=== PATIENT | male | born 1945 | race Caucasian/White ===

== ENCOUNTER → 2017-10-24 12:00 | Outpatient (CLI) | payer MEDICARE, OTHER, SELFPAY ==
[2017-10-24 15:58] LABS: Basophils % 0.6 % (0.1-2.0); Eosinophils # 0.9 K/mm3 (0.0-0.4); Eosinophils % 13.9 % (0.1-12.0); Hematocrit 43.6 % (42.0-52.0); Hemoglobin 14.9 g/dL (14.1-18.0); Lymphocytes # 1.7 K/mm3 (0.7-4.5); Lymphocytes % 25.6 K/mm3 (10-50); Mean Corpuscular HGB Conc 34.1 g/dL (31.8-35.4); Mean Corpuscular Volume 93.9 fl (80-94); Mean Platelet Volume 7.7 fl (7.4-10.4); Monocytes # 0.4 K/mm3 (0.1-1.0); Neutrophils # 3.6 K/mm3 (1.8-7.8); Neutrophils % 53.8 % (37.0-80.0); Platelet Count 162 K/mm3 (142-424); Red Blood Count 4.65 M/mm3 (4.60-6.20); Red Cell Distribution Width 12.5 % (11.5-17.5); White Blood Count 6.7 K/mm3 (4.8-10.8)
[2017-10-24 16:56] LABS: Erythrocyte Sedimentation Rate 11 mm/hr (0-20)
[2017-10-24 19:35] LABS: Alanine Aminotransferase 40 U/L (12-78); Albumin Level 3.8 gm/dL (3.4-5.0); Albumin/Globulin Ratio 1.3 (1.1-1.8); Alkaline Phosphatase 93 U/L (46-116); Aspartate Amino Transferase 24 U/L (15-37); Bilirubin,Total 0.9 mg/dL (0.2-1.0); Blood Urea Nitrogen 15 mg/dL (7-18); Calcium 8.7 mg/dL (8.5-10.1); Carbon Dioxide 25 mmol/L (21.0-32.0); Chloride 102 mmol/L (98-107); Creatinine Clearance Estimated 105 mL/min (0-300); Creatinine,Serum 0.96 mg/dL (0.70-1.30); Estimated Glomerular Filt Rate 77 ml/min (>60); GFR (African American) 94 ML/MIN (>60); Globulin 2.9 gm/dl (1.3-3.2); Glucose 110 mg/dL (74-106); Sodium 138 mmol/L (136-145); Thyroid Stimulating Hormone 1.99 uIU/ml (0.358-3.740); Total Protein,Serum 6.7 gm/dL (6.4-8.2)
[2018-01-12 13:29] LABS: Homocyst(e)ine 13.3
[2018-01-12 13:30] LABS: Vitamin B12 1035
[2018-01-12 13:35] LABS: Folate 15.5
== END ==
PROVIDERS: Family Provider Family Medicine; PCP Family Medicine; Visit Provider Specialist
DX: G45.9 Transient cerebral ischemic attack, unspecified (principal); R51 Headache; I10 Essential (primary) hypertension; R41.3 Other amnesia; E78.5 Hyperlipidemia, unspecified; E53.8 Deficiency of other specified B group vitamins; E72.11 Homocystinuria
CPT/HCPCS: 36415; 80053; 82607; 82746; 83090; 84443; 85025; 85651

== ENCOUNTER → 2017-11-01 08:23 | Outpatient (CLI) | payer MEDICARE, OTHER, SELFPAY | PROVIDERS: Family Provider Family Medicine; PCP Family Medicine; Visit Provider Specialist | DX: G45.8 Other transient cerebral ischemic attacks and related syndromes (principal); R51 Headache ==

== ENCOUNTER → 2017-11-03 10:57 | Outpatient (CLI) | payer MEDICARE, OTHER, SELFPAY ==
--- NOTE | 2017-11-03 11:24 | MR_ITS ---
MR head/brain wo/w con HISTORY: ITS.REASON: TRANSIENT CEREBRAL ISCHEMIA, HEADACHES ORDERING PHYSICIAN: Cynthia Scruggs MD PATIENT AGE: 71 years COMPARISON: None TECHNIQUE: Standard multiplanar multiecho sequences are performed without contrast. FINDINGS: No midline shift, mass effect, intracranial hemorrhage, or hydrocephalus is evident. No evidence of acute infarction. No enhancing lesions. There are scattered periventricular and subcortical T2 white matter hyperintensities which may be related to ischemic gliotic foci from small vessel disease. There are scattered perivascular dilated spaces within the basal ganglia. The cerebellopontine angles, cerebellum, and brainstem are unremarkable. Hippocampal structures are unremarkable in the temporal horns are symmetric. No restricted diffusion. Pituitary and optic chiasm are unremarkable. No cerebellar ectopia. No mastoid effusion or sinus air-fluid level. There is mild mucosal thickening of the maxillary sinuses inferiorly. IMPRESSION: 1. No acute intracranial findings. 2. Mild periventricular ischemic gliotic change 3. Mild bilateral maxillary sinus disease
== END ==
PROVIDERS: Family Provider Family Medicine; PCP Family Medicine; Visit Provider Specialist
DX: G45.8 Other transient cerebral ischemic attacks and related syndromes (principal); R51 Headache
CPT/HCPCS: 70553; A9576

== ENCOUNTER → 2017-11-14 12:49 | Outpatient (CLI) | payer MEDICARE, OTHER, SELFPAY ==
--- NOTE | 2017-11-14 13:09 | CT_ITS ---
CT heart w calcium score Ordering Physician: Harmeet Chen MD Patient Age: 71 years: Male HISTORY: ITS.REASON: abnormal ekg extensive coronary artery calcium as seen on recent prior LD CT chest TECHNIQUE: Limited imaging performed focus seen through low dose sections through the heart for purposes of CT calcium scoring determination. COMPARISON :LD CT for lung screening August 05, 2017. FINDINGS: Coronary calcium score is 541 which is very high score and reflects extensive plaque burden with very high CVD risk. high cardiovascular disease risk. Limited images submitted of the chest for the calcium score shows developing dilatation of the proximal ascending aorta at 4.2 cm Heart appears upper normal in size with no pericardial effusion with the extensive coronary artery calcification as well as noted above. COPD emphysematous changes as previously described IMPRESSION: Calcium score = 541. This very high score reflecting extensive plaque burden & very high risk of cardiovascular disease . Mild Dilated ascending aorta measured 4.2 cm diameter
== END ==
PROVIDERS: Family Provider Family Medicine; PCP Family Medicine; Visit Provider Internal Medicine Cardiovascular Disease
DX: R94.31 Abnormal electrocardiogram [ECG] [EKG] (principal)
CPT/HCPCS: 75571

== ENCOUNTER 2017-11-17 12:06 | Day surgery (SDC) | payer MEDICARE, OTHER, SELFPAY ==
[2017-11-17] VITALS (8 sets, daily range): BP systolic 115–142; BP diastolic 66–75; PULSE 58–68; RESP 16–18; O2SAT 96–97; BMI 29.1
--- NOTE | 2017-11-17 12:14 | CA_ITS ---
Procedure: Transesophageal echocardiogram Indication for procedure: TIA, hypertension hyperlipidemia. Procedure: Patient was brought into cardiac catheter lab holding area with an consistent with condition, after the informed consent, conscious sedation was provided by anesthesiologist, local anesthesia was applied and transesophageal echocardiogram was performed without any difficulty. Patient tolerated the procedure well. Findings: 1. The left atrium is mildly enlarged, left atrial appendage is free of thrombus, there is good appendage flow by spectral Doppler. 2. The right atrium is normal size. 3. The intra-atrial septum is intact, there is no flow across the intra-atrial septum, agitated saline contrast study fails to identify intracardiac shunt. 4. The aortic valve is thickened and calcified, leaflet continue to display good mobility, there is no aortic stenosis, there is mild aortic insufficiency. 5. The mitral valve is structurally normal, there is mild mitral regurgitation 6. The tricuspid valve is structurally normal, there is mild tricuspid regurgitation 7. The pulmonic valve is structurally normal. 8. The right ventricle is normal size and contractility. 9. The left ventricle is normal size, visually estimated ejection fraction 55% with no obvious regional wall motion abnormality. 10. Ascending, arch and descending thoracic aorta, there is no aneurysm or dissection, nonmobile by atheromatous plaque seen in the descending thoracic aorta. 11. No significant pericardial effusion noted. Conclusion: 1. Mildly enlarged left atrium, normal left ventricular size, visually estimated ejection fraction 55% with no obvious regional wall motion abnormality. 2. Mild aortic, mild mitral and tricuspid regurgitation 3. Agitated is and color Doppler 5 intracardiac shunt. 4. No obvious intracardiac thrombi seen. 5. Nonmobile atheromatous plaque seen in the descending thoracic aorta. 6. No significant pericardial effusion noted.
--- NOTE | 2017-11-17 13:22 | P.PN_ITS ---
[facility] Anesthesia Checklist - Patient Identification Patient Identification: Arm Band - Structural Data Admitted From: Home Planned Operative Procedure/s: glenn Consent for Planned Operative Procedure(s) Verified: Yes Verified Documents: Surgical Consent, History and Physical - NPO Status Verified Time NPO: 00:00 - Additional verifications Anesthesia Reactions: No - Airway Assessment C-Spine Mobility Assessed: Yes (mp2) TMJ Mobility Assessed: Yes Dentition: Good Dentition - Neurological Assessment Level of Consciousness: Awake, Alert - Anesthesia Plan Anesthesia Risk discussed: Yes Anesthesia Plan: Verified ASA Class: III Anesthesia Type: MAC [facility] Anesthesia HX I have reviewed the patient's past medical history: Yes Medical History: Reports:: Gastroesophageal Reflux Disease(GERD), Hyperlipidemia , Hypertension, Transient Ischemic Attacks (TIA) Denies:: Cancer, Diabetes Mellitus Type 1, Diabetes Mellitus Type 2, Internal Pacemaker, MRSA, Seizures Other Medical History: Reports: Arthritis, Cataracts, Glaucoma. Denies: Blood Transfusion Reaction Other Surgeries: Yes: Hernia Repair (x2). No: Pacemaker Amputation: No Fractures: No *Family Hx:: Cancer, Stroke, Heart Attack
== END 2017-11-17 14:15 | disposition home or self-care (01) ==
LOC: CATHLAB 12:09
PROVIDERS: Family Provider Family Medicine; PCP Family Medicine; Visit Provider Internal Medicine Cardiovascular Disease
DX: R53.81 Other malaise (principal); Z82.49 Family history of ischemic heart disease and other diseases of the circulatory system; R47.01 Aphasia; G47.33 Obstructive sleep apnea (adult) (pediatric); R93.1 Abnormal findings on diagnostic imaging of heart and coronary circulation
CPT/HCPCS: 93312; 99152

== ENCOUNTER → 2017-12-06 06:32 | Outpatient (CLI) | payer MEDICARE, OTHER, SELFPAY ==
--- NOTE | 2017-12-06 06:35 | NM_ITS ---
SPECT MYOCARDIAL PERFUSION SCAN, REST AND STRESS: EXERCISE STRESS: [facility] REVIEW QGS EF AND WALL MOTION EVALUATION: QPS - PERFUSION EVALUATION: HISTORY: Fatigue, HTN PROCEDURE: Rest imaging performed after administration of10.23 millicuries Tc MIBI. Dose administered at6:50 a.m., with imaging thereafter. Stress imaging was then performed following7 minutes 15 seconds of exercise stress. The patient achieved a heart [id number] with projected heart rate of126 . Resting BP151/80 with stress 215/85. At maximum exercise stress,32.0 millicuries Tc MIBI administered at8:45 a.m. with [id number] minutes thereafter. FINDINGS: Perfusion Evaluation: The single slice spect images as well as the [facility] bull's-eye data summary were reviewed. Wall Motion and Ejection Fraction Evaluation: Gated SPECT review and analysis used to evaluate these features. There is a 59% % left ventricular ejection fraction. There seems to be good wall motion Stress images reveal decreased activity in the inferior wall while rest images reveal worsening activity in the inferior wall. 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 Normal ejection fraction normal wall motion. Clinical correlation is advised this is at least a moderate risk abnormal stress test
--- NOTE | 2017-12-06 07:00 | HMH.ITSHM ---
ATORVASTATIN LISINOPRIL FOLIC ACID FISH OIL ASA
== END ==
PROVIDERS: Family Provider Family Medicine; PCP Family Medicine; Visit Provider Internal Medicine Cardiovascular Disease
DX: G47.33 Obstructive sleep apnea (adult) (pediatric) (principal); Z86.73 Personal history of transient ischemic attack (TIA), and cerebral infarction without residual deficits; Z82.49 Family history of ischemic heart disease and other diseases of the circulatory system; R53.83 Other fatigue; R47.01 Aphasia; E78.5 Hyperlipidemia, unspecified; R94.31 Abnormal electrocardiogram [ECG] [EKG]; I10 Essential (primary) hypertension; R51 Headache; R06.02 Shortness of breath
CPT/HCPCS: 78452; 93017; A9502

== ENCOUNTER → 2018-01-10 07:09 | Outpatient (CLI) | payer MEDICARE, OTHER, SELFPAY ==
[2018-01-10 08:53] LABS: Blood Urea Nitrogen 20 mg/dL (7-18); Carbon Dioxide 26 mmol/L (21.0-32.0); Chloride 105 mmol/L (98-107); Creatinine,Serum 0.95 mg/dL (0.70-1.30); Estimated Glomerular Filt Rate 78 ml/min (>60); GFR (African American) 95 ML/MIN (>60); Glucose 112 mg/dL (74-106); Sodium 140 mmol/L (136-145)
[2018-01-12 06:32] LABS: Vitamin B12 1465 pg/mL (232-1245); Vitamin D 25 Hydroxy 38.3 ng/mL (30.0-100.0)
== END ==
PROVIDERS: Internal Medicine Cardiovascular Disease; Visit Provider Family Medicine
DX: E53.8 Deficiency of other specified B group vitamins (principal); E87.6 Hypokalemia; E55.9 Vitamin D deficiency, unspecified
CPT/HCPCS: 36415; 80048; 82607; 82652

== ENCOUNTER → 2018-08-15 07:11 | Outpatient (CLI) | payer MEDICARE, OTHER, SELFPAY ==
[2018-08-15 07:41] LABS: Creatinine,Urine Random 155 mg/dL (20-320)
[2018-08-15 09:06] LABS: Alanine Aminotransferase 34 U/L (12-78); Albumin Level 3.7 gm/dL (3.4-5.0); Albumin/Globulin Ratio 1.3 (1.1-1.8); Alkaline Phosphatase 106 U/L (46-116); Anion Gap 13.1 mEq/L (5-15); Aspartate Amino Transferase 21 U/L (15-37); Bilirubin,Total 0.8 mg/dL (0.2-1.0); Blood Urea Nitrogen 12 mg/dL (7-18); Calcium 8.6 mg/dL (8.5-10.1); Carbon Dioxide 26 mmol/L (21.0-32.0); Chloride 102 mmol/L (98-107); Chol/HDL Ratio 2.2 (1-3.5); Cholesterol 129 mg/dL (140-200); Creatinine,Serum 0.96 mg/dL (0.70-1.30); Estimated Glomerular Filt Rate 77 ml/min (>60); GFR (African American) 93 ML/MIN (>60); Globulin 2.9 gm/dl (1.3-3.2); Glucose 118 mg/dL (74-106); HDL Cholesterol 60 mg/dL (27-67); LDL Cholesterol 62 mg/dL (0-130); Potassium 4.1 mmoL/L (3.5-5.1); Prostate Specific Ag Screen 4.4 ng/mL (0.0-4.0); Sodium 137 mmol/L (136-145); Thyroid Stimulating Hormone 2.57 uIU/ml (0.358-3.740); Total Protein,Serum 6.6 gm/dL (6.4-8.2); Triglycerides 36 mg/dL (30-200); VLDL Cholesterol 7 mg/dL (0-40)
[2018-08-16 06:21] LABS: Vitamin D 25 Hydroxy 33.7 ng/mL (30.0-100.0)
[2018-08-16 14:18] LABS: Vitamin B12 964 pg/mL (232-1245)
[2018-08-18 16:13] LABS: Microalbumin, Urine 13.5 ug/mL (Not Estab.)
== END ==
PROVIDERS: Visit Provider Family Medicine
DX: E78.00 Pure hypercholesterolemia, unspecified (principal); I10 Essential (primary) hypertension; E53.8 Deficiency of other specified B group vitamins; E55.9 Vitamin D deficiency, unspecified; Z12.5 Encounter for screening for malignant neoplasm of prostate
CPT/HCPCS: 36415; 80053; 80061; 82043; 82570; 82607; 82652; 84443; G0103

== ENCOUNTER → 2018-11-14 08:10 | Outpatient (CLI) | payer MEDICARE, OTHER, SELFPAY ==
--- NOTE | 2018-11-14 08:13 | CI_ITS ---
Cerebrovascular Exam Indications: 433.10 Occlusion/stenosis of carotid artery without cerebral infarction. IMPRESSIONS 1. The leftvertebral arteries are patent with normal antegrade flow. Unable to visualize right vertebral 2. Study suggests 20-49% stenosis involving the right internal carotid artery and the left internal carotid artery. No change from the study of 05-Jun-2015. Carotid duplex study. Complete study and Doppler flow study including spectral analysis, color and oliver scale imaging. Location: Vascular laboratory. Patient status: Outpatient. Tables: Arterial flow: + +--------+--------+ Location V sys V ed + +--------+--------+ Right CCA - proximal 71.5cm/s 14.9cm/s + +--------+--------+ Right CCA - distal 55.8cm/s 16.5cm/s + +--------+--------+ Right ECA 98.2cm/s -------- + +--------+--------+ Right ICA - proximal 63.6cm/s 22.8cm/s + +--------+--------+ Right ICA - mid 74.6cm/s 24.4cm/s + +--------+--------+ Right ICA - distal 79.4cm/s 25.9cm/s + +--------+--------+ Left CCA - proximal 69.1cm/s 14.9cm/s + +--------+--------+ Left CCA - distal 62.9cm/s 13.4cm/s + +--------+--------+ Left ECA 87.2cm/s -------- + +--------+--------+ Left ICA - proximal 57.4cm/s 18.9cm/s + +--------+--------+ Left ICA - mid 62.9cm/s 28.3cm/s + +--------+--------+ Left ICA - distal 65.2cm/s 27.5cm/s + +--------+--------+ Left vertebral 44.8cm/s -------- + +--------+--------+ Velocity ratios: + + + + + + Right, V sys Right, V ed Left, V sys Left, V ed + + + + + + Max ICA/dist CCA 1.42 1.57 1.04 2.11 + + + + + + (Report amended ) Electronically signed by: Patricio Mathias [id number]
== END ==
PROVIDERS: PCP Family Medicine; Visit Provider Internal Medicine Cardiovascular Disease
DX: R47.01 Aphasia (principal)
CPT/HCPCS: 93880

== ENCOUNTER 2019-11-08 14:14 | Outpatient (RCR) | payer MEDICARE, OTHER, SELFPAY | END 2019-11-08 14:20 | disposition home or self-care (01) | LOC: PT 14:14 | PROVIDERS: PCP Family Medicine | DX: M17.0 Bilateral primary osteoarthritis of knee (principal) | CPT/HCPCS: 97163 ==

== ENCOUNTER → 2020-01-29 10:20 | Outpatient (CLI) | payer MEDICARE, OTHER, SELFPAY ==
[2020-01-30 14:17] LABS: H. pylori Breath Test Negative (Negative)
== END ==
PROVIDERS: Visit Provider Family Medicine
DX: R21 Rash and other nonspecific skin eruption (principal); Z86.19 Personal history of other infectious and parasitic diseases
CPT/HCPCS: 83013

== ENCOUNTER → 2020-05-01 13:10 | Outpatient (CLI) | payer MEDICARE, OTHER, SELFPAY ==
--- NOTE | 2020-05-01 13:15 | US_ITS ---
PROCEDURE: US TESTICULAR CLINICAL INDICATION: ENLARGEMENT OF SCROTAL SAC COMPARISON: No exams were available for comparison FINDINGS: There are large bilateral hydroceles. The testicle on the right was not identified despite intensive search within the large hydrocele. The left testicle has an unremarkable appearance at 4 x 3 x 3 cm. Blood flow is present. No testicular mass evident on the left. IMPRESSION: Large bilateral hydroceles. Unremarkable appearing left testicle. The right testicle was not visualized. Possibilities include severe atrophy of the testicle versus high inguinal or abdominal location Dictated by: Patricio Mathias MD 05/01/2020 17:15 Patricio Mathias MD in [facility] 05/01/2020 17:15
== END ==
PROVIDERS: PCP Family Medicine; Visit Provider Family Medicine
DX: N50.89 Other specified disorders of the male genital organs (principal)
CPT/HCPCS: 76870

== ENCOUNTER → 2020-05-22 09:00 | Outpatient (CLI) | payer MEDICARE, OTHER, SELFPAY ==
--- NOTE | 2020-05-22 09:09 | CT_ITS ---
PROCEDURE: CT ABDOMEN PELVIS W CON CLINICAL INDICATION: GROIN PAIN R TESTICULAR SWELLING,,BILATERAL HYDROPHILES COMPARISON: CT ABDPELW CT ABD PELVIS W/ CONTRAST from 07/07/2016 TECHNIQUE: IV Contrast: 75ML OPTIRAY 350 Oral Contrast None Axial images obtained with sagittal and coronal reformats. All CT scans at the facility use one or more dose reduction, viz: automated exposure control, ma/kV adjustment per patient size (including targeted exams where dose is matched to indication, i.e. head), or iterative reconstruction technique. FINDINGS: LOWER THORAX: There is a 5 mm nodular opacity in the right lower lobe posterior laterally. This is not readily apparent on the previous study. Six-month follow-up may confirm short term stability. Coronary artery calcifications are present. ABDOMEN & PELVIS: The the liver is unremarkable. There has been a prior cholecystectomy. The spleen, adrenal glands, have an unremarkable appearance. There is mild diffuse fatty infiltration of the pancreas. There is a small right renal cyst. There is an exophytic left renal cyst which measures 2.7 cm. No renal or ureteral calculi. No hydronephrosis. No ureteral calculi. No evidence of appendicitis. There are scattered colonic diverticula but no evidence of diverticulitis. Increased soft tissue density is present in the right inguinal region. This may be due to postsurgical changes from prior hernia repair having a similar appearance on the previous exam. Surgical clips are present in the left lower quadrant unchanged. Images are obtained through the perineal region demonstrated a moderate-sized right hydrocele. What appears to represent the testicle is noted along the lower aspect of the right hydrocele. The right testicle density averages 4 Hounsfield units. Left testicle density is approximately 12 Hounsfield units. There are degenerative changes of the lumbar spine. IMPRESSION: 1. Right-sided hydrocele. What appears to represent the right testicle is noted in the lower aspect of the hydrocele with low-density changes of the right testicle. This is of uncertain clinical significance. 2. Increased soft tissue density in the right inguinal region adjacent to the lateral aspect of the urinary bladder and may reflect postsurgical changes from prior hernia repair. Not significantly changed. Which may be due to prior hernia repair not significantly changed. 3. Diverticulosis of the colon. No evidence of diverticulitis Dictated by: Patricio Mathias MD 05/23/2020 15:32 Patricio Mathias MD in [facility] 05/23/2020 15:32
[2020-05-22 09:31] LABS: Blood Urea Nitrogen 15 mg/dl (9-20); Estimated Glomerular Filt Rate 83 ml/min (>60); GFR (African American) 100 ML/MIN (>60)
== END ==
PROVIDERS: PCP Family Medicine; Visit Provider Urology
DX: N43.3 Hydrocele, unspecified (principal); R10.31 Right lower quadrant pain
CPT/HCPCS: 36415; 74177; 82565; 84520; Q9967

== ENCOUNTER → 2020-07-08 14:24 | Outpatient (CLI) | payer MEDICARE, OTHER, SELFPAY ==
--- NOTE | 2020-07-08 14:26 | CA_ITS ---
APPROVED REPORT Snowblower Mechanic: SAHIL Laterality: Bilateral Study Quality: Good Indications: yue Doppler Spectral Velocity Analysis dICA (R) 78.90/19.90 cm/s dICA (L) 62.60/16.00 cm/s Bharat (R) 72.80/24.50 cm/s Bharat (L) 56.30/17.00 cm/s pICA (R) 65.50/21.00 cm/s pICA (L) 56.90/15.80 cm/s dCCA (R) 105.20/12.60 cm/s dCCA (L) 70.30/11.00 cm/s pCCA (R) 169.70/22.40 cm/s pCCA (L) 74.60/9.40 cm/s Vert (R) 50.50/12.40 cm/s Vert (L) 66.60/17.90 cm/s ICA/CCA 0.75 ICA/CCA 0.89 Findings Duplex evaluation demonstrates stenosis of the right proximal internal carotid artery in the range of 20-49%(lower end of scale) with PSV <140 cm/sec, EDV <100 cm/sec, and IC/CC Ratio <4.0.Duplex evaluation demonstrates stenosis of the left proximal internal carotid artery in the range of 20-49%(lower end of scale) with PSV <140 cm/sec, EDV <100 cm/sec, and IC/CC Ratio <4.0.Antegrade flow seen bilateral vertebral arteries. No significant change from study of 11/14/18 Conclusion Duplex evaluation demonstrates stenosis of the right proximal internal carotid artery in the range of 20-49%(lower end of scale) with PSV <140 cm/sec, EDV <100 cm/sec, and IC/CC Ratio <4.0.Duplex evaluation demonstrates stenosis of the left proximal internal carotid artery in the range of 20-49%(lower end of scale) with PSV <140 cm/sec, EDV <100 cm/sec, and IC/CC Ratio <4.0.Antegrade flow seen bilateral vertebral arteries. No significant change from study of 11/14/18 Electronically signed by : Patricio Mathias MD 07/08/2020 17:16:36
--- NOTE | 2020-07-08 15:09 | XR_ITS ---
PROCEDURE: XR CHEST 2V CLINICAL HISTORY: ITCH HX, RASH AND OTHER NONSPECIFIC SKIN ERUPTION, PRURITUS COMPARISON: CT [facility] CT CHEST W/O CONTRAST from 07/31/2015 FINDINGS: The cardiomediastinal silhouette and pulmonary vascularity are within normal limits. The lungs are clear without infiltrates, suspicious nodules, or pleural effusions. Calcified granulomas present in the left midlung. No acute bony findings. IMPRESSION: No acute findings. Dictated by: Patricio Mathias MD 07/08/2020 16:39 Patricio Mathias MD in [facility] 07/08/2020 16:39
== END ==
PROVIDERS: PCP Family Medicine; Visit Provider Internal Medicine Cardiovascular Disease
DX: I10 Essential (primary) hypertension; I25.10 Atherosclerotic heart disease of native coronary artery without angina pectoris; Z86.73 Personal history of transient ischemic attack (TIA), and cerebral infarction without residual deficits; E78.49 Other hyperlipidemia; I65.23 Occlusion and stenosis of bilateral carotid arteries
CPT/HCPCS: 71046; 93880

== ENCOUNTER → 2021-05-22 07:34 | Outpatient (CLI) | payer MEDICARE, OTHER, SELFPAY ==
[2021-05-22 08:02] LABS: Basophils # 0.1 K/mm3 (0-0.2); Basophils % 1.1 % (0.1-2.0); Eosinophils # 0.4 K/mm3 (0.0-0.4); Eosinophils % 7.6 % (0.1-12.0); Hematocrit 45.4 % (42.0-52.0); Hemoglobin 14.8 g/dL (14.1-18.0); Lymphocytes % 18.8 % (10-50); Mean Corpuscular HGB Conc 32.5 g/dL (31.8-35.4); Mean Corpuscular Hemoglobin 33.6 pg (27.0-31.2); Mean Corpuscular Volume 103.4 fl (80-94); Mean Platelet Volume 8.2 fl (7.4-10.4); Monocytes # 0.4 K/mm3 (0.1-1.0); Monocytes % 7.7 % (1.7-9.3); Neutrophils # 3.4 K/mm3 (1.8-7.8); Neutrophils % 64.8 % (37.0-80.0); Platelet Count 167 K/mm3 (142-424); Red Blood Count 4.39 M/mm3 (4.60-6.20); White Blood Count 5.2 K/mm3 (4.8-10.8)
--- NOTE | 2021-05-22 08:04 | ECG_ITS ---
APPROVED REPORT Exam: Resting ECG HR:55 bpm ECG Measurements Heart Rate [address] 210 P 59 QRSd 94 QRS 0 QT 434 T 18 QTc 415 Conclusion Sinus bradycardia with 1st degree AV block Otherwise normal ECG Electronically signed by : Rocael Tejada MD 05/22/2021 17:34:16
[2021-05-22 08:21] LABS: Activated Partial Thrombo Time 26.4 seconds (22.8-30.6)
[2021-05-22 08:22] LABS: INR 0.93 (0.9-1.1)
[2021-05-22 08:26] LABS: Hemoglobin A1C 5.8 % (4.0-6.0)
[2021-05-22 08:34] LABS: Alanine Aminotransferase 21 U/L (12-78); Albumin Level 3.8 g/dl (3.5-5.0); Albumin/Globulin Ratio 1.5 (1.1-1.8); Alkaline Phosphatase 102 U/L (38-126); Anion Gap 13.5 mEq/L (5-15); Aspartate Amino Transferase 30 U/L (17-59); Bilirubin,Total 0.8 mg/dl (0.2-1.3); Blood Urea Nitrogen 14 mg/dl (9-20); Carbon Dioxide 26 mmol/L (22.0-30.0); Chloride 101 mmol/L (98-107); Estimated Glomerular Filt Rate 94 ml/min (>60); GFR (African American) 114 ML/MIN (>60); Globulin 2.5 g/dL (1.3-3.2); Glucose 105 mg/dl (74-100); Potassium 4.5 mmoL/L (3.5-5.1); Sodium 136 mmol/L (136-145); Total Protein,Serum 6.3 g/dl (6.3-8.2)
[2021-05-22 09:04] LABS: Prostate Specific Ag, Diagnost 4.95 ng/ml (0.0-4.0)
[2021-05-23 09:19] LABS: Prealbumin 25 mg/dL (9-32)
[2021-05-23 10:57] LABS: Miscellaneous Test 217
== END ==
PROVIDERS: Visit Provider Family Medicine
DX: Z01.818 Encounter for other preprocedural examination (principal); R97.20 Elevated prostate specific antigen [PSA]; Z79.899 Other long term (current) drug therapy; Z51.81 Encounter for therapeutic drug level monitoring
CPT/HCPCS: 36415; 80053; 83036; 84134; 84153; 85025; 85610; 85730; 93005

== ENCOUNTER → 2021-07-08 09:50 | Outpatient (CLI) | payer MEDICARE, OTHER, SELFPAY ==
--- NOTE | 2021-07-08 | CA_ITS ---
APPROVED REPORT Charge Operator: Jocelynn Bernal RVT Laterality: Bilateral Study Quality: Good Indications: Carotid stenosis Risk Factors Hyperlipidemia Doppler Spectral Velocity Analysis ECA (R) 92.00/10.70 cm/s ECA (L) 144.40/10.70 cm/s dICA (R) 74.90/18.20 cm/s dICA (L) 80.20/18.20 cm/s Bharat (R) 72.70/22.50 cm/s Bharat (L) 71.60/18.20 cm/s pICA (R) 47.00/13.90 cm/s pICA (L) 54.50/8.60 cm/s dCCA (R) 63.10/8.60 cm/s dCCA (L) 74.90/17.10 cm/s pCCA (R) 98.40/16.00 cm/s pCCA (L) 99.40/10.70 cm/s Vert (R) 58.40/15.70 cm/s Vert (L) 75.90/18.20 cm/s ICA/CCA 1.19 ICA/CCA 1.07 Findings Study suggests 20-49% (lower end of scale)stenosis of the right internal cartoid artery. Study suggests 20-49% stenosis of the left internal cartoid artery. Antegrade flow seen bilateral vertebral arteries. Conclusion Study suggests 20-49% (lower end of scale)stenosis of the right internal cartoid artery. Study suggests 20-49% stenosis of the left internal cartoid artery. Antegrade flow seen bilateral vertebral arteries. Electronically signed by : Patricio Mathias MD 07/08/2021 17:14:44
== END ==
PROVIDERS: PCP Family Medicine; Visit Provider Internal Medicine Cardiovascular Disease
DX: Z86.73 Personal history of transient ischemic attack (TIA), and cerebral infarction without residual deficits (principal); I25.10 Atherosclerotic heart disease of native coronary artery without angina pectoris
CPT/HCPCS: 93880

== ENCOUNTER → 2021-08-20 13:01 | Outpatient (CLI) | payer MEDICARE, OTHER, SELFPAY ==
[2021-08-20 14:10] LABS: Adenovirus,PCR Not Detected (NotDetected); Bordetella Pertussis Not Detected (NotDetected); Chlamydophila Pneumoniae, PCR Not Detected (NotDetected); Coronavirus 19, PCR Not Detected (NotDetected); Coronavirus 229E Not Detected (NotDetected); Coronavirus NL63 Not Detected (NotDetected); Coronavirus OC43 Not Detected (NotDetected); Coronovirus HKU1,PCR Not Detected (NotDetected); Influenza A, PCR Not Detected (NotDetected); Influenza AH1, 2009 Not Detected (NotDetected); Influenza AH1, PCR Not Detected (NotDetected); Influenza AH3,PCR Not Detected (NotDetected); Influenza B, PCR Not Detected (NotDetected); Mycoplasma Pneumoniae, PCR Not Detected (NotDetected); Parainfluenza 1, PCR Not Detected (NotDetected); Parainfluenza 2, PCR Not Detected (NotDetected); Parainfluenza 3, PCR Not Detected (NotDetected); Parainfluenza 4, PCR Not Detected (NotDetected); Respiratory Syncytial Virus Not Detected (NotDetected); Rhinovirus/Enterovirus Not Detected (NotDetected)
[2021-08-20 14:16] LABS: Basophils % 0.8 % (0.1-2.0); Eosinophils # 0.4 K/mm3 (0.0-0.4); Eosinophils % 9.2 % (0.1-12.0); Hematocrit 40.8 % (42.0-52.0); Hemoglobin 13.4 g/dL (14.1-18.0); Lymphocytes # 0.9 K/mm3 (0.7-4.5); Lymphocytes % 24.4 % (10-50); Mean Corpuscular HGB Conc 32.9 g/dL (31.8-35.4); Mean Corpuscular Hemoglobin 33.1 pg (27.0-31.2); Mean Corpuscular Volume 100.5 fl (80-94); Mean Platelet Volume 8.1 fl (7.4-10.4); Monocytes # 0.4 K/mm3 (0.1-1.0); Monocytes % 9.9 % (1.7-9.3); Neutrophils # 2.1 K/mm3 (1.8-7.8); Neutrophils % 55.6 % (37.0-80.0); Platelet Count 172 K/mm3 (142-424); Red Blood Count 4.06 M/mm3 (4.60-6.20); Red Cell Distribution Width 12.5 % (11.5-17.5); White Blood Count 3.8 K/mm3 (4.8-10.8)
[2021-08-20 16:58] LABS: Human Metapneumovirus Detected (NotDetected)
== END ==
PROVIDERS: PCP Family Medicine; Visit Provider Family Medicine
DX: Z20.822 Contact with and (suspected) exposure to COVID-19 (principal); B97.81 Human metapneumovirus as the cause of diseases classified elsewhere
CPT/HCPCS: 36415; 85025; 87581; 87632; 87798; C9803; U0003; U0005

== ENCOUNTER → 2021-12-08 13:57 | Outpatient (CLI) | payer MEDICARE, OTHER, SELFPAY ==
[2021-12-08 15:27] LABS: Blood Urea Nitrogen 14 mg/dl (9-20); Estimated Glomerular Filt Rate 94 ml/min (>60); GFR (African American) 114 ML/MIN (>60)
== END ==
PROVIDERS: Visit Provider Surgery
DX: R13.10 Dysphagia, unspecified (principal)
CPT/HCPCS: 36415; 82565; 84520

== ENCOUNTER → 2021-12-11 08:34 | Outpatient (CLI) | payer MEDICARE, OTHER, SELFPAY ==
--- NOTE | 2021-12-11 08:34 | FL_ITS ---
FINAL REPORT CLINICAL HISTORY: dysphagia FINDINGS: AIR CONTRAST UPPER GI HISTORY: Dysphagia, food feels like it gets stuck in throat. TECHNIQUE: Patient ingested thick and thin barium contrast. Effervescent crystals were also administered. Spot and overhead films were performed. A total of 53 images were saved. FINDINGS: There is a small sliding type hiatal hernia. The stomach is of normal size, shape and position. No gastric filling defects are seen. The duodenal bulb appears unremarkable. There is a small duodenal diverticulum in the 4th portion of the duodenum. There is gastroesophageal reflux to the mid esophagus. 13mm barium tablet is delayed in the distal esophagus and does not pass during the exam. FLUOROSCOPY TIME: 1 minute 43 seconds IMPRESSION: Small sliding-type hiatal hernia with gastroesophageal reflux. Duodenal diverticulum. 13 mm barium tablet does not pass through the distal esophagus during the examination. Consider endoscopic correlation. Reviewed, Interpreted and Dictated by Morgan Humphreys MD Transcribed by Lacie Mcelroy PA-C Authenticated by Morgan Humphreys MD on 12/11/2021 11:17:15 AM [facility]
== END ==
PROVIDERS: PCP Family Medicine; Visit Provider Surgery
DX: R13.10 Dysphagia, unspecified (principal)
CPT/HCPCS: 74246

== ENCOUNTER → 2021-12-14 10:13 | Outpatient (CLI) | payer MEDICARE, OTHER, SELFPAY ==
--- NOTE | 2021-12-14 10:13 | CT_ITS ---
FINAL REPORT CLINICAL HISTORY: RLQ pain COMPARISON: May 22, 2020 FINDINGS: CT OF THE ABDOMEN AND PELVIS WITH CONTRAST Axial CT images of the abdomen and pelvis were obtained after the administration of oral and iv contrast. Coronal reformatted images were also obtained and reviewed.This study was performed with techniques to keep radiation doses as low as reasonably achievable (ALARA). Individualized dose reduction techniques using automated exposure control or adjustment of mA and/or kV according to the patient's size were employed. Abdomen: There is mild bibasilar scarring or atelectasis. The heart is normal in size. The liver has an unremarkable appearance, without evidence of mass or biliary ductal dilatation. There has been cholecystectomy. Residual barium in the colon causes significant streak artifact. The spleen is unremarkable. No adrenal mass is present. The pancreas has an unremarkable appearance. Multiple bilateral renal cysts are stable. The aorta is normal in caliber. There is persistent stranding in the small bowel mesentery that may be reactive or represent mesenteric panniculitis. No mass or abnormal fluid collection is seen. Pelvis: The appendix is not well-visualized. There are scattered diverticula throughout the colon. The urinary bladder is unremarkable. No inflammatory process is seen. There is no evidence of mass or adenopathy. There is no evidence of bowel obstruction. Postoperative changes are seen in the left inguinal region. There are questionable postoperative changes in the right inguinal region. IMPRESSION: Streak artifact from residual barium. Persistent stranding in the small bowel mesentery may be reactive or represent mesenteric panniculitis. Appendix not identified. Diverticulosis without evidence of diverticulitis. Reviewed, Interpreted and Dictated by Ho Lange III, MD Transcribed by Dick Saldaña Authenticated by Ho Lange III, MD on 12/14/2021 11:41:41 AM [facility]
== END ==
PROVIDERS: PCP Family Medicine; Visit Provider Surgery
DX: R10.31 Right lower quadrant pain (principal)
CPT/HCPCS: 74177; Q9967

== ENCOUNTER → 2021-12-28 08:53 | Outpatient (CLI) | payer MEDICARE, OTHER, SELFPAY | PROVIDERS: Visit Provider Internal Medicine | DX: Z01.812 Encounter for preprocedural laboratory examination (principal); Z11.52 Encounter for screening for COVID-19; R13.10 Dysphagia, unspecified | CPT/HCPCS: C9803; U0003; U0005 ==

== ENCOUNTER 2021-12-30 09:58 | Day surgery (SDC) | payer MEDICARE, OTHER, SELFPAY ==
[2021-12-28 09:29] VITALS: BMI 29.9
[2021-12-30 10:48] VITALS: BP 151/70; PULSE 50; RESP 16; TEMP 35.5
[2021-12-30 12:14] VITALS: O2SAT 97
--- NOTE | 2021-12-30 12:23 | HMH.SCOPE ---
- Procedure: Date: 12/30/21 Patient Date of :: 1945 Procedure Performed:: EGD Indications:: The patient is a 76 year old with dysphagia and abdominal pain. A recent barium esophagram showed small hiatal hernia. The barium tablet did not pass thru the distal esophagus. 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 Performing Provider:: Jackson Brink MD Referring Provider:: Kadeem Xiao MD Sedation:: See RN notes Procedure:: The gastroscope was gently passed through the incisoral orifice into the oral cavity and under direct visualization the esophagus was intubated. The endoscope was passed down the esophagus, through the stomach, and into the duodenum. Color, texture, mucosa, and anatomy of the esophagus, stomach, and duodenum were carefully examined with the scope. Findings:: Oropharynx: normal Esophagus: Distal esophageal superficial ulceration and esophagitis. The EGD scope passed easily thru the EG junction into the stomach. Noted also was a small tongue of salmon colored mucosa less than 1 cm in length. Biopsies obtained EG Junction: measured at approximately 45 cm Cardia: Small hiatal hernia Fundus: normal Body: Mild gastritis. Biopsy obtained Antrum: Mild gastritis. Biopsy obtained Duodenal bulb: normal Duodenum (second and third portion): normal Recommendations:: Await pathology results Omeprazole 40 mg once daily (prescription given) Sucralfate suspension three to four times per day x 4 weeks (prescription given) Antireflux measures Repeat EGD in 8 weeks Complications:: None Estimated blood obtained (mL): 0
[2021-12-30 12:26] VITALS: BP 124/72; PULSE 61; RESP 16; TEMP 36.4; O2SAT 93
[2021-12-30 12:36] VITALS: BP 134/87; PULSE 57; RESP 16; O2SAT 96
[2021-12-30 12:46] VITALS: BP 139/83; PULSE 52; RESP 16; O2SAT 95
[2021-12-30 12:58] VITALS: BP 151/79; PULSE 52; RESP 16; TEMP 36.4; O2SAT 96
== END 2021-12-30 13:00 | disposition home or self-care (01) ==
LOC: OUTP 10:03
PROVIDERS: PCP Family Medicine; Visit Provider Internal Medicine
PROC: 0DJ08ZZ Inspection of Upper Intestinal Tract, Via Natural or Artificial Opening Endoscopic (ICD-10-PCS; CPT 43235; principal; 2021-12-30 11:00)
DX: K22.2 Esophageal obstruction (principal); K29.70 Gastritis, unspecified, without bleeding; K44.9 Diaphragmatic hernia without obstruction or gangrene; F41.9 Anxiety disorder, unspecified; E78.5 Hyperlipidemia, unspecified; I10 Essential (primary) hypertension; Z79.82 Long term (current) use of aspirin; Z79.899 Other long term (current) drug therapy
CPT/HCPCS: 43239; 88305

== ENCOUNTER → 2022-03-04 08:56 | Outpatient (CLI) | payer MEDICARE, OTHER, SELFPAY ==
--- NOTE | 2022-03-04 08:59 | CT_ITS ---
FINAL REPORT CLINICAL HISTORY: dougherty, dizziness FINDINGS: Axial images of the head were obtained without contrast. Coronal reformatted images were also obtained.This study was performed with techniques to keep radiation doses as low as reasonably achievable (ALARA). Individualized dose reduction techniques using automated exposure control or adjustment of mA and/or kV according to the patient's size were employed. There is no evidence of intracranial hemorrhage or mass. The ventricular size is within normal limits. There is no evidence of shift of the midline structures. No abnormal extra axial fluid collection is identified. No skull abnormality is seen on the bone window images. IMPRESSION: No acute intracranial abnormality. Reviewed, Interpreted and Dictated by Ho Lange III, MD Transcribed by Asuncion Almonte Authenticated and . [facility]
== END ==
PROVIDERS: PCP Family Medicine; Visit Provider Nurse Practitioner Family
DX: R51.9 Headache, unspecified (principal)
CPT/HCPCS: 70450

== ENCOUNTER → 2022-03-08 08:57 | Outpatient (CLI) | payer MEDICARE, OTHER, SELFPAY | PROVIDERS: PCP Family Medicine; Visit Provider Internal Medicine | DX: Z01.812 Encounter for preprocedural laboratory examination (principal); Z20.822 Contact with and (suspected) exposure to COVID-19; Z13.810 Encounter for screening for upper gastrointestinal disorder | CPT/HCPCS: C9803; U0003; U0005 ==

== ENCOUNTER 2022-03-10 08:52 | Day surgery (SDC) | payer MEDICARE, OTHER, SELFPAY ==
[2022-03-08 13:14] VITALS: BMI 29.3
[2022-03-10] VITALS (7 sets, daily range): BP systolic 124–167; BP diastolic 67–97; PULSE 52–62; RESP 17–18; TEMP 36.1–36.4; O2SAT 94–99
--- NOTE | 2022-03-10 09:09 | P.PN_ITS ---
[facility] Anesthesia Checklist - Patient Identification Patient Identification: Arm Band, Verbal (Name & ) - Structural Data Admitted From: Home Planned Operative Procedure/s: EGD Consent for Planned Operative Procedure(s) Verified: Yes Verified Documents: Surgical Consent - NPO Status Verified Time NPO: 00:00 - Chart Verification Results Verified: None - Additional verifications Anesthesia Reactions: No Hx Blood Transfusions: No Blood Transfusion Reaction: No - Airway Assessment C-Spine Mobility Assessed: Yes TMJ Mobility Assessed: Yes - Neurological Assessment Level of Consciousness: Awake, Alert, Appropriate - Anesthesia Plan Anesthesia Risk discussed: Yes ASA Class: III Anesthesia Type: MAC [facility] History Medical History: Reports:: BPH, Coronary Artery Disease, Gastroesophageal Reflux Disease(GERD), Hyperlipidemia, Hypertension, Transient Ischemic Attacks (TIA) Denies:: Cancer, Diabetes Mellitus Type 1, Diabetes Mellitus Type 2, Internal Pacemaker, MRSA, Seizures *Have you ever received a pneumonia vaccine?: Yes *Have you received a flu vaccine this season?: Yes Other Medical History: Reports: Arthritis, Cataracts, Glaucoma, Other. Denies: Blood Transfusion Reaction Anesthesia experience/problems:: none Laterality Cases: Right: Arthroscopy Knee Other Surgeries: Yes: No Previous Surgery, Appendectomy, Cardiac Catheterization, Cholecystectomy, Colonoscopy, Hernia Repair, Other. No: Pacemaker Amputation: No Fractures: No - *Social History Last grade of school completed: High school graduate Smoking Status: Never smoker Tobacco Type: cigarettes Alcohol Intake: never Alcohol Intake Frequency:: 3 or more drinks per day Substance Use Type: denies use *Occupational Status:: employed Housing: house Household Members: spouse *Travel in the last 8 weeks: None Family Hx:: Cancer, Stroke, Heart Attack
--- NOTE | 2022-03-10 09:51 | HMH.SCOPE ---
- Procedure: Date: 03/10/22 Patient Date of :: 1945 Procedure Performed:: EGD Indications:: The patient had an EGD in December for dysphagia and abdominal pain. EGD showed distal ulcerative esophagitis. The patient reports symptom improvement with having used PPI and carafate. Performing Provider:: Jackson Brink MD Referring Provider:: Kadeem Xiao MD Sedation:: See RN records Procedure:: The gastroscope was gently passed through the incisoral orifice into the oral cavity and under direct visualization the esophagus was intubated. The endoscope was passed down the esophagus, through the stomach, and into the duodenum. Color, texture, mucosa, and anatomy of the esophagus, stomach, and duodenum were carefully examined with the scope. Findings:: Oropharynx: normal Esophagus: Mild distal esophagitis. Tongue of salmon colored mucosa less than 1 cm in length. Biopsies obtained. Mild Schatzki ring. 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
== END 2022-03-10 10:32 | disposition home or self-care (01) ==
LOC: OUTP 08:55
PROVIDERS: PCP Family Medicine; Visit Provider Internal Medicine
PROC: 0DJ08ZZ Inspection of Upper Intestinal Tract, Via Natural or Artificial Opening Endoscopic (ICD-10-PCS; CPT 43235; principal; 2022-03-10 10:00)
DX: K22.10 Ulcer of esophagus without bleeding (principal); R13.10 Dysphagia, unspecified; K21.00 Gastro-esophageal reflux disease with esophagitis, without bleeding; I10 Essential (primary) hypertension; I25.10 Atherosclerotic heart disease of native coronary artery without angina pectoris; E78.5 Hyperlipidemia, unspecified
CPT/HCPCS: 43233; 88305; C1726

== ENCOUNTER → 2022-03-11 10:51 | Outpatient (CLI) | payer MEDICARE, OTHER, SELFPAY ==
--- NOTE | 2022-03-11 10:59 | CT_ITS ---
FINAL REPORT CLINICAL HISTORY: H/O NICOTINE DEPENDENCE FORMER SMOKER, PT QUIT 10 YEARS AGO 1PPD X30 YEARS WHEN SMOKING COMPARISON: 08/05/2017 FINDINGS: Low-Dose Chest CT CTDI vol (mGy): 2.90 DLP (mGy-cm): 109.16 Axial images were obtained from the lung apex to the mid abdomen by computed tomography. Low-dose protocol was utilized. FINDINGS: CHEST: There is no axillary adenopathy. There is no hilar or mediastinal adenopathy. The heart is proper size. There is abnormal ectasia of the ascending aorta measuring up to 4.3 cm which is unchanged from the prior exam. There is dense coronary artery calcification. There is no pericardial or pleural effusion. Limited images of the upper abdomen demonstrate a benign appearing cyst in the left kidney measuring 2.9 x 1.6 cm. There are postoperative changes from cholecystectomy. Lung window images demonstrate a calcified granuloma in the periphery of the left lung. The lungs are otherwise clear. IMPRESSION: No suspicious infiltrate or nodule is identified. Modifier S: Stable ectasia of the ascending aorta and dense coronary artery calcification. Lung RADS category 1S. Recommend 12 month follow-up low-dose chest CT. Reviewed, Interpreted and Dictated by Morgan Humphreys MD Transcribed by Asuncion Almonte Authenticated and [facility]
== END ==
PROVIDERS: PCP Family Medicine; Visit Provider Family Medicine
DX: Z87.891 Personal history of nicotine dependence (principal); Z12.2 Encounter for screening for malignant neoplasm of respiratory organs
CPT/HCPCS: 71271

== ENCOUNTER → 2022-03-18 09:56 | Day surgery (SDC) | payer MEDICARE, OTHER, SELFPAY ==
[2022-03-18 10:38] VITALS: BMI 29.9
--- NOTE | 2022-03-18 12:26 | HMH.TILT ---
Findings:: PROCEDURE: Upright Tilt Table Test REQUESTING PHYSICIAN: Cynthia Scruggs MD INDICATION: Sporadic episodes of altered speech and vision BETA BLOCKERS: None PRE-TEST VITAL SIGNS (supine): HR 60 and NSR, BP 178/112 (did not take morning BP meds), O2Sats 98% PROCEDURE SUMMARY: Patient was prepped per protocol, test explained, IV started, heart, blood pressure and oxygen saturation monitors applied. Safety straps applied. He was then tilted upright at 70 degrees for a total of 30 minutes. He had no syncope, near-syncope or other symptoms during the test. He denied any neurological symptoms at all, and did not experience any visual disturbances, confusion or difficulty speaking. His blood pressure was elevated but stable throughout the test with some gradual lowering while upright. Maximum BP was 175/85 when he was first placed in the upright position. Lowest BP was 150/82 after being upright for 25 minutes. His HR changed very little during the test, remaining in the high 50's to low 60's. Heart rhythm was normal sinus throughout. Oxygen saturation stayed in the mid to high 90's throughout. COMPLICATIONS: None CONCLUSIONS: Unremarkable tilt table test
== END ==
PROVIDERS: PCP Family Medicine; Visit Provider Specialist
DX: R55 Syncope and collapse (principal); G45.8 Other transient cerebral ischemic attacks and related syndromes; R29.90 Unspecified symptoms and signs involving the nervous system
CPT/HCPCS: 93660

== ENCOUNTER → 2022-03-23 13:30 | Outpatient (CLI) | payer MEDICARE, OTHER, SELFPAY ==
--- NOTE | 2022-03-23 13:30 | MR_ITS ---
FINAL REPORT TECHNIQUE: Multiplanar and multisequence imaging of the brain was obtained without contrast. CLINICAL HISTORY: TIA. EPISODES OF LIGHT SENSITIVITY UNABLE TO VOCALIZE THOUGHTS AND BLURRED VISION. SYMPTOMS [id number]. NO RECENT INJURY OR TRAUMA. FINDINGS: There is global cerebral atrophy with associated ex vacuo dilatation of the ventricles. There is no mass effect or midline shift. Small foci of periventricular and subcortical white matter are nonspecific. The ventricles are symmetric in size and configuration without hydrocephalus. The cerebellum and brainstem have a normal appearance. There are no areas of restricted diffusion on diffusion weighted images to suggest acute infarct. Soft tissues are without acute abnormality. IMPRESSION: No acute intracranial abnormality. Nonspecific T2 abnormality within the periventricular and subcortical white matter. Differential considerations include changes of chronic small vessel ischemia and demyelinating disease. Reviewed, Interpreted and Dictated by Jesica Benson MD Transcribed by Marlyn Randhawa Authenticated and [facility]
--- NOTE | 2022-03-23 13:30 | MR_ITS ---
FINAL REPORT TECHNIQUE: Imaging of the intracerebral vasculature was obtained without intravenous contrast using [id number] imaging. CLINICAL HISTORY: TIA. EPISODES OF LIGHT SENSITIVITY UNABLE TO VOCALIZE THOUGHTS AND BLURRED VISION. SYMPTOMS [id number]. NO RECENT INJURY OR TRAUMA. FINDINGS: Flow related signal intensity within the intracerebral vasculature is preserved. There is no evidence of aneurysm, significant stenosis or AVM. Note is made of persistent origin of the right YARD JACKER. The left vertebral artery is dominant. Only a small distal right proximal to the basilar artery. The expected flow related signal in the right vertebral artery at the foramen magnum is absent. IMPRESSION: Patent anterior cerebral, middle cerebral, posterior cerebral, and basilar arteries. Right vertebral artery not identified at the foramen magnum. Consider CTA if indicated. Reviewed, Interpreted and Dictated by Jesica Benson MD Transcribed by Marlyn Randhawa Authenticated and [facility]
--- NOTE | 2022-03-23 13:30 | MR_ITS ---
FINAL REPORT TECHNIQUE: Multiple projection images of the neck arterial vasculature were obtained without contrast. The raw data images were reviewed. CLINICAL HISTORY: TIA. EPISODES OF LIGHT SENSITIVITY UNABLE TO VOCALIZE THOUGHTS AND BLURRED VISION. SYMPTOMS [id number]. NO RECENT INJURY OR TRAUMA. FINDINGS: The right common carotid artery has an unremarkable appearance without evidence of stenosis or occlusion. The right internal carotid artery has an unremarkable appearance without evidence of stenosis or occlusion. The right external carotid artery is patent. The right vertebral artery is not identified within the neck which can be related to very hypoplastic right vertebral artery or potentially occlusion. The left common carotid artery has an unremarkable appearance without evidence of stenosis or occlusion. The left internal carotid artery is patent without evidence of stenosis or occlusion. The left external carotid artery is patent. The left vertebral artery is patent without evidence of stenosis. IMPRESSION: No evidence of carotid stenosis. Dominant left vertebral artery. No flow related signal within the right vertebral artery. This could be related to a very hypoplastic artery or occlusion. Consider CTA if indicated. Reviewed, Interpreted and Dictated by Jesica Benson MD Transcribed by Marlyn Randhawa Authenticated and [facility]
== END ==
PROVIDERS: PCP Family Medicine; Visit Provider Specialist
DX: G45.8 Other transient cerebral ischemic attacks and related syndromes (principal); R29.90 Unspecified symptoms and signs involving the nervous system; Z86.73 Personal history of transient ischemic attack (TIA), and cerebral infarction without residual deficits
CPT/HCPCS: 70544; 70547; 70551

== ENCOUNTER → 2022-03-24 07:09 | Outpatient (CLI) | payer MEDICARE, OTHER, SELFPAY ==
[2022-03-24 07:25] LABS: Coronavirus 19, PCR Not Detected (NotDetected); Influenza A, PCR Not Detected (NotDetected); Influenza B, PCR Not Detected (NotDetected)
== END ==
PROVIDERS: PCP Family Medicine; Visit Provider Family Medicine
DX: Z20.822 Contact with and (suspected) exposure to COVID-19 (principal)
CPT/HCPCS: C9803; U0003; U0005

== ENCOUNTER → 2022-04-19 10:21 | Outpatient (CLI) | payer MEDICARE, OTHER, SELFPAY ==
[2022-04-20 09:19] LABS: Homocyst(e)ine 17.6 umol/L (0.0-19.2)
== END ==
PROVIDERS: PCP Family Medicine; Visit Provider Specialist
DX: I25.10 Atherosclerotic heart disease of native coronary artery without angina pectoris (principal)
CPT/HCPCS: 36415; 83090

== ENCOUNTER → 2022-05-27 10:47 | Outpatient (CLI) | payer MEDICARE, OTHER, SELFPAY ==
--- NOTE | 2022-05-27 10:52 | XR_ITS ---
FINAL REPORT CLINICAL HISTORY: fall 1 week ago, left rib pain COMPARISON: Chest radiograph dated July 08, 2020 FINDINGS: LEFT RIB SERIES Four views of the left ribs show no fractures. There is no pneumothorax or pleural fluid collection. Frontal chest radiograph is unremarkable. IMPRESSION: Negative left rib series. No pneumothorax. Reviewed, Interpreted and Dictated by Leigh Vivas MD Transcribed by Asuncion Almonte Authenticated and [facility]
== END ==
PROVIDERS: PCP Family Medicine; Visit Provider Physician Assistant
DX: S29.9XXA Unspecified injury of thorax, initial encounter (principal)
CPT/HCPCS: 71101

== ENCOUNTER → 2022-08-10 06:44 | Outpatient (CLI) | payer MEDICARE, OTHER, SELFPAY ==
--- NOTE | 2022-08-10 06:45 | NM_ITS ---
APPROVED REPORT Exam: Nuclear Stress Test Indication: Abnormal EKG, HTN, High cholesterol, Family history Patient Location: Outpatient Stress Tech: Claudia Mirza [place] Tech:Jenise Ascencio, ARRT, RT (R)(N) Ht: 6 ft 4 in Wt: 240 lbs HR: 61 bpm BP: 159/74 mmHg BSA: 2.39 m2 TID: 1.17 BMI: 29.2 History: Abnormal EKG, HTN, High cholesterol, Family history Procedure: Patient received a 0.4 mg of intravenous Lexiscan, resting heart rate 61 bpm, resting blood pressure 159/74 mmHg, with Lexiscan maximum heart rate achived was 76 bpm which is Less than 85 % of the maximum predicted heart rate and blood pressure was 160/85 mmHg. With Lexiscan, patient denied any complaint of chest pain. Electrocardiogram Resting electrocardiogram shows sinus bradycardia, with Lexiscan there is less than 1.[address] segment depression noted from the baseline EKG. The EKG portion of the Lexiscan is nondiagnostic. Cardiac Stress and Resting SPECT Images: Cardiac Stress and Resting SPECT images were obtained using technetium 99m Myoview 32.4 mCi stress and 10.49 mCi at rest. Gated SPECT for analysis of segmental wall motion and calculation of the ejection fraction also done. Prone images were also obtained. Cardiac stress and resting SPECT images show uniform myocardial activity without segmental perfusion abnormality, computer derived ejection fraction is 57% with no regional wall motion abnormality, right ventricle is normal size and contractility. Conclusion: 1. The EKG portion of the Lexiscan is nondiagnostic. 2. No scintigraphic evidence of reversible ischemia seen, computer derived ejection fraction is 57% with no regional wall motion abnormality, right ventricle is normal size and contractility. 3. Normal Lexiscan Myoview study. Electronically signed by : Harmeet Chen MD 08/10/2022 19:38:38
--- NOTE | 2022-08-10 06:45 | CA_ITS ---
APPROVED REPORT EXAM: Comprehensive 2D, Doppler, and color-flow Echocardiogram Home Office Claims Examiner: Radha Bean RT(R) Ht: 6 ft 3 in Wt: 241lbs BSA: 2.38 BP: 151/73 mmHg Indications: abn EKG, HTN, hyperlipidemia, ESTHER, hx of TIA, CAD 2D Dimensions Aortic Root 2.23 cm M: 3.1 - 3.7 LVEF ([facility]) 63.50 % M: 52 - 72 LV Volume 166.10 mL M: 62 - 150 LV Volume Index 69.79 mL/m2 M: 34 - 74 M-Mode Dimensions RVDd 3.24 cm (0.9-2.6) LA Diam 4.85 cm (1.9-4.0) LVDd 5.81 cm (3.5-5.7) Ao Diam 3.48 cm (2.0-3.7) LVDs 3.99 cm (3.5-5.7) IVSd 0.98 cm (0.6-1.1) PWd 1.22 cm (0.6-1.1) EF (Teich) 58.40% FS 31.30% EDV (Teich) 167.20 mL ESV (Teich) 69.60 mL LV Diastology E Decel Time 190.00 (160-240 msec) E/A Ratio 0.9 MED E' 8.90 (< 7 cm/sec) E'/MED E' Ratio 10.33 (>14) LAT E' 6.50 (<10 cm/sec) E/LAT E' Ratio 14.14 (>14) Mitral Valve MV E Max Fransico. 92.00 (40-130 cm/s) MV A Velocity 105.00 (40-130 cm/s) E/A Ratio 0.87 MV Decel. Time 190.00 (160-240 ms) MV PHT 56.00 ms Left Ventricle Left atrium is mildly enlarged, left ventricle is normal size, mild concentric left ventricular hypertrophy, estimated ejection fraction 55% with no regional wall motion abnormality, grade 1 diastolic dysfunction seen without tissue Doppler evidence of raise left atrial pressure. Right Ventricle Right atrium and right ventricle are normal size and contractility. Aortic Valve Aortic valve is minimally thickened and fibrosed there is no aortic stenosis or aortic insufficiency. Mitral Valve Mitral valve is minimally thickened, there is mild mitral regurgitation. Tricuspid Valve Tricuspid valve grossly normal, there is mild tricuspid regurgitation, tricuspid regurgitation jet velocity is inadequate for calculation of the right ventricular systolic pressure. Pulmonic Valve Pulmonic valve is poorly visualized. Great Vessels Aortic root is normal size. Inferior vena cava is poorly visualized. Pericardium No significant pericardial effusion noted. Conclusion 1. Mildly enlarged left atrium, normal left ventricular size, mild concentric left ventricular hypertrophy, estimated ejection fraction 55% with no regional wall motion abnormality, grade 1 diastolic dysfunction seen without tissue Doppler evidence of raise left atrial pressure. 2. Mild mitral and tricuspid regurgitation. 3. No significant pericardial effusion noted. 4. Inferior vena cava is poorly visualized. Electronically signed by : Harmeet Chen MD 08/10/2022 20:49:36
--- NOTE | 2022-08-10 06:45 | CA_ITS ---
APPROVED REPORT Exam: Pharmacologic Technologist: Claudia Mirza, Ht: 6 ft 4 in Wt: 240 lbs BSA: 2.39 m2 HR: 61 bpm BP: 159/74 mmHg Rhythm: SINUS STELLA, 1 DEGREE AVB, CANNOT R/O OLD INFERIOR NV Indications: Abn EKG Medical History Medical History: HTN, Hyperlipidemia Medications: Losartan,,,,, Atorvastatin,,,,, HCTZ,,,,, TAMSULOSIN,,,,, OmeGA 3,,,,, Allergies: No known drug allergies Cardiac Risk Factors: HTN, Hyperlipidemia, FHX of CAD Stress Test Details Test: LEXISCAN HR Resting HR: 61 bpm Max Heart Rate (APMHR): 145.883941 bpm Max HR Achieved: 76 bpm Target HR (85% APMHR): 123.386093 bpm % of APMHR: 52.41 Recovery HR: 64 bpm BP Resting BP: 159/74 mmHg Max BP: 160/85 mmHg Recovery BP: 155.0/92.0 mmHg ECG Resting ECG: SINUS STELLA, 1 DEGREE AVB CANNOT R/O OLD INFERIOR NV Clinical Exercise duration: 04:04 min Highest Stage Achieved: Exercise capacity: 1.0 METs Stress ECG Conclusion PT MALAISE. NO CP NO SIGNIFICANT CHANGES UNREMARKABLE LEXISCAN STRESS MYOVIEW IMAGES REPORTED SEPARATELY Test Summary REST 05:09 . . 61 . 159/ 74 . . Stage 1 01:00 . . 71 . . . . Stage 2 01:00 . . 74 . 154/ 67 . . Stage 3 01:00 . . 72 . . . . Stage 4 01:00 . . 68 . 147/ 77 . . Stage 4 01:04 . . 69 . 147/ 77 . Stop exercise at 04:04 RECOVERY 01:00 . . 69 . 160/ 85 . . RECOVERY 02:00 . . 68 . 160/ 85 . . RECOVERY 03:00 . . 73 . 160/ 85 . . RECOVERY 03:52 . . 61 . 155/ 92 . . Electronically signed by : Harmeet Chen MD 08/10/2022 19:34:59
--- NOTE | 2022-08-10 08:33 | HMH.ITSHM ---
Current Home Medications as stated by this patient Kai Chu or account development representative. []TAMSULOSIN OMEGA 3 LOSARTAN HCTZ ATORVASTATIN
== END ==
PROVIDERS: PCP Family Medicine; Visit Provider Internal Medicine Cardiovascular Disease
DX: E78.2 Mixed hyperlipidemia (principal); G47.33 Obstructive sleep apnea (adult) (pediatric); I10 Essential (primary) hypertension; I25.10 Atherosclerotic heart disease of native coronary artery without angina pectoris; I65.23 Occlusion and stenosis of bilateral carotid arteries; R94.31 Abnormal electrocardiogram [ECG] [EKG]; Z82.49 Family history of ischemic heart disease and other diseases of the circulatory system; Z86.73 Personal history of transient ischemic attack (TIA), and cerebral infarction without residual deficits
CPT/HCPCS: 78452; 93017; 93306; A9502; J2785

== ENCOUNTER → 2022-08-27 14:20 | Outpatient (CLI) | payer MEDICARE, OTHER, SELFPAY ==
[2022-08-27 15:52] LABS: Influenza A, PCR Not Detected (NotDetected); Influenza B, PCR Not Detected (NotDetected)
[2022-08-27 20:42] LABS: Coronavirus 19, PCR Detected (NotDetected)
== END ==
PROVIDERS: PCP Family Medicine; Visit Provider Physician Assistant
DX: U07.1 COVID-19 (principal)
CPT/HCPCS: C9803; U0003; U0005

== ENCOUNTER → 2023-01-19 08:31 | Outpatient (POV) | payer MEDICARE, SELFPAY | PROVIDERS: Visit Provider Specialist/Technologist | DX: Z00.00 Encounter for general adult medical examination without abnormal findings (principal) ==

== ENCOUNTER → 2023-03-03 08:47 | Outpatient (CLI) | payer MEDICARE, BC, SELFPAY ==
--- NOTE | 2023-03-03 08:51 | NM_ITS ---
FINAL REPORT CLINICAL HISTORY: recent dx PROSTATE CANCER no pain 9:10 am 25.1 mci tc mdp FINDINGS: EXISTING RELEVANT IMAGING STUDIES: Bilateral rib radiographs from same day TECHNIQUE: The patient was injected with 25.1 mCi of technetium 99-MDP. 3 hour delayed images were obtained. FINDINGS: Multiple chronic bilateral rib fractures are seen on the radiographs. There is increased radiotracer activity of several bilateral anterior ribs which is felt to be due to rib fractures rather than bony metastasis. There is questionable increased radiotracer activity in the lower cervical spine and lower thoracic spine. Increased radiotracer activity in the shoulders, wrists, knees, and left ankle are felt to be degenerative. There is no convincing evidence of bony metastatic disease. IMPRESSION: Multifocal areas of increased radiotracer activity is favored to be degenerative and posttraumatic in nature. No convincing evidence of bony metastatic disease. Reviewed, Interpreted and Dictated by Ho Lange III, MD Transcribed by Tiffanie Emmanuel Authenticated and [facility]
[2023-03-03 10:35] LABS: Blood Urea Nitrogen 14 mg/dl (9-20); Estimated Glomerular Filt Rate 94 ml/min (>60); GFR (African American) 114 ML/MIN (>60)
--- NOTE | 2023-03-03 13:06 | XR_ITS ---
FINAL REPORT CLINICAL HISTORY: SPOT ON RIBS during nuc scan FINDINGS: BILATERAL RIBS WITH CHEST A single PA view of the chest and three views of the bilateral ribs were obtained. The heart and mediastinum within normal limits. The lungs are clear. There is no pneumothorax. Several chronic bilateral rib fractures are noted. There is no acute displaced rib fracture. IMPRESSION: Chronic bilateral rib fractures. Reviewed, Interpreted and Dictated by Ho Lange III, MD Transcribed by Tiffanie Emmanuel Authenticated and [facility]
== END ==
PROVIDERS: PCP Family Medicine; Visit Provider Urology
DX: C61 Malignant neoplasm of prostate (principal)
CPT/HCPCS: 36415; 71111; 78306; 82565; 84520; A9503

== ENCOUNTER → 2023-03-10 09:02 | Outpatient (CLI) | payer MEDICARE, BC, SELFPAY ==
--- NOTE | 2023-03-10 09:05 | CT_ITS ---
FINAL REPORT CLINICAL HISTORY: PROSTATE CANCER COMPARISON: 12/14/2021 FINDINGS: CT OF THE ABDOMEN AND PELVIS WITH CONTRAST Axial CT images of the abdomen and pelvis were obtained after the administration of IV contrast. Coronal and sagittal reformatted images were also obtained and reviewed. This study was performed with techniques to keep radiation doses as low as reasonably achievable (ALARA). Individualized dose reduction techniques using automated exposure control or adjustment of mA and/or kV according to the patient's size were employed. Abdomen: The lung bases are clear. The heart is normal in size. The liver has an unremarkable appearance, without evidence of mass or biliary ductal dilatation. The gallbladder has been surgically removed. The spleen is unremarkable. No adrenal mass is present. The pancreas has an unremarkable appearance. There is persistent stranding of the small bowel mesentery, also noted on the prior CT, reactive versus small bowel panniculitis. Bilateral renal cysts remain present. The aorta is normal in caliber. There is no free fluid or adenopathy. No mass or abnormal fluid collection is seen. Pelvis: The appendix is not well-visualized. The urinary bladder wall is slightly thickened, stable since the prior exam. There are postoperative changes present in the left inguinal region. There is a small sclerotic focus present in the posterior column of the left acetabulum, stable since the prior exam. Would favor a bone island. Mild degenerative changes of the lumbar spine are noted. There is no evidence of bowel obstruction. Diverticula are present throughout the colon without evidence of acute inflammation. IMPRESSION: Peripheral mild stranding in the small bowel mesentery, unchanged since the prior CT of November 2021. This may represent either reactive change or small bowel panniculitis. There is a small sclerotic focus in the posterior column of the left acetabulum, also unchanged since the prior exam, favor bone island. Bilateral renal cysts, unchanged. Reviewed, Interpreted and Dictated by Ho Lange III, MD Transcribed by Tamara Ayala Authenticated and [facility]
--- NOTE | 2023-03-10 09:05 | CT_ITS ---
FINAL REPORT CLINICAL HISTORY: PROSTATE CANCER COMPARISON: 03/11/2022 FINDINGS: Axial CT images of the chest were obtained with contrast. Coronal and sagittal reformatted images were also obtained. This study was performed with techniques to keep radiation doses as low as reasonably achievable, (ALARA). Individualized dose reduction techniques using automated exposure control or adjustment of mA and/or KV according to the patient's size were employed. There is no evidence of mediastinal or hilar mass or adenopathy. There are several borderline sized axillary nodes present. There are severe coronary artery calcifications also noted on the prior CT. There is mild scarring present in both lung chery. No new pulmonary masses or nodules are visualized. No localized pulmonary inflammatory process is identified. Limited images of the upper abdomen reveal no mass or localized inflammatory process. IMPRESSION: Severe coronary artery calcifications. No significant change since the prior chest CT of 03/11/2022. No new masses or nodes are seen. Reviewed, Interpreted and Dictated by Ho Lange III, MD Transcribed by Tamara Ayala Authenticated and [facility]
== END ==
LOC: RAD 09:02
PROVIDERS: PCP Family Medicine; Visit Provider Urology
DX: C61 Malignant neoplasm of prostate (principal)
CPT/HCPCS: 71260; 74177; Q9967

== ENCOUNTER → 2023-04-07 07:56 | Outpatient (CLI) | payer MEDICARE, BC, SELFPAY ==
--- NOTE | 2023-04-07 08:26 | CT_ITS ---
FINAL REPORT TECHNIQUE: Thin section axial CT images with coronal and sagittal reformats were performed through the neck. This study was performed with techniques to keep radiation doses as low as reasonably achievable (ALARA). Individualized dose reduction techniques using automated exposure control or adjustment of mA and/or kV according to the patient''s size were employed. CLINICAL HISTORY: arm numbness COMPARISON: None FINDINGS: There is mild right maxillary mucosal thickening present. Mild to moderate bilateral carotid calcifications are noted. No mass or adenopathy is appreciated in the cervical soft tissues. There is mild to moderate degenerative change of the cervical spine with neural foraminal narrowing at the C5-6 and C6-7 levels.. Salivary glands are normal. Larynx is unremarkable. Thyroid gland is unremarkable. IMPRESSION: Mild to moderate degenerative change of the cervical spine with neural foraminal narrowing at the C5-6 and C6-7 levels. Mild to moderate carotid artery calcification seen bilaterally. Reviewed, Interpreted and Dictated by Ho Lange III, MD Transcribed by Tamara Ayala Authenticated and [facility]
== END ==
PROVIDERS: PCP Family Medicine; Visit Provider Nurse Practitioner Family
DX: R20.0 Anesthesia of skin (principal)
CPT/HCPCS: 70490

== ENCOUNTER 2023-05-11 09:54 | Day surgery (SDC) | payer MEDICARE, BC, SELFPAY ==
[2023-05-11 10:23] VITALS: BP 184/86; PULSE 62; RESP 18; TEMP 36.4; O2SAT 97
--- NOTE | 2023-05-11 11:01 | P.PNANES_ITS ---
[facility] Disclaimer: The information contained in this section may have been updated after the patient was seen, as this information can be updated by other users. Medical History Abnormal ECG Anxiety Expressive aphasia Family history of heart disease Fatigue HLD (hyperlipidemia) HTN (hypertension) ESTHER (obstructive sleep apnea) Surgical History History of appendectomy History of cholecystectomy History of knee replacement Family History Other Family history of stroke Lung cancer Social History Smoking Status: Never smoker second hand exposure: No alcohol intake: current counseling provided: none substance use type: denies use current occupational status: employed Travel in the last 8 weeks: None household members: spouse housing: house lives independently: No marital status: education level: college service: No prison: No 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 occupational exposures/hazards: No caffeine: Yes do you feel safe at home: Yes victim of physical abuse: No victim of emotional abuse: No victim of sexual abuse: No would you like helpful sources: No [facility] Anesthesia Checklist Patient Identification Patient Identification: Arm Band and Family Structural Data Admitted From: Home Planned Operative Procedure/s: colonoscopy Consent for Planned Operative Procedure(s) Verified: Yes Verified Documents: Surgical Consent and History and Physical NPO Status Verified Time NPO: 00:00 Additional verifications Patient : No Anesthesia Reactions: No Hx Blood Transfusions: No Blood Transfusion Reaction: No Cephalosporin Allergy: No Previous Colonoscopy: Yes Airway Assessment Mallampati Score:: Class III C-Spine Mobility Assessed: Yes TMJ Mobility Assessed: Yes Dentition: Good Dentition Neurological Assessment Level of Consciousness: Awake, Alert, Appropriate and Follows Commands Hx Seizures: No Numbness or tingling in extremities: No Anesthesia Plan Anesthesia Risk discussed: Yes ASA Class: II Anesthesia Type: MAC Preoperative Comments Pre-Operative Comments: Hypertension. Prostate cancer.
[2023-05-11 11:47] VITALS: O2SAT 97
[2023-05-11 12:10] VITALS: BP 100/61; PULSE 55; RESP 18; O2SAT 92
--- NOTE | 2023-05-11 12:12 | HMH.SCOPE ---
Procedure: Date: 05/11/23 Patient Date of :: 1945 Procedure Performed:: Colonoscopy Indications:: The patient is a 77 year old who presents for screening colonoscopy. The patient is to have CyberKnife treatment for prostate cancer Performing Provider:: Jackson Brink MD Referring Provider:: Kadeem Xiao MD Sedation:: See RN records Procedure:: After placing the patient in the left lateral decubitus position, the colonoscopy was gently inserted into the rectum and under direct visualization advanced to the cecum which was identified by transillumination in the right lower quadrant, identification of the ileocecal valve, appendiceal orifice, and cecal strap. Color, texture, mucosa, and anatomy of the colon were carefully examined with the scope. Preparation was good Findings:: Anal canal: normal Rectum: Hemorrhoids Sigmoid colon: Diverticulosis Descending colon: Diverticulosis Splenic flexure: normal Transverse colon: normal without polyps or inflammatory changes Hepatic flexure: normal Ascending colon: Polyp less than 5 mm in size. Removed with cold snare polypectomy. Diverticulosis Cecum: normal Terminal ileum: not visualized Impression: Polyp of ascending colon Diverticulosis Recommendations:: Await pathology results Higher fiber diet No further surveillance colonoscopy can be recommended Complications:: none Estimated blood obtained (mL): 0 Colonoscopy Component Colonoscopy Component Was a colonoscopy performed during today's procedure?: Yes Recommended follow up colonoscopy of at least 10 years?: No If no, follow up colonoscopy recommended in ___ years?: No further surveillance recommended Reason for not recommending >/= 10 yr follow-up interval?: No further surveillance recommended
[2023-05-11 12:25] VITALS: BP 161/81; PULSE 58; RESP 18; O2SAT 96
[2023-05-11 12:40] VITALS: BP 142/85; PULSE 56; RESP 18; O2SAT 94
== END 2023-05-11 12:50 | disposition home or self-care (01) ==
PROVIDERS: PCP Family Medicine; Visit Provider Internal Medicine
DX: Z12.11 Encounter for screening for malignant neoplasm of colon (principal); C61 Malignant neoplasm of prostate; K64.9 Unspecified hemorrhoids; K57.30 Diverticulosis of large intestine without perforation or abscess without bleeding; D12.2 Benign neoplasm of ascending colon
CPT/HCPCS: 45385; 88305; J2704

== ENCOUNTER 2023-11-14 14:46 | Outpatient (CLI) | payer MEDICARE, BC, SELFPAY ==
--- NOTE | 2023-11-14 15:01 | CA_ITS ---
FINAL REPORT TECHNIQUE: Color Doppler, duplex Doppler and oliver scale sonography of the bilateral neck arterial vasculature was performed. Velocities were measured in the carotid arteries. Stenosis evaluation based on the validated velocity criteria. CLINICAL HISTORY: Transient speech disturbances. Patient states he will have periodic episodes where he is unable to communicate in sentences and can't see to read. These episodes have been going on for 5 years per patient. Ex smoker quit 15 years. HTN, HLD. FINDINGS: The peak systolic velocity of the right common carotid artery is 99 cm/s. The peak systolic velocity of the right internal carotid artery is 72 cm/s and end diastolic velocity 23 cm/s. A small amount of plaque is present. The right external carotid artery is patent. The right vertebral artery is not well-visualized. No definite flow is identified. The peak systolic velocity of the left common carotid artery is 132 cm/s. The peak systolic velocity of the left internal carotid artery is 76 cm/s and end diastolic velocity 21 cm/s. A small amount of plaque is present. The left external carotid artery is patent.The left vertebral artery is patent with antegrade flow. IMPRESSION: Less than 50% bilateral carotid stenoses. The left vertebral artery is patent with antegrade flow. The right vertebral artery is not well-visualized and no definite flow is identified. If indicated, CTA or MRA could further evaluate. Reviewed, Interpreted and Dictated by Ho Lange III, MD Transcribed by Tiffanie Emmanuel Authenticated and [facility]
== END 2023-11-14 23:59 ==
LOC: RT 14:47
PROVIDERS: PCP Family Medicine; Visit Provider Specialist
DX: Z86.73 Personal history of transient ischemic attack (TIA), and cerebral infarction without residual deficits; R47.89 Other speech disturbances
CPT/HCPCS: 93880

== ENCOUNTER 2024-01-19 09:50 | Outpatient (CLI) | payer MEDICARE, BC, SELFPAY ==
--- NOTE | 2024-01-19 09:51 | CA_ITS ---
APPROVED REPORT EXAM: Comprehensive 2D, Doppler, and color-flow Echocardiogram Die Turner: Radha Bean RT(R) Ht: 6 ft 3 in Wt: 240lbs BSA: 2.37 BP: 152/68 mmHg Indications: murmur, abn EKG, HTN, HLD, fatigue, ESTHER 2D Dimensions LVEF ([facility]) 61.60 % M: 52 - 72 LV Volume 141.10 mL M: 62 - 150 LV Volume Index 59.5 mL/m2 M: 34 - 74 LA Volume 51.20 mL LA Volume Index 21.60 mL/m2 (M/F) 16-34 EF AP4 64.40 % EF AP2 59.6 % EF BP 61.6 % GL Strain -22.5 % M-Mode Dimensions RVDd 3.13 cm (0.9-2.6) LA Diam 3.54 cm (1.9-4.0) LVDd 5.72 cm (3.5-5.7) LVDs 4.11 cm (3.5-5.7) IVSd 0.89 cm (0.6-1.1) PWd 1.12 cm (0.6-1.1) EF (Teich) 53.70% FS 28.10% EDV (Teich) 161.30 mL ESV (Teich) 74.70 mL LV Diastology E Decel Time 223 (160-240 msec) E/A Ratio 0.8 Aortic Valve DEJAH Index 1.07 cm2/m2 AoV Peak Fransico. 173.0 (50-130 cm/s) AO Peak GR. 12.10 mmHg AO Mean GR. 5.90 (<5 mmHg) AO VTI 38.3 (18-25 cm) DEJAH (VTI) 2.59 (2.5-4.5 cm2) Mitral Valve MV E Max Fransico. 44.0 (40-130 cm/s) MV A Velocity 54.0 (40-130 cm/s) E/A Ratio 0.80 MV PHT 65.0 ms Tricuspid Valve TR P. Velocity 200.00 cm/s RAP Estimate 15.00 mmHg RVSP 31.00 mmHg Left Ventricle The left ventricle is normal size. The left ventricular systolic function is normal. The left ventricular ejection fraction is within the normal range. There is increased LV wall thickness. There is normal LV segmental wall motion. Diastolic function is indeterminate. LVEF is 55%. Right Ventricle Right ventricle is mildly dilated. The right ventricular systolic function is normal. Atria Left atrium is mildly dilated. Right atrium is mildly dilated. There is no Doppler evidence of interatrial shunt. Aortic Valve The aortic valve is mildly thickened. There is no aortic valvular stenosis. Mild aortic regurgitation. Mitral Valve The mitral valve is normal in structure. No evidence of mitral valve stenosis. Trace mitral valve regurgitation. Tricuspid Valve The tricuspid valve leaflets are thin and pliable. Mild tricuspid regurgitation. RVSP is 20-25 mmHg. Pulmonic Valve The pulmonary valve is normal in structure. Trace pulmonic regurgitation. Great Vessels The aortic root is normal in size. The ascending aorta is normal in size. IVC is normal in size and collapses >50% with inspiration. Pericardium There is no pericardial effusion. Other Information Study Quality: Fair Conclusion Normal biventricular systolic function. Mild RV dilation. Biatrial dilation. Mild AI, mild TR. Electronically signed by : Abby Sandhu MD 01/22/2024 21:47:18
== END 2024-01-19 23:59 | disposition home or self-care (01) ==
LOC: RT 09:51
PROVIDERS: PCP Family Medicine; Visit Provider Physician Assistant
DX: I11.9 Hypertensive heart disease without heart failure (principal); I25.10 Atherosclerotic heart disease of native coronary artery without angina pectoris; I65.23 Occlusion and stenosis of bilateral carotid arteries; R01.1 Cardiac murmur, unspecified; R94.31 Abnormal electrocardiogram [ECG] [EKG]; R53.83 Other fatigue; E78.2 Mixed hyperlipidemia; Z86.73 Personal history of transient ischemic attack (TIA), and cerebral infarction without residual deficits
CPT/HCPCS: 93306

== ENCOUNTER 2024-08-04 10:38 | Inpatient (IN) | payer MEDICARE, BC, SELFPAY ==
[2024-08-04] VITALS (23 sets, daily range): BP systolic 108–172; BP diastolic 62–90; PULSE 50–78; RESP 12–18; TEMP 35.6–43; O2SAT 91–98; BMI 29.5
--- NOTE | 2024-08-04 10:46 | ED_ITS ---
Discharge Plan Disposition Patient Disposition: Admitted Prescriptions Prescriptions: No Action aspirin 81 mg tablet,delayed release (DR/EC) 81 mg PO Q OTHER DAY losartan 100 mg tablet 100 mg PO DAILY Qty: 90 3RF omega-3 fatty acids [Fish Oil Concentrate] 1,000 mg capsule 1,000 mg PO ONCE hydrochlorothiazide 12.5 mg tablet See Rx Instructions .ROUTE .COMPLEX Qty: 90 3RF Dose Instruction: TAKE 1 TABLET BY MOUTH ONCE DAILY FOR HIGH BLOOD PRESSURE Rx Instructions: TAKE 1 TABLET BY MOUTH ONCE DAILY FOR HIGH BLOOD PRESSURE atorvastatin 40 mg tablet 40 mg PO DAILY Qty: 90 3RF tamsulosin 0.4 MG capsule 0.4 mg PO DAILY Referrals Follow up/Referrals: Kadeem Xiao MD [Primary Care Provider] - See instructions Clinical Impressions Clinical Impression: Incarcerated hernia, Spigelian hernia Print Language Print Language: Occitan Discharge ED Provider: Rodrigue Gray Adult HPI General Chief complaint: PAIN Stated complaint: abd pain Time Seen by Provider: 08/04/24 10:42 History of Present Illness HPI narrative: Patient is a 78-year-old male past medical history of TIA, CAD, cardiac murmur, hypertension, cholecystectomy and appendectomy presenting for right lower quadrant abdominal pain. Patient said that about 1 hour prior to arrival he had sudden onset right lower abdominal pain that worsened when he lays back. He has had pain like this in the past, but says that this is the worst he has ever had. Patient said he has a past medical history of hydrocele. Patient said that he has been seen by general surgeon about 2 years ago for similar pain, but said that this is the worst it has ever been. He is otherwise been urinating normally, had a bowel movement this morning, and has had no nausea or vomiting. At this time patient denies chest pain, shortness of breath, dizziness, blurry vision. Related Data Home Medications ?Medication ?Instructions ?Recorded ?Confirmed omega-3 fatty acids 1,000 mg 1,000 mg PO ONCE Supplement 10/24/17 07/02/24 capsule (Fish Oil Concentrate) tamsulosin 0.4 mg capsule 0.4 mg PO DAILY bph 12/28/21 07/02/24 aspirin 81 mg tablet,delayed 81 mg PO Q OTHER DAY 07/02/24 07/02/24 release Previous Rx's ?Medication ?Instructions ?Recorded atorvastatin 40 mg tablet 40 mg PO DAILY Cholesterol #90 tabs 05/21/24 hydrochlorothiazide 12.5 mg tablet See Rx Instructions .Route 05/21/24 .COMPLEX #90 tabs losartan 100 mg tablet 100 mg PO DAILY High Blood 07/02/24 Pressure #90 tabs Allergies Allergy/AdvReac Type Severity Reaction Status Date / Time No Known Allergies Allergy Verified 07/02/24 09:25 [facility] Disclaimer: The information contained in this section may have been updated after the patient was seen, as this information can be updated by other users. Medical History Cardiac murmur Prostate CA Anxiety Abnormal ECG Expressive aphasia Fatigue ESHTER (obstructive sleep apnea) Currently on AutoPap, asymptomatic Family history of heart disease HLD (hyperlipidemia) HTN (hypertension) Surgical History History of appendectomy History of cholecystectomy History of knee replacement right Family History Other Family history of stroke Lung cancer Social History Smoking Status: Never smoker second hand exposure: No alcohol intake: current alcohol intake frequency: 0-2 drinks per day counseling provided: none substance use type: denies use current occupational status: employed Travel in the last 8 weeks: None household members: spouse housing: house lives independently: No marital status: education level: college service: No long term: No 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 occupational exposures/hazards: No caffeine: Yes do you feel safe at home: Yes victim of physical abuse: No victim of emotional abuse: No victim of sexual abuse: No would you like helpful sources: No Other Medical History Have you received the Flu Vaccine for this season: Yes Have you received the Pneumonia Vaccine: No ROS Obtained: Yes All systems reviewed & no additional complaints except as documented Physical Exam General General appearance: alert and in no apparent distress Head Head exam: atraumatic, normocephalic and normal inspection Eye Eye exam: Present normal appearance, PERRL and EOMI ENT ENT exam: Present normal exam, normal oropharynx, mucous membranes moist, TM's normal bilaterally and normal external ear exam Neck Neck exam: Present normal inspection, full ROM and trachea midline; Absent meningismus or lymphadenopathy Chest Chest inspection: Present normal inspection and symmetric chest wall rise; Absent tenderness Respiratory Respiratory exam: Present normal lung sounds bilaterally; Absent respiratory distress Cardiovascular Cardiovascular exam: Present regular rate and normal rhythm; Absent JVD Abdominal Exam Abdominal exam: Present soft, distention, tenderness and normal bowel sounds; Absent guarding or rebound Abdominal tenderness: Present RLQ exam: Present scrotal swelling (Right-sided), normal testicular lie and circumcised; Absent testicular tenderness or urethral discharge Extremities Exam Extremities exam: Present normal inspection, full ROM and normal capillary refill; Absent calf tenderness Back Exam Back exam: Present normal inspection; Absent tenderness Neurological Exam Neurological exam: Present alert and oriented X3 Psychiatric Psychiatric exam: Present normal affect and normal mood Skin Skin exam: Present warm, dry, intact and normal color Lymphatic Lymphatic Findings: no adenopathy Medical Decision Making Medical Records Screening: Per USPSTF and CDC recommendations, given the prevalence of disease in our region, it is our hospital?s policy to screen for HIV and viral Hepatitis for all patients aged 18 and over and those with ongoing risk factors. Jus Inquiry Pt receiving controlled substance: No Vital Signs: 08/04/24 10:38 08/04/24 10:45 08/04/24 11:22 Temperature 97.9 F Temperature Source Oral Pulse Rate 61 50 L Pulse Rate [Left Radial] 55 L Respiratory Rate 16 12 Blood Pressure 168/68 H 137/62 Blood Pressure [Right Arm] 168/68 H Blood Pressure Mean Blood Pressure Mean [Right Arm] 101 02 Sat by Pulse Oximetry 96 97 91 L Oxygen Delivery Method Room Air Room Air Room Air 08/04/24 11:31 08/04/24 13:01 08/04/24 13:31 Temperature Temperature Source Pulse Rate 52 L 50 L 52 L Pulse Rate [Left Radial] Respiratory Rate 14 16 Blood Pressure 148/65 H 136/66 149/72 H Blood Pressure [Right Arm] Blood Pressure Mean 89 Blood Pressure Mean [Right Arm] 02 Sat by Pulse Oximetry 95 95 92 L Oxygen Delivery Method Room Air Room Air 08/04/24 14:01 08/04/24 14:31 Temperature Temperature Source Pulse Rate 52 L 52 L Pulse Rate [Left Radial] Respiratory Rate 18 Blood Pressure 147/65 H 155/66 H Blood Pressure [Right Arm] Blood Pressure Mean 80 Blood Pressure Mean [Right Arm] 02 Sat by Pulse Oximetry 95 95 Oxygen Delivery Method Room Air Lab Data Lab Results 08/04/24 10:55: WBC 6.8, RBC 4.11 L, Hgb 14.0 L, Hct 39.6 L, MCV 96.4 H, MCH 34.1 H, MCHC 35.4, RDW 12.9, Plt Count 207, MPV 7.5, Neut % (Auto) 70.2, Lymph % (Auto) 19.2, Pettis % (Auto) 8.2, Eos % (Auto) 1.7, Baso % (Auto) 0.8, Neut # (Auto) 4.8, Lymph # (Auto) 1.3, Pettis # (Auto) 0.6, Eos # (Auto) 0.1, Baso # (Auto) 0.1, Sodium 129 L, Potassium 3.8, Chloride 99, Carbon Dioxide 24, Anion Gap 9.8, BUN 16, Creatinine 0.90, Estimated Creat Clear 96, Estimated GFR 82, Est GFR ( Amer) 99, Glucose 124 H, Calcium 8.9, Total Bilirubin 1.3, AST 36, ALT 24, Alkaline Phosphatase 128 H, Total Protein 6.7, Albumin 4.3, Globulin 2.4, Albumin/Globulin Ratio 1.8, Lipase 75, HIV 1&2 Antibody Rapid Nonreactive 08/04/24 12:23: Urine Color Yellow, Urine Appearance Clear, Urine pH 7.0, Ur Specific [place] 1.015, Urine Protein Negative, Urine Glucose (UA) Negative, Urine Ketones Negative, Urine Blood Trace-i, Urine Nitrate Negative, Urine Bilirubin Negative, Urine Urobilinogen 0.2, Ur Leukocyte Esterase Negative, Urine RBC Occasional, Urine WBC None 08/04/24 13:00: Lactate 1.0 08/04/24 10:55 08/04/24 10:55 Orders (Tests/Meds): ED MEDICATIONS Generic Name Dose Route Start Last Admin Trade Name Freq PRN Reason Stop Dose Admin Piperacillin Sod/Tazobactam 100 mls @ 200 mls/hr 08/04/24 15:00 Sod 4.5 gm/ Sodium Chloride IV 08/04/24 15:29 ONCE ONE Discontinued Medications Generic Name Dose Route Start Last Admin Trade Name Freq PRN Reason Stop Dose Admin Acetaminophen 500 mg 08/04/24 13:39 08/04/24 13:49 Acetaminophen 500mg Tab PO 08/04/24 13:40 Not Given ONCE ONE Acetaminophen 1,000 mg 08/04/24 13:49 08/04/24 13:51 Acetaminophen 1,000mg/100ml Vial IV 08/04/24 13:50 1,000 mg ONCE ONE Administration Hydromorphone HCl 1 mg 08/04/24 11:04 08/04/24 11:14 Hydromorphone 2mg/Ml Syringe IV 08/04/24 11:05 1 mg ONCE ONE Administration Hydromorphone HCl 1 mg 08/04/24 13:00 08/04/24 13:07 Hydromorphone 2mg/Ml Syringe IV 08/04/24 13:01 1 mg ONCE ONE Administration Iopamidol 75 ml 08/04/24 11:53 08/04/24 11:53 Iopamidol-370 (76%);100ml Bottle IV 08/04/24 11:54 75 ml ONCE ONE Administration Methocarbamol 500 mg 08/04/24 13:00 08/04/24 13:07 Methocarbamol 500mg Tablet PO 08/04/24 13:01 500 mg ONCE ONE Administration Ondansetron HCl 4 mg 08/04/24 11:04 08/04/24 11:14 Ondansetron 4mg/2ml Vial IV 08/04/24 11:05 4 mg ONCE ONE Administration Sodium Chloride 10 ml 08/04/24 11:53 08/04/24 11:53 Sodium Chloride 0.9% 10ml Syr (Rad Only) IV 08/04/24 11:54 10 ml ONCE ONE Administration ORDERS Category Date Time Status CT abdomen pelvis w con Stat Cat Scan 08/04/24 11:04 Completed Complete Blood Count Auto Diff Stat Lab 08/04/24 10:55 Completed Comprehensive Metabolic Panel Stat Lab 08/04/24 10:55 Completed HIV (1&2) Antibody Rapid Stat Lab 08/04/24 10:55 Completed Hep C Ab with Reflex to RNA Stat Lab 08/04/24 10:55 Received Lactic Acid Stat Lab 08/04/24 13:00 Completed Lipase Stat Lab 08/04/24 10:55 Completed Urinalysis and Microscopic Stat Lab 08/04/24 12:23 Completed scrotum US [US Testicular] Stat Ultrasound 08/04/24 11:15 Completed Medical Decision Narrative: In summary, this 78-year-old male presents to the emergency department today with abdominal pain. On initial evaluation patient is patient is hemodynamically stable alert but in mild distress due to his pain. This is acute on chronic abdominal pain based on patient's notes, but is concerning that this is the worst pain he has ever had. He does have right sided scrotal swelling which has been going on for some time, without abrupt tenderness. Differential diagnosis includes but is not limited to hernia, bowel perforation, pneumoperitoneum, colitis, musculoskeletal pain, small bowel obstruction, hydrocele, torsion. Based on these concerns, I ordered CT, ultrasound and labs. Patient received Tylenol, Dilaudid, Robaxin, Zofran and Zosyn for treatment. Labs personally reviewed demonstrate no leukocytosis, creatinine within normal limits, hyponatremia. CT imaging personally interpreted demonstrate no pneumoperitoneum or hemoperitoneum. I had an interactive discussion with the general surgery. On reassessment pain is still not well-controlled, gave repeat pain medication. I had an interactive discussion with the general surgery team due to spigelian hernia the patient has an concern for developing small bowel obstruction. After their evaluation patient was taken to the operating room for operative management. Procedures Risk/Benefits of Procedure(s) Were Explained: Yes Critical Care Critical Care Time Critical Care Time: No
--- NOTE | 2024-08-04 11:04 | CT_ITS ---
PROCEDURE INFORMATION: Exam: CT Abdomen And Pelvis With Contrast Exam date and time: 08/04/2024 11:47 AM Age: 78 years old Clinical indication: Other: Rlq tenderness TECHNIQUE: Imaging protocol: Computed tomography of the abdomen and pelvis with contrast. Radiation optimization: All CT scans at this facility use at least one of these dose optimization techniques: automated exposure control; mA and/or kV adjustment per patient size (includes targeted exams where dose is matched to clinical indication); or iterative reconstruction. Contrast material: ISOVUE; Contrast volume: 75 ml; Contrast route: IV; COMPARISON: CT ABDOMEN PELVIS W CON 03/10/2023 9:31 AM FINDINGS: Diaphragm: Small hiatal hernia Liver: Decreased density throughout the liver compatible with hepatic steatosis. Gallbladder and biliary ducts: Cholecystectomy Pancreas: Pancreas unremarkable Spleen: The spleen is unremarkable. Adrenal glands: Normal. No mass. Kidneys and ureters: Bilateral renal cysts again demonstrated Stomach and bowel: Findings demonstrated on series 3, image number [id number]. Colonic diverticulosis. No evidence of diverticulitis. Appendix: No evidence of appendicitis. Intraperitoneal space: Unremarkable. No free air. No significant fluid collection. Vasculature: Unremarkable. No abdominal aortic aneurysm. Lymph nodes: Unremarkable. No enlarged lymph nodes. Urinary bladder: Unremarkable as visualized. Reproductive: Unremarkable as visualized. Bones/joints: Right lateral abdominal hernia just anterior to the iliac crest containing dilated small bowel loops. Dilatation of bowel loops proximal to this region also demonstrated. Soft tissues: See Bones/joints finding. IMPRESSION: 1. Findings compatible with incarcerated right lower quadrant spigelian hernia. Defect measuring approximately 12 mm. 2. A call has been placed the referring physician at which time an addended report will be issued.
--- NOTE | 2024-08-04 11:08 | PC.NURSE ---
CAlled radiology for us call in for testicule US
[2024-08-04 11:14] LABS: Albumin Level 4.3 g/dl (3.5-5.0); Chloride 99 mmol/L (98-107); Potassium 3.8 mmoL/L (3.5-5.1); Sodium 129 mmol/L (136-145)
[2024-08-04] MEDS: ONDANSETRON 4MG/2ML VIAL 4 MG IV (11:14)
[2024-08-04] MEDS: HYDROMORPHONE 2MG/ML SYRINGE 1 MG IV ×2 (11:14→13:07)
--- NOTE | 2024-08-04 11:15 | US_ITS ---
PROCEDURE INFORMATION: Exam: US Scrotum Exam date and time: 08/04/2024 11:49 AM Age: 78 years old Clinical indication: Swelling, testicles or scrotum; Additional info: Right testicular swelling TECHNIQUE: Imaging protocol: Real-time ultrasound of the scrotum and contents with color Doppler and image documentation. COMPARISON: US TESTICULAR 05/01/2020 1:31 PM FINDINGS: Right testicle: Right testis 4.2 x 3 x 2.8 cm in length, AP and transverse dimensions. Tiny avascular nodule located arising from the surface of the upper pole of the right testicle. Findings most likely benign. Clinically correlate. Consider follow-up examination in 1 month if appropriate. Left testicle: Left testis 3.8 x 2.6 x 3.8 cm in length, AP and transverse dimensions. Epididymides: Right epididymis 1.1 x 1.1 x 1.3 cm in maximum dimensions. Left epididymis: 0.9 x 1.3 x 1 cm in length, AP and transverse dimensions. Normal arterial and venous flow demonstrated bilaterally. Small right epididymal cyst measuring 3 mm. Scrotum/soft tissues: Persistent large bilateral hydroceles. IMPRESSION: 1. Persistent large bilateral hydroceles. 2. Small right epididymal cyst measuring 3 mm. 3. Tiny avascular nodule located arising from the surface of the upper pole of the right testicle. Findings most likely benign. Clinically correlate. Consider follow-up examination in 1 month if appropriate.
[2024-08-04 11:17] LABS: Alanine Aminotransferase 24 U/L (12-78); Albumin/Globulin Ratio 1.8 (1.1-1.8); Alkaline Phosphatase 128 U/L (38-126); Anion Gap 9.8 mEq/L (5-15); Aspartate Amino Transferase 36 U/L (17-59); Bilirubin,Total 1.3 mg/dl (0.2-1.3); Blood Urea Nitrogen 16 mg/dl (9-20); Carbon Dioxide 24 mmol/L (22.0-30.0); Creatinine Clearance Estimated 96 mL/min (50-200); Estimated Glomerular Filt Rate 82 ml/min (>60); GFR (African American) 99 ML/MIN (>60); Globulin 2.4 g/dL (1.3-3.2); Lipase 75 U/L (23-300); Total Protein,Serum 6.7 g/dl (6.3-8.2)
[2024-08-04 11:18] LABS: Calcium 8.9 mg/dl (8.4-10.2); Glucose 124 mg/dl (74-100)
[2024-08-04 11:19] LABS: Basophils # 0.1 K/mm3 (0-0.2); Basophils % 0.8 % (0.1-2.0); Eosinophils # 0.1 K/mm3 (0.0-0.4); Eosinophils % 1.7 % (0.1-12.0); Hematocrit 39.6 % (42.0-52.0); Lymphocytes # 1.3 K/mm3 (0.7-4.5); Lymphocytes % 19.2 % (10-50); Mean Corpuscular HGB Conc 35.4 g/dL (31.8-35.4); Mean Corpuscular Hemoglobin 34.1 pg (27.0-31.2); Mean Corpuscular Volume 96.4 fl (80-94); Mean Platelet Volume 7.5 fl (7.4-10.4); Monocytes # 0.6 K/mm3 (0.1-1.0); Monocytes % 8.2 % (1.7-9.3); Neutrophils # 4.8 K/mm3 (1.8-7.8); Neutrophils % 70.2 % (37.0-80.0); Platelet Count 207 K/mm3 (142-424); Red Blood Count 4.11 M/mm3 (4.60-6.20); Red Cell Distribution Width 12.9 % (11.5-17.5); White Blood Count 6.8 K/mm3 (4.8-10.8)
[2024-08-04] MEDS: SODIUM CHLORIDE 0.9% 10ML SYR (RAD ONLY) 10 ML IV (11:53)
[2024-08-04] MEDS: IOPAMIDOL-370 (76%);100ML BOTTLE 75 ML IV (11:53)
[2024-08-04 12:40] LABS: Microscopic, Urine URINE MICROSCOPIC (MICROSCOPIC)
[2024-08-04 12:47] LABS: Appearance,Urine CLEAR (Clear); Bilirubin,Urine Negative (Negative); Blood, Urine TRACE-I (Negative); Color,Urine YELLOW (Yellow); Glucose,Urine (UA) Negative (Negative); Ketones,Urine Negative (Negative); Leukocyte Esterase,Urine Negative (Negative); Nitrate,Urine Negative (Negative); Protein,Urine Negative (Negative); Specific Gravity, Urine 1.015 (1.005-1.030); Urobilinogen,Urine 0.2 EU/dl (0.2)
[2024-08-04 12:58] LABS: HIV (1&2) Antibody Rapid NONREACTIVE (NONREACTIVE)
[2024-08-04] MEDS: METHOCARBAMOL 500MG TABLET 500 MG PO (13:07)
--- NOTE | 2024-08-04 13:17 | PC.NURSE ---
MATILDE ALMANZA SPEAKING TO GEN SURGERY COAL PULVERIZING OPERATOR
[2024-08-04 13:20] LABS: RBC,Urine Occasional #/hpf (0-3)
[2024-08-04] MEDS: ACETAMINOPHEN 1,000MG/100ML VIAL 1000 MG IV (13:51)
--- NOTE | 2024-08-04 14:44 | PC.NURSE ---
gen surg speaking to MD at nurses station.
--- NOTE | 2024-08-04 15:17 | P.CONS_ITS ---
History of Present Illness *Reason for visit:: Right lower quadrant abdominal pain. *History of present illness: Mr. Jack Simpson is a 78-year-old male with a history of TIA, coronary artery disease, anxiety, sleep apnea, hyperlipidemia, hypertension, BPH, who presents with acute right lower quadrant pain since 9 AM this morning. The pain has been 10 out of 10. He has had pain like this intermittently over the past several years, and has been to the ER for it, but he reports that no cause was ever found. He denies vomiting, but endorses nausea. Last bowel movement was at 7:30 AM, unsure when he last passed flatus. Denies fevers. Workup in the emergency room revealed no leukocytosis, no acidosis, mild hyponatremia, normal renal function, normal lactate. A CT scan demonstrated incarcerated right lower quadrant spigelian hernia with a loop of small bowel. [facility] Disclaimer: The information contained in this section may have been updated after the patient was seen, as this information can be updated by other users. Medical History (Updated 08/04/24 @ 15:23 by Perla Garcia MD) Spigelian hernia with bowel obstruction Cardiac murmur Prostate CA Anxiety Abnormal ECG Expressive aphasia Fatigue ESTHER (obstructive sleep apnea) Family history of heart disease HLD (hyperlipidemia) HTN (hypertension) Surgical History (Updated 08/04/24 @ 15:20 by Perla Garcia MD) H/O bilateral inguinal hernia repair History of appendectomy History of cholecystectomy History of knee replacement Family History Other Family history of stroke Lung cancer Social History Smoking Status: Never smoker second hand exposure: No alcohol intake: current alcohol intake frequency: 0-2 drinks per day counseling provided: none substance use type: denies use current occupational status: employed Travel in the last 8 weeks: None household members: spouse housing: house lives independently: No marital status: education level: college service: No penitentiary: No 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 occupational exposures/hazards: No caffeine: Yes do you feel safe at home: Yes victim of physical abuse: No victim of emotional abuse: No victim of sexual abuse: No would you like helpful sources: No [facility] Disclaimer: The information contained in this section may have been updated after the patient was seen, as this information can be updated by other users. Medical History (Updated 08/04/24 @ 15:23 by Perla Garcia MD) Spigelian hernia with bowel obstruction Cardiac murmur Prostate CA Anxiety Abnormal ECG Expressive aphasia Fatigue ESTHER (obstructive sleep apnea) Family history of heart disease HLD (hyperlipidemia) HTN (hypertension) Surgical History (Updated 08/04/24 @ 15:20 by Perla Garcia MD) H/O bilateral inguinal hernia repair History of appendectomy History of cholecystectomy History of knee replacement Family History Other Family history of stroke Lung cancer Social History Smoking Status: Never smoker second hand exposure: No alcohol intake: current alcohol intake frequency: 0-2 drinks per day counseling provided: none substance use type: denies use current occupational status: employed Travel in the last 8 weeks: None household members: spouse housing: house lives independently: No marital status: education level: college service: No penitentiary: No 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 occupational exposures/hazards: No caffeine: Yes do you feel safe at home: Yes victim of physical abuse: No victim of emotional abuse: No victim of sexual abuse: No would you like helpful sources: No Other Medical History Have you received the Flu Vaccine for this season: Yes Have you received the Pneumonia Vaccine: No Review of Systems Review of Systems Review of systems:: pertinent systems reviewed and negative unless documented below Constitutional Constitutional: Reports as per HPI and Denies fever(s) *Gastrointestinal Gastrointestinal: Reports abdominal pain, Denies change in stool character, Denies constipation, Denies diarrhea, Denies hematemesis, Denies hematochezia, Denies melena, Reports nausea and Denies vomiting Meds Home Medications and Allergies Home Medications ?Medication ?Instructions ?Recorded ?Confirmed ?Type omega-3 fatty acids 1,000 mg 1,000 mg PO ONCE Supplement 10/24/17 07/02/24 History capsule (Fish Oil Concentrate) tamsulosin 0.4 mg capsule 0.4 mg PO DAILY bph 12/28/21 07/02/24 History atorvastatin 40 mg tablet 40 mg PO DAILY Cholesterol #90 tabs 05/21/24 07/02/24 Rx hydrochlorothiazide 12.5 mg tablet See Rx Instructions .Route 05/21/24 07/02/24 Rx .COMPLEX #90 tabs aspirin 81 mg tablet,delayed 81 mg PO Q OTHER DAY 07/02/24 07/02/24 History release losartan 100 mg tablet 100 mg PO DAILY High Blood 07/02/24 07/02/24 Rx Pressure #90 tabs New Prescriptions to Start Prescriptions: Allergies Allergy/AdvReac Type Severity Reaction Status Date / Time No Known Allergies Allergy Verified 07/02/24 09:25 Exam (Inpt) Vital signs and Labs for Last 24 Hours: Temp Pulse Resp BP Pulse Ox O2 Del Method 97.9 F 52 L 18 155/66 H 95 Room Air 08/04/24 10:38 08/04/24 14:31 08/04/24 14:31 08/04/24 14:31 08/04/24 14:31 08/04/24 14:01 Laboratory Results - last 24 hr 08/04/24 10:55: WBC 6.8, RBC 4.11 L, Hgb 14.0 L, Hct 39.6 L, MCV 96.4 H, MCH 34.1 H, MCHC 35.4, RDW 12.9, Plt Count 207, MPV 7.5, Neut % (Auto) 70.2, Lymph % (Auto) 19.2, [place] % (Auto) 8.2, Eos % (Auto) 1.7, Baso % (Auto) 0.8, Neut # (Auto) 4.8, Lymph # (Auto) 1.3, [place] # (Auto) 0.6, Eos # (Auto) 0.1, Baso # (Auto) 0.1, Sodium 129 L, Potassium 3.8, Chloride 99, Carbon Dioxide 24, Anion Gap 9.8, BUN 16, Creatinine 0.90, Estimated Creat Clear 96, Estimated GFR 82, Est GFR ( Amer) 99, Glucose 124 H, Calcium 8.9, Total Bilirubin 1.3, AST 36, ALT 24, Alkaline Phosphatase 128 H, Total Protein 6.7, Albumin 4.3, Globulin 2.4, Albumin/Globulin Ratio 1.8, Lipase 75, HIV 1&2 Antibody Rapid Nonreactive 08/04/24 12:23: Urine Color Yellow, Urine Appearance Clear, Urine pH 7.0, Ur Specific [place] 1.015, Urine Protein Negative, Urine Glucose (UA) Negative, Urine Ketones Negative, Urine Blood Trace-i, Urine Nitrate Negative, Urine Bilirubin Negative, Urine Urobilinogen 0.2, Ur Leukocyte Esterase Negative, Urine RBC Occasional, Urine WBC None 08/04/24 13:00: Lactate 1.0 I & O for Labs for Last 24 Hours: Intake & Output 08/01/24 08/02/24 08/03/24 08/04/24 23:59 23:59 23:59 23:59 Weight 243 lb Constitutional: mild distress Comment:: Due to abdominal pain Head: Present normocephalic and atraumatic Eyes: Absent eye discharge ENT exam ED: Present normal oropharynx and mucous membranes moist Neck: Present full ROM and trachea midline; Absent tenderness Respiratory: Present CTA bilaterally; Absent accessory muscle use Cardiac: Present Reg Rate and Rhythm GI: Present soft Comments:: Large diastases recti. Hard tender nodule approximately golf ball size in the right lower quadrant that is tender. He does not have generalized peritonitis. Bowel sounds are scant. He has scattered lap scars, right lower quadrant Fortunato- Jefferson scar Rectal (male): Present deferred (male): Present deferred Extremities: Present normal inspection; Absent edema Skin: Present intact; Absent cyanosis or pallor Neuro: Present Grossly Intact, alert, awake, oriented x 3 and moves all extremities; Absent Resting Tremor Results Labs 08/04/24 10:55 08/04/24 10:55 Labs: Laboratory Results - last 24 hr 08/04/24 10:55: WBC 6.8, RBC 4.11 L, Hgb 14.0 L, Hct 39.6 L, MCV 96.4 H, MCH 34.1 H, MCHC 35.4, RDW 12.9, Plt Count 207, MPV 7.5, Neut % (Auto) 70.2, Lymph % (Auto) 19.2, [place] % (Auto) 8.2, Eos % (Auto) 1.7, Baso % (Auto) 0.8, Neut # (Auto) 4.8, Lymph # (Auto) 1.3, [place] # (Auto) 0.6, Eos # (Auto) 0.1, Baso # (Auto) 0.1, Sodium 129 L, Potassium 3.8, Chloride 99, Carbon Dioxide 24, Anion Gap 9.8, BUN 16, Creatinine 0.90, Estimated Creat Clear 96, Estimated GFR 82, Est GFR ( Amer) 99, Glucose 124 H, Calcium 8.9, Total Bilirubin 1.3, AST 36, ALT 24, Alkaline Phosphatase 128 H, Total Protein 6.7, Albumin 4.3, Globulin 2.4, Albumin/Globulin Ratio 1.8, Lipase 75, HIV 1&2 Antibody Rapid Nonreactive 08/04/24 12:23: Urine Color Yellow, Urine Appearance Clear, Urine pH 7.0, Ur Specific [place] 1.015, Urine Protein Negative, Urine Glucose (UA) Negative, Urine Ketones Negative, Urine Blood Trace-i, Urine Nitrate Negative, Urine Bilirubin Negative, Urine Urobilinogen 0.2, Ur Leukocyte Esterase Negative, Urine RBC Occasional, Urine WBC None 08/04/24 13:00: Lactate 1.[address] scan - abdomen: report reviewed and image reviewed Assessment and Plan *Assessment and plan (1) Spigelian hernia with bowel obstruction: Status: Acute Category: Medical Code(s): K43.6 - Other and unspecified ventral hernia with obstruction, without gangrene Plan Plan laparoscopic reduction repair of incarcerated spigelian hernia. Patient is aware that if the bowel is nonviable or is injured during reduction, that the repair will be primary and no mesh will be used. My hope is to use mesh to improve the longevity of the repair. He is aware of the possibility of open laparotomy and bowel resection. The risks, benefits, and alternatives to the procedure were discussed with the patient and his , including but not limited to infection, bleeding, injury to surrounding structures, need for redo surgery palate, prolonged recovery, pneumonia, venous thromboembolism, need for laparotomy and bowel resection, hernia recurrence. They understand and wish to proceed. Plan for Zosyn IV now, Lovenox 40 mg on-call to the OR.
[2024-08-04] MEDS: LIDOCAINE 2% UROJET 10ML 10 ML (15:40)
[2024-08-04] MEDS: LACTATED RINGERS 1000ML 1,000 ML 25 ML IV (16:02)
--- NOTE | 2024-08-04 16:05 | P.PNANES_ITS ---
[facility] Disclaimer: The information contained in this section may have been updated after the patient was seen, as this information can be updated by other users. Medical History (Updated 08/04/24 @ 15:23 by Perla Garcia MD) Spigelian hernia with bowel obstruction Cardiac murmur Prostate CA Anxiety Abnormal ECG Expressive aphasia Fatigue ESTHER (obstructive sleep apnea) Family history of heart disease HLD (hyperlipidemia) HTN (hypertension) Surgical History (Updated 08/04/24 @ 15:20 by Perla Garcia MD) H/O bilateral inguinal hernia repair History of appendectomy History of cholecystectomy History of knee replacement Family History Other Family history of stroke Lung cancer Social History Smoking Status: Never smoker second hand exposure: No alcohol intake: current alcohol intake frequency: 0-2 drinks per day counseling provided: none substance use type: denies use current occupational status: employed Travel in the last 8 weeks: None household members: spouse housing: house lives independently: No marital status: education level: college service: No alf: No 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 occupational exposures/hazards: No caffeine: Yes do you feel safe at home: Yes victim of physical abuse: No victim of emotional abuse: No victim of sexual abuse: No would you like helpful sources: No [facility] Anesthesia Checklist Patient Identification Patient Identification: Arm Band, Family and Verbal (Name & ) Structural Data Admitted From: Emergency Dept Planned Operative Procedure/s: Diagnostic laparoscopy, spegelian hernia repair, possible laparotomy Consent for Planned Operative Procedure(s) Verified: Yes Verified Documents: Surgical Consent and History and Physical NPO Status Verified Time NPO: 14:20 (Water) Chart Verification Results Verified: CBC, BMP, ECG and Chest Xray Additional verifications Patient : No Anesthesia Reactions: No Hx Blood Transfusions: No Blood Transfusion Reaction: No Cardiovascular Assessment Heart Sounds: S1 & S2 Pulse Rhythm: Irregular Peripheral Edema: Yes (2+ FELICE LE) Airway Assessment Mallampati Score:: Class II C-Spine Mobility Assessed: Yes (Limoited extension) TMJ Mobility Assessed: Yes Dentition: Poor Dentition (Many missing. Nothing loose per pt.) Neurological Assessment Level of Consciousness: Awake, Alert, Appropriate and Follows Commands Hx Seizures: No Numbness or tingling in extremities: No Anesthesia Plan Anesthesia Risk discussed: Yes Anesthesia Plan: Verified ASA Class: III (E) Anesthesia Type: General
[2024-08-04] MEDS: PIPERACILLIN/TAZO 4.5 GM in 0.9 % SODIUM CHLORIDE 100 ML IV (16:11)
--- NOTE | 2024-08-04 17:10 | SUR.OPER ---
1700- call made for inpatient bed at this time
--- NOTE | 2024-08-04 17:25 | SUR.OPER ---
1700- decision was made to go open. 1708-all counts from lap table counted, completed and correct 1715- open table counted 1722- open incision cut time
--- NOTE | 2024-08-04 18:36 | P.OP_ITS ---
Date of procedure: 08/04/24 Pre-op Diagnosis:: Incarcerated Spigelian Hernia Post-op Diagnosis:: Strangulated Spigelian Hernia Procedure performed:: Diagnostic laparoscopy, Exploratory laparotomy, reduction and primary repair of Spigelian hernia, small bowel resection x 1 Surgeon:: Perla Garcia MD ENTERPRISE APPLICATION ARCHITECT:: Magdalena Murray Anesthesia: GETA Estimated blood loss (mL): 50 Clinical Note:: Mr. Kai Chu is a 78 year old male who presented with approximately 6 hours of acute right lower quadrant abdominal pain. A CT scan showed an incarcerated Spigelian hernia, and he was taken urgently to the operative room for repair. Operative findings:: Right sided Spigelian hernia containing strangulated, ischemic bowel Operative note:: After informed consent was taken, the patient was taken to the operating room and laid in the supine position. General anesthesia was induced by anesthesia staff. He received Lovenox and had received Zosyn earlier in the emergency room. The abdomen was prepped and draped sterilely. IR to the abdomen at Jiang's point using a 5 mm Optiview trocar under direct visualization. The abdomen was insufflated to 15 mmHg and diagnostic laparoscopy was performed. There was no injury from the entrance technique. Additional ports were placed in the left lateral abdomen, including two 5 mm ports and an 11 mm port. The right sided spigelian hernia was easily identified. There was a knuckle of small bowel in the hernia defect. The bowel was carefully reduced, with some difficulty. Once the bowel was reduced, it was apparent that it was ischemic and necrotic. The hernia defect was examined, and was only about 1-1/2 cm in diameter. The peritoneum around the defect was incised and a flap developed. The hernia sac was also incised and the fascia was cleared off of the hernia defect. Attempt was made to close the defect primarily with 0 Ethibond suture, but it was under tension and would not come together easily with the laparoscopic technique. It was also apparent that the bowel had not regained viability, and so the decision was made to abort laparoscopy and convert to open laparotomy. All ports were removed and the abdomen was desufflated. A midline incision was made just above the umbilicus and extending down below the umbilicus. The subcutaneous tissues were dissected with cautery. The fascia was carefully incised and the peritoneum was entered. The loop of ischemic bowel was identified and resected and passed off the field. [id number], functional end-to-end anastomosis was performed with a white load on the 70 mm DINAH stapler. The common enterotomy was closed in 2 layers with 2-0 silk, and the mesenteric defect was closed with 2-0 silk. Since there had been ischemic bowel, I was not able to place a mesh, and so I elected to repair the spigelian hernia primarily. The hernia defect was closed primarily with 0 Vicryl running suture and came together. The peritoneal flap was closed with running 0 Vicryl. The hernia sac was not resected, but was pexied up to the peritoneum. The abdomen was checked for hemostasis and contamination, and hemostasis was excellent and there was no contamination. The abdomen was irrigated copiously with warm saline and then suctioned. The fascia was closed with #1 looped PDS in a running fashion. Subcutaneous tissues were irrigated, and then the midline incision and the lap sites were closed with skin socrates. Sterile dressings were placed. The patient was awakened and taken to recovery in good condition. He tolerated the procedure well. Condition: stable Disposition: PACU Specimens:: Small bowel Complications:: None immediate
--- NOTE | 2024-08-04 18:50 | P.PNANES_ITS ---
[facility] Anesthesia Record Part I Anesthesia Record I Intake, IV Amount: 850 Hydration: Adequate Estimated blood loss (mL): 50 Urine output (mL): 250 Blood Products used (#): none Blood Pressure: 128/75 SaO2: 95 Pulse Rate: 63 Airway Patency: Patent Respiratory Rate: 16 Temperature: 97.5 F Patient is:: Awake, Drowsy and Stable Stable to PACU at:: 18:48
--- NOTE | 2024-08-04 18:51 | SUR.OPER ---
1835- Dr Garcia on the phone with Dr Xiao regarding admission
[2024-08-04] MEDS: MORPHINE 2MG/ML SYRINGE 2 MG IV (19:20)
--- NOTE | 2024-08-04 19:42 | PC.NURSE ---
Patient arrived to floor via stretcher from OR at 19:30.
[2024-08-04] MEDS: 0.9 % SODIUM CHLORIDE 1000ML 1,000 ML 125 ML IV (20:08)
[2024-08-04 20:15] LABS: Microscopic,Cath URINE MICROSCOPIC (MICROSCOPIC)
[2024-08-04] MEDS: MORPHINE 10MG/ML 30ML PCA IV (20:16)
[2024-08-04 20:17] LABS: Appearance,Urine/Cath CLEAR (Clear); Bilirubin,Cath Negative (Negative); Blood, Urine/Cath TRACE-I (Negative); Color,Urine/Cath YELLOW (Yellow); Glucose,Urine/Cath (UA) Negative (Negative); Ketones,Urine/Cath Negative (Negative); Leukocyte Esterase,Cath Negative (Negative); Nitrate,Cath Negative (Negative); Protein,Urine/Cath Negative (Negative); Specific Gravity, Urine/Cath 1.015 (1.005-1.030); Urobilinogen,Cath 0.2 EU/dl (0.2)
[2024-08-04 20:33] LABS: WBC,Urine/Cath Occasional #/hpf (0-3)
[2024-08-05] VITALS (9 sets, daily range): BP systolic 120–152; BP diastolic 62–72; PULSE 63–76; RESP 18–20; TEMP 36.5–36.9; O2SAT 95–97; BMI 29.5
[2024-08-05] MEDS: 0.9 % SODIUM CHLORIDE 1000ML 1,000 ML 125 ML IV ×3 (04:01→20:59)
--- NOTE | 2024-08-05 05:56 | PC.NURSE ---
Patient has had a relatively good night. Patient has had ice chips off and on through the night to help with his dry mouth. He has had no reports of nausea and has minimally used the MACHINE CUTTER pump for pain control. He states he is not really hurting that bad just uncomfortable. RN educated patient that once he is okay to get up that it is important to get up and move about to help regain bowel function. is at bedside
[2024-08-05 07:28] LABS: Hematocrit 36.7 % (42.0-52.0); Lymphocytes # 0.5 K/mm3 (0.7-4.5); Lymphocytes % 5.1 % (10-50); Mean Corpuscular HGB Conc 34.2 g/dL (31.8-35.4); Mean Corpuscular Hemoglobin 34.1 pg (27.0-31.2); Mean Corpuscular Volume 99.6 fl (80-94); Mean Platelet Volume 8.2 fl (7.4-10.4); Monocytes # 0.6 K/mm3 (0.1-1.0); Monocytes % 6.4 % (1.7-9.3); Neutrophils # 8.3 K/mm3 (1.8-7.8); Neutrophils % 88.4 % (37.0-80.0); Platelet Count 163 K/mm3 (142-424); Red Blood Count 3.68 M/mm3 (4.60-6.20); Red Cell Distribution Width 12.6 % (11.5-17.5); White Blood Count 9.4 K/mm3 (4.8-10.8)
[2024-08-05 07:30] LABS: Albumin Level 3.3 g/dl (3.5-5.0); Chloride 101 mmol/L (98-107); Potassium 4.4 mmoL/L (3.5-5.1); Sodium 129 mmol/L (136-145)
[2024-08-05 07:32] LABS: MANUAL DIFFERENTIAL MANUAL DIFFERENTIAL (MANUAL DIFF)
[2024-08-05 07:33] LABS: Alanine Aminotransferase 20 U/L (12-78); Albumin/Globulin Ratio 1.4 (1.1-1.8); Alkaline Phosphatase 75 U/L (38-126); Anion Gap 9.4 mEq/L (5-15); Aspartate Amino Transferase 28 U/L (17-59); Bilirubin,Total 1.4 mg/dl (0.2-1.3); Blood Urea Nitrogen 17 mg/dl (9-20); Calcium 8.2 mg/dl (8.4-10.2); Carbon Dioxide 23 mmol/L (22.0-30.0); Creatinine Clearance Estimated 96 mL/min (50-200); Estimated Glomerular Filt Rate 94 ml/min (>60); GFR (African American) 113 ML/MIN (>60); Globulin 2.3 g/dL (1.3-3.2); Glucose 124 mg/dl (74-100); Total Protein,Serum 5.6 g/dl (6.3-8.2)
[2024-08-05 07:58] LABS: Hemoglobin 12.5 g/dL (14.1-18.0)
[2024-08-05] MEDS: PIPERACILLIN/TAZO 4.5 GM in 0.9 % SODIUM CHLORIDE 100 ML IV ×2 (08:43)
--- NOTE | 2024-08-05 10:06 | HMH.PHAINT1 ---
Pharmacy Intervention Comments: MEDICATION RECONCILIATION COMPLETE USING LIST FROM RECENT CARDIOLOGY OFFICE VISIT AND EXTERNAL PHARMACY FILL HISTORY.
[2024-08-05 10:08] LABS: HCV Ab Non Reactive (Non Reactive)
--- NOTE | 2024-08-05 10:08 | P.PN_ITS ---
Subjective *Date: 08/05/24 *Time: 10:08 Interval history: Spoke to Dr. Garcia last night about patient's surgery. He is now post op day #1. Patient had some pain this morning when trying to sit up, he has not passed gas Medical Exam Vital signs and Labs for Last 24 Hours: Vital Signs Temp Pulse Pulse Resp BP BP Pulse Ox 08/05/24 09:00 08/05/24 08:00 98.5 F 74 20 150/68 H 95 08/05/24 08:00 08/05/24 06:56 08/05/24 06:00 98.3 F 71 18 152/66 H 96 08/05/24 05:00 08/05/24 04:00 98.1 F 71 18 133/69 95 08/05/24 03:00 08/05/24 02:00 76 18 124/64 95 08/05/24 01:00 75 18 120/62 96 08/05/24 01:00 08/05/24 00:00 97.7 F 75 18 137/71 96 08/04/24 23:00 97.5 F L 75 18 139/70 08/04/24 23:00 08/04/24 22:00 78 18 145/72 H 97 08/04/24 21:30 97.8 F 75 18 142/77 H 08/04/24 21:00 08/04/24 21:00 97.5 F L 72 17 163/83 H 97 08/04/24 20:30 97.4 F L 71 18 154/75 H 98 08/04/24 20:15 96.9 F L 69 18 161/84 H 96 08/04/24 20:00 96.1 F L 68 18 167/75 H 95 08/04/24 19:45 96.3 F L 66 18 170/81 H 08/04/24 19:30 98.4 F 68 18 156/90 H 97 08/04/24 19:03 64 17 108/75 L 98 08/04/24 19:00 08/04/24 18:53 97.5 F L 63 16 128/75 08/04/24 18:53 65 18 117/72 94 L 08/04/24 18:43 97.5 F L 62 17 128/75 95 08/04/24 15:54 97.9 F 59 L 18 172/81 H 08/04/24 15:01 59 L 18 172/81 H 98 08/04/24 14:31 52 L 18 155/66 H 95 08/04/24 14:01 52 L 147/65 H 95 08/04/24 13:31 52 L 149/72 H 92 L 08/04/24 13:01 50 L 16 136/66 95 08/04/24 11:31 52 L 14 148/65 H 95 08/04/24 11:22 50 L 12 137/62 91 L 08/04/24 10:45 61 168/68 H 97 08/04/24 10:38 97.9 F 55 L 16 168/68 H 96 O2 Del Method O2 Flow Rate 08/05/24 09:00 Room Air 08/05/24 08:00 Room Air 08/05/24 08:00 Room Air 08/05/24 06:56 Nasal Cannula 2 08/05/24 06:00 Nasal Cannula 2 08/05/24 05:00 Nasal Cannula 2 08/05/24 04:00 Nasal Cannula 2 08/05/24 03:00 Nasal Cannula 2 08/05/24 02:00 Nasal Cannula 2 08/05/24 01:00 Nasal Cannula 2 08/05/24 01:00 Nasal Cannula 2 08/05/24 00:00 Nasal Cannula 2 08/04/24 23:00 Nasal Cannula 2 08/04/24 23:00 Nasal Cannula 2 08/04/24 22:00 Nasal Cannula 2 08/04/24 21:30 Nasal Cannula 2 08/04/24 21:00 Nasal Cannula 2 08/04/24 21:00 Nasal Cannula 2 08/04/24 20:30 Room Air 08/04/24 20:15 Room Air 08/04/24 20:00 Room Air 08/04/24 19:45 Room Air 08/04/24 19:30 Room Air 08/04/24 19:03 Room Air 08/04/24 19:00 Room Air 08/04/24 18:53 08/04/24 18:53 Room Air 08/04/24 18:43 Room Air 08/04/24 15:54 Room Air 08/04/24 15:01 08/04/24 14:31 08/04/24 14:01 Room Air 08/04/24 13:31 Room Air 08/04/24 13:01 08/04/24 11:31 Room Air 08/04/24 11:22 Room Air 08/04/24 10:45 Room Air 08/04/24 10:38 Room Air Intake and Output 08/04/24 08/05/24 08/05/24 23:59 07:59 15:59 Intake Total 850 / 850 0 / 0 Output Total 300 / 300 0 / 300 Balance 850 / 850 -300 / -300 0 / -300 Intake: Intake, Oral Amount 0 / 0 Intake, Total IV Amount 850 / 850 Output: Output, Urine Amount 300 / 300 0 / 300 Other: Number of Unmeasured Voids 1 Weight 242 lb 4.608 oz Patient Weight 08/05/24 23:59 Weight 242 lb 4.608 oz Laboratory Results - last 24 hr 08/04/24 10:55: WBC 6.8, RBC 4.11 L, Hgb 14.0 L, Hct 39.6 L, MCV 96.4 H, MCH 34.1 H, MCHC 35.4, RDW 12.9, Plt Count 207, MPV 7.5, Neut % (Auto) 70.2, Lymph % (Auto) 19.2, [place] % (Auto) 8.2, Eos % (Auto) 1.7, Baso % (Auto) 0.8, Neut # (Auto) 4.8, Lymph # (Auto) 1.3, [place] # (Auto) 0.6, Eos # (Auto) 0.1, Baso # (Auto) 0.1, Sodium 129 L, Potassium 3.8, Chloride 99, Carbon Dioxide 24, Anion Gap 9.8, BUN 16, Creatinine 0.90, Estimated Creat Clear 96, Estimated GFR 82, Est GFR ( Amer) 99, Glucose 124 H, Calcium 8.9, Total Bilirubin 1.3, AST 36, ALT 24, Alkaline Phosphatase 128 H, Total Protein 6.7, Albumin 4.3, Globulin 2.4, Albumin/Globulin Ratio 1.8, Lipase 75, HIV 1&2 Antibody Rapid Nonreactive 08/04/24 12:23: Urine Color Yellow, Urine Appearance Clear, Urine pH 7.0, Ur Specific [place] 1.015, Urine Protein Negative, Urine Glucose (UA) Negative, Urine Ketones Negative, Urine Blood Trace-i, Urine Nitrate Negative, Urine Bilirubin Negative, Urine Urobilinogen 0.2, Ur Leukocyte Esterase Negative, Urine RBC Occasional, Urine WBC None 08/04/24 13:00: Lactate 1.0 08/04/24 16:03: Urine Color Yellow, Urine Appearance Clear, Urine pH 7.0, Ur Specific [place] 1.015, Urine Protein Negative, Urine Glucose (UA) Negative, Urine Ketones Negative, Urine Blood Trace-i, Urine Nitrate Negative, Urine Bilirubin Negative, Urine Urobilinogen 0.2, Ur Leukocyte Esterase Negative, Urine RBC 3-5, Urine WBC Occasional, Ur Squamous Epith Cells None, Urine Bacteria None 08/05/24 06:50: WBC 9.4 D, RBC 3.68 L, Hgb 12.5 L D, Hct 36.7 L, MCV 99.6 H, MCH 34.1 H, MCHC 34.2, RDW 12.6, Plt Count 163, MPV 8.2, Neut % (Auto) 88.4 H, Lymph % (Auto) 5.1 L, [place] % (Auto) 6.4, Eos % (Auto) 0.0 L, Baso % (Auto) 0.0 L , Neut # (Auto) 8.3 H, Lymph # (Auto) 0.5 L, [place] # (Auto) 0.6, Eos # (Auto) 0.0, Baso # (Auto) 0.0, Sodium 129 L, Potassium 4.4, Chloride 101, Carbon Dioxide 23, Anion Gap 9.4, BUN 17, Creatinine 0.80, Estimated Creat Clear 96, Estimated GFR 94, Est GFR ( Amer) 113, Glucose 124 H, Calcium 8.2 L, Total Bilirubin 1.4 H, AST 28, ALT 20, Alkaline Phosphatase 75, Total Protein 5.6 L, Albumin 3.3 L D, Globulin 2.3, Albumin/Globulin Ratio 1.4 I & O for Labs for Last 24 Hours: Intake & Output 08/02/24 08/03/24 08/04/24 08/05/24 23:59 23:59 23:59 23:59 Intake Total 850 / 850 0 / 0 Output Total 300 / 300 Balance 850 / 850 -300 / -300 Weight 243 lb 242 lb 4.608 oz Constitutional: Present no acute distress Respiratory: Present normal respiratory effort Cardiac: Present Reg Rate and Rhythm Comments:: Few bowel sounds, abdomen is soft, dressing is clean and intact. Extremities: Present normal inspection and full ROM Skin: Present intact; Absent erythema Neuro: Present Grossly Intact and moves all extremities Assessment and Plan *Assessment and plan (1) Spigelian hernia with bowel obstruction: Status: Acute Category: Medical Code(s): K43.6 - Other and unspecified ventral hernia with obstruction, without gangrene (2) HTN (hypertension): Status: Chronic Qualifiers: Hypertension type: essential hypertension Qualified Code(s): I10 - Essential (primary) hypertension Category: Medical Code(s): I10 - Essential (primary) hypertension (3) HLD (hyperlipidemia): Status: Chronic Qualifiers: Hyperlipidemia type: mixed hyperlipidemia Qualified Code(s): E78.2 - Mixed hyperlipidemia Category: Medical Code(s): E78.5 - Hyperlipidemia, unspecified (4) ESTHER (obstructive sleep apnea): Problem Comment: Currently on AutoPap, asymptomatic Status: Chronic Category: Medical Code(s): G47.33 - Obstructive sleep apnea (adult) (pediatric) Plan No change in treatment today, continue IV fluids and NPO
--- NOTE | 2024-08-05 10:17 | P.PN_ITS ---
Subjective Narrative: Doing well this morning. No acute events overnight. 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 He is since post his PHYSICIAN RELATIONS SPECIALIST button, and is about to get up to walk to the bathroom. No flatus or bowel movement yet. No nausea or vomiting. Complains of some reflux. Afebrile. Exam Data for Last 24 hours Vital signs and Labs for Last 24 Hours: Temp Pulse Resp BP Pulse Ox O2 Del Method O2 Flow Rate 98.5 F 74 20 150/68 H 95 Room Air 2 08/05/24 08:00 08/05/24 08:00 08/05/24 08:00 08/05/24 08:00 08/05/24 08:00 08/05/24 09:00 08/05/24 06:56 Laboratory Results - last 24 hr 08/04/24 10:55: WBC 6.8, RBC 4.11 L, Hgb 14.0 L, Hct 39.6 L, MCV 96.4 H, MCH 34.1 H, MCHC 35.4, RDW 12.9, Plt Count 207, MPV 7.5, Neut % (Auto) 70.2, Lymph % (Auto) 19.2, [place] % (Auto) 8.2, Eos % (Auto) 1.7, Baso % (Auto) 0.8, Neut # (Auto) 4.8, Lymph # (Auto) 1.3, [place] # (Auto) 0.6, Eos # (Auto) 0.1, Baso # (Auto) 0.1, Sodium 129 L, Potassium 3.8, Chloride 99, Carbon Dioxide 24, Anion Gap 9.8, BUN 16, Creatinine 0.90, Estimated Creat Clear 96, Estimated GFR 82, Est GFR ( Amer) 99, Glucose 124 H, Calcium 8.9, Total Bilirubin 1.3, AST 36, ALT 24, Alkaline Phosphatase 128 H, Total Protein 6.7, Albumin 4.3, Globulin 2.4, Albumin/Globulin Ratio 1.8, Lipase 75, Hepatitis C Antibody Non reactive, HIV 1&2 Antibody Rapid Nonreactive 08/04/24 12:23: Urine Color Yellow, Urine Appearance Clear, Urine pH 7.0, Ur Specific [place] 1.015, Urine Protein Negative, Urine Glucose (UA) Negative, Urine Ketones Negative, Urine Blood Trace-i, Urine Nitrate Negative, Urine Bilirubin Negative, Urine Urobilinogen 0.2, Ur Leukocyte Esterase Negative, Urine RBC Occasional, Urine WBC None 08/04/24 13:00: Lactate 1.0 08/04/24 16:03: Urine Color Yellow, Urine Appearance Clear, Urine pH 7.0, Ur Specific [place] 1.015, Urine Protein Negative, Urine Glucose (UA) Negative, Urine Ketones Negative, Urine Blood Trace-i, Urine Nitrate Negative, Urine Bilirubin Negative, Urine Urobilinogen 0.2, Ur Leukocyte Esterase Negative, Urine RBC 3-5, Urine WBC Occasional, Ur Squamous Epith Cells None, Urine Bacteria None 08/05/24 06:50: WBC 9.4 D, RBC 3.68 L, Hgb 12.5 L D, Hct 36.7 L, MCV 99.6 H, MCH 34.1 H, MCHC 34.2, RDW 12.6, Plt Count 163, MPV 8.2, Neut % (Auto) 88.4 H, Lymph % (Auto) 5.1 L, [place] % (Auto) 6.4, Eos % (Auto) 0.0 L, Baso % (Auto) 0.0 L , Neut # (Auto) 8.3 H, Lymph # (Auto) 0.5 L, [place] # (Auto) 0.6, Eos # (Auto) 0.0, Baso # (Auto) 0.0, Sodium 129 L, Potassium 4.4, Chloride 101, Carbon Dioxide 23, Anion Gap 9.4, BUN 17, Creatinine 0.80, Estimated Creat Clear 96, Estimated GFR 94, Est GFR ( Amer) 113, Glucose 124 H, Calcium 8.2 L, Total Bilirubin 1.4 H, AST 28, ALT 20, Alkaline Phosphatase 75, Total Protein 5.6 L, Albumin 3.3 L D, Globulin 2.3, Albumin/Globulin Ratio 1.4 I & O for Last 24 hours: Intake & Output 08/02/24 08/03/24 08/04/24 08/05/24 23:59 23:59 23:59 23:59 Intake Total 850 / 850 0 / 0 Output Total 300 / 300 Balance 850 / 850 -300 / -300 Weight 243 lb 242 lb 4.608 oz Constitutional Constitutional: no acute distress and cooperative *Routine Abdominal Exam Abdominal: Present soft, normoactive bowel sounds and distended Comments: Midline incision and lap sites covered with dressings, small amount of old bloody drainage. No cellulitis at right lateral previous strangulated spigelian hernia site. *Routine Neurological Exam Neurological: Present alert and oriented X3 Progress Note: A&P Assessment and plan (1) Spigelian hernia with bowel obstruction: Status: Acute Assessment and plan: Doing well today. Postoperative day 1 status post diagnostic laparoscopy converted to exploratory laparotomy with small bowel resection and primary repair of spigelian hernia (strangulated). Awaiting bowel function before progressing to clear liquid diet. Okay for ice chips. Continue morphine PHYSICIAN RELATIONS SPECIALIST until tolerating diet then will switch to oral pain meds. Can have abdominal binder. Mobilize and ambulate as tolerated. Lovenox 40 mg daily for DVT prophylaxis, SCDs. Zosyn for 24 hours perioperatively then discontinue. Continue normal saline. He continues to have hyponatremia. Case discussed with Dr. Xiao. (2) HTN (hypertension): Status: Chronic (3) HLD (hyperlipidemia): Status: Chronic (4) ESTHER (obstructive sleep apnea): Problem details: Currently on AutoPap, asymptomatic Status: Chronic
[2024-08-05] MEDS: FAMOTIDINE 20MG/2ML VIAL 20 MG IV ×2 (10:55→20:59)
[2024-08-05] MEDS: ENOXAPARIN 40MG/0.4ML SYRINGE 40 MG SUBCUT (10:55)
[2024-08-05] MEDS: SODIUM CHLORIDE 0.9% 10ML VIAL 8 ML IV ×2 (10:55→21:00)
[2024-08-05 10:57] LABS: Lymphocytes % 8 % (10-50); Monocytes % 3 % (2-9); Neutrophils % 89 % (42-76); Total Cells Counted 100
[2024-08-05 10:59] LABS: Platelet Estimate Normal; RBC Morphology Normal
--- OUTSIDE RECORDS SUMMARY | 2024-08-05 15:39 | XMS_ITS ---
Author Organization Unknown ALLERGIES AND ADVERSE REACTIONS No information ASSESSMENT No information CHIEF COMPLAINT No information MEDICATIONS No information OBJECTIVE DATA No information PHYSICAL EXAMINATION No information TREATMENT PLAN Planned Care Start Date Provider Encounter for Check-up [id number] [facility] PROBLEMS No information RESULTS No information REVIEW OF SYSTEMS No information SUBJECTIVE DATA No information VITAL SIGNS No information
--- OUTSIDE RECORDS SUMMARY | 2024-08-05 15:40 | XMS_ITS ---
Author Organization [facility] Address [address] [place] [address] Care Team Providers Care Compressor Engineer Name Role Phone Kadeem Xiao MD Primary Care Provider [phone] Active Problems Problem Noted Date Diagnosed Date Prostate cancer 04/13/2023 Cancer Staging:Clinical stage from 02/17/2023:Stage IIIC(cT2a, cN0, cM0, PSA: 4.7, Grade Group: 5) - Signed by Carlton Adan MD on 04/13/2023 Current Oncology Plans No current plan information found. Past Plans No past plan information found. Radiation Treatments * No radiation treatments are documented for this patient in [facility]. Treatments may have been administered in another system. Treatment Summaries Prostate cancer* Images from the original note were not included. Prostate Cancer Survivorship Plan General Information Patient name Kai Chu Date of 1945 Phone Email [email or web address] Cancer Treatment Team Patient Care Team: Carlton Adan MD as Consulting Physician (Radiation Oncology) Kai Barney MD as Consulting Physician (Urology) Provider Phone numbers Care Team Provider: Carlton Adan MD, ([phone]) Care Team Provider: Kai Barney MD, ([phone]) Care Team Provider: Cynthia Scruggs MD, ([phone]) Care Team Provider: Ho Lara MD, ([phone]) Post Treatment Care Team Primary Care Physician Kadeem Xiao MD [phone] [place] [address] Background Information Medical history Past Medical History: Arthritis Back pain Claustrophobia GERD (gastroesophageal reflux disease) Hearing loss Hypertension Ingrown toenail Plantar fasciitis Pneumonia Prostate cancer TIA (transient ischemic attack) Surgical history Past Surgical History: CATARACT EXTRACTION GALLBLADDER SURGERY HERNIA REPAIR KNEE ARTHROPLASTY PROSTATE BIOPSY Tobacco use Social History Tobacco Use Smoking Status Former Years: 30 Types: Cigarettes Quit date: 2000 Years since quittin.9 Smokeless Tobacco Never Family oncology history Cancer-related family history includes Cancer in his father; Lung cancer inhis father; Prostate cancer in his brother. Oncology Information Oncology/Hematology History Prostate cancer 02/17/2023 Cancer Staged Staging form: Prostate, AJCC 8th Edition - Clinical stage from 02/17/2023: Stage IIIC (cT2a, cN0, cM0, PSA: 4.7, Grade Group: 5) - Signed by Carlton Adan MD on 04/13/2023 04/13/2023 Initial Diagnosis Prostate cancer 06/27/2023 - 07/01/2023 Radiation Radiation OncologyTreatment Course: Kai Chu received 3500 cGy in 5 fractions to prostate and seminal vesicles via Stereotactic Radiation Therapy - SRT. Complications during Therapy: No concerns stated Modification to Treatment Plan: No Modifications Lifetime Dose Tracking No doses have been documented on this patient for the following tracked chemicals: Doxorubicin, Epirubicin, Idarubicin, Daunorubicin, Mitoxantrone, Bleomycin, Mitomycin, Doxorubicin Liposomal [No matching plan found] Persistent Treatment-Associated Adverse Effects at Completion of Therapy It is important to recognize that not every person experiences the following adverse events after treatment. You may not have any of these issues, a few or many adverse effects. Experiences are highly variable. Please discuss any adverse effects of cancer treatment with your cancer care team. After Surgical Therapy No Surgery Performed After Chemotherapy N/A After Radiation Therapy After External Beam Radiation Therapy or Cyberknife Radiation therapy can cause early and late side effects. Early side effects are those that happen during or shortly after treatment and are usually gone within a few weeks after treatment ends. Late side effects may take months or years to develop. The most common early side effects are fatigue (feeling tired) and skin changes. Other early side effects are usually related to the area being treated. If you continue to have some skin problems after treatment ends, be gentle with the skin in the treatment area until all signs of irritation are gone and continue to care for your skin as your doctors and nurses have advised. If you continue to have fatigue, you may need to plan your activities to maximize energy, get extra rest while your bodyis still recovering and follow other instructions from your doctors and nurses such as exercise andactivity. termite control service representative effects of radiation therapy vary greatly depending on the areas included in the field ofradiation and the radiation techniques that were used. Normal tissue in the body that is close to the prostate such as the bowel, rectum and bladder may be exposed to some radiation during treatment. Exposure of the bowel to radiation may result in bowel changes such as diarrhea or frequent loose stools. Ulceration and bleeding may also occur. Any bright red blood or black, tarry stools or abnormal passage of stool should be reported to your doctor. Stay hydrated by drinking water and fluids with electrolytes. Chronic diarrhea may put you at risk for weight loss and malnutrition. Talk to yourdoctor or nurse - there may medications and special instructions that can help. There are also other specialists like gastroenterologists and dietitians who can help. If the lymph nodes were in the radiation field, there may be an increased risk of developing lymphedema. Lymphedema is a condition in which fluid collects and may cause swelling. Exposure of the bladder to radiation may result in bladder scarring and may increase the risk of urinary tract infections. Blood in the urine or signs of urinary tract infections such as pain in the bladder, groin, lower abdomen or lower back, frequent urination, bladder spasm, cloudy, dark and/or foul-smelling urine, frequent urge to urinate and fever should be reported to your doctor. Radiation to the pelvis may cause erectile dysfunction (inability to get and keep an erection firm enough for sexual penetration). If there was erectile dysfunction before treatment and if there are other risk factors for erectile dysfunction (such as advanced age), the risk may be higher. Each man???s situation is different. Medications to treat erectile dysfunction may be given. There are also other treatments and devices that can help. Having trouble with erections is a very personal concern. It???s important to communicate with your partner and to talk with your doctor or nurse about it. Treatments and referrals to other specialists may help. In rare cases, radiation therapy can increase the risk of a second cancer. Other N/A Care of your Venous Access Device No Venous Access Device currently in place General After Cancer Treatment It is not uncommon for cancer to impact other areas of your life such as relationships, work and mental health. If you develop financial concerns, resources are sometimes available to assist in theseareas. Depression and anxiety can present either during or after cancer diagnosis and treatment. Itis important to discuss with your physician any of these concerns so these resources can be made available to you. General Cancer Support & Resources [facility] [address], [address] [place] [address] Med Onc: Freelance Data Entry Onc: Thread Reeler: Chana Nolasco - Psychiatric Nurse Practitioner: Ana Romero APRN - [employer] It! (A free smoking cessation program) Financial Counselor and Contact Information: Psychiatric Financial Counseling [phone] Magazine Worker Contact Information: Mae Chappell - Local Cancer Support Group and Contact Information: Seun Lockwood: This support group is open to anyone that has been diagnosed with cancer of any type. Meets at 6:30pm on the last Tuesday of each month. Location: [facility]; [address] [place] [address]. For more information call Neelam Aguilar @ . Prostate Cancer Support & Resources Local Resources [facility] Prostate Support Group: The mission of [facility] is to provide hope and improve the lives of of those affected by prostate cancer through support, education, and advocacy/ awareness. The group meets the of each month at 6:30 p.m. [address], [address] [place] [address] Surveillance How Frequent? Medical Oncology visits 1 month, 6 months later, 1 year later (Dr. Adan) Lab tests PSA 3 months after CyberKnife completion, then every 6 months until PSA reaches target gilberto value (PSA <0.5), then PSA every 6-12 months ongoing (Dr. Barney) Imaging exams As clinically indicated Immunizations Influenza Herpes Zoster Pneumococcal Yearly Once As appropriate Tobacco Cessation The patient is not currently a tobacco user. Counseling given: Not Answered Monitor for ongoing toxicities: None Specified Call your doctor if you have any of these signs or symptoms New or worsening symptoms. Pain that is new, unrelieved or bothersome. Difficulty with your emotions, anxiety, and/or depression. Physical problems that affect your abilities in your daily life or those that are bothersome (for example, continued fatigue, trouble sleeping, sexual problems, or edema). Referrals provided There are no referral needs at this time. Self Care Plan Self Care Plan: What You Can Do to Stay Healthy after Treatment for Cancer Cancer treatments may increase your chance of developing other health problems years after you havecompleted treatment. The purpose of this self care plan is to inform you about what steps you can take to maintain good health after cancer treatment. Keep in mind that every person treated for cancer is different and that these recommendations are not intended to be a substitute for the advice of a doctor or other health care professionals. Please use these recommendations to talk with your health care provider about an appropriate follow up care plan for you. Surveillance for Your Cancer Recommendation Frequency Comments Cancer surveillance visit with medical provider that is focused on detecting signs of recurrence ofyour cancer. For additional information, visit www.livestrong.org or www.cancer.net/patient/Survivorship Frequency depends on type and stage of cancer you had. (If you had a higher risk cancer, you may be seen more often). Your doctor has provided you with a personalized cancer treatment summary and survivorship care plan. If you need another copy, ask your doctor. General Cancer Screening for Men Cancer screening tests are designed to find cancer or pre-cancerous areas before there are any symptoms and, generally, when treatments are most successful. Various organizations have developed guidelines for cancer screening for men. While these guidelines vary slightly between different organizations, they cover the same basic screening tests for prostate and colorectal cancers. In addition, during routine health examinations (at any age) your health care provider may also evaluate for cancers of the skin, mouth and thyroid. Not all screening tests are right for everyone. Your personal and family cancer history, and/or the presence of a known genetic predisposition, can affect which tests are right for you, and at what age you begin them. Therefore, you should discuss these with your health care provider. Your care plan will also include a section on follow up care foryour type of cancer, and these recommendations override the general screening recommendations for that particular type of cancer in the general population. The [place] [employer] (ACS) recommends these screening guidelines for men: Recommendation Frequency Comments Colon and Rectal Cancer Screening For more information see the ACS document Colorectal Cancer: Early Detection. www.cancer.org/ssLINK/scssoemntj-wjvxoc-lewst-detection-roberto carlos Options for colon cancer screening can be divided into those that screen for both cancer and polyps, and those that just screen for cancer.Screening should begin at age 45 (unless you are considered high risk (see comments), using one of the following testing schedules: Tests that find polyps and cancer (Preferred over those that find cancer alone. If any of these tests are positive, a colonoscopy should be done.) Flexible sigmoidoscopy every five years, or Colonoscopy every 10 years, or Double-contrast barium enema every five years, or CT colonography (virtual colonoscopy) every five years Tests that primarily test for cancer Yearly fecal occult blood test (FOBT)*, or Yearly fecal immunochemical test (FIT) *, or Stool DNA test (sDNA), interval uncertain* * The multiple stool take-home test should be used. One test done by the doctor in the office is not adequate. A colonoscopy should be done if the test is positive. Talk with your doctor about your medical history, and what colorectal cancer screening test and schedule is best for you. Individuals at higher risk of colon cancer should have screening earlier and potentially more frequently. Those at higher risk of colon and rectal cancer: Individuals with a family history of colon or rectal cancer in a relative who was diagnosed before the age of 60 Individuals with a history of polyps Individuals with inflammatory bowel disease (Crohn's disease or ulcerative colitis) Individuals with a genetic predisposition to colon or rectal cancer, such as hereditary non-polyposis colon cancer (HNPCC) syndrome or familial adenomatous polyposis (FAP) syndrome Prostate Cancer Screening For more information, see the ACS Document Prostate Cancer Prevention and Early Detection: http://www.cancer.org/cancer/prostatecancer/moreinformation/prostatecancerearlyd etection/index Starting at age 50 (unless you are considered high risk ), men should talk to their doctor about the pros and cons of prostate cancer testing, and then decide if they want to be tested. Tests that can be used to detect for prostate cancer include Prostate-specific antigen (PSA) or digital rectal exam (MARYANNE). ndividuals are considered higher risk if they are and/or have a family history of prostate cancer. Those who are considered high risk should have this talk at age 40 or 45. Testicular Screening For more information, see the ACS Document Testicular Cancer Detection: http://www.cancer.org/cancer/testicularcancer/detailedguide/xjvxjmawmy-awfxzj-ux tection Men of any age can develop testicular cancer; however, about half of all cases occur in men between the ages of20 and 34. A testicular self- exam is recommended monthly after a man has gone through puberty. In doing so, rhoda should look and feel for any hard lumps, rounded bumps, or any change in the size, shape, or consistency of his testicles. If something appears abnormal, see a health care provider for further evaluation. Sun Exposure and Skin Cancer Risk Skin cancer is the most commonly diagnosed type of cancer, and rates are on the rise. However, thisis one cancer that in most cases can be prevented or detected early. While you may hear that you need the sun to make vitamin D, in reality you only need a few minutes a day to do this. Exposure to ultraviolet (UV) rays, either by natural sunlight or tanning beds, can lead to skin cancer. In additio n, UV rays lead to other forms of skin damage, including wrinkles, loss of skin elasticity, dark patches (sometimes called age spots or liver spots), and pre- cancerous skin changes (such as dry, scaly, rough patches). Although dark- skinned people are less likely to develop skin cancer, they can anddo develop skin cancers, most often in areas that are not exposed to sun (on the soles of the feet,under nails, and genitals). You can do a lot to protect yourself from damaging UV rays and to detect skin cancer early. Start by practicing sun safety, including using a broad spectrum sunscreen (which protects against UVA and UVB rays) with an SPF of at least 30 every day, avoiding peak sun times (10 a.m. to 4 p.m., when therays are strongest) and wearing protective clothing such as hats, sunglasses and long- sleeved shirts. Examine your skin regularly so you become familiar with any moles or birthmarks. If a mole has changed in any way, you should have a health care provider examine the area. This includes a change in size, shape or color; the development of scaliness, bleeding, oozing, itchiness or pain; or the development of a sore that will not heal. If you have a lot of moles, it may be helpful to make note of moles using photographs or a mole map . For a guide to performing a skin exam, visit www.skincarephysicians.com/skincancernet/skin_examinations.html. Healthy Lifestyle For some cancer survivors, the experience is the motivation to making healthy lifestyle changes. Itmay seem insignificant, but these changes have been shown to reduce the risk of the cancer coming back or a new cancer developing. Below are some tips on adopting a healthier lifestyle. Maintaining ahealthy weight is important in cancer prevention, as is physical activity and eating a healthy diet. Strive to incorporate all three pieces of the puzzle: healthy weight, balanced diet and regular exercise. Recommendation Goal Comments Maintain a healthy weight. For more information, visit http://www.nhlbi.nih.gov/health/public/heart/obesity/lose_wt/index.htm www.win.niddk.nih.gov Call the [place] [employer] Talk to your health care team about what a healthy weight is for you, and take stepsto reach and maintain that weight. For many people reaching their ideal weight can be a challenge; however, losing even 5 to 10 poundscan lower blood pressure, blood sugar and cholesterol levels. Weigh yourself weekly to monitor for weight gain/loss Being overweight can increase your chance of your cancer coming back. Maintaining a healthy weight, physical activity and eating a healthy diet are all important in cancer prevention. Being overweight can increase your chance of having high blood pressure, high blood sugar and/or high cholesterol, which can lead to heart disease, diabetes and stroke. If you would like more information about your blood sugar, cholesterol or blood pressure, talk with your primary care provider. Eat a healthy diet, mostly from plant sources. For more information, visit http://www.Yapp Mediamyplate.gov/food-groups/ Eat healthy, including plenty of fruits and vegetables daily. Drink more water, less soda and juice. Limit how much alcohol you drink (if you drink at all). Strive to have two- thirds of your plate be vegetables, fruits, whole grains and beans, while one- third or less should be an animal product. Choose fish and chicken and limit red meat and processed meats. Limit intake of alcohol to two drinks per day. Exercise. To learn more about recommendations for diet, activity and weight, visit AICR???s Guidelines for Survivors http://preventcancer.aicr.org/site/PageServer?pagename=patients_survivors_guidel mallorie ACS Eat Healthy and Get Active www.cancer.org/Healthy/EatHealthyGetActive/index Experts recommend at least 30 minutes of obyizkge-od-lecgggxh activity per day, five days a week. Research shows that exercise can help you control your weight, improve your energy level, and help you sleep at night. The polk is to find a physical activity you enjoy such as walking, dancing or gardening and do it regularly. If you have been inactivefor a while, start out slowly. You can start out by exercising 10 minutes a day several days a week. If you feel dizzy, short of breath, or have chest pain during exercise, stop exercising and talk with your primary care doctor. Do not use tobacco in any form. For more information, visit http://www.cdc.gov/tobacco/campaign/tips/ If you use tobacco, quit as soon as possible. Smoking is the most preventable cause of in the [place] If you would like more information, ask your doctor or you can call a national hotline at 6(044)-QUIT-NOW. Have regular check-ups by a healthcare professional. For more information about healthy screening tests for men visit the U.S. Department of Health and Human Services. http://www.womenshealth.gov/dchdyoawe-gluau-gfo-vaccines/fobotcbvt-jamcx-mnm-men / For more information about adult vaccinations visit the CDC: http://www.cdc.gov/vaccines/recs/schedules/adult-schedule.htm Keep up-to-date on general health screening tests, including cholesterol, blood pressure and glucose (blood sugar) levels. Get an annual influenza vaccine (flu shot). Get vaccinated with the pneumococcal vaccine, which prevents a type of pneumonia, and re-vaccinatedas determined by your health care team. Don???t forget dental and eye health! The [place] [employer] recommends adults have their eyes examined every two years until age 60, then annually. People who wear glasses or correctivelenses or are at high risk for eye problems (i.e., diabetics, family history of eye disease) shouldbe seen more frequently. The [place] recommends adults see their dentist at least once a year. No information on file. No information on file.
--- OUTSIDE RECORDS SUMMARY | 2024-08-05 15:40 | XMS_ITS | Patient Health Record ---
[facility] Address [address] [place] [phone] Care Team Providers Care Clam Picker Name Role Phone Kadeem Xiao Primary Care Provider Nehal Samuel [phone] ALLERGIES Allergen (clinical drug ingredient) Drug/Non Drug Allergy documented on EMR Reaction Allergy Type Onset Date Status amoxicillin Amoxicillin rash Drug Allergy Act sabrina dexamethasone Dexamethasone elevated BP Drug Allergy Active RESULTS Component Value Reference Range Notes CBC Fingerstick [...] Interpretation:Negative Performing Lab: Notes/Report: Negative Result: neg MEDICATIONS Medication SIG (Take, Route, Frequency, Duration) Notes Start Date End Date Status Triamcinolone Acetonide 0.1 % 1 radha appl ied topically 2 times a day 12/30/2022 Active hydroCHLOROthiazide 12.5 MG 1 tab(s) ora lly once a day Active Pimecrolimus 1 % 1 application Externally Twice a day 03/26/2024 Active Doxycycline Hyclate 100 MG 1 capsule Ora lly Two times a day 05/21/2024 Active Promethazine-DM 6.25-15 MG/5ML 5-10 ml Orally every 6 hrs prn 05/22/2024 Active Losartan Potassium 100 MG 1 tab(s) orall y once a day for 30 day(s) Active CareTouch CPAP & BIPAP Hose NASAL AUTOPA P 02/11 HEATED AIR DIRECTED 12/22/2016 Active Dupixent 300 MG/2ML as directed subcutaneously every 2 weeks Active Atorvastatin Calcium 40 MG 1 tab(s) oral ly once a day 10/24/2017 Active Fish Oil 1000 MG 1 cap(s) orally once daily Active IMMUNIZATIONS Vaccine Route Administration Date Status Comme nts xFluzone High Dose-private (65yr&older) IM Intramuscular 07/31/2014 Administered xFluzone High Dose-private (65yr&older) Unknown 06/29/2019 Administered xFlu shot- 6months-36 months of fao-DHID-BIVU-trivalent Unknown 08/01/2016 Administered Prevnar (PCV13) Unknown 06/29/2019 Administered Fluzone PF Quad (6-35 months) Unknown 06/30/2022 Administered Fluzone High Dose (65yr and older) Unknown 07/27/2017 Administered Fluzone High Dose (65yr and older) IM Intramuscular 06/23/2018 Administered Fluzone High Dose (65yr and older) IM Intramuscular 05/20/2021 Administered COVID 19 Pfizer Unknown 11/01/2020 Administered COVID 19 Pfizer Unknown 11/20/2020 Administered COVID 19 Pfizer Unknown 07/08/2021 Administered SOCIAL HISTORY Sex Assigned At : Social History Observation Description Sex Assigned At Unknown PROBLEMS Problem Type ICD Code Onset Dates Problem Status W/U Status Risk SNOMED Code Notes Problem Vitamin D deficiency (E55.9) Active confirmed 59708577 Problem Essential hypertensi on (I10) Active confirmed 97442112 Problem Psoriasis (L40.9) Active confirmed 9014 002 Problem Vitamin B 12 deficiency (E53.8) Active confirmed 660144543 Problem Primary insomnia (F51.01) Active confirmed 4713873 Problem Personal history of nicotine dependence (Z87.891) Active confirmed 54838240 Problem Obstructive sleep apnea syndrome (G47.33) Active confirmed 18223260 Problem Non morbid obesity, unspecified obesity type (E66.9) Active confirmed 662185978 Problem 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.12) Active confirmed 00891366563004 9 Problem Hypersomnia (G47.10) Active confirmed 7 8309284 Problem Pure hypercholesterolemia (E78.00) Active confirmed 446000703 Problem Hearing loss, unspecified hearing loss type, unspecified laterality (H91.90) Active confirmed 40826200 Problem Arthritis of right knee (M17.11) Active confirmed 6486293503260980 Problem Elevated PSA, less than 10 ng/ml (R97.20) Active confirmed 502723107 Problem Colon, diverticulosi s (K57.30) Active confirmed 038768631 Problem Ocular migraine (G43.109) Active confirmed 05416987 VITAL SIGNS Heart Rate 59 /min 05/21/2024 Blood pressure diastolic 72 mm Hg 05/21/2024 Height 75.25 in 05/21/2024 Blood pressure systolic 134 mm Hg 05/21/2024 Weight 243 lbs 05/21/2024 BMI 30.17 kg/m2 05/21/2024 Encounters Encounter Location Date Provider Diagnosis [facility] [address] [facility] [address] [place], [place] [phone] 03/26/2024 Kadeem Madison Rash R21 [facility] [address] [facility] [address] [place], [place] [phone] 03/27/2024 Kadeem Madison [facility] [address] [facility] [address] [place], [place] [phone] 05/21/2024 Nehal Samuel URI (upper respirato ry infection) J06.9 [facility] [address] [facility] [address] [place], [place] [phone] 05/22/2024 Kadeem Madison ASSESSMENTS Encounter Date Diagnosis Assessment Notes Treatment Notes Treatment Clinical Notes 05/21/2024 URI (upper respiratory infection) (ICD-10 - J06.9) 03/26/2024 Rash (ICD-10 - R21) PLAN OF TREATMENT Pending Test Test Name Order Date [id number] 04/13/2022 Insurance Providers Payer Name Payer Address Payer Phone Subscriber Number Group Number Insured Name Patient Relationship to Insured Coverage Start Date Coverage End Date MEDICARE PART B [address] [address] [place] [phone] [id number] ChuKai clark Self - patient is the insured [facility] [address] [place] [address] [id number] Kai Chu Self - patient is the insured MEDICAL (GENERAL) HISTORY Medical History History ICD Code Allergic Rhinitis Seronegative Rheumatoid Arthritis Macular Degeneration Glaucoma cataract right eye, s/p surgical removal 40 pack year smoking history, quit in 17 03 sleep apnea TIA 08/29/17 and 09/07/17 - Dr Scruggs Hypertension Hyperhomocysteinemia hyperlipidemia Left heart cath and TERESA 2017 atopic dermatitis prostate cancer stage IIIC, diagnosed in 2022 Surgical History Surgery Date(Month/Year) LT Inguninal Hernia Repair 08/2010 Cholecystectomy 05/11/2011 RT Inguninal Hernia Repair 07/08/2014 Heart Cath - Negative RT Total Knee Replacement 05/2021 Hospitalization History Reason Date(Month/Year)
--- OUTSIDE RECORDS SUMMARY | 2024-08-05 15:40 | XMS_ITS ---
Author Organization [facility] Address [address] [facility] [address] [place] [phone] Care Team Providers Care Malt House Kiln Operator Name Role Phone Kadeem Xiao Primary Care Provider REASON FOR VISIT cough meds MEDICATIONS Medication SIG (Take, Route, Frequency, Duration) Notes Start Date End Date Status Promethazine-DM 6.25-15 MG/5ML 5-10 ml Orally every 6 hrs prn 05/22/2024 Active Encounters Encounter Location Date Provider Diagnosis [facility] [address] [place] [phone] 05/22/2024 Kadeem Xiao PLAN OF TREATMENT Medication Medication Name Sig Start Date Stop Date Notes Promethazine-DM 6.25-15 MG/5ML 5-10 ml O rally every 6 hrs prn 05/22/2024
--- OUTSIDE RECORDS SUMMARY | 2024-08-05 15:40 | XMS_ITS ---
[facility] [address] [facility] [address] [facility] [address] [place] [phone] Care Team Providers Care Import Specialist Name Role Phone Kadeem Xiao Primary Care Provider REASON FOR VISIT PA approved Encounters Encounter Location Date Provider Diagnosis [facility] [address] [facility] [address] [place] [phone] 03/27/2024 Kadeem Xiao PLAN OF TREATMENT No Information
--- OUTSIDE RECORDS SUMMARY | 2024-08-05 15:40 | XMS_ITS | Data Portability ---
Author Organization [facility] Address [address] [place] [address] Assessment No assessment recorded. Plan of Treatment Reminders Order Date Submit Date Provider Last Modified By Organization Details Last Modified Time Details Appointments FOLLOW UP DAK 2024 02:20P M DR. COCHRAN Not available Not available Not available Lab None recorded. Referral orthopedi c referral 2019 020 [email or web address] 110 Shankar Goodson MD, [address] [place], [address], 08/27/2020 09:09:21 Procedures None recorded. Surgeries None recorded. Imaging XR, knee, 3 view 2021 022 [facility] Radiology [facility], [address] [place], [address], 12/25/2021 16:29:41 Medication Orders omeprazol e 40 mg capsule,d elayed release 2022 023 [facility], [address], [address], 02/22/2023 15:03:23 Patient TargetsNo targets recorded. Patient InstructionsNo instructions recorded. Reason for Referral Orthopedic Referral for Oste oarthritis of right knee joint right knee partial vs total Referring Physician: Raymond Zuniga, Rheumatology, Encounter Date: 08/20/2020 Results Created Date Observation Date Name Description Value Unit Range Abnormal Flag Note LastModifiedBy Organization Detail LastModifiedTime 12/26/19 22 12/25/2021 XR, knee, 3 view [facility] [address] [place] [address] [place] [address] Ag villalba Name: MADI villalba : 11/28/18 47 Ag villalba Orderi ng Provid er: MACK ZUNIGA EXAM DATE: 2021 EXAM: XR LT KNEE 3 VIEWS COMPAR JOSEPHINE: 10/30/19 20 HISTOR Y: Left knee pain. FINDIN GS: No fractu re is identi fied. There are mild degene rative change s in the left knee. There is minima l to mild medial joint space loss. There is minima l to mild margin al spurri ng. Contra latera l knee: There is a total knee arthro plasty is place. IMPRES SARA: 1. There are mild degene rative change s in the left knee. Interp reted By: Jaimie lam MD Electr onical ly Signed By: Jaimie lam MD on 022 11:[address] Radiology [address], [address], 12/25/2021 13:01:26 Result Notes None recorded. Problems Name Problem SNOMED Code Status Onset Date Resolution Date Notes Provider Name and Address Organization Details Recorded Time Idiopathi c osteoarth ritis 103119114 Active 2015 From Automated Load;Provi ashok: Zina, Mack;Carlos tus: Active Not Available [facility] 08:[facility]:40 Problem Notes None recorded. Procedures Surgical History Date Name Laterality Status Provider Name and Address Organization Details Recorded Time 12/26/19 22 Injection Joint/Bursa, Major, w/o US completed RAYMOND ZUNIGA MD [address] [place] [address], [address], [facility] 12/26/2021 16:45:01 08/20/20 20 Injection Joint/Bursa, Major, w/o US completed RAYMOND ZUNIGA MD [address] [place] [address], [address], [facility] 08/20/2020 10:05:03 05/28/20 20 Hyalgan Injection; Unilateral completed RAYMOND ZUNIGA MD [address] [place], [address], [facility] 05/28/2020 14:08:30 05/22/20 20 Hyalgan Injection; Unilateral completed RAYMOND ZUNIGA MD [address] [place], [address], [facility] 05/22/2020 14:13:52 05/14/20 20 Hyalgan Injection; Unilateral completed MD José [address] [place], [address], [facility] 05/14/2020 14:12:35 04/29/20 20 Injection Joint/Bursa, Major, w/o US completed RAYMOND ZUNIGA MD [address] [place], [address], [facility] 04/29/2020 09:15:28 10/30/19 20 Injection Joint/Bursa, Major, w/o US completed RAYMOND ZUNIGA MD [address] [place], [address], [facility] 10/30/2019 09:23:44 07/05/20 19 Injection Joint/Bursa, Major, w/o US completed RAYMOND ZUNIGA MD [address] [place], [address], [facility] 07/05/2019 09:15:11 01/03/20 19 Hyalgan Injection: Bilateral [place], [address], [facility] 01/02/2019 09:58:15 12/27/19 19 Hyalgan Injection: Bilateral [place], [address], [facility] 12/26/2018 09:27:38 12/20/19 19 Hyalgan Injection: Bilateral completed MD [place], [address], [facility] 12/19/2018 10:04:08 10/18/19 19 Injection Joint/Bursa, Major, w/o US completed MD [address] [place], [address], [facility] 10/18/2018 13:00:14 06/27/20 18 Hyalgan Injection: Bilateral completed MD José [place], [address], [facility] 06/27/2018 09:23:10 06/20/20 18 Hyalgan Injection: Bilateral [place], [address], [facility] 06/20/2018 10:26:20 06/13/20 18 Hyalgan Injection: Bilateral [place], [address], [facility] 06/13/2018 10:56:51 05/15/20 18 Injection Joint/Bursa, Major, w/o US [place], [address], [facility] 05/15/2018 22:09:41 08/11/20 17 Hyalgan Injection: Bilateral [place], [address], [facility] 08/11/2017 09:11:54 08/03/20 17 Hyalgan Injection: Bilateral [place], [address], [facility] 08/03/2017 09:26:36 07/27/20 17 Hyalgan Injection: Bilateral [place], [address], [facility] 07/27/2017 09:12:56 01/05/20 17 Hyalgan Injection; Unilateral [place], [address], [facility] 01/04/2017 08:14:50 12/29/19 17 Hyalgan Injection; Unilateral completed RAYMOND ZUNIGA MD [facility] [place], [address], [facility] 12/28/2016 08:24:43 12/22/19 17 Hyalgan Injection; Unilateral completed RAYMOND ZUNIGA MD [address] [place], [address], [facility] 12/21/2016 09:29:12 10/25/19 17 Injection Joint/Bursa, Major, w/[place] [address] [place] [address], [address], [facility] 10/25/2016 09:49:54 Removal of gallbladder completed [facility] 01/04/2017 08:07:47 Hernia repair w/mesh completed [facility] 01/04/2017 08:07:57 Imaging Results Imaging Date Name Status LastModified by Organiz ation Details LastModified Time 12/25/2021 XR, knee, 3 view completed [address] Radiology [facility] [address] [place], [address], 12/25/2021 13:01:26 Procedure Notes None recorded. Medical Equipment None Reported. Allergies No known drug allergies Medications Name Sig Start Date Stop Date Status Note LastModified by Organization Details LastModified Time losartan 50 mg tablet 01/28 completed Not Available Not Available Not Available amoxicill in 500 mg capsule TAKE 1 CAPSULE BY MOUTH THREE TIMES DAILY FOR 10 DAYS active Not Available Not Available No t Available atorvasta tin 40 mg tablet TAKE 1 TABLET BY MOUTH ONCE DAILY FOR CHOLESTE ROL active Not Available Not Available No t Available promethaz ine-DM 6.25 mg-15 mg/5 mL oral syrup TAKE 5 ML BY MOUTH EVERY 6 HOURS NEEDED active Not Available Not Available No t Available Colace 100 mg capsule TAKE ONE TO TWO CAPSULES BY MOUTH EVERY DAY active Not Available Not Available No t Available potassium chloride ER 10 mEq capsule,e xtended release TAKE 1 CAPSULE BY MOUTH ONCE DAILY FOR 30 DAYS active Not Available Not Available No t Available prednison e 10 mg tablet 04/29 completed Not Available Not Available Not Available doxycycli ne hyclate 100 mg capsule Take 1 capsule twice a day by oral route for 10 days. 04/29 completed Not Available Not Available Not Available Depo-Medr ol 40 mg/mL suspensio n for injection Take 2 mL by injectio n route. 06/20 completed Not Available Not Available Not Available sulfasala zine 500 mg tablet Two times a day 10/25 completed Duration : 30 days;Ins truction s: take 2 tabs twice daily;Fr equency: bid;Alt Frequenc y: as direct.; Medicati on Descript ion: sulfasal azine; Dosage:2 ; Route:or al; refills: 3; Quantity :120 tablet Not Available Not Available Not Available azithromy alysha 250 mg tablet 05/15 completed Not Available Not Available Not Available sucralfat e 100 mg/mL oral suspensio n TAKE 10 ML BY MOUTH 4 TIMES DAILY FOR GERD, SWISH AND SWALLOW 3-4 TIMES A DAY ON AN EMPTY STOMACH AT LEAST 1 HOUR BEFORE MEALS active Not Available Not Available No t Available meloxicam 15 mg tablet TAKE ONE TABLET BY MOUTH EVERY DAY active Not Available Not Available No t Available ondansetr on HCl 4 mg tablet TAKE ONE TABLET BY MOUTH EVERY 4 TO 6 HOURS EVERY DAY active Not Available Not Available No t Available prednison e 20 mg tablet 04/29 completed Not Available Not Available Not Available betametha sone, augmented 0.05 % topical cream 05/15 completed Not Available Not Available Not Available prednison e 5 mg tablet TAKE 1 TABLET BY MOUTH IN THE MORNING WITH FOOD active Not Available Not Available No t Available fluocinon osei 0.05 % topical ointment APPLY OINTMENT TOPICALL Y TO RASH ON THE TRUNK TWICE DAILY FOR UP TO 2 WEEKS NEEDED FOR ITCH active Not Available Not Available No t Available omeprazol e 40 mg capsule,d elayed release Take 1 capsule every day by oral route for 90 days. 2022 active Not Available Not Available Not Avai lable aspirin 81 mg tablet,de layed release TAKE 1 TABLET BY MOUTH ONCE DAILY active Not Available Not Available No t Available tramadol 50 mg tablet TAKE ONE TO TWO TABLETS BY MOUTH EVERY 6 HOURS NEEDED FOR PAIN active Not Available Not Available No t Available acetamino phen 500 mg tablet TAKE 2 TABLETS BY MOUTH THREE TIMES A DAY active Not Available Not Available No t Available sildenafi l 100 mg tablet TAKE 1 TABLET BY MOUTH NEEDED active Not Available Not Available No t Available cefadroxi l 500 mg capsule TAKE ONE CAPSULE BY MOUTH TWICE A DAY active Not Available Not Available No t Available temazepam 15 mg capsule TAKE 1 CAPSULE BY MOUTH ONCE DAILY AT BEDTIME active Not Available Not Available No t Available tamsulosi n 0.4 mg capsule TAKE 1 CAPSULE BY MOUTH ONCE DAILY active Not Available Not Available No t Available simvastat in 20 mg tablet 12/15 completed Not Available Not Available Not Available erythromy alysha 5 mg/gram (0.5 %) eye ointment APPLY A THIN 1/4 INCH STRIP TO AFFECTED EYE(S) TWICE A DAY FOR 3 DAYS BEFORE BUT NOT DAY OF SURGERY active Not Available Not Available No t Available esomepraz ole magnesium 40 mg capsule,d elayed release 07/27 completed Not Available Not Available Not Available lisinopri l 10 mg tablet 06/13 completed Not Available Not Available Not Available gabapenti n 300 mg capsule TAKE ONE CAPSULE BY MOUTH EVERY NIGHT AT BEDTIME active Not Available Not Available No t Available Advil 200 mg tablet Every four hours 10/25 completed Duration : 10 days;Jermaine quency: q4h;Alt Frequenc y: prn;Medi cation Descript ion: ibuprofe n; Route:or al; refills: 0; Quantity :120 tablet Not Available Not Available Not Available hydroxyzi ne HCl 25 mg tablet TAKE 1 TO 2 TABLETS BY MOUTH AT BEDTIME NEEDED FOR ITCHING active Not Available Not Available No t Available hydroxych loroquine 200 mg tablet Two times a day 10/25 completed Duration : 90 days;Jermaine quency: bid;Alt Frequenc y: daily;Me dication Descript ion: hydroxyc hloroqui ne; Dosage:1 ; Route:or al; refills: 2; Quantity :180 tablet Not Available Not Available Not Available levofloxa alysha 500 mg tablet TAKE 1 TABLET BY MOUTH EVERY 24 HOURS active Not Available Not Available No t Available losartan 50 mg-hydroc hlorothia zide 12.5 mg tablet 12/15 completed Not Available Not Available Not Available atropine 1 % eye drops INSTILL 1 DROP INTO AFFECTED EYE TWICE A DAY START 3 DAYS PRIOR TO EYE SURGERY AND THE MORNING OF SURGERY active Not Available Not Available No t Available cefdinir 300 mg capsule 08/03 completed Not Available Not Available Not Available losartan 100 mg tablet TAKE 1 TABLET BY MOUTH ONCE DAILY active Not Available Not Available No t Available fluticaso ne propionat e 50 mcg/actua tion nasal spray,dimple pension 05/15 completed Not Available Not Available Not Available gentamici n 0.1 % topical ointment APPLY OINTMENT ONCE DAILY FOR CELLULIT IS active Not Available Not Available No t Available diazepam 5 mg tablet TAKE 1 TAB BY MOUTH PRIOR TO PROCEDUR E, MAY REPEAT IF NEEDED active Not Available Not Available No t Available oxycodone 5 mg tablet TAKE ONE TO TWO TABLETS BY MOUTH EVERY 4 TO 6 HOURS active Not Available Not Available No t Available Hyalgan 10 mg/mL intra-art icular syringe Inject 4 mL every week by intra-ar ticular route for 35 days. 12/15 completed Not Available Not Available Not Available chlorhexi dine gluconate 0.12 % mouthwash RINSE WITH 15ML FOR 30 SECONDS AND SPIT, USE TWICE DAILY active Not Available Not Available No t Available losartan 100 mg-hydroc hlorothia zide 12.5 mg tablet 04/29 completed Not Available Not Available Not Available Glucosami ne-Chondr otin 10/25 completed Medicati on Descript ion: miscella neous; refills: 0 Not Available Not Available Not Available MoviPrep 100 gram-7.5 gram-2.69 1 gram oral powder packet 01/04 completed Not Available Not Available Not Available hydrochlo rothiazid e 12.5 mg tablet TAKE 1 TABLET BY MOUTH ONCE DAILY FOR HIGH BLOOD PRESSURE active Not Available Not Available No t Available Paxlovid 300 mg (150 mg x 2)-100 mg tablets in a dose pack TK 2 NIRMATRE LVIR TS AND 1 RITONAVI R T TOGETHER PO BID FOR 5 DAYS BID FOR 5 DAYS active Not Available Not Available No t Available Vitals Date Recorded Body height Body mass index (BMI) Body weight Heart rate Respiratory rate Systolic blood pressure Diastolic blood pressure Provider Name and Address Organization Details Last Updated DateTime 0 193.04 cm 29.2 kg/m2 465745. 17 g 78 /min 18 /min 122 mm[Hg] 78 mm[Hg] Cyndi Gomez [facility] 0 13:49:07 Date Recorded Body height Body mass index (BMI) Body weight Respiratory rate Heart rate Systolic blood pressure Diastolic blood pressure Provider Name and Address Organization Details Last Updated DateTime 0 193.04 cm 29.2 kg/m2 381369. 17 g 18 /min 72 /min 134 mm[Hg] 69 mm[Hg] Kirti Zayas [facility] 0 13:55:08 Date Recorded Body height Body mass index (BMI) Body weight Respiratory rate Heart rate Systolic blood pressure Diastolic blood pressure Provider Name and Address Organization Details Last Updated DateTime 0 193.04 cm 29.9 kg/m2 936561. 72 g 18 /min 65 /min 129 mm[Hg] 67 mm[Hg] Jhoana Min [facility] 0 08:37:32 Date Recorded Body height Body mass index (BMI) Body weight Respiratory rate Heart rate Oxygen saturation Oxygen saturation in Arterial blood by Pulse oximetry Systolic blood pressure Diastolic blood pressure Provider Name and Address Organization Details Last Updated DateTime 2 193.04 cm 17 kg/m2 25313.9 3 g 16 /min 54 /min 98 % 98 % 120 mm[Hg] 70 mm[Hg] Carmenza Garcia [facility] 2 10:39:11 Date Recorded Body weight Heart rate Respiratory rate Systolic blood pressure Diastolic blood pressure Provider Name and Address Organization Details Last Updated DateTime 02/22/2023 361489. 17 g 56 /min 16 /min 135 mm[Hg] 61 mm[Hg] Lyn Dumont [facility] 3 14:43:34 Social History Question Answer Notes LastModified by Organizat ion Details LastModified Time Tobacco Smoking Status Never Smoker Kirti Zayas [facility] 07/05/2019 08:52:37 What Is Your Level Of Alcohol Consumption? Moderate [email or web address] Information not available 01/04/2017 How Much Tobacco Do You Chew? None [email or web address] Information not available 12/15/2018 Do You Or Have You Ever Used E-cigarettes Or Vape? Never Used Electronic Cigarettes [email or web address] Information not available 07/05/2019 What Was The Date Of Your Most Recent Tobacco Screening? 12/25/2021 [email or web address] Information not available 12/25/2021 Do You Or Have You Ever Used Smokeless Tobacco? Never Used Smokeless Tobacco Information not available 07/05/2019 How Much Tobacco Do You Smoke? No [email or web address] Information not available 12/19/2018 Has Tobacco Cessation Counseling Been Provided? No [email or web address] Information not available 12/19/2018 On What Date Was Tobacco Cessation Counseling Provided? 05/14/2020 [email or web address] Answered No To The Tobacco Cessation Counseling Provided Question On 12/19/2018. [email or web address] Information not available 05/14/2020 How Many Years Have You Smoked Tobacco? 0 [email or web address] Information not available 07/05/2019 Sex: Unknown Functional Status None recorded. Mental Status None recorded. Family History Relationship Description Onset Age of this Age Resolved Age Notes LastModified by Organization Details LastModified Time Father No current problems or disability [email or web address] Not available 06/07 09:28:39 Mother No current problems or disability [email or web address] Not available 06/07 09:28:39 Mother Arthritis [email or web address] Not availa ble 07/27/2017 08:42:57 Unspecified Relation Alcohol abuse Not available 12/15 09:56:48 Medical History Condition Response Diabetes N Bleeding Disorder N Arthritis Y Hearing Loss Y Emphysema N Hernia Y Acid Reflux (GERD) N Stroke Y COPD N Asthma N Heart Disease N Rheumatoid Arthritis N Hypertension Y Past Encounters Encounter ID Performer Location Encounter Start Date Encounter Closed Date Diagnosis/Indication Diagnosis SNOMED-CT Code Diagnosis ICD10 Code [id number] [place] [address] [place] [address] 10/25/2016 08:46:54 10/25/2016 10:04:15 Osteoarthritis of knee 599975016 M17.0 [id number] RAYMOND [place]UNIGA [place] [address] [place] [address] 12/21/2016 08:55:05 12/21/2016 09:59:21 Osteoarthritis of knee 208121420 M17.0 [id number] [place] [address] [place] [address] 1 12/28/2016 07:48:47 12/28/2016 09:31:45 Osteoarthritis of knee 873248083 M17.0 [id number] [place] [address] [place] [address] 1 01/04/2017 08:02:30 01/04/2017 08:28:43 Osteoarthritis of knee 027834707 M17.0 [id number] RAYMOND ZUNIGA MD [facility] [place] [address] [place] [address] 1 06/07/2017 09:17:14 06/07/2017 11:12:30 Osteoarthritis of knee 548202683 M17.0 [id number] RAYMOND ZUNIGA MD [facility] [place] [place] [address] [place] [address] 1 07/27/2017 08:26:46 07/27/2017 11:18:16 Osteoarthritis of knee 359310908 M17.0 [id number] RAYMOND ZUNIGA MD [facility] [address] [place] [address] 1 08/03/2017 08:27:23 08/03/2017 10:34:13 Osteoarthritis of knee 507076866 M17.0 [id number] RAYMOND ZUNIGA MD [facility] [address] [place] [address] 1 08/11/2017 08:38:20 08/11/2017 10:10:58 Osteoarthritis of knee 611960470 M17.0 [id number] RAYMOND ZUNIGA MD [facility] [address] [place] [address] 1 05/15/2018 13:33:20 05/15/2018 15:42:07 Osteoarthritis of knee 463984491 M17.0 [id number] RAYMOND ZUNIGA MD [facility] [address] [place] [address] 1 06/13/2018 09:36:31 06/13/2018 13:33:35 Osteoarthritis of knee 329955154 M17.0 [id number] [facility] [address] [place] [address] 06/20/2018 09:12:13 06/20/2018 11:00:28 Osteoarthritis of knee 946641728 M17.0 [id number] [place] [address] 06/27/2018 08:43:12 06/28/2018 07:46:20 Osteoarthritis of knee 610140784 M17.0 [id number] RAYMOND ZUNIGA [place] [address] 1 10/18/2018 08:56:14 10/20/2018 10:46:13 Osteoarthritis of knee 796772814 M17.0 [id number] NATHAN ROBERTSON [place] [address] 1 12/15/2018 09:34:22 12/22/2018 13:29:45 [id number] RAYMOND ZUNIGA MD [place] [address] 1 12/19/2018 09:01:00 12/25/2018 11:29:03 Bilateral arthritis of knees 1922350383 843987 M13.861 M13.057 [id number] RAYMOND ZUNIGA MD [place] [address] 1 12/26/2018 08:51:10 12/27/2018 13:34:24 Bilateral arthritis of knees 7190797148 955067 M13.861 M13.490 [id number] RAYMOND ZUNIGA MD [place] [address] 1 01/02/2019 08:50:09 01/03/2019 10:56:52 Bilateral arthritis of knees 3402856356 167442 M13.861 M13.764 [id number] RAYMOND ZUNIGA MD [place] [address] 1 07/05/2019 08:36:48 07/05/2019 09:15:57 Pain in right knee 3390146151 72937 M25.144 [id number] [place] [address] [place] [address] 10/30/2019 08:12:04 10/30/2019 09:04:53 Osteoarthritis of knee 223313748 M17.0 M17.11 [id number] [place] [address] [place] [address] 01/29/2020 08:20:39 01/29/2020 08:43:40 Osteoarthritis of knee 291859160 M17.0 M17.11 Folliculitis 69166988 L7 3.9 [id number] RAYMOND ZUNIGA MD [facility] [address] [place] [address] 04/29/2020 08:18:17 04/29/2020 09:03:28 Osteoarthritis of right knee joint 5611370657 21784 M17.11 [id number] RAYMOND ZUNIGA MD [facility] [address] [place] [address] 05/14/2020 12:59:34 05/14/2020 14:08:18 Osteoarthritis of right knee joint 5945359260 16326 M17.11 [id number] RAYMOND ZUNIGA MD [facility] [address] [place] [address] 05/22/2020 13:31:30 05/22/2020 14:01:39 Osteoarthritis of right knee joint 2468073413 01463 M17.11 [id number] RAYMOND ZUNIGA MD [facility] [address] [place] [address] 05/28/2020 13:07:08 05/28/2020 14:08:14 Osteoarthritis of right knee joint 5043280871 19415 M17.11 [id number] RAYMOND ZUNIGA MD [facility] [address] [place] [address] 08/20/2020 08:28:21 08/20/2020 09:00:20 Osteoarthritis of right knee joint 0366747962 81253 M17.11 [id number] RAYMOND ZUNIGA MD [facility] [address] [place], [place] [address] 12/25/2021 10:19:15 12/25/2021 16:29:41 Osteoarthritis of left knee joint 4885299754 81300 M17.12 [id number] SUMA SALAS MD [address] [facility] [address] [place] [address] 02/22/2023 13:52:15 02/22/2023 15:13:53 Gastroesophageal reflux disease without esophagitis 523766909 K21.9 Health Concerns Section Related Observation LastModified by Organization Detai ls LastModified Time None Recorded Concern Status LastModified by Organization Details LastModified Time None Recorded Advance Directives Directive None Recorded Payers Encounter Date Sequence Insurance Name Policy Number Policy Carpenter Covered Member ID Carpenter Member ID Guarantor Name 05/22/2020 1 [place] Kai Chu [id number] Kai Chu 05/22/2020 2 [employer] (MEDICARE SUPPLEMENT) Kai Chu [id number] Kai Chu 05/28/2020 1 [place] Chu [id number] Kai Chu 05/28/2020 2 [employer] [place] (MEDICARE SUPPLEMENT) Kai Chu [id number] Kai Chu 08/20/2020 1 [place] Kai Chu [id number] Kai Chu 08/20/2020 2 [employer] [place] (MEDICARE SUPPLEMENT) Kai Chu [id number] Kai Chu 12/25/2021 1 [place] Kai Chu [id number] Kai Chu 12/25/2021 2 [employer] [place] (MEDICARE SUPPLEMENT) Kai Chu [id number] Kai Chu 02/22/2023 1 [place] Kai Chu [id number] Kai Chu 02/22/2023 2 [place] [id number] Kai Chu [id number] Kai Chu Notes Date Note Type Note Provider Name and Address Organization Details Recorded Time 05/22/2020 text/html for right knee Hyalgan injection #2 RAYMOND ZUNIGA MD [facility] [place], [address], [facility] 05/22/2020 14:15:05 05/28/2020 text/html for Hyalgan injection right knee #3 RAYMOND ZUNIGA MD [address] [place] [address], [address], [facility] 05/28/2020 14:38:58 08/20/2020 text/html . Follow-up on osteoarthritis and symptomatic right knee joint. Has gained 15-20 pounds since last visit. positive pain on activity positive pain at night .Is thinking about knee replacement. Would like to see an orthopedic surgeon. RAYMOND ZUNIGA MD [address] [place] [address], [phone], [facility] 08/20/2020 10:06:41 12/25/2021 text/html Follow-up on osteoarthritis. He is post right knee replacement. The replacement was uneventful. However complaining of pain and swelling in the left knee. No injuries or falls. No fevers. RAYMOND ZUNIGA MD [address] [place] [address], [id number], [facility] 12/26/2021 16:46:36 02/22/2023 text/html Reason for new patient visit: GERD, abdominal pain The patient is a 77 year old who is being seen today in follow up for abdominal pain symptom. He has a past medical history of osteoarthritis, HTN. I have met Mr Chu about 1 year for EGD at [facility]. The patient had a barium esophagram that showed small hiatal hernia. The barium tablet did not pass thru the distal esophagus. 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 EGD in December 2021 showed distal ulcerative esophagitis and gastritis. Follow up EGD after treatment with omeprazole and carafate showed improvement in ulcerative esophagitis. He has had improvement in symptoms. Has had EGD at [facility] in past with Dr. Lara. Today he voices no complaints. Reports he needs a refill on [place] [address] [place] [address], [phone], [facility] 02/22/2023 15:09:19
--- OUTSIDE RECORDS SUMMARY | 2024-08-05 15:40 | XMS_ITS | Data Portability ---
Author Organization [facility] Address [address] [place] [address] Assessment No assessment recorded. Plan of Treatment Reminders Order Date Submit Date Provider Last Modified By Organization Details Last Modified Time Details Appointments OV EST 15 2024 10:15A M Kai Del Rosario Jr, MD Not available Not available Not available Lab urinalysi s, dipstick 2022 023 [email or web address] [facility] [address], [address], 02/10/2023 08:18:37 PSA, total + free, serum or plasma 2022 [email or web address], [address], 02/16/2023 08:36:51 PSA, serum or plasma 2023 024 [email or web address] [facility] (Lab), [address] [place], [place] [address]y [address], [place], [address], 11/22/2023 08:34:07 PSA, serum or plasma 2023 024 JOSE [facility] (Lab), [address] [place], [place] [address]y [address], [place], [address], 02/03/2024 19:51:41 PSA, serum or plasma 2023 024 [email or web address] [facility] (Lab), [address] [place] [address] [address] [place], [address], 06/25/2024 20:50:43 Referral None recorded. Procedures None recorded. Surgeries None recorded. Imaging None recorded. Medication Orders tamsulosi n 0.4 mg capsule 2022 023 [facility] 591, [address], [address], 02/10/2023 17:23:58 sildenafi l 100 mg tablet 2022 023 [facility] 591, [address], [address], 02/10/2023 17:24:00 levofloxa alysha 500 mg tablet 2022 023 [facility] 591, [address], [address], 02/09/2023 14:21:28 sildenafi l 100 mg tablet 2023 024 [facility] 591, [address], [address], 06/22/2024 10:11:16 Patient TargetsNo targets recorded. Patient InstructionsNo instructions recorded. Reason for Referral None Reported. Results Created Date Observation Date Name Description Value Unit Range Abnormal Flag Note LastModifiedBy Organization Detail LastModifiedTime 02/10/2002/09/2023 PROST ATE SPECI FIC AG (PSA) prostate specific Ag (PSA) 5.63 NG/mL 0.0-4. 0 high Not Available [facility] (Lab Registration) [address] , [place], [address], 02/09/2023 16:47:53 02/10/20 23 02/09/2023 PROST ATE SPECI FIC AG (PSA) note Unles s other miranda noted testi ng perfo rmed at: [facility] [address] [place] [address] [phone] Paxton brito MD CLIA: [id number] Not Available [facility] (Lab Registration) [address] [place], [address], 02/09/2023 16:47:53 02/10/20 23 02/09/2023 PSA TOTAL + %FREE note Unles s other miranda noted testi ng perfo rmed at: [facility] [address] [place] [address] [phone] Paxton brito MD CLIA: [id number] Not Available [facility] (Lab Registration) [address] [place], [address], 02/11/2023 10:15:05 02/10/20 23 02/11/2023 PSA TOTAL + %FREE prostate specific Ag, serum 4.7 NG/mL 0.0-4. 0 high Davida ECLIA metho dolog y. . Accor ding to the Ameri can Urolo gical Assoc iatio n, Serum PSA shoul d decre ase and remai n at undet ectab le level s after radic al prost atect amara. The AUA defin es bioch emica l recur rence as an initi al PSA value 0.2 ng/mL or great er follo wed by a subse quent confi rmato ry PSA value 0.2 ng/mL or great er. Value s obtai art with diffe rent assay metho ds or kits canno t be used inter blackman eably . Resul ts canno t be inter prete d as absol king salmon evide nce of the prese nce or absen ce of jason good se. SENT TO REFER ENCE LAB Not Available [facility] (Lab Registration) [address] [place], [address], 02/11/2023 10:15:05 02/10/20 23 02/11/2023 PSA TOTAL + %FREE PSA, free 0.42 NG/mL n/a Davida ECLIA metho dolog y. SENT TO REFER ENCE LAB Not Available [facility] (Lab Registration) [address] [place], [address], 02/11/2023 10:15:05 02/10/20 23 02/11/2023 PSA TOTAL + %FREE % free PSA 8.9 % The table below lists the proba bilit y of prost ate cance r for men with non-s uspic ious MARYANNE resul ts and total PSA betwe en 4 and 10 ng/mL , by patie nt age (Christiane duke et al, NOEMY 1998, 279:1 542). % Free PSA 50-64 yr 65-75 yr 0.00- 10.00 % 56% 55% 10.01 -15.0 0% 24% 35% 15.01 -20.0 0% 17% 23% 20.01 -25.0 0% 10% 20% >25.0 0% 5% 9% Pleas e note: Blanca diaz et al did not make speci fic recom menda tions regar ding the use of perce nt free PSA for any other popul ation of men. Perfo rmed at: [facility] [address] [place], [place] [address] Lab Direc tor: Gavin rinaldi PhD, Phone : [phone] SENT TO REFER ENCE LAB Not Available [facility] (Lab Registration) [address], [place], [address], 02/11/2023 10:15:05 02/10/20 23 02/09/2023 urina lysis , dipst ick Leukocytes (reference range) negati ve Not Available [facility] [address], [address], 02/09/2023 14:21:55 02/10/20 23 02/09/2023 urina lysis , dipst ick Nitrite (reference range:) negati ve Not Available [facility] [address], [address], 02/09/2023 14:21:55 02/10/20 23 02/09/2023 urina lysis , dipst ick Urobilinogen (reference range) 2 Not Available [address], [address], 02/09/2023 14:21:55 02/10/20 23 02/09/2023 urina lysis , dipst ick Protein (reference range) negati ve Not Available [address], [address], 02/09/2023 14:21:55 02/10/20 23 02/09/2023 urina lysis , dipst ick pH (reference range 5-8.5) 7.0 Not Available [address], [address], 02/09/2023 14:21:55 02/10/20 23 02/09/2023 urina lysis , dipst ick Blood (reference range:) negati ve Not Available [address], [address], 02/09/2023 14:21:55 02/10/20 23 02/09/2023 urina lysis , dipst ick Specific [place] (reference range) 1.015 Not Available [address], [address], 02/09/2023 14:21:55 02/10/20 23 02/09/2023 urina lysis , dipst ick Ketone (reference range) negati ve Not Available [address], [address], 02/09/2023 14:21:55 02/10/20 23 02/09/2023 urina lysis , dipst ick Bilirubin (reference range) negati ve Not Available [address], [address], 02/09/2023 14:21:55 02/10/20 23 02/09/2023 urina lysis , dipst ick Glucose (reference range) negati ve Not Available [facility] [place] [address] [facility], [place], [address], 02/09/2023 14:21:55 02/16/20 23 02/15/2023 RFS-P ATHOL OGY SPECI MEN REQUE ST [facility] [address] [place] [address] Phone or [phone] Fax [phone] Ke calvert Jr., M.D., Medic al Direc tor [facility] [address] : [place] [address] Phone Numbe r: [id number] [id number] [phone] Paxton brito M.D. PATHO LOGY REPOR T Patie nt Name: ABDIAS SAMUEL AM A Date of : [birth year] Age/S ex: 77/M Accou nt Numbe r: [id number] Medic al Recor d Numbe r: [id number] Order ing MD: JIMMIE DEL ROSARIO AM Date Colle cted : 2022 Date Recei betina : 2022 Date Repor alcon : 023 Exam: Biops y Acces nia# : [id number] Labor atory #: [id number] Copie s To: MELISSA GALICIA Techn ician : Clini jeremy Histo ry Prost ate nodul e Adden dum Genom ic Prost ate Score cory sis is perfo rmed, with the follo wing resul ts: Genom ic Prost ate Score is 71, with a likel ihood of metas tasis withi n 10 years of 61% or great er, and a likel ihood of prost ate cance r withi n 10 years of 20% or great er if patie nt is treat ed with radic al prost atect amara or radia tion thera py. For addit ional detai ls, pleas e consu lt origi nal repor t from [facility], dated 04/28 . Previ ous Patie nt Histo ry and Files ABDIAS ON, WILLI AM A (194 7 M) i?? N: [id number] ?? 1. S22-0 [id number] , Date ollec alcon: 03/10 A: ESOPH NICHOL, BIOPS Y, DISTA L Diagn osis: Reflu x esoph agiti s with ulcer ation and acute infla mmati on Negat sabrina for metap lasia , dyspl jena or malig anju RLL 2. S22-0 [id number] , Date ollec alcon: 12/30 A: GASTR IC BIOPS IES Diagn osis: Mild chron ic gastr itis with react sabrina epith elial blackman es B: DISTA L ESOPH NICHOL, BIOPS IES Diagn osis: React sabrina squam ous mucos a Mild chron ic gastr itis Negat sabrina for intes tinal metap lasia FLP 3. S16-0 [id number] , DateC ollec alcon: 12/01 A: DUODE NUM, BIOPS IES Diagn osis: Nonsp ecifi c mild chron ic duode nitis Legal ly authe ntica alcon by PAXTON ROTH MD 04-29 11:31 :00 Negat sabrina for adryan c disea se, micro organ isms, metap lasia or atypi a B: GASTR IC BIOPS IES Diagn osis: Minim al chron ic gastr itis Negat sabrina for H. 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 BodyS ite PROST ATE, NEEDL E CORE BIOPS Y SubSi te RIGHT LATER AL BASE Gross Descr iptio n Label ed as righ t later al base , consi sting of 1 salazar needl e core measu ring 1.2 x 0.1 x 0.1 cm, submi tted entir anaya in 1 casse tte. 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 Patch y lymph ocyti c chron ic infla mmati on is obser betina. No adeno carci noma or prost atic intra epith elial neopl jena is obser betina. 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 . The tumor does demon strat e perin eural invas ion, but no defin ite lymph vascu lar invas ion is seen. Tumor occup ies an estim ated 70% of submi tted tissu e. 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 Secti ons of speci men J confi rm adeno carci noma arran ged prima rily in fused and chain ed gland s with a minor ity compo nent of diffu sely infil trati ve tumor cells and nests , witho ut gland forma tion. Tumor compr ises an estim ated 20% of submi tted tissu e. There is focal perin eural invas ion, but no lymph vascu lar invas ion is seen. NOTE: Dr. Del Rosario is notif ied of the above malli gnant diagn oses on Legal ly authe ntica alcon by PAXTON ROTH MD 04-29 11:31 :00 2022. Profe ssion al inter preta tion rende red by Paxton brito Jr., M.D. at [facility], [address] [place] [address] . Final Diagn osis BENIG N PROST ATE TISSU E, [place] [address] BodyS ite PROST ATE, NEEDL E CORE BIOPS Y SubSi te RIGHT LATER AL MID Gross Descr iptio n Label ed as righ t later al mid , consi sting of 1 salazar needl e core measu ring 1.4 x 0.1 x 0.1 cm, submi tted entir anaya in 1 casse tte. Final Diagn osis BENIG N PROST ATE TISSU E, [place] [address] BodyS ite PROST ATE, NEEDL E CORE BIOPS Y SubSi te RIGHT LATER AL APEX Gross Descr iptio n Label ed as righ t later al apex , consi sting of 1 salazar needl e core measu ring 1.9 x 0.1 x 0.1 cm, submi tted entir anaya in 1 casse tte. Final Diagn osis BENIG N PROST ATE TISSU E, [place] [address] BodyS ite Legal ly authe ntica alcon by PAXTON ROTH MD 04-29 11:31 :00 PROST ATE, NEEDL E CORE BIOPS Y SubSi te RIGHT MID Gross Descr iptio n Label ed as righ t mid , consi sting of 1 salazar needl e core measu ring 1.4 x 0.1 x 0.1 cm, submi tted entir naaya in 1 casse tte. Final Diagn osis BENIG N PROST ATE TISSU E, [place] [address] BodyS ite PROST ATE, NEEDL E CORE BIOPS Y SubSi te RIGHT APEX Gross Descr iptio n Label ed as righ t apex , consi sting of 1 salazar needl e core measu ring 0.7 x 0.1 x 0.1 cm, submi tted entir anaya in 1 casse tte. Final Diagn osis BENIG N PROST ATE TISSU E, NO [place]UM[place] [address] BodyS ite PROST ATE, NEEDL E CORE BIOPS Y SubSi te LEFT LATER AL BASE Gross Descr iptio n Label ed as left later al base , consi sting of 1 salazar needl e core measu ring 1.3 x 0.1 x 0.1 cm, submi tted entir anaya in 1 casse tte. Final Diagn osis BENIG N PROST ATE TISSU E, NO TUMOR SEEN Stain H Legal ly authe ntica alcon by PAXTON ROTH MD 04-29 11:31 :00 [place] [address] BodyS ite PROST ATE, NEEDL E CORE BIOPS Y SubSi te LEFT LATER AL MID Gross Descr iptio n Label ed as left later al mid , consi sting of 1 salazar needl e core measu ring 1.4 x 0.1 x 0.1 cm, submi tted entir anaya in 1 casse tte. Final Diagn osis BENIG N PROST ATE TISSU E, [place] [address] BodyS ite PROST ATE, NEEDL E CORE BIOPS Y SubSi te LEFT LATER AL APEX Gross Descr iptio n Label ed as left later al apex , consi sting of 1 salazar needl e core measu ring 1.3 x 0.1 x 0.1 cm, submi tted entir anaya in 1 casse tte. 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 Legal ly authe ntica alcon by PAXTON ROTH MD 04-29 11:31 :00 Final Diagn osis ATYPI JEREMY SMALL ACINA R PROLI [place] [address] BodyS ite PROST ATE, NEEDL E CORE BIOPS Y SubSi te LEFT APEX Gross Descr iptio n Label ed as left apex , consi sting of 1 salazar needl e core measu ring 1.8 x 0.1 x 0.1 cm, submi tted entir anaya in 1 casse tte. 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 , INVOL VING ONE OF ONE CORE, ESTIM ATED 20% OF SUBMI TTED TISSU E, PERIN EURAL INVAS ION IDENT IFIED EJT/[place] [address] Legal ly authe ntica alcon by PAXTON ROTH MD 04-29 11:31 :00 Not Available [facility] (Pre-Op Clinic) [address] [place] [address] [place], [address], 04/29/2023 11:55:02 05/18/20 23 05/18/2023 BASIC METAB OLIC PANEL sodium 131 mmol/ L 137-14 7 low Not Available [facility] (Pre-Op Clinic) [address] [place] [address] [place], [address], 05/18/2023 13:15:01 05/18/20 23 05/18/2023 BASIC METAB OLIC PANEL potassium 4.0 mmol/ L 3.5-5. 1 Not Available [facility] (Pre-Op Clinic) [address] [place] [address] [place], [address], 05/18/2023 13:15:01 05/18/20 23 05/18/2023 BASIC METAB OLIC PANEL chloride 97 mmol/ L 98-110 low Not Available [facility] (Pre-Op Clinic) [address] [place] [address] [place], [address], 05/18/2023 13:15:01 05/18/20 23 05/18/2023 BASIC METAB OLIC PANEL carbon dioxide 21 mmol/ L 21-30 Not Available [facility] (Pre-Op Clinic) [address] [place], [address], 05/18/2023 13:15:01 05/18/20 23 05/18/2023 BASIC METAB OLIC PANEL anion gap 13 mmol/ L 6-14 Not Available [facility] (Pre-Op Clinic) [address] [place] [address] [place], [address], 05/18/2023 13:15:01 05/18/20 23 05/18/2023 BASIC METAB OLIC PANEL glucose 104 mg/dL 70-115 Not Available [facility] (Pre-Op Clinic) [address] [place] [address] [place], [address], 05/18/2023 13:15:01 05/18/20 23 05/18/2023 BASIC METAB OLIC PANEL BUN 15 mg/dL 9-20 Not Available [facility] (Pre-Op Clinic) [address] [place] [address] [place], [address], 05/18/2023 13:15:01 05/18/20 23 05/18/2023 BASIC METAB OLIC PANEL creatinine 0.8 mg/dL 0.5-1. 5 Not Available [facility] (Pre-Op Clinic) [address] [place] [address] [place], [address], 05/18/2023 13:15:01 05/18/20 23 05/18/2023 BASIC METAB OLIC PANEL BUN/creatini ne ratio 19 ratio 10-20 Not Available [facility] (Pre-Op Clinic) [address] [place] [address] [place], [address], 05/18/2023 13:15:01 05/18/20 23 05/18/2023 BASIC METAB OLIC PANEL glom filtration rate TNP mL/mi n >60- GFR has only been valid ated for patie nts 18-70 years of age. Not Available [facility] (Pre-Op Clinic) [address] [place] [address] [place], [address], 05/18/2023 13:15:01 05/18/20 23 05/18/2023 BASIC METAB OLIC PANEL osmolality (calculated) 274 mosmo l/kg 275-30 1 low OSMOL ALITY IS A CALCU LATIO N UTILI ZING THE SERUM /PLAS MA SODIU M, GLUCO SE AND UREA NITRO GEN (BUN) LEVEL S. FOR THE MOST ACCUR ATE RESUL T A MEASU RED SERUM OSMOL ALITY IS SUGGE STED. Not Available [facility] (Pre-Op Clinic) [address] [place] [address] [place], [address], 05/18/2023 13:15:01 05/18/20 23 05/18/2023 BASIC METAB OLIC PANEL calcium 8.9 mg/dL 8.5-10 .8 Not Available [facility] (Pre-Op Clinic) [address] [place] [address] [place], [address], 05/18/2023 13:15:01 05/18/20 23 05/18/2023 BASIC METAB OLIC PANEL note Unles s other miranda noted testi ng perfo rmed at: [facility] [address] [place] [address] Paxton brito MD Not Available [facility] (Pre-Op Clinic) [address] [place] [address] [place], [address], 05/18/2023 13:15:01 10/31/19 24 10/31/2023 PROST ATE SPECI FIC AG (PSA) prostate specific Ag, serum 0.92 Not Available [facility] (Pre-Op Clinic) [address] [place] [address] [place], [address], 10/31/2023 20:07:20 10/31/19 24 10/31/2023 PROST ATE SPECI FIC AG (PSA) note Unles s other miranda noted testi ng perfo rmed at: [facility] [address] [place] [address] Paxton brito MD Not Available [facility] (Pre-Op Clinic) [address] [place] [address] [place], [address], 10/31/2023 20:07:20 02/03/20 24 02/03/2024 PROST ATE SPECI FIC AG (PSA) prostate specific Ag, serum N/A Not Available [facility] (Pre-Op Clinic) [address] [place] [address] [place], [address], 02/03/2024 19:51:41 02/03/20 24 02/03/2024 PROST ATE SPECI FIC AG (PSA) PSA 0.53 NG/mL 0.00-4 .00 Not Available [facility] (Pre-Op Clinic) [address] [place] [address] [place], [address], 02/03/2024 19:51:41 02/03/20 24 02/03/2024 PROST ATE SPECI FIC AG (PSA) note Unles s other miranda noted testi ng perfo rmed at: [facility] [address] [place] [address] Paxton brito MD Not Available [facility] (Pre-Op Clinic) [address] [place] [address] [place], [address], 02/03/2024 19:51:41 02/23/20 23 02/22/2023 elect megha chavez am No observ ation record ed. [email or web address] [facility] Records [address] [place] [address] [place], [address], 02/25/2023 14:13:28 03/03/2003/03/2023 NM, bone scan, whole body No observ ation record ed. [email or web address] [facility] (X-Ray) [facility], [place], [address], 03/07/2023 07:37:45 03/03/20 23 03/03/2023 XR, abdom en, 1 view No observ ation record ed. [email or web address] [address] [place], [address], 03/07/2023 07:39:29 03/10/20 23 03/10/2023 CT, angio gram, chest , w/ contr ast No observ ation record ed. [email or web address] [address] [place], [address], 03/16/2023 15:16:20 03/10/20 23 03/10/2023 CT, chest + abdom en + pelvi s, w/ contr ast No observ ation record ed. [email or web address] [facility] (X-Ray) [address], [place], [address], 03/14/2023 12:35:04 Result Notes None recorded. Problems Name Problem SNOMED Code Status Onset Date Resolution Date Notes Provider Name and Address Organization Details Recorded Time Hypertensive disorder [id number] Active 2022 Cyndi Geiger boby, [place] - LPNT [facility] [place] 13:52:31 Problem Notes None recorded. Procedures Surgical History Date Name Laterality Status Provider Name and Address Organization Details Recorded Time cholecystectomy completed Cyndi ARTHUR - LPNT [facility] [place] 02/09/2023 13:54:13 hernia repair completed Cyndi Winkler LPNT [facility] [place] 02/09/2023 13:54:20 Imaging Results Imaging Date Name Status LastModified by Organization Details LastModified Time 02/22/2023 electrocardiogram completed Johnathon Calvert [facility] [address] [place] [address] [place], [address], 02/25/2023 14:13:28 03/03/2023 NM, bone scan, whole body completed [address] (X-Ray) [address] [facility] [address], [place], [address], 03/07/2023 07:37:45 03/03/2023 XR, abdomen, 1 view completed [email or web address] [place], [address], 03/07/2023 07:39:29 03/10/2023 CT, angiogram, chest, w/ contrast completed [email or web address] [address] [place], [address], 03/16/2023 15:16:20 03/10/2023 CT, chest + abdomen + pelvis, w/ contrast completed [email or web address] [facility] (X-Ray) [address], [place], [address], 03/14/2023 12:35:04 Procedure Notes None recorded. Medical Equipment None Reported. Allergies No known drug allergies Medications Name Sig Start Date Stop Date Status Note LastModified by Organization Details LastModified Time atorvastatin 40 mg tablet TAKE 1 TABLET BY MOUTH ONCE DAILY FOR CHOLESTEROL active Not Available Not Available Not Available promethazine -DM 6.25 mg-15 mg/5 mL oral syrup TAKE 5 TO 10 ML BY MOUTH EVERY 6 HOURS NEEDED active Not Available Not Available No t Available doxycycline hyclate 100 mg capsule TAKE 1 CAPSULE BY MOUTH TWICE DAILY active Not Available Not Available No t Available pimecrolimus 1 % topical cream APPLY 1 GRAM EXTERNALLY TWICE DAILY active Not Available Not Available Not Available omeprazole 40 mg capsule,devin yed release TAKE 1 CAPSULE BY MOUTH ONCE DAILY FOR 90 DAYS active Not Available Not Available No t Available sildenafil 100 mg tablet TAKE 1 TABLET BY MOUTH NEEDED active Not Available Not Available No t Available tamsulosin 0.4 mg capsule TAKE 1 CAPSULE BY MOUTH ONCE DAILY active Not Available Not Available No t Available levofloxacin 500 mg tablet TAKE 1 TABLET BY MOUTH ONCE DAILY FOR 7 DAYS active Not Available Not Available No t Available losartan 100 mg tablet TAKE 1 TABLET BY MOUTH ONCE DAILY active Not Available Not Available No t Available diazepam 5 mg tablet TAKE 1 TABLET BY MOUTH 1 HOUR BEFORE AND 1 TABLET 30 MINUTES BEFORE PROCEDURE NEEDED active Not Available Not Available No t Available hydrochlorot hiazide 12.5 mg tablet TAKE 1 TABLET BY MOUTH ONCE DAILY FOR HIGH BLOOD PRESSURE active Not Available Not Available No t Available GaviLyte-G 236 gram-22.74 gram-6.74 gram-5.86 gram oral solution DRINK 240 ML EVERY 10 MINUTES UNTIL FECAL EFFLUENT IS CLEAR -- FOLLOW MAILED INSTRUCTION S active Not Available Not Available No t Available Vitals Date Recorded Body height Body mass index (BMI) Body weight Body temperature Provider Name and Address Organization Details Last Updated DateTime 02/09/2023 193.04 cm 29.5 kg/m2 772920.35 g 98.1 [degF] Cyndi ARTHUR [facility] [place] 02/09/2023 13:52:09 Date Recorded Body height Body mass index (BMI) Body weight Body temperature Provider Name and Address Organization Details Last Updated DateTime 10/31/2023 193.04 cm 29.5 kg/m2 034623.35 g 98.2 [degF] Caleb ARTHUR [facility] [place] 10/31/2023 10:40:28 Date Recorded Body height Body mass index (BMI) Body weight Body temperature Provider Name and Address Organization Details Last Updated DateTime 02/03/2024 193.04 cm 29.5 kg/m2 216776.35 g 97.8 [degF] Caleb ARTHUR [facility] [place] 02/03/2024 09:24:21 Date Recorded Body height Body mass index (BMI) Body weight Body temperature Provider Name and Address Organization Details Last Updated DateTime 06/22/2024 193.04 cm 29.5 kg/m2 009246.35 g 98 [degF] Caleb ARTHUR [facility] [place] 06/22/2024 09:50:30 Social History Question Answer Notes LastModified by Organizat ion Details LastModified Time Tobacco Smoking Status Former Smoker Cyndi landis JERSON [facility] [place] 02/09/2023 13:54:00 Do You Have An Advance Directive? No [email or web address] Information not available 10/31/2023 What Is Your Level Of Alcohol Consumption? Moderate [email or web address] Information not available 10/31/2023 Are You Blind Or Do You Have Difficulty Seeing? Yes Information not available 10/31/2023 When Did You Quit Smoking? 16+yearssince bret [email or web address] Information not available 02/09/2023 What Was The Date Of Your Most Recent Tobacco Screening? 03/13/2023 [email or web address] Information not available 10/31/2023 Are You Passively Exposed To Smoke? No [email or web address] Information no t available 10/31/2023 Do You Feel Stressed (tense, Restless, Nervous, Or Anxious, Or Unable To Sleep At Night)? [id number] [email or web address] Information not available 10/31/2023 Do You Use Any Illicit Or Recreational Drugs? No [email or web address] Information not available 10/31/2023 Sex: Unknown Functional Status Question Answer Note LastModified by Organization D etails LastModified Time What is your exercise level? Moderate [email or web address] Information not available 10/31/2023 Mental Status None recorded. Family History Nothing Reported. Medical History Condition Response Back Problems Y Past Encounters Encounter ID Performer Location Encounter Start Date Encounter Closed Date Diagnosis/Indication Diagnosis SNOMED-CT Code Diagnosis ICD10 Code [id number] Kai Del Rosario Jr, MD [facility] [address] [address] 02/09/2023 13:42:05 02/09/2023 14:30:41 Prostate nodule 5593025187 60667 N40.2 Lower urin eliza tract symptoms due to benign prostatic hypertrophy 8146987097 9101 N40.1 Erectile dysfunction 860 650361 F52.21 [id number] Kai Del Rosario Jr, MD [facility] [address] [place] [phone] 03/14/2023 11:00:04 03/14/2023 12:26:08 Carcinoma of prostate 568621886 C61 [id number] Kai Del Rosario Jr, MD [facility] [address] [place] [id number] 10/31/2023 10:31:37 10/31/2023 11:24:25 Carcinoma of prostate 007812067 C61 Adult hydrocele 44593040 11 9105 N43.3 [id number] Kai Del Rosario Jr, MD [facility] [address] [place] [id number] 02/03/2024 09:14:40 02/03/2024 10:01:32 Prostate specific antigen above reference range 782162236 R97.20 Carcinoma of prostate 25 8129496 C61 Benign pro static hyperplasia with outflow obstruction 122601247 N40.1 Erectile dysfunction 860 062324 F52.21 [id number] Kai Del Rosario Jr, MD [facility] [address] [address] 06/22/2024 09:46:26 06/22/2024 10:18:18 Carcinoma of prostate 987953703 C61 Benign pro static hyperplasia with outflow obstruction 446757945 N40.1 Erectile dysfunction 860 951937 F52.21 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 Health Concerns Section Related Observation LastModified by Organization Detai ls LastModified Time None Recorded Concern Status LastModified by Organization Details LastModified Time None Recorded Advance Directives Directive N: Payers Encounter Date Sequence Insurance Name Policy Number Policy Carpenter Covered Member ID Carpenter Member ID Guarantor Name 02/09/2023 2 [place] [id number] Kai Chu [id number] Kai Chu 02/09/2023 1 [place] [id number] Kai Chu 03/14/2023 2 [id number] Kai Martinezson [id number] Kai Chu 03/14/2023 1 [place] Martinezson [id number] Kai Chu 10/31/2023 2 [id number] Kai Kam MartinezChu [id number] Kai Chu 10/31/2023 1 [place] Martinezson [id number] Kai Chu 02/03/2024 2 [id number] Kai Martinezson [id number] Kai Chu 02/03/2024 1 [place] Kai Martinezson [id number] 9 Kai Chu 06/22/2024 2 [id number] Kai Martinezson [id number] Kai Chu 06/22/2024 1 [place] Chu [id number] Kai Chu Notes Date Note Type Note Provider Name and Address Organization Details Recorded Time 02/09/2023 text/html Patient is a 77-year-old white male transfers care from [facility] to [facility]. Saw the patient previously and he has a history of right-sided hydrocele and BPH. His PSA his last visit was 4.9. He continues on tamsulosin denies any problems voiding. He does have history of erectile dysfunction and continues on sildenafil. Kai Del Rosario Jr, MD [address] [place] [address], [address], [place], [address], [facility] [place] 02/10/2023 17:24:30 03/14/2023 text/html Patient is a 77-year-old white male recently diagnosed with prostate cancer. Returns today to discuss his recent prostate biopsy and his imaging studies. Biopsy showed 2 of 10 biopsies positive for prostate cancer. Both of the positive biopsies were in the left apical region. Both showed Diana's 4+5=9 adenocarcinoma. On exam patient had a left-sided prostate nodule. CT scan and bone scan have been performed and were negative for extraprostatic disease. We discussed the biopsies and imaging studies. We discussed Pablo tables and has risk for extraprostatic disease even though the imaging studies do not show it. We discussed treatment options including radical prostatectomy versus radiation therapy. 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 Kai Del Rosario Jr, MD [address] [place] [address], [address], [place], [address], [facility] [place] 03/17/2023 14:03:06 10/31/2023 text/html Patient is a 77-year-old white male diagnosed with prostate cancer last fall. Biopsy showed 2 of 10 biopsies positive for prostate cancer. Both biopsies were in the left apical region. Both showed Bay Village's 4+5 adenocarcinoma. This was consistent with a left-sided prostate nodule felt on exam. CT and bone scan negative for extraprostatic disease. Patient elected to have external beam radiation and was referred to [facility]. Patient completed CyberKnife x5 treatments with an expanded field in June. States he has some loose stools for a week. States he feels good now. He states his biopsies were sent off to [facility] for confirmation and left a were consistent with a Bay Village's 4+5 diagnosis. He also had a PSMA scan prior to treatment that was negative. Kai Del Rosario Jr, MD [address] [facility], [address], [place], [address], [place] [facility] [place] [facility] [place] 11/14/2023 17:13:07 02/03/2024 text/html Patient is a 78-year-old white male history of prostate cancer diagnosed last fall. Prostate biopsy showed 210 biopsies positive prostate cancer. Both biopsies were in the left apical region both showed Diana's 4+5 adenocarcinoma. Patient also had left-sided prostate nodule. CT and bone scan negative disease. Patient underwent CyberKnife radiotherapy x5 at [facility] June. His pretreatment PSA was 4.9 and his 1st PSA after treatment was 0.92 in October 2023. Patient has been bothered by some frequent loose stools and fecal urgency since treatment. He is currently on Citrucel. Kai Del Rosario Jr, MD [address] [facility] [address], [address], [place], [address], [place] [facility] [place] 02/03/2024 11:17:07 06/22/2024 text/html patient is a 78-year-old white male with history of prostate cancer status post CyberKnife June 2023. He returns today in routine follow-up. PSAs have trended down appropriately with the last 1 being 0.5 in February. patient's pretreatment PSA was 4.9. Biopsies showed 2 10 biopsies positive for Bay Village's 4+5 prostate cancer. He also has a left-sided prostate nodule on exam.Patient has had some loose stools every week since CyberKnife but did have some diarrhea prior to treatment. He is currently on Citrucel. Kia Del Rosario Jr, MD [address], [address], [place], [address], [place] [facility] [place] [facility] [place] 06/25/2024 22:47:24
--- OUTSIDE RECORDS SUMMARY | 2024-08-05 15:40 | XMS_ITS ---
[facility] [address] [place] [id number] Care Team Providers Care Kindergarten Aide Name Role Phone Kadeem Xiao Primary Care Provider LizzieNehal Unavailable [phone] ALLERGIES Allergen (clinical drug ingredient) Drug/Non Drug [...] Negative Result: neg REASON FOR VISIT cough,congestion MEDICATIONS Medication SIG (Take, Route, Frequency, Duration) [...] MG 1 cap(s) orally once daily Active VITAL SIGNS Weight 243 lbs 05/21/2024 Blood pressure systolic 134 mm Hg 05/21/20 24 Blood pressure diastolic 72 mm Hg 024 Heart Rate 59 /min 05/21/2024 Height 75.25 in 05/21/2024 BMI 30.17 kg/m2 05/21/2024 Encounters Encounter Location Date Provider Diagnosis [facility] [address] [facility] [address] [place] [address], [place] [id number] 05/21/2024 Nehal Samuel URI (upper respirato ry infection) J06.9 ASSESSMENTS Encounter Date Diagnosis Assessment Notes Treatment Notes Treatment Clinical Notes 05/21/2024 URI (upper respiratory infection) (ICD-10 - J06.9) PLAN OF TREATMENT Medication Medication Name Sig Start Date Stop Date Notes Doxycycline Hyclate 100 MG 1 capsule Ora lly Two times a day 05/21/2024 Next Appt Details Follow Up: prn, Reason: Progress Notes * Examination Category Sub-Category Detail Notes ENT/Respiratory Oral cavity : postnasal draina ge Ears: auditory canals norm al bilaterally, TM's WNL Heart : RRR, normal S1 S2, n o murmurs Lungs: clear to auscultatio n bilaterally General Appearance: No respiratory distr ess Nose : mild congestion History and Physical Notes * HPI (History of Present Illness) Category Sub-Category Detail Notes ENT/respiratory Fever headache nasal congestion Pt presents today wi th c/o nasal congestion and nasal drainage. Pt sts that he has been taking Mucinex and Aspirin. Pt sts that it has not got down into his chest yet. Pt sts that he started to feel bad Tuesday morning and has declined since body aches
--- OUTSIDE RECORDS SUMMARY | 2024-08-05 15:40 | XMS_ITS | Encounter Summary ---
Author Organization [facility] Address [address] [place] [address] Care Team Providers Care Computer Teacher Name Role Phone Kadeem Xiao MD Primary Care Provider [phone] Reason for Visit * Reason Comments Prostate Cancer Follow up Encounter Details Date Type Department Care Team (Late st Contact Info) Description 02/17/2024 10:30 AM EDT Office Visit [facility] [address] [place] [address] [address] [place] [address] Carlton Adan MD [address] [place] [address] Prostate cancer (Primary Dx) Social History Tobacco Use Types Packs/Day Years Used Date Smoking Tobacco: Former Cigarettes 1 971 - 2000 Smokeless Tobacco: Never Alcohol Use Standard [...] Physical Signs of Abuse Present no 02/17/2024 Housing Stability Answer Date Recorded Current Living Arrangements Not on file 04/2023 Potentially Unsafe Housing Conditions Not on rox e 06/06/2023 Family and Community Support Answer Kyree e Recorded Help with Day-to-Day Activities Not on file 06/06/2023 Lonely or Isolated Not on file 06/06/2023 Employment Answer Date Recorded Do you want help finding or keeping work or a rafy b? Not on file 06/06/2023 Disabilities Answer Date Recorded Concentrating, Remembering, or Making Decisions Difficulty Not on file 06/06/2023 Doing Errands Independently Difficulty Not on fi le 06/06/2023 Education Answer Date Recorded Help with school or training? Not on file Preferred Language Not on file 06/06/2023 PHQ-2 Answer Date Recorded Retired PHQ-9: Brief Depression Severity Measure Score 0 02/17/2024 Sex and Gender Information Value Date Recorded Sex Assigned at Not on file Legal Sex Male 9:58 AM EDT Gender Identity Not on file Sexual Orientation Not on file documented as of this encounter Last Filed Vital Signs Vital Sign Reading Time Taken Comments Blood Pressure 151/77 02/17/2024 10:22 AM EDT Pulse 55 02/17/2024 10:22 AM EDT Temperature 36.5 ??C (97.7 ??F) 02/17/2024 10:22 AM E DT Respiratory Rate 18 02/17/2024 10:22 AM EDT Oxygen Saturation 95% 02/17/2024 10:22 AM EDT Inhaled Oxygen Concentration - - Weight 109 kg (239 lb 8 oz) 02/17/2024 10:22 AM EDT Height 193 cm (6' 3.98 ) 02/17/2024 10:22 AM EDT Body Mass Index 29.17 02/17/2024 10:22 AM EDT documented in this encounter Progress Notes * Carlton Adan MD - 02/17/2024 10:30 AM EDT FOLLOW UP NOTE PATIENT: Kai Humphrey [place] : 1945 COMPLETION DATE: 07/01/2023 DIAGNOSIS: Prostate cancer - Stage IIIC (cT2a, cN0, cM0, PSA: 4.7, Grade Group: 5) BRIEF HISTORY: Routine follow-up visit. He has a history of clinical localized, high-grade prostate cancer treated with CyberKnife stereotactic body radiotherapy as a sole treatment modality. He declined larger field pelvic irradiation or androgen ablation. Acute posttreatment urinary irritative symptoms have resolved. He is back to using Flomax nightly with no significant urinary complaints. No dysuria or hematuria. He has had posttreatment gastrointestinal symptoms of 2-3 formed bowel movements daily. These are usually in the morning. He has some fecal urgency. 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 He has had significant improvement with dietitian recommendations of adding Citrucel every morning and waiting a couple hours to have his coffee which caffeine tends to be a stimulant. He rarely uses Imodium1/2 tablet as needed. He has no hematochezia. PSA values have significantly decreased to 0.92 ng/mL in October 2023 and 0.53 ng/ml on 02/03/2024. MEDICATIONS: Medication reconciliation for the patient was reviewed and confirmed in the electronicmedical record. Review of Systems Constitutional: Positive for fatigue. Gastrointestinal: Bowel urgency, loose stools, sometimes 2-3 times a day. Feels overall slowly improving. Using Citrucel daily. Does not relate dietary choices to bowel symptoms. Interfering with decisions to travel. Genitourinary: Positive for frequency. Weak stream, no change from baseline and predates radiation. On Flomax-one capsule daily Musculoskeletal: Positive for arthralgias (bilateral knees). Karnofsky score: 90 Physical Exam Vitals and nursing note reviewed. Constitutional: Appearance: He is well-developed. HENT: Head: Normocephalic and atraumatic. Cardiovascular: Rate and Rhythm: Normal rate and regular rhythm. Heart sounds: Normal heart sounds. No murmur heard. Pulmonary: Effort: Pulmonary effort is normal. Breath sounds: Normal breath sounds. No wheezing or rales. Abdominal: General: Bowel sounds are normal. There is no distension. Palpations: Abdomen is soft. Tenderness: There is no abdominal tenderness. Genitourinary: Prostate: Not enlarged (Small, smooth, soft, no longer with induration.), not tender and no nodulespresent. Rectum: No mass, tenderness, anal fissure, external hemorrhoid or internal hemorrhoid. Normal anal tone. Musculoskeletal: General: No tenderness. Normal range of motion. Cervical back: Normal range of motion and neck supple. Lymphadenopathy: Cervical: No cervical adenopathy. Upper Body: Right upper body: No supraclavicular adenopathy. Left upper body: No supraclavicular adenopathy. Skin: General: Skin is warm and dry. Neurological: Mental Status: He is alert and oriented to person, place, and time. Sensory: No sensory deficit. Psychiatric: Behavior: Behavior normal. Thought Content: Thought content normal. Judgment: Judgment normal. VITAL SIGNS: Vitals: 02/17/24 1022 BP: 151/77 Pulse: 55 Resp: 18 Temp: 97.7 ??F (36.5 ??C) TempSrc: Oral SpO2: 95% Weight: 109 kg (239 lb 8 oz) Height: 193 cm (75.98 ) PainSc: 0-No pain Karnofsky score: 90 IPSS Questionnaire (AUA-7): Over the past month??? 1) Incomplete Emptying How often have you had a sensation of not emptying your bladder? 0 - Not at all 2) Frequency How often have you had to urinate less than every two hours? 0 - Not at all 3) Intermittency How often have you found you stopped and started again several times when you urinated? 2 - Less than half the time 4) Urgency How often have you found it difficult to postpone urination? 0 - Not at all 5) Weak Stream How often have you had a weak urinary stream? 5 - Almost always 6) Straining How often have you had to push or strain to begin urination? 1 - Less than 1 time in 5 7) Nocturia How many times did you typically get up at night to urinate? 5 - 5+ times Total Score: 13 Quality of life due to urinary symptoms: If you were to spend the rest of your life with your urinary condition the way it is now, how wouldyou feel about that? 1-Pleased Urine Leakage (Incontinence) 0-No Leakage Sexual Health Inventory Current Status 1) How do you rate your confidence that you could achieve and keep an erection? 4-High 2) When you had erections with sexual stimulation, how often were your erections hard enough for penetration (entering your partner)? 5-Almost always or always 3) During sexual intercourse, how often were you able to maintain your erection after you had penetrated (entered) into your partner? 5 4) During sexual intercourse, how difficult was it to maintain your erection to completion of intercourse? 4 5) When you attempted sexual intercourse, how often was it satisfactory to you? 5-Almost always or always Total Score: 23 Bowel Health Inventory Current Status: 1-Mild diarrhea and/or mild cramping and/or bowel movements more than 5 times dailyand/or slight rectal discharge or bleeding The following portions of the patient's history were reviewed and updated as appropriate: allergies, current medications, past family history, past medical history, past social history, past surgicalhistory and problem list. Diagnoses and all orders for this visit: 1. Prostate cancer (Primary) IMPRESSION: Prostate cancer, Guild's 4+5 = 9, clinical stage IIIC (T1c, N0, M0), PSA 4.7 ng/mL. He is now more than 1/2 years status post CyberKnife stereotactic body radiotherapy use as a sole modality without adequate ablation. He has had excellent clinical and biochemical response based on MARYANNE with resolution of palpable disease and downsizing the prostate gland as well as PSA already close to target gilberto with recent value 0.53 ng/ml. He tolerated treatment very well regarding urinary function and may be able to taper or discontinueuse of alpha-vaibhav. He has some residual but slowly improving fecal urgency but this is manageable and may also have contribution from his gallbladder surgery. RECOMMENDATIONS: He will continue to biannual PSA testing and follow-up with Dr. Barney. Annual follow-up with me. He will try to taper Flomax to every other day use for a few weeks and then discontinue, if tolerated. I spent a total of 25 minutes on todays visit, with more than 20 minutes in direct face to face communication, and the remainder of the time spent in reviewing the relevant history, records, available imaging, and for documentation. Return in about 1 year (around 02/16/2025) for Office Visit. Carlton Adan MD documented in this encounter Plan of Treatment Upcoming Encounters Date Type Department Care Team (Late st Contact Info) Description 02/21/2025 10:30 AM EDT Office Visit [facility] [address] [facility] [address] [place] [address] Carlton Adan MD [address] [place] [address] 03/18/2025 9:30 AM EDT Office Visit [facility] [address] [place] [address] [address] [place] [address] Rambo Dietrich MD [address] [place] [address] documented as of this encounter Visit Diagnoses Diagnosis Prostate cancer- Primary Malignant neoplasm of prostate documented in this encounter Care Teams Computer Teacher Relationship Specialty Start Date End Date Kadeem Xiao MD [address] [facility] [address] [facility] [address] [place] [address] PCP - General Family Medicine 04/13/23 documented as of this encounter
--- OUTSIDE RECORDS SUMMARY | 2024-08-05 15:40 | XMS_ITS | Clinical Summary ---
Author Organization [facility] Address [address] [place] [address] Care Team Providers Care Water Resource Engineer Name Role Phone Kadeem Xiao MD Primary Care Provider [phone] Allergies No known active allergies Medications tamsulosin (FLOMAX) 0.4 MG capsule 24 hr capsule tamsulosin 0.4 mg capsule TAKE 1 CAPSULE BY MOUTH AT BEDTIME Active hydroCHLOROth iazide (HYDRODIURIL) 12.5 MG tablet hydrochlorothiazide 12.5 mg tablet TAKE 1 TABLET BY MOUTH ONCE DAILY Active atorvastatin (LIPITOR) 40 MG tablet atorvastatin 40 mg tablet TAKE 1 TABLET BY MOUTH ONCE DAILY Active losartan (COZAAR) 100 MG tablet losartan 100 mg tablet TAKE 1 TABLET BY MOUTH ONCE DAILY Active omeprazole (priLOSEC) 40 MG capsule Take 1 capsule by mouth Daily. Active [place] 3 1000 MG capsule Take by mouth. Acti ve Active Problems Problem Noted Date Diagnosed Date Prostate cancer 04/13/2023 Cancer Staging:Clinical stage from 02/17/2023:Stage IIIC(cT2a, cN0, cM0, PSA: 4.7, Grade Group: 5) - Signed by Carlton Adan MD on 04/13/2023 Family History Medical History Relation Name Comments Prostate cancer Brother Cancer Father Lung cancer Father Stroke Mother Relation Name Status Comments Brother Father Mother Social History Tobacco Use Types Packs/Day Years Used Date Smoking Tobacco: Former Cigarettes 1 - 2000 Smokeless Tobacco: Never Tobacco Cessation:Counseling Given: Not Answered Alcohol Use Standard Drinks/Week Comments Yes 0 [...] on file Sexual Orientation Not on file Last Filed Vital Signs Vital Sign Reading Time Taken Comments Blood Pressure 152/70 03/14/2024 9:40 AM EDT Pulse 55 02/17/2024 10:22 AM EDT Temperature 36.5 ??C (97.7 ??F) 02/17/2024 10:22 AM E DT Respiratory Rate 18 02/17/2024 10:22 AM EDT Oxygen Saturation 95% 02/17/2024 10:22 AM EDT Inhaled Oxygen Concentration - - Weight 109 kg (240 lb 4.8 oz) 03/14/2024 9:40 AM EDT Height 193 cm (6' 3.98 ) 03/14/2024 9:40 AM EDT Body Mass Index 29.26 03/14/2024 9:40 AM EDT Plan of Treatment Upcoming Encounters Date Type Department Care Team (Late st Contact Info) Description 02/21/2025 10:30 AM EDT Office Visit [facility] [address] [facility] [address] [place] [address] Carlton Adan MD [address] [place] [address] 03/18/2025 9:30 AM EDT Office Visit [facility] [address] [facility] [address] [place] [address] Rambo Dietrich MD [address] [facility] [address] [place] [id number] Health Maintenance Due Date Last Done Comments Pneumococcal Vaccine 65+ (1 of 2 - PCV) 1952 TDAP/TD VACCINES (1 - Tdap) 1965 ZOSTER VACCINE (1 of 2) 1965 RSV Vaccine - Adults (1 - 1- dose 75+ series) 2021 ANNUAL WELLNESS VISIT 04/12/2022 HEPATITIS C SCREENING 04/12/2022 INFLUENZA VACCINE 02/27/2024 07/18/2023, , 05/20/2021, Additional history exists COVID-19 Vaccine ( - 2023-2 5 season) 2024 06/30/2022, 02/08/2022, 07/08/2021, Additional history exists BMI FOLLOWUP 12/05/2024 12/06/2023 Insurance MEDICARE A & B [facility] Care Teams Water Resource Engineer Relationship Specialty Start Date End Date Kadeem Xiao MD [address] [facility] [address] [facility] [address] [place] [address] PCP - General Family Medicine 04/13/23
--- OUTSIDE RECORDS SUMMARY | 2024-08-05 15:40 | XMS_ITS | Continuity of Care Document ---
Author Organization JERSON LANDY [facility] [place] [facility] [place] Address [address] [place] [address] Assessment No assessment recorded. Plan of Treatment Reminders Order Date Submit Date Provider Last Modified By Organization Details Last Modified Time Details Appointments OV EST 15 2024 10:15A M Kai Barney Jr, MD Not available Not available Not available Lab PSA, serum or plasma 2023 [email or web address] [facility] ([facility]), [address] [place] [address] [address] [place], [address], 06/25/2024 20:50:43 Referral None recorded. Procedures None recorded. Surgeries None recorded. Imaging None recorded. Medication Orders sildenafi l 100 mg tablet 2023 024 [facility], [address], [address], 06/22/2024 10:11:16 Patient TargetsNo targets recorded. Patient InstructionsNo instructions recorded. Reason for Referral None Reported. Problems Name Problem SNOMED Code Status Onset Date Resolution Date Notes Provider Name and Address Organization Details Recorded Time Hypertensive disorder 13760459 Active 2022 Cyndi Geiger boby [facility] [place] 13:52:31 Problem Notes None recorded. Procedures Surgical History Date Name Laterality Status Provider Name and Address Organization Details Recorded Time cholecystectomy completed Cyndi Geiger JERSON Winkler MAX [facility] [place] 02/09/2023 13:54:13 hernia repair completed Cyndi Geiger JERSON BILL [facility] [place] 02/09/2023 13:54:20 Imaging Results None recorded. Procedure Notes None recorded. Medical Equipment None [...] Updated DateTime 06/22/2024 193.04 cm 29.5 kg/m2 899523.35 g 98 [degF] Caleb Moreno [facility] [place] 06/22/2024 09:50:30 Social History Question Answer Notes LastModified by Organizat ion Details LastModified Time Tobacco Smoking Status Former Smoker Cyndi Juanjo landis, [facility] [place] 02/09/2023 13:54:00 Do You Have An Advance Directive? No [email or web address] Information not available 10/31/2023 What Is Your Level Of Alcohol Consumption? Moderate [email or web address] Information not available 10/31/2023 Are You Blind Or Do You Have Difficulty Seeing? Yes [email or web address] Information not available 10/31/2023 When Did You Quit Smoking? 16+yearssince bret [email or web address] Information not available 02/09/2023 What Was The Date Of Your Most Recent Tobacco Screening? 03/13/2023 [email or web address] Information not available 10/31/2023 Are You Passively Exposed To Smoke? No [email or web address] Information no t available 10/31/2023 Do You Feel Stressed (tense, Restless, Nervous, Or Anxious, Or Unable To Sleep At Night)? [id number] [email or web address] Information not available 10/31/2023 Do You Use Any Illicit Or Recreational Drugs? No [email or web address] Information not available 10/31/2023 Sex: Unknown Functional Status Question Answer Note LastModified by Organization D etails LastModified Time What is your exercise level? Moderate [email or web address] Information not available 10/31/2023 Mental Status None recorded. Family History Nothing Reported. 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 Health Concerns Section Related Observation LastModified by Organization Detai ls LastModified Time None Recorded Concern Status LastModified by Organization Details LastModified Time None Recorded Payers Encounter Date Sequence Insurance Name Policy Number Policy Carpenter Covered Member ID Carpenter Member ID Guarantor Name 06/22/2024 2 [place] [id number] Kai Chu [id number] Kai Chu 06/22/2024 1 [place] Kai Chu [id number] Kai Chu Notes Date Note Type Note Provider Name and Address Organization Details Recorded Time 06/22/2024 text/html patient is a 78-year-old white male with history of prostate cancer status post CyberKnife June 2023. He returns today in routine follow-up. PSAs have trended down appropriately with the last 1 being 0.5 in February. patient's pretreatment PSA was 4.9. Biopsies showed 2 10 biopsies positive for Diana's 4+5 prostate cancer. He also has a left-sided prostate nodule on exam.Patient has had some loose stools every week since CyberKnife but did have some diarrhea prior to treatment. He is currently on [employer]ru[employer]. Kai Barney Jr, MD [address] [place] [address], [address], [place], [address], [facility] [place] [facility] [place] 06/25/2024 22:47:24
--- OUTSIDE RECORDS SUMMARY | 2024-08-05 15:40 | XMS_ITS | Encounter Summary ---
Author Organization [facility] Address [address] [place] [address] Care Team Providers Care Lead Retail Sales Associate Name Role Phone Kadeem Xiao MD Primary Care Provider [phone] Reason for Visit * Reason Comments Follow-up 4 month follow up-Pr imary osteoarthritis of left knee Encounter Details Date Type Department Care Team (Late st Contact Info) Description 03/14/2024 9:40 AM EDT Office Visit [facility] [address] [place] [address] Rambo Dietrich MD [address] [place] [address] Primary osteoarthritis of left knee (Primary Dx) Social History Tobacco Use Types [...] Pressure 152/70 03/14/2024 9:40 AM EDT Pulse - - Temperature - - Respiratory Rate - - Oxygen Saturation - - Inhaled Oxygen Concentration - - Weight 109 kg (240 lb 4.8 oz) 03/14/2024 9:40 AM EDT Height 193 cm (6' 3.98 ) 03/14/2024 9:40 AM EDT Body Mass Index 29.26 03/14/2024 9:40 AM EDT documented in this encounter Progress Notes * Rambo Dietrich MD - 03/14/2024 9:40 AM EDT Images from the original note were not included. [facility] Note Subjective Chief Complaint Patient presents with Follow-up 4 month follow up-Primary osteoarthritis of left knee HPI It has been 4 month(s) since Mr. Chu's last visit. He returns to clinic today for follow-up of left knee pain. The issue has been ongoing for 6.5 year(s). He rates his pain a 1/10 on the pain scale. Previous/current treatments: bracing and NSAIDS. Current symptoms: pain and swelling. The pain is worse with walking, standing, sitting, climbing stairs, and working; resting improve the pain. Overall, he is doing better. Knee is doing well today. Previous injections did not help out significantly. He is not quite ready to proceed with surgery as we discussed on his last visit. I have reviewed the following portions of the patient's history and agree with: History of Present Illness and Review of Systems Patient Active Problem List Diagnosis Prostate cancer Past Medical History: Diagnosis Date Arthritis Back pain Claustrophobia GERD (gastroesophageal reflux disease) Hearing loss Hypertension Ingrown toenail Plantar fasciitis Pneumonia Prostate cancer TIA (transient ischemic attack) Past Surgical History: Procedure Laterality Date CATARACT EXTRACTION Left 11/22/2022 CYBERKNIFE 07/01/2023 prostate/SV GALLBLADDER SURGERY HERNIA REPAIR KNEE ARTHROPLASTY Right PROSTATE BIOPSY Family History Problem Relation Age of Onset Stroke Mother Cancer Father Lung cancer Father Prostate cancer Brother Social History Socioeconomic History Marital status: Tobacco Use Smoking status: Former Current packs/day: 0.00 Types: Cigarettes Start date: 1970 Quit date: 2000 Years since quittin.5 Smokeless tobacco: Never Vaping Use Vaping status: Never Used Substance and Sexual Activity Alcohol use: Yes Comment: 2 drinks per day Drug use: Never Sexual activity: Defer Current Outpatient Medications on File Prior to Visit Medication Sig Dispense Refill atorvastatin (LIPITOR) 40 MG tablet atorvastatin 40 mg tablet TAKE 1 TABLET BY MOUTH ONCE DAILY hydroCHLOROthiazide (HYDRODIURIL) 12.5 MG tablet hydrochlorothiazide 12.5 mg tablet TAKE 1 TABLET BY MOUTH ONCE DAILY losartan (COZAAR) 100 MG tablet losartan 100 mg tablet TAKE 1 TABLET BY MOUTH ONCE DAILY [place] 3 1000 MG capsule Take by mouth. omeprazole (priLOSEC) 40 MG capsule Take 1 capsule by mouth Daily. tamsulosin (FLOMAX) 0.4 MG capsule 24 hr capsule tamsulosin 0.4 mg capsule TAKE 1 CAPSULE BY MOUTH AT BEDTIME No current facility-administered medications on file prior to visit. No Known Allergies Review of Systems Objective Physical Exam BP 152/70 Ht 193 cm (75.98 ) Wt 109 kg (240 lb 4.8 oz) BMI 29.26 kg/m?? Body mass index is 29.26 kg/m??. General: Mental Status: Alert Appearance: Cooperative, in no acute distress Build and Nutrition: Well-nourished well-developed male Orientation: Alert and oriented to person, place and time Posture: Normal Gait: Nonantalgic/normal Integument: Left knee: Chronic skin lesions lower leg Lower Extremities: Left Knee: Tenderness: Mild medial joint line tenderness Effusion: 1+ Swelling: None Crepitus: Positive Atrophy: None Range of motion: Extension: 5?? Flexion: 125?? Instability: No varus laxity, no valgus laxity, negative anterior drawer Deformities: Varus Imaging/Studies Imaging Results (Last 24 Hours) No results found for the last 24 hours. No new imaging today. Assessment and Plan Diagnoses and all orders for this visit: 1. Primary osteoarthritis of left knee (Primary) 1. Primary osteoarthritis of left knee I reviewed my findings with the patient. Left knee is doing well overall, and he is not quite readyto proceed with surgical intervention. The results he had on his right knee has not hesitant to proceed with his left knee. History of right total knee arthroplasty with Dr. Carpio. I will see him back in 1 year with a new set of x-rays, but I will be happy to see him back sooner for any problems. Return in about 1 year (around 03/14/2025) for recheck with x-rays. Rambo Dietrich MD 03/14/24 09:57 EDT Dictated Utilizing [employer] Dictation documented in this encounter Plan of Treatment Upcoming Encounters Date Type Department Care Team (Late st Contact Info) Description 02/21/2025 10:30 AM EDT Office Visit [facility] [address] [facility] [address] [place] [address] Carlton Adan MD [address] [place] [address] 03/18/2025 9:30 AM EDT Office Visit [facility] [address] [facility] [address] [place] [address] Rambo Dietrich MD [address] [address] documented as of this encounter Visit Diagnoses Diagnosis Primary osteoarthritis of left knee- Primary documented in this encounter Care Teams Lead Retail Sales Associate Relationship Specialty Start Date End Date Kadeem Xiao MD [address] [facility] [address] [facility] [address] [place] [address] PCP - General Family Medicine 04/13/23 documented as of this encounter
--- OUTSIDE RECORDS SUMMARY | 2024-08-05 15:41 | XMS_ITS | Encounter Summary ---
Author Organization [facility] Address [address] [place] [address] Care Team Providers Care Carpenter Helper Name Role Phone Daljit Samuel MD Primary Care Provider Reason for Visit * Reason Comments Follow-up 6 month f/u Primary osteoarthritis of left knee Encounter Details Date Type Department Care Team (Late st Contact Info) Description 12/22/2022 9:10 AM EDT Office Visit [facility] [address] [place] [address] Rambo Dietrich MD [address] [place] [address] Primary osteoarthritis of left knee (Primary Dx) Social History Tobacco Use Types Packs/Day Years Used Date Smoking Tobacco: Former Cigarettes 2000 Smokeless Tobacco: Never Alcohol Use Standard Drinks/Week Comments Yes 0 (1 standard drink = 0.6 oz pur e alcohol) Sex and Gender Information Value Date Recorded Sex Assigned at Not on file Legal Sex Male 9:58 AM EDT Gender Identity Not on file Sexual Orientation Not on file documented as of this encounter Last Filed Vital Signs Vital Sign Reading Time Taken Comments Blood Pressure 130/79 12/22/2022 8:44 AM EDT Pulse - - Temperature - - Respiratory Rate - - Oxygen Saturation - - Inhaled Oxygen Concentration - - Weight 108 kg (237 lb 3.2 oz) 12/22/2022 8:44 AM EDT Height 193 cm (6' 3.98 ) 12/22/2022 8:44 AM EDT Body Mass Index 28.89 12/22/2022 8:44 AM EDT documented in this encounter Progress Notes * Rambo Dietrich MD - 12/22/2022 9:10 AM EDT Images from the original note were not included. [facility] Surgery Clinic Note Subjective Chief Complaint Patient presents with ??? Follow-up 6 month f/u Primary osteoarthritis of left knee HPI It has been 6 month(s) since Mr. Chu's last visit. He returns to clinic today for follow-up of left knee arthritis. The issue has been ongoing for 5 year(s). He rates his pain a 3/10 on the pain scale. Previous/current treatments: NSAIDS and HEP. Current symptoms: popping and stiffness. The pain is worse with standing and rising from seated position; resting and HEP improve the pain. Overall,he is doing the same. He would like an injection today. I have reviewed the following portions of the patient's history and agree with: History of Present Illness and Review of Systems There is no problem list on file for this patient. Past Medical History: Diagnosis Date ??? Arthritis ??? Back pain ??? Claustrophobia ??? Hearing loss ??? Ingrown toenail ??? Plantar fasciitis ??? Pneumonia Past Surgical History: Procedure Laterality Date ??? CATARACT EXTRACTION Left 11/22/2022 ??? GALLBLADDER SURGERY ??? HERNIA REPAIR ??? KNEE ARTHROPLASTY Right Family History Problem Relation Age of Onset ??? Stroke Mother ??? Cancer Father ??? Cancer Brother Social History Socioeconomic History ??? Marital status: Tobacco Use ??? Smoking status: Former Years: 30.00 Types: Cigarettes Quit date: 2000 Years since quittin.3 ??? Smokeless tobacco: Never Vaping Use ??? Vaping Use: Never used Substance and Sexual Activity ??? Alcohol use: Yes ??? Drug use: Never ??? Sexual activity: Defer Current Outpatient Medications on File Prior to Visit Medication Sig Dispense Refill ??? atorvastatin (LIPITOR) 40 MG tablet atorvastatin 40 mg tablet TAKE 1 TABLET BY MOUTH ONCE DAILY ??? gentamicin (GARAMYCIN) 0.1 % ointment APPLY OINTMENT ONCE DAILY FOR CELLULITIS ??? hydroCHLOROthiazide (HYDRODIURIL) 12.5 MG tablet hydrochlorothiazide 12.5 mg tablet TAKE 1 TABLET BY MOUTH ONCE DAILY ??? ibuprofen (ADVIL,MOTRIN) 200 MG tablet Take 1 tablet by mouth Every 6 (Six) Hours As Needed forMild Pain. ??? losartan (COZAAR) 100 MG tablet losartan 100 mg tablet TAKE 1 TABLET BY MOUTH ONCE DAILY ??? [place] 3 1000 MG capsule Take by mouth. ??? omeprazole (priLOSEC) 40 MG capsule Take 1 capsule by mouth Daily. ??? sucralfate (CARAFATE) 1 GM/10ML suspension sucralfate 100 mg/mL oral suspension TAKE 10 ML BY MOUTH 4 TIMES DAILY FOR GERD, SWISH AND SWALLOW 3-4 TIMES A DAY ON AN EMPTY STOMACH AT LEAST 1 HOUR BEFORE MEALS ??? tamsulosin (FLOMAX) 0.4 MG capsule 24 hr capsule tamsulosin 0.4 mg capsule TAKE 1 CAPSULE BY MOUTH AT BEDTIME ??? [DISCONTINUED] diazePAM (VALIUM) 5 MG tablet diazepam 5 mg tablet TAKE 1 TAB BY MOUTH PRIOR TO PROCEDURE, MAY REPEAT IF NEEDED ??? [DISCONTINUED] diazePAM (VALIUM) 5 MG tablet TAKE 1 TAB BY MOUTH PRIOR TO PROCEDURE, MAY REPEATIF NEEDED No current facility-administered medications on file prior to visit. No Known Allergies Review of Systems Constitutional: Negative for activity change, appetite change, chills, diaphoresis, fatigue, fever and unexpected weight change. HENT: Negative for congestion, dental problem, drooling, ear discharge, ear pain, facial swelling, hearing loss, mouth sores, nosebleeds, postnasal drip, rhinorrhea, sinus pressure, sneezing, sore throat, tinnitus, trouble swallowing and voice change. Eyes: Negative for photophobia, pain, discharge, redness, itching and visual disturbance. Respiratory: Negative for apnea, cough, choking, chest tightness, shortness of breath, wheezing andstridor. Cardiovascular: Negative for chest pain, palpitations and leg swelling. Gastrointestinal: Negative for abdominal distention, abdominal pain, anal bleeding, blood in stool,constipation, diarrhea, nausea, rectal pain and vomiting. Endocrine: Negative for cold intolerance, heat intolerance, polydipsia, polyphagia and polyuria. Genitourinary: Negative for decreased urine volume, difficulty urinating, dysuria, enuresis, flank pain, frequency, genital sores, hematuria and urgency. Musculoskeletal: Positive for arthralgias. Negative for back pain, gait problem, joint swelling, myalgias, neck pain and neck stiffness. Skin: Negative for color change, pallor, rash and wound. Allergic/Immunologic: Negative for environmental allergies, food allergies and immunocompromised state. Neurological: Negative for dizziness, tremors, seizures, syncope, facial asymmetry, speech difficulty, weakness, light-headedness, numbness and headaches. Hematological: Negative for adenopathy. Does not bruise/bleed easily. Psychiatric/Behavioral: Negative for agitation, behavioral problems, confusion, decreased concentration, dysphoric mood, hallucinations, self-injury, sleep disturbance and suicidal ideas. The patientis not nervous/anxious and is not hyperactive. Objective Physical Exam BP 130/79 Ht 193 cm (75.98 ) Wt 108 kg (237 lb 3.2 oz) BMI 28.89 kg/m?? Body mass index is 28.89 kg/m??. General: Mental Status: Alert Appearance: Cooperative, in no acute distress Build and Nutrition: Well-nourished well-developed male Orientation: Alert and oriented to person, place and time Posture: Normal Gait: Nonantalgic Integument: ?Left knee: No skin lesions, no rash, no ecchymosis ?? Lower Extremities: ?Left Knee: ?Tenderness: ?Mild medial joint line tenderness ?Effusion: ? 1+ ?Swelling: ?None ?Crepitus: ?Positive ?Atrophy: ?None ?Range of motion: ?Extension:?0?Flexion:?125?? Instability: ?No varus laxity, no valgus laxity, negative anterior drawer Deformities:?None Imaging/Studies Imaging Results (Last 24 Hours) No results found for the last 24 hours. No new imaging today. Assessment and Plan Diagnoses and all orders for this visit: 1. Primary osteoarthritis of left knee (Primary) - Large Joint Arthrocentesis: L knee 1. Primary osteoarthritis of left knee I reviewed my findings with the patient. We discussed options for his left knee today, and he wouldlike to proceed with an injection. Please see my procedure note for details. I will see him back in4 months, but sooner for any problems Procedure Note: The potential benefits of performing a therapeutic left knee joint injection, as well as potential risks (including, but not limited to infection, swelling, pain, bleeding, bruising, nerve/blood vessel damage, skin color changes, transient elevation in blood glucose levels, and fat atrophy) were discussed with the patient. After informed consent, timeout procedure was performed, and the skin on the left knee was prepped with chlorhexidine soap and alcohol, after which ethyl chloride was appliedto the skin at the injection site. Via the anterolateral approach, 1ml of Kenalog 40mg/ml mixed with 4ml 0.5% ropivacaine plain was injected into the knee joint. The patient tolerated the procedure we ll, experiencing 10% improvement a few minutes following the injection. There were no complications. Band-Aid was applied to the injection site. Post- procedural instructions were given to the patientand/or their caregiver. Return in about 4 months (around 04/23/2023). Rambo Dietrich MD 12/22/22 09:25 EDT * Claudia Murphy MA - 12/22/2022 9:10 AM EDTAssociated Order(s): Large Joint Arthrocentesis: L knee Procedure Large Joint Arthrocentesis: L knee Date/Time: 12/22/2022 9:10 AM Consent given by: patient Site marked: site marked Timeout: Immediately prior to procedure a time out was called to verify the correct patient, procedure, equipment, lab support technician and site/side marked as required Supporting Documentation Indications: pain Procedure Details Location: knee - L knee Preparation: Patient was prepped and draped in the usual sterile fashion Needle gauge: 21G. Approach: anterolateral Medications administered: 4 mL ropivacaine 0.5 %; 40 mg triamcinolone acetonide 40 MG/ML Patient tolerance: patient tolerated the procedure well with no immediate complications documented in this encounter Plan of Treatment Upcoming Encounters Date Type Department Care Team (Late st Contact Info) Description 02/21/2025 10:30 AM EDT Office Visit [facility] [address] [facility] [address] [place] [id number] Carlton Adan MD [address] [place] [address] 03/18/2025 9:30 AM EDT Office Visit [facility] [address] [facility] [address] [place] [address] Rambo Dietrich MD [address] [facility] [address] [place] [address] documented as of this encounter Procedures Procedure Name Priority Date/Time Associated Diagnosis Comments AK ARTHROCENTESIS ASPIR&/INJ MAJOR JT/BURSA W/O US Routine 12/22/2022 9:10 AM EDT Primary osteoarthritis of left knee documented in this encounter Results * AK ARTHROCENTESIS ASPIR&/INJ MAJOR JT/BURSA W/O US (12/22/2022 9:10 AM EDT) Narrative Claudia Murphy MA - 12/22/2022 9:10 AM EDT Claudia Murphy MA ? 12/22/2022 ??9:25 AM Large Joint Arthrocentesis: L knee Date/Time: 12/22/2022 9:10 AM Consent given by: patient Site marked: site marked Timeout: Immediately prior to procedure a time out was called to verify the correct patient, procedure, equipment, lab support technician and site/side marked as required Supporting Documentation Indications: pain Procedure Details Location: knee - L knee Preparation: Patient was prepped and draped in the usual sterile fashion Needle gauge: 21G. Approach: anterolateral Medications administered: 4 mL ropivacaine 0.5 %; 40 mg triamcinolone acetonide 40 MG/ML Patient tolerance: patient tolerated the procedure well with no immediate complications us Rambo Dietrich MD PROCEDURE/MINOR SURGICAL ORDER JAELYN Final Result documented in this encounter Visit Diagnoses Diagnosis Primary osteoarthritis of left knee- Primary documented in this encounter Administered Medications Inactive Administered Medications - up to 3 most recent administrations Medication Order MAR Action Action Date Dose Rate Site ropivacaine (NAROPIN) 0.5 % injection 4 mL 4 mL, One-Time Injection, Starting on Tue12/22/22 at 0910, For 1 doseIndications:Primary osteoarthritis of left knee Given 12/22/2022 9:10 AM EDT 4 mL triamcinolone acetonide (KENALOG-40) injection 40 mg 40 mg, One-Time Injection, Starting on Tue12/22/22 at 0910, For 1 doseIndications:Primary osteoarthritis of left knee Given 12/22/2022 9:10 AM EDT 40 mg documented in this encounter Care Teams Carpenter Helper Relationship Specialty Start Date End Date Daljit Samuel MD [facility] [address] [facility] [address] [place] [address] PCP - General Family Medicine 03/11/22 04/12/23 documented as of this encounter
--- OUTSIDE RECORDS SUMMARY | 2024-08-05 15:41 | XMS_ITS | Encounter Summary ---
Author Organization [facility] Address [address] [place] [address] Care Team Providers Care Cattle Sorter Name Role Phone Kadeem Xiao MD Primary Care Provider [phone] Encounter Details Date Type Department Care Team (Late st Contact Info) Description 05/31/2023 Telephone Radiation Oncology and Cyberknife [facility] [place] [phone] Zahira Curry, RN Social History Tobacco Use Types Packs/Day Years Used Date Smoking Tobacco: Former Cigarettes 1 2000 Smokeless Tobacco: Never Alcohol Use Standard Drinks/Week Comments Yes 0 (1 standard drink = 0.6 oz pur e alcohol) 2 drinks per day PHQ-2 Answer Date Recorded Retired PHQ-9: Brief Depression Severity Measure Score 0 04/13/2023 PHQ-2 Answer Date Recorded Retired PHQ-9: Brief Depression Severity Measure Score 0 04/13/2023 Sex and Gender Information Value Date Recorded Sex Assigned at Not on file Legal Sex Male 9:58 AM EDT Gender Identity Not on file Sexual Orientation Not on file documented as of this encounter Miscellaneous Notes * Telephone Encounter - Zahira Curry RN - 05/31/2023 10:20 AM EDT Pt left message wanting to get appointments moved up. I explained we do not have any availability before 06/07/23. Pt verbalized understanding. Discussed in detail, diet, prep, appointment dates and times. Pt verbalized understanding of all instructions. documented in this encounter Plan of Treatment Upcoming Encounters Date Type Department Care Team (Late st Contact Info) Description 02/21/2025 10:30 AM EDT Office Visit RADIATION ONCOLOGY 3000 [facility] [address] [place] [address] Carlton Adan MD [address] [place] [address] 03/18/2025 9:30 AM EDT Office Visit [facility] MEDIC[facility] [address]60 [facility] 101 [place] [address] Rambo Dietrich MD [address]60 [facility] [address] [place], [place] [id number] documented as of this encounter Visit Diagnoses Not on filedocumented in this encounter Care Teams Cattle Sorter Relationship Specialty Start Date End Date Kadeem Xiao MD [address]10 [facility] [address] [place] [address] PCP - General Family Medicine 04/13/23 documented as of this encounter
--- OUTSIDE RECORDS SUMMARY | 2024-08-05 15:41 | XMS_ITS | Encounter Summary ---
Author Organization [facility] Address [address] [place] [id number] Care Team Providers Care Manager R D Name Role Phone Kadeem Xiao MD Primary Care Provider [phone] Reason for Referral * MRI/CAT/PET Scan (Routine) - Closed Specialty Diagnoses / Procedures Referred By Contac t Referred To Contact Radiology Diagnoses Prostate cancer Procedures NM PET/CT Skull Base to Mid Thigh Carlton Adan MD [address] [place] [address] Phone: tel: fax: [facility] [address] [place] [phone] Phone: tel: Referral ID Status Reason Start Date Expiration Date Visits Re quested Visits Authorized [id number] Closed 04/13/2023 04/12/2024 2 2 * Consultation (Urgent) - Closed Specialty Diagnoses / Procedures Referred By Contac t Referred To Contact Gastroenterology Diagnoses Prostate cancer Procedures [place] OFFICE/OUTPATIENT NEW MODERATE MDM 45-59 MINUTES Carlton Adna MD [address] [place] [address] Phone: tel: fax: Ho Lara MD [address] [place] [address] Phone: tel: fax: Referral ID Status Reason Start Date Expiration Date V isits Requested Visits Authorized [id number] Closed Specialty Services Required 04/13/2023 04/12/2024 1 1 * MRI/CAT/PET Scan (Routine) - Closed Specialty Diagnoses / Procedures Referred By Contac t Referred To Contact Radiology Diagnoses Prostate cancer Procedures MRI Cyberknife Pelvis Without Contrast Carlton Adan MD [address] [place] [address] Phone: tel: fax: Referral ID Status Reason Start Date Expiration Date Visits Re quested Visits Authorized [id number] Closed 04/13/2023 04/12/2024 1 1 Reason for Visit * Reason Comments Prostate Cancer * Consultation (Routine) - Closed Specialty Diagnoses / Procedures Referred By Poncho t Referred To Contact Radiation Oncology Diagnoses Malignant neoplasm of prostate 4 month fup Procedures FOLLOW UP Kai Barney MD [address] [facility] [place] [address] Phone: tel: fax: Carlton Adan MD [address] [place] [address] Phone: tel: fax: Referral ID Status Reason Start Date Expiration Date Visits Re quested Visits Authorized [id number] Closed 03/17/2023 03/17/2024 1 1 Encounter Details Date Type Department Care Team (Late st Contact Info) Description 04/13/2023 9:30 AM EDT Office Visit Radiation Oncology and [facility] [address] [place] [id number] Carlton Adan MD [address] [place] [address] Prostate cancer (Primary Dx) Social History Tobacco Use Types Packs/Day Years Used Date Smoking Tobacco: Former Cigarettes 1 971 - 2001 Smokeless Tobacco: Never Tobacco Cessation:Counseling Given: Not [...] Sign Reading Time Taken Comments Blood Pressure 160/73 04/13/2023 9:42 AM EDT Pulse 53 04/13/2023 9:42 AM EDT Temperature 36.2 ??C (97.1 ??F) 04/13/2023 9:42 AM ED T Respiratory Rate 20 04/13/2023 9:42 AM EDT Oxygen Saturation 97% 04/13/2023 9:42 AM EDT Inhaled Oxygen Concentration - - Weight 109 kg (239 lb 6.4 oz) 04/13/2023 9:42 AM EDT Height 193 cm (6' 4 ) 04/13/2023 9:42 AM EDT Body Mass Index 29.14 04/13/2023 9:42 AM EDT documented in this encounter Progress Notes * Carlton Adan MD - 04/13/2023 9:30 AM EDT CONSULTATION NOTE : 1945 DATE OF CONSULTATION: 04/13/2023 REQUESTING PHYSICIAN: Kai Barney MD REASON FOR CONSULTATION: Prostate cancer - Stage IIIC (cT2a, cN0, cM0, PSA: 4.7, Grade Group: 5) BRIEF HISTORY: The patient is a very pleasant 77 y.o. male with recent diagnosis of prostate cancer. He was found to have an elevated PSA value of 4.7 ng/mL on 02/09/2023. MARYANNE revealed stable mild BPHwith a new area of induration on the left. On ultrasound prostate measured 32 cc with a small hypoechoic lesion in the left central zone. Biopsy 02/17/2023 showed prostatic adenocarcinoma involving 3 out of 5 cores in the left lobe. Springfield's 4+5 = 9 was present in the left lateral apex involving 70% tissue with perineural invasion. [place]'s 4+5 = 9 was present in the left apex sample involving 20% tissue with perineural invasion. Atypical suspicious acinar proliferation was present left mid gland. The right lobe showed benign prostatic tissue in all 5 core samples. Nuclear medicine bone scan showed evidence of degenerative disease and trauma. No evidence of bony metastasis. CT abdomen pelvis showed coronary calcifications. There was stable stranding of the small bowel mesentery. There was a stable small bone island in the left acetabulum. No evidence of metastatic disease. Patient has some peripheral vascular disease but otherwise fairly active and should have predicted longevity greater than 10 years, sufficient to warrant definitive treatment. He was referred for consideration of radiotherapy treatment options. Allergy: No Known Allergies Social History: Social History Socioeconomic History Marital status: Tobacco Use Smoking status: Former Years: 30.00 Types: Cigarettes Quit date: 2000 Years since quittin.6 Smokeless tobacco: Never Vaping Use Vaping Use: Never used Substance and Sexual Activity Alcohol use: Yes Comment: 2 drinks per day Drug use: Never Sexual activity: Defer Past Medical History: Past Medical History: Diagnosis Date Arthritis Back pain Claustrophobia GERD (gastroesophageal reflux disease) Hearing loss Hypertension Ingrown toenail Plantar fasciitis Pneumonia Prostate cancer TIA (transient ischemic attack) Family History: family history includes Cancer in his father; Lung cancer in his father; Prostate cancer in his brother; Stroke in his mother. Surgical History: Past Surgical History: Procedure Laterality Date CATARACT EXTRACTION Left 11/22/2022 GALLBLADDER SURGERY HERNIA REPAIR KNEE ARTHROPLASTY Right PROSTATE BIOPSY Review of Systems: Review of Systems Constitutional: Positive for fatigue. Cardiovascular: Positive for leg swelling. Musculoskeletal: Positive for arthralgias and back pain. IPSS Questionnaire (AUA-7): Over the past month??? 1) Incomplete Emptying How often have you had a sensation of not emptying your bladder? 0 - Not at all 2) Frequency How often have you had to urinate less than every two hours? 3 - About half the time 3) Intermittency How often have you found you stopped and started again several times when you urinated? 2 - Less than half the time 4) Urgency How often have you found it difficult to postpone urination? 3 - About half the time 5) Weak Stream How often have you had a weak urinary stream? 5 - Almost always 6) Straining How often have you had to push or strain to begin urination? 5 - Almost always 7) Nocturia How many times did you typically get up at night to urinate? 5 - 5+ times Total Score: 23 Quality of life due to urinary symptoms: If you were to spend the rest of your life with your urinary condition the way it is now, how wouldyou feel about that? 2-Mostly Satisfied Urine Leakage (Incontinence) 0-No Leakage Sexual Health [...] you had penetrated (entered) into your partner? 5-Almost always or always 4) During sexual intercourse, how difficult was it to maintain your erection to completion of intercourse? 5-Not difficult 5) When you attempted sexual intercourse, how often was it satisfactory to you? 5-Almost always or always Total Score: 24 Bowel Health Inventory Current Status: 0-No problems, no rectal bleeding, no discharge, less then 5 bowel movements a day Objective VITAL SIGNS: Vitals: 04/13/23 0942 BP: 160/73 Pulse: 53 Resp: 20 Temp: 97.1 ??F (36.2 ??C) TempSrc: Skin SpO2: 97% Weight: 109 kg (239 lb 6.4 oz) Height: 193 cm (76 ) PainSc: 0-No pain Karnofsky score: 80 Physical Exam: Physical Exam Vitals and nursing note reviewed. [...] There is no abdominal tenderness. Genitourinary: Prostate: Enlarged (30 cc, symmetric, smooth surface, induration @ Left apex. Seminal vesicles are non-palpable.). Not tender and no nodules present. Rectum: No mass, tenderness, anal fissure, external hemorrhoid or internal hemorrhoid. Normal anal tone. Musculoskeletal: General: No tenderness. Normal range of motion. Cervical back: Normal range of motion and neck supple. Right lower leg: Edema (1+ stasis changes) present. Left lower leg: Edema (1+ stasis changes, 6 cm dusky red patch medial above ankle) present. Lymphadenopathy: Cervical: No cervical adenopathy. Upper Body: Right upper body: No supraclavicular adenopathy. Left upper body: No supraclavicular adenopathy. Skin: General: Skin is warm and dry. Neurological: Mental Status: He is alert and oriented to person, place, and time. Sensory: No sensory deficit. Psychiatric: Behavior: Behavior normal. Thought Content: Thought content normal. Judgment: Judgment normal. The following portions of the patient's history were reviewed and updated as appropriate: allergies, current medications, past family history, past medical history, past social history, past surgicalhistory, and problem list. Assessment: Assessment Prostate cancer, Diana's 4+5 = 9, clinical stage IIIC (T1c, N0, M0), PSA 4.7 ng/mL. He has high-grade neoplasm which does not correlate precisely with his relatively low PSA value. There is no evidence of extraprostatic spread or metastasis on conventional imaging studies. He would be a candidate for definitive treatment. I believe we should add PSMA PET/CT evaluation to rule out smaller metastatic disease before pursuing local treatment to the prostate gland. Would also like to have outside pathology consultation to confirm the high-grade as well as genomictesting may be helpful to determine how aggressive nature of this cancer will behave. This would be very important information since patient is interested in nonsurgical treatment approach with stereotactic body radiotherapy but he is less interested in receiving androgen ablation or longer course large field pelvic irradiation with IMRT. We did review each of the radiotherapy modalities in detail today and questions were answered. RECOMMENDATIONS: Pathology review with Dr. Sanchez at [facility]. Genomic testing, if possible. Pylarify PSMA PET/CT. Screening colonoscopy is due and would preferably be performed prior to any pelvic irradiation. Reevaluation with me after the above is completed. If the tumor is downgraded to intermediate risk, he would be an excellent candidate for CyberKnife stereotactic body radiotherapy as a sole modality. If higher grade more aggressive neoplasm is confirmed yet diseases radiographically confined to theprostate gland on prostate-specific PET scanning, he may still be a candidate for localized treatment with CyberKnife SBRT, which is what he would prefer. If there is evidence of distant metastatic spread, he would best treated with systemic treatment management and may not require local treatment to the prostate gland at this time. He has a vacation scheduled for May 30 through June 04, 2023. We will try to avoid those datesfor any testing or appointments. I spent a total of 60 minutes on todays visit, with more than 70 minutes in direct face to face communication, and the remainder of the time spent in reviewing the relevant history, records, available imaging, and for documentation. Follow Up: Return in about 4 weeks (around 05/11/2023) for Imaging - See orders, Labs - See Treatment Plan, Office Visit. Diagnoses and all orders for this visit: 1. Prostate cancer (Primary) - MRI Cyberknife Pelvis Without Contrast; Future - Ambulatory Referral to Gastroenterology - NM PET/CT Skull Base to Mid Thigh; Future Other orders - SCANNED - IMAGING - SCANNED - IMAGING - SCANNED - IMAGING - SCANNED - IMAGING - SCANNED PATHOLOGY Carlton Adan MD documented in this encounter Plan of Treatment Upcoming Encounters Date Type Department Care Team (Late st Contact Info) Description 02/21/2025 10:30 AM EDT Office Visit RADIATION ONCOLOGY 3000 [facility] [address] [place] [phone] Carlton Adan MD [address] [place] [id number] 03/18/2025 9:30 AM EDT Office Visit [facility] ORTHOPEDICS & SP[facility]TS MEDICINE [address] [facility] [address] [place] [id number] Rambo Dietrich MD [address] [facility] [address] [place] [phone] Scheduled Referrals Name Type Priority Associated Diagnoses Order Schedule Ambulatory Referral to Gastroenterology Outpatient Referral Routine Prostate cancer Ordered: 04/13/2023 documented as of this encounter Procedures Procedure Name Priority Date/Time Associated Diagnosis Comments SCANNED PATHOLOGY 04/13/2023 SCANNED - IMAGING 04/13/2023 SCANNED - IMAGING 04/13/2023 SCANNED - IMAGING 04/13/2023 SCANNED - IMAGING 04/13/2023 documented in this encounter Results * MRI Cyberknife Pelvis Without Contrast (06/07/2023 12:59 PM EDT) Anatomical Region Laterality Modality Body, Pelvis N/A Magnetic Resonan ce 06/07/2023 2:55 PM EDT Impressions 06/07/2023 3:00 PM EDT Impression: 1. Fiducial markers confirmed in the prostate. 2. Large right and small left hydrocele. Electronically Signed: Jomar Ibrahim MD 06/07/2023 3:00 PM EDT Workstation ID: [id number] Narrative 06/07/2023 3:00 PM EDT MRI CYBERKNIFE PELVIS WO CONTRAST Date of Exam: 06/07/2023 12:10 PM EDT Indication: prostate cancer. Comparison: PSMA PET 05/05/2023 Technique: Magnetic resonance imaging of the pelvis was obtained without IV contrast per Cyberknife protocol. Findings: Prostate measures 4.6 x 3.8 x 6.2 cm. Small areas of susceptibility in the prostate bilaterally related to fiducial marker placement. No free fluid in the pelvis. No pelvic lymphadenopathy within the [id number] of the exam. No acute abnormality of the bladder or seminal vesicles. Large right and small left hydrocele. Procedure Note Jomar Ibrahim MD - 06/07/2023 MRI CYBERKNIFE PELVIS WO CONTRAST Date of Exam: 06/07/2023 12:10 PM EDT Indication: prostate cancer. Comparison: PSMA PET 05/05/2023 Technique: Magnetic resonance imaging of the pelvis was obtained withoutIV contrast per Cyberknife protocol. Findings: Prostate measures 4.6 x 3.8 x 6.2 cm. Small areas of susceptibility in theprostate bilaterally related to fiducial marker placement. No free fluidin the pelvis. No pelvic lymphadenopathy within the [id number] of theexam. No acute abnormality of the bladder or seminal vesicles. Large right and small left hydrocele. IMPRESSION: Impression: 1. Fiducial markers confirmed in the prostate. 2. Large right and small left hydrocele. Electronically Signed: Jomar Ibrahim MD 06/07/2023 3:00 PM EDT Workstation ID: [id number] Carlton Adan MD IMG MRI ORDERABLES Final Resu lt * NM PET/CT Skull Base to Mid Thigh (05/05/2023 1:59 PM EDT) Anatomical Region Laterality Modality Head and Neck, Spine, Abdome n, Chest, Pelvis, Lower Leg, Thigh N/A Nuclear Medicine 05/05/2023 2:02 PM EDT Impressions 05/05/2023 2:24 PM EDT Impression: Hypermetabolic focus in the left prostate gland is compatible with given history of prostate cancer. No PET imaging findings suggestive of metastatic disease. Electronically Signed: Liv Caruso MD 05/05/2023 2:24 PM EDT Workstation ID: [id number] Narrative 05/05/2023 2:24 PM EDT NM PET/CT SKULL BASE TO MID THIGH Date of Exam: 05/05/2023 12:15 PM EDT Indication: prostate cancer. Comparison: No prior PET/CT exams. Prior CT abdomen and pelvis exam dates 03/10/2023.. Technique: The patient was injected with 8.77 mCi F-18 PiFluFolastat.. Whole body PET imaging was performed. Noncontrast correlating CT images were obtained as well as fusion images. Findings: Relative uptake values: Mediastinum, SUV max 1.68; liver SUV max 5.28. An oval focus of hypermetabolic activity in the left prostate gland demonstrates an SUV max of 12.77. There is otherwise the normal expected anatomic distribution of radionuclide in the neck, chest, abdomen, and pelvis. Procedure Note Liv Caruso MD - 05/05/2023 NM PET/CT SKULL BASE TO MID THIGH Date of Exam: 05/05/2023 12:15 PM EDT Indication: prostate cancer. Comparison: No prior PET/CT exams. Prior CT abdomen and pelvis exam dates03/10/2023.. Technique: The patient was injected with 8.77 mCi F-18 PiFluFolastat..Whole body PET imaging was performed. Noncontrast correlating CT imageswere obtained as well as fusion images. Findings: Relative uptake values: Mediastinum, SUV max 1.68; liver SUV max 5.28. An oval focus of hypermetabolic activity in the left prostate glanddemonstrates an SUV max of 12.77. There is otherwise the normal expectedanatomic distribution of radionuclide in the neck, chest, abdomen, andpelvis. IMPRESSION: Impression: Hypermetabolic focus in the left prostate gland is compatible with givenhistory of prostate cancer. No PET imaging findings suggestive ofmetastatic disease. Electronically Signed: Liv Caruso MD 05/05/2023 2:24 PM EDT Workstation ID: [id number] Carlton Adan MD [facility] NM ORDERABLES Final Resul t * SCANNED PATHOLOGY (04/13/2023) [facility] PATHOLOGY/CYTOLOGY ORDERABLES Final Result * SCANNED - IMAGING (04/13/2023) Anatomical Region Laterality Modality Radiographic Sadie ging [facility] IMG DIAGNOSTIC IMAGING ORDERA BLES Final Result * SCANNED - IMAGING (04/13/2023) Anatomical Region Laterality Modality Radiographic Sadie ging [facility] IMG DIAGNOSTIC IMAGING ORDERA BLES Final Result * SCANNED - IMAGING (04/13/2023) Anatomical Region Laterality Modality Radiographic Sadie ging [facility] IMG DIAGNOSTIC IMAGING ORDERA BLES Final Result * SCANNED - IMAGING (04/13/2023) Anatomical Region Laterality Modality Radiographic Sadie ging [facility] IMG DIAGNOSTIC IMAGING ORDERA BLES Final Result documented in this encounter Visit Diagnoses Diagnosis Prostate cancer- Primary Malignant neoplasm of prostate Prostate cancer Malignant neoplasm of prostate Prostate cancer Malignant neoplasm of prostate documented in this encounter Care Teams Manager R D Relationship Specialty Start Date End Date Kadeem Xiao MD Critical access hospital0 [facility] [address] [facility] [address] [facility] [place] [address] PCP - General Family Medicine 04/13/23 documented as of this encounter
--- OUTSIDE RECORDS SUMMARY | 2024-08-05 15:41 | XMS_ITS | Encounter Summary ---
Author Organization [facility] Address [address] [place] [address] Care Team Providers Care Rubber Off Name Role Phone Kadeem Xiao MD Primary Care Provider [phone] Encounter Details Date Type Department Care Team (Late st Contact Info) Description 12/07/2023 Telephone Radiation Oncology and [facility] [address] [place] [address] Zahira Curry, JOAN Social History Tobacco Use Types Packs/Day Years Used Date Smoking Tobacco: Former Cigarettes 1 2000 Smokeless Tobacco: Never Alcohol Use Standard Drinks/Week Comments Yes 0 (1 standard drink = 0.6 oz pur e alcohol) 2 drinks per day PHQ-2 Answer Date Recorded Retired PHQ-9: Brief Depression Severity Measure Score 0 04/13/2023 Abuse Screen Answer Date Recorded Unsafe at Home or Work/School Not on file Feels Threatened by Someone? Not on file 04/2023 Does Anyone Keep You from Co ntacting Others or Doint Things Outside the Home? Not on file 06/06/2023 Physical Sign of Abuse Present Not on file 1 Housing Stability Answer Date Recorded Current Living [...] Telephone Encounter - Zahira Curry RN - 12/07/2023 3:54 PM EDT Pt left another message regarding diarrhea. Called him back and he states that every 3 days since he had treatment in June he has diarrhea. Severe at times. He states he doesn't have a gallbladder either and has had some bowel issues since the surgery but feels it has increased in intensity. Hestates when he had the f/u with Dr. Barney they discussed that there was time between PET scan and treatment and maybe radiation has effected his bowel. I explained that Dr. Adan is out this week. I will talk with him when he returns next week but I would have our momd teacher Mae Chappell contact him. Advised pt to avoid fried foods and he states he does it fried foods but he is trying to change his diet. I asked if he had tried imodium he states he can't take imodium because he then gets constipated. I advised pt that I will call him back once I have spoken to Dr. Adan next week. Pt verbalized understanding. documented in this encounter Plan of Treatment Upcoming Encounters Date Type Department Care Team (Late st Contact Info) Description 02/21/2025 10:30 AM EDT Office Visit RADIATION ONCOLOGY 3000 [facility] [address] [place] [phone] Carlton Adan MD [address] [place] [address] 03/18/2025 9:30 AM EDT Office Visit [facility] ORTHOPEDICS & SP[facility]TS MEDICINE [address] [place] [address] Rambo Dietrich MD [address] [place] [address] documented as of this encounter Visit Diagnoses Not on filedocumented in this encounter Care Teams Rubber Off Relationship Specialty Start Date End Date Kadeem Xiao MD 12[address] [facility] [address] [facility] [address] [place] [address] PCP - General Family Medicine 04/13/23 documented as of this encounter
--- OUTSIDE RECORDS SUMMARY | 2024-08-05 15:41 | XMS_ITS | Encounter Summary ---
Author Organization [facility] Address [address] [place] [address] Care Team Providers Care Bun Icer Name Role Phone Kadeem Xiao MD Primary Care Provider [phone] Encounter Details Date Type Department Care Team (Latest Contact Info) Description 06/28/2023 10:05 AM EDT - 06/28/2023 11:59 PM EDT Hospital Encounter [facility] [address] [place] [phone] Discharge Disposition: Home or Self Care Social History Tobacco Use Types Packs/Day Years [...] on file documented as of this encounter Medications at Time of Discharge atorvastatin (LIPITOR) 40 MG tablet atorvastatin 40 mg tablet TAKE 1 TABLET BY MOUTH ONCE DAILY hydroCHLOROthia zide (HYDRODIURIL) 12.5 MG tablet hydrochlorothiazide 12.5 mg tablet TAKE 1 TABLET BY MOUTH ONCE DAILY losartan (COZAAR) 100 MG tablet losartan 100 mg tablet TAKE 1 TABLET BY MOUTH ONCE DAILY [place] 3 1000 MG capsule Take by mouth. omeprazole (priLOSEC) 40 MG capsule Take 1 capsule by mouth Daily. tamsulosin (FLOMAX) 0.4 MG capsule 24 hr capsule tamsulosin 0.4 mg capsule TAKE 1 CAPSULE BY MOUTH AT BEDTIME documented as of this encounter Plan of Treatment Upcoming Encounters Date Type Department Care Team (Late st Contact Info) Description 02/21/2025 10:30 AM EDT Office Visit RADIATION ONCOLOGY 3000 [facility] 165 [place] [address] Carlton Adan MD 1700 [place] [address] 03/18/2025 9:30 AM EDT Office Visit [facility] 1760 [facility] 101 [place] [address] Rambo Dietrich MD 1760 [facility] 101 [place] [id number] documented as of this encounter Visit Diagnoses Not on filedocumented in this encounter Care Teams Bun Icer Relationship Specialty Start Date End Date Kadeem Xiao MD 1210 [facility] 36 [facility] 2 [facility] [place] [address] PCP - General Family Medicine 04/13/23 documented as of this encounter
--- OUTSIDE RECORDS SUMMARY | 2024-08-05 15:41 | XMS_ITS | Encounter Summary ---
Author Organization [facility] Address [address] [place] [address] Care Team Providers Care School Plant Consultant Name Role Phone Kadeem Xiao MD Primary Care Provider [phone] Reason for Visit * Reason Comments Follow-up 13 months- Primary o steoarthritis of left knee Encounter Details Date Type Department Care Team (Late st Contact Info) Description 11/21/2023 9:00 AM EDT Office Visit [facility] [address] [place] [address] Rambo Dietrich MD 1760 [place] [address] Primary osteoarthritis of left knee (Primary Dx) [...] Recorded Current Living Arrangements Not on file 10/0 04/2023 Potentially Unsafe Housing Conditions Not on [...] Sign Reading Time Taken Comments Blood Pressure 122/80 11/21/2023 9:01 AM EDT Pulse - - Temperature - - Respiratory Rate - - Oxygen Saturation - - Inhaled Oxygen Concentration - - Weight 108 kg (238 lb) 11/21/2023 9:01 AM EDT Height 190.5 cm (6' 3 ) 11/21/2023 9:01 AM EDT Body Mass Index 29.75 11/21/2023 9:01 AM EDT documented in this encounter Progress Notes * Rambo Dietrich MD - 11/21/2023 9:00 AM EDT Images from the original note were not included. [facility] Orthopa[facility] Surgery Clinic Note Subjective Chief Complaint Patient presents with Follow-up 13 months- Primary osteoarthritis of left knee HPI It has been 13 month(s) since Mr. Chu's last visit. He returns to clinic today for follow-up ofleft knee arthritis. The issue has been ongoing for 6 year(s). He rates his pain a 4/10 on the painscale. Previous/current treatments: bracing, NSAIDS, and steroid injection (last injection 11/2022). Current symptoms: pain and swelling. The pain is worse with walking, standing, sitting, climbing stairs, and working; resting improve the pain. Overall, he is doing the same. No significant improvement with his last injection. I have reviewed the following portions of [...] date: 1970 Quit date: 2000 Years since quittin.2 Smokeless tobacco: Never Vaping Use Vaping status: [...] TAKE 1 TABLET BY MOUTH ONCE DAILY [place] 3 1000 MG capsule Take by mouth. [...] is not hyperactive. Objective Physical Exam BP 122/80 Ht 190.5 cm (75 ) Wt 108 kg (238 lb) BMI 29.75 kg/m?? Body mass index is 29.75 kg/m??. General: Mental Status: Alert Appearance: Cooperative, in no acute distress Build and Nutrition: Well-nourished well-developed male Orientation: Alert and oriented to person, place and time Posture: Normal Gait: Nonantalgic Integument: Left knee: No skin lesions, no rash, no ecchymosis Lower Extremities: Left Knee: Tenderness: Medial joint line tenderness Effusion: 1+ Swelling: None Crepitus: Positive Atrophy: None Range of motion: Extension: 0?? Flexion: 125?? Instability: No varus laxity, no valgus laxity, negative anterior drawer Deformities: Varus Imaging/Studies Imaging Results (Last 24 Hours) Procedure Component Value Units Date/Time XR Knee 4+ View Left [[id number]] Resulted: 11/21/23927 Updated: 11/21/23928 Narrative: Left Knee Radiographs Indication: left knee pain Views: Standing AP's and skiers of both knees, with lateral and sunrise views of the left knee Comparison: 04/12/2022 Findings: Oywr-je-juel contact medial compartment, tricompartmental osteophytes, varus alignment, no acute bony maladies. No unusual bony features. Worsening compared to the previous imaging. Assessment and Plan Diagnoses and all orders for this visit: 1. Primary osteoarthritis of left knee (Primary) - XR Knee 4+ View Left 1. Primary osteoarthritis of left knee I reviewed my findings with the patient. We discussed options again for his left knee today, and heis a candidate for knee replacement surgery. He is thinking about the fall timeframe. His last injection did not provide significant relief. I will see him back in February, and we will discuss surgery at that point if he is interested. He was inquiring about the possibility of partial knee replacement surgery today, however he has significant patellofemoral involvement that may not make him a good candidate. Return in about 4 months (around 03/22/2024). Rambo Dietrich MD 11/21/23 09:42 EDT Dictated Utilizing Dragon Dictation documented in this encounter Plan of Treatment Upcoming Encounters Date Type Department Care Team (Late st Contact Info) Description 02/21/2025 10:30 AM EDT Office Visit [facility] ONCOLOGY 3000 [facility] 165 [place] [address] Carlton Adan MD 1700 [place] [address] 03/18/2025 9:30 AM EDT Office Visit [facility] 1760 [facility] 101 [place] [address] Rambo Dietrich MD 1760 [facility] 101 [place] [address] documented as of this encounter Procedures Procedure Name Priority Date/Time Associated Diagnosis Comments XR KNEE 4+ VW LEFT Routine 11/21/2023 9: 06 AM EDT Primary osteoarthritis of left knee documented in this encounter Results * XR Knee 4+ View Left (11/21/2023 9:06 AM EDT) Anatomical Region Laterality Modality Lower Extremities, Knee Left Xray Narrative 11/21/2023 9:29 AM EDT Left Knee Radiographs Indication: left knee pain Views: Standing AP's and skiers of both knees, with lateral and sunrise views of the left knee Comparison: 04/12/2022 Findings: Kwfd-hn-abru contact medial compartment, tricompartmental osteophytes, varus alignment, no acute bony maladies. ??No unusual bony features. ?? Worsening compared to the previous imaging. Rambo Dietrich MD IMG DIAGNOSTIC IMAGING ORDERAB LES Final Result documented in this encounter Visit Diagnoses Diagnosis Primary osteoarthritis of left knee- Primary documented in this encounter Care Teams School Plant Consultant Relationship Specialty Start Date End Date Kadeem Xiao MD [facility] 36 [address] [facility] 2 [place] [address] PCP - General Family Medicine 04/13/23 documented as of this encounter
--- OUTSIDE RECORDS SUMMARY | 2024-08-05 15:41 | XMS_ITS | Encounter Summary ---
Author Organization [facility] Address [address] [place] [address] Care Team Providers Care Non Food Receiving Clerk Name Role Phone Kadeem Xiao MD Primary Care Provider [phone] Encounter Details Date Type Department Care Team (Late st Contact Info) Description 02/10/2024 5:40 AM EDT Hospital Encounter [facility] [place] 3000 [facility] 165 [place] [address] Social History Tobacco Use Types Packs/Day [...] on file documented as of this encounter Plan of Treatment Upcoming Encounters Date Type Department Care Team (Late st Contact Info) Description 02/21/2025 10:30 AM EDT Office Visit [facility] ONCOLOGY 3000 [facility] 165 [place] [phone] Carlton Adan MD 1700 [place] [address] 03/18/2025 9:30 AM EDT Office Visit [facility] 1760 [facility] 101 [place] [address] Rambo Dietrich MD 1760 [facility] 101 [place], [place] [id number] documented as of this encounter Visit Diagnoses Not on filedocumented in this encounter Care Teams Non Food Receiving Clerk Relationship Specialty Start Date End Date Kadeem Xiao MD 1210 [facility] [address] [place] [address] PCP - General Family Medicine 04/13/23 documented as of this encounter
--- OUTSIDE RECORDS SUMMARY | 2024-08-05 15:41 | XMS_ITS | Encounter Summary ---
Author Organization [facility] Address [address] [place] [address] Care Team Providers Care Biology Intern Name Role Phone Kadeem Xiao MD Primary Care Provider [phone] Encounter Details Date Type Department Care Team (Latest Contact Info) Description 05/05/2023 6:45 AM EDT - 05/05/2023 11:59 PM EDT Hospital Encounter [facility] [address] [place] [address] Discharge Disposition: Home or Self Care Social [...] TAKE 1 TABLET BY MOUTH ONCE DAILY [place] 3 1000 MG capsule Take by mouth. omeprazole (priLOSEC) 40 MG capsule Take 1 capsule by mouth Daily. tamsulosin (FLOMAX) 0.4 MG capsule 24 hr capsule tamsulosin 0.4 mg capsule TAKE 1 CAPSULE BY MOUTH AT BEDTIME ibuprofen (ADVIL,MOTRIN) 200 MG tablet Take 1 tablet by mouth Every 6 (Six) Hours As Needed for Mild Pain. documented as of this encounter Plan of Treatment Upcoming Encounters Date Type Department Care Team (Late st Contact Info) Description 02/21/2025 10:30 AM EDT Office Visit [facility]ATION ONCOLOGY 3000 [facility] [address] [place] [address] Carlton Adan MD [address] [place] [id number] 03/18/2025 9:30 AM EDT Office Visit [facility] 1760 [facility] 101 [place], [place] [phone] Rambo Dietrich MD 1760 [facility] [address] [place] [address] documented as of this encounter Procedures Procedure Name Priority Date/Time Associated Diagnosis Comments SCANNED PATHOLOGY 05/03/2023 documented in this encounter Results * SCANNED PATHOLOGY (05/03/2023) [facility] PATHOLOGY/CYTOLOGY ORDERABLES Final Result documented in this encounter Visit Diagnoses Not on filedocumented in this encounter Care Teams Biology Intern Relationship Specialty Start Date End Date Kadeem Xiao MD 1210 [facility] [address] [place] [address] PCP - General Family Medicine 04/13/23 documented as of this encounter
--- OUTSIDE RECORDS SUMMARY | 2024-08-05 15:41 | XMS_ITS | Encounter Summary ---
Author Organization [facility] Address [address] [place] [address] Care Team Providers Care Diamond Mounter Name Role Phone Kadeem Xiao MD Primary Care Provider [phone] Encounter Details Date Type Department Care Team (Late st Contact Info) Description 01/16/2024 Telephone [facility] 1700 [place] [address] Terri Padilla, RN Social History Tobacco Use Types Packs/Day [...] encounter Miscellaneous Notes * Telephone Encounter - Terri Padilla RN - 01/16/2024 3:09 PM EDTSummary: Follow up appt Left voicemail for patient notifying that MD will be at [place] location on 02/16/24 for scheduled follow up visit. Requested return call to let us know if he prefers to be seen at [place] or stay at [facility]./JOAN Moya documented in this encounter Plan of Treatment Upcoming Encounters Date Type Department Care Team (Late st Contact Info) Description 02/21/2025 10:30 AM EDT Office Visit [facility] ONCOLOGY 3000 [facility] 165 [place] [address] Carlton Adan MD 1700 [place] [address] 03/18/2025 9:30 AM EDT Office Visit [facility] MEDICINE 1760 [facility] 101 [place] [address] Rambo Dietrich MD 1760 [facility] 101 [place] [id number] documented as of this encounter Visit Diagnoses Not on filedocumented in this encounter Care Teams Diamond Mounter Relationship Specialty Start Date End Date Kadeem Xiao MD 1210 [facility] [address] [place] [address] PCP - General Family Medicine 04/13/23 documented as of this encounter
--- OUTSIDE RECORDS SUMMARY | 2024-08-05 15:41 | XMS_ITS | Encounter Summary ---
Author Organization [facility] Address [address] [place] [address] Care Team Providers Care Dietary Service Aide Name Role Phone Kadeem Xiao MD Primary Care Provider Reason for Referral * MRI/CAT/PET Scan (Routine) - Closed Specialty Diagnoses / Procedures Referred By Contac t Referred To Contact Radiology Diagnoses Prostate cancer Procedures MRI Cyberknife Pelvis Without Contrast Carlton Adan MD [address] [place] [address] Phone: tel: fax: Referral ID Status Reason Start Date Expiration Date Visits Re quested Visits Authorized [id number] Closed 04/13/2023 04/12/2024 1 1 Reason for Visit * MRI/CAT/PET Scan (Routine) - Closed Specialty Diagnoses / Procedures Referred By Contac t Referred To Contact Radiology Diagnoses Prostate cancer Procedures MRI Cyberknife Pelvis Without Contrast Carlton Adan MD [address] [place] [address] Phone: tel: fax: Referral ID Status Reason Start Date Expiration Date Visits Re quested Visits Authorized [id number] Closed 04/13/2023 04/12/2024 1 1 Encounter Details Date Type Department Care Team (Late st Contact Info) Description 06/07/2023 11:57 AM EDT - 06/07/2023 11:59 PM EDT Hospital Encounter [facility] MRI 1740 [place] [phone] Carlton Adan MD 1700 [place] [address] Prostate cancer Discharge Disposition: Home or Self Care Social [...] TAKE 1 TABLET BY MOUTH ONCE DAILY [place] 3 1000 MG capsule Take by mouth. [...] Office Visit RADIATION ONCOLOGY 3000 [facility] 165 [place] [address] Carlton Adan MD [address] [place] [id number] 03/18/2025 9:30 AM EDT Office Visit [facility] 1760 [facility] 101 [place] [address] Rambo Dietrich MD 1760 [facility] [address] [place] [address] documented as of this encounter Procedures Procedure Name Priority Date/Time Associated Diagnosis Comments MRI CYBERKNIFE PELVIS WO CONTRAST Routine 06/07/2023 12:59 PM EDT Prostate cancer documented in this encounter Results * MRI Cyberknife Pelvis Without Contrast (06/07/2023 12:59 PM EDT) Anatomical Region Laterality Modality Body, Pelvis N/A Magnetic Resonan ce 06/07/2023 2:55 PM EDT Impressions 06/07/2023 3:00 PM EDT Impression: 1. Fiducial markers confirmed in the prostate. 2. Large right and small left hydrocele. Electronically Signed: Jomar Ibrahim MD 06/07/2023 3:00 PM EDT Workstation ID: [id number] Narrative 06/07/2023 3:00 PM EDT MRI CYBERKNIFE [...] the pelvis. No pelvic lymphadenopathy within the [id number]-yn-gznv of the exam. No acute abnormality of [...] the pelvis. No pelvic lymphadenopathy within the auhlb-mp-muqf of theexam. No acute abnormality of the bladder or seminal vesicles. Large right and small left hydrocele. IMPRESSION: Impression: 1. Fiducial markers confirmed in the prostate. 2. Large right and small left hydrocele. Electronically Signed: Jomar Ibrahim MD 06/07/2023 3:00 PM EDT Workstation ID: [id number] Carlton Adan MD IMG MRI ORDERABLES Final Resu lt documented in this encounter Visit Diagnoses Diagnosis Prostate cancer Malignant neoplasm of prostate documented in this encounter Care Teams Dietary Service Aide Relationship Specialty Start Date End Date Kadeem Xiao MD 1210 [place] [facility] [address] [place] [address] PCP - General Family Medicine 04/13/23 documented as of this encounter
--- OUTSIDE RECORDS SUMMARY | 2024-08-05 15:41 | XMS_ITS | Encounter Summary ---
Author Organization [facility] Address [address] [place] [address] Care Team Providers Care Household Coordinator Name Role Phone Kadeem Xiao MD Primary Care Provider [phone] Encounter Details Date Type Department Care Team (Latest Contact Info) Description 04/13/2023 5:20 AM EDT - 04/13/2023 11:59 PM EDT Hospital Encounter [place] [facility] [address] [place] [phone] Discharge Disposition: Home or Self Care Social [...] TAKE 1 TABLET BY MOUTH ONCE DAILY [place] 3 1000 MG capsule Take by mouth. [...] Visit RADIATION ONCOLOGY 3000 [facility] [address] [place] [phone] Carlton Adan MD 1700 [place] [address] 03/18/2025 9:30 AM EDT Office Visit [facility]ICINE 1760 [facility] 101 [place] [address] Rambo Dietrich MD 1760 [facility] [address] [place] [address] documented as of this encounter Visit Diagnoses Not on filedocumented in this encounter Care Teams Household Coordinator Relationship Specialty Start Date End Date Kadeem Xiao MD 1210 [facility] 36 E [facility] 2 [place] [address] PCP - General Family Medicine 04/13/23 documented as of this encounter
--- OUTSIDE RECORDS SUMMARY | 2024-08-05 15:41 | XMS_ITS | Encounter Summary ---
Author Organization [facility] Address [address] [place] [address] Care Team Providers Care Artifacts Conservator Name Role Phone Kadeem Xiao MD Primary Care Provider [phone] Encounter Details Date Type Department Care Team (Late st Contact Info) Description 06/02/2023 Documentation [facility] [address] [place] [address] [address] [place] [address] Social History Tobacco Use Types Packs/Day Years Used Date Smoking Tobacco: Former Cigarettes 1 - 2000 Smokeless Tobacco: Never Alcohol Use [...] on file documented as of this encounter Progress Notes * Mae Chappell RD - 06/02/2023 9:39 AM EDT ONC Nutrition Phone consult with patient & regarding the Gas Elimination Diet and instructions in preparation for the imaging scans and CK treatment for prostate cancer. Reviewed the rationale for the diet modification, gas forming foods, schedule for following, Gas X, enemas, NPO status x 6 hours priorto MRI and appointment times. Patient & verbalized excellent comprehension of diet; all questions were addressed. documented in this encounter Plan of Treatment Upcoming Encounters Date Type Department Care Team (Late st Contact Info) Description 02/21/2025 10:30 AM EDT Office Visit RADIATION ONCOLOGY 3000 [facility] 165 [place] [phone] Carlton Adan MD 1700 [place] [address] 03/18/2025 9:30 AM EDT Office Visit [facility]OPED[facility] & [facility] MEDICINE 1760 [facility] 101 [place] [address] Rambo Dietrich MD 1760 [facility] [address] [place] [address] documented as of this encounter Visit Diagnoses Not on filedocumented in this encounter Care Teams Artifacts Conservator Relationship Specialty Start Date End Date Kadeem Xiao MD 1210 [facility] 36 E [facility] 2 [place] [address] PCP - General Family Medicine 04/13/23 documented as of this encounter
--- OUTSIDE RECORDS SUMMARY | 2024-08-05 15:41 | XMS_ITS | Encounter Summary ---
Author Organization [facility] Address [address] [place] [address] Care Team Providers Care Aerial Sprayer Name Role Phone Kadeem Xiao MD Primary Care Provider [phone] Reason for Visit * Reason Comments Prostate Cancer Encounter Details Date Type Department Care Team (Late st Contact Info) Description 05/05/2023 3:00 PM EDT Office Visit [facility] [address] [place] [address] Carlton Adan MD [address] [place] [address] Prostate cancer (Primary Dx) Social History Tobacco Use Types Packs/Day Years Used Date Smoking Tobacco: Former Cigarettes 1 1 - 2000 Smokeless Tobacco: Never Alcohol [...] Sign Reading Time Taken Comments Blood Pressure 165/75 05/05/2023 3:10 PM EDT Pulse 63 05/05/2023 3:10 PM EDT Temperature 36.2 ??C (97.2 ??F) 05/05/2023 3:10 PM ED T Respiratory Rate 20 05/05/2023 3:10 PM EDT Oxygen Saturation 97% 05/05/2023 3:10 PM EDT Inhaled Oxygen Concentration - - Weight 108 kg (237 lb 6.4 oz) 05/05/2023 3:10 PM EDT Height - - Body Mass Index 28.9 04/13/2023 9:42 AM EDT documented in this encounter Progress Notes * Carlton Adan MD - 05/05/2023 3:00 PM EDT RE-EVALUATION PATIENT: Kai Chu : 1945 DATE: 05/05/2023 DIAGNOSIS: Prostate cancer - Stage IIIC (cT2a, cN0, cM0, PSA: 4.7, Grade Group: 5) BRIEF HISTORY: The patient is a very pleasant 77 y.o. male with high risk prostate cancer. He was seen in consultation 04/13/2023 to discuss radiotherapy treatment options. He has since had outside pathology review at [facility] which confirmed presence of grade group 5, [place]'s 4+5 = 9 tumor involving 2 cores from the left lobe. Perineural invasion was identified.There was lower grade adenocarcinoma identified on the opposite side. Genomic prostate score analysis was performed. The GPS score was 71, indicating 10-year likelihood of having metastasis of 61% and 10-year prostate cancer related 20%, treated with radiotherapyor prostatectomy. PSMA PET/CT was performed earlier today. This shows hypermetabolism confined within the left lobe of the prostate towards the apex. There is focal uptake in the left pelvis close to the ureter. I reviewed this with radiology and this is the location of ectatic ureter and is not associated with a lymph node; therefore, there is noevidence of pathologic lymphadenopathy. No evidence of distant metastasis. No Known Allergies Review of Systems All other systems reviewed and are negative. IPSS Questionnaire (AUA-7): Over the past month??? [...] movements a day Objective VITAL SIGNS: Vitals: 05/05/23 1510 BP: 165/75 Pulse: 63 Resp: 20 Temp: 97.2 ??F (36.2 ??C) TempSrc: Skin SpO2: 97% Weight: 108 kg (237 lb 6.4 oz) PainSc: 0-No pain KSP %: 80 Physical Exam The following portions of the patient's history were reviewed and updated as appropriate: allergies, current medications, past family history, past medical history, past social history, past surgicalhistory, and problem list. Diagnoses and all orders for this visit: Prostate cancer IMPRESSION: Prostate cancer, Diana's 4+5 = 9, clinical stage IIIC (T1c, N0, M0), PSA 4.7 ng/mL. Patient is still most interested in definitive treatment using CyberKnife stereotactic body radiotherapy. He would like to avoid a prolonged course of treatment or androgen ablation at this time, if at all possible. He understands that there is a chance of subsequently discovering distant metastatic disease and he would be willing to undergo additional treatments if that does eventually happen. RECOMMENDATIONS: He will return to Dr. Barney for placement Gold seed fiducials. He was subsequently return here for CyberKnife stereotactic body radiotherapy to deliver 5 daily fractions of 7 Shukla to the prostate gland and proximal seminal vesicles with extended margin on the left. Carlton Adan MD Approximately 35 minutes was spent reviewing records and discussing with patient and radiology. documented in this encounter Plan of Treatment Upcoming Encounters Date Type Department Care Team (Late st Contact Info) Description 02/21/2025 10:30 AM EDT Office Visit RADIATION ONCOLOGY [address] [facility] [address] [place] [address] Carlton Adan MD [address] [place] [id number] 03/18/2025 9:30 AM EDT Office Visit [facility] 1760 [facility] 101 [place] [address] Rambo Dietrich MD 1760 [facility] 101 [place] [address] documented as of this encounter Visit Diagnoses Diagnosis Prostate cancer- Primary Malignant neoplasm of prostate documented in this encounter Care Teams Aerial Sprayer Relationship Specialty Start Date End Date Kadeem Xiao MD 1210 [facility] 36 [address] [facility] 2 [place] [address] PCP - General Family Medicine 04/13/23 documented as of this encounter
--- OUTSIDE RECORDS SUMMARY | 2024-08-05 15:41 | XMS_ITS | Encounter Summary ---
Author Organization [facility] Address [address] [place] [address] Care Team Providers Care Consulting Psychologist Name Role Phone Kadeem Xiao MD Primary Care Provider [phone] Encounter Details Date Type Department Care Team (Latest Contact Info) Description 06/27/2023 11:03 AM EDT - 06/27/2023 11:59 PM EDT Hospital Encounter [facility] [address] [place] [address] Discharge Disposition: Home or Self Care Social [...] TAKE 1 TABLET BY MOUTH ONCE DAILY [place] 3 1000 MG capsule Take by mouth. [...] AM EDT Office Visit RADIATION ONCOLOGY 3000 [facility] [address] [place] [address] Carlton Adan MD [address] [place] [address] 03/18/2025 9:30 AM EDT Office Visit [facility] 1760 [facility] 101 [place] [address] Rambo Dietrich MD 1760 [facility] 101 [place] [phone] documented as of this encounter Visit Diagnoses Not on filedocumented in this encounter Care Teams Consulting Psychologist Relationship Specialty Start Date End Date Kadeem Xiao MD 1210 [facility] 36 [facility] 2 [facility] [place] [address] PCP - General Family Medicine 04/13/23 documented as of this encounter
--- OUTSIDE RECORDS SUMMARY | 2024-08-05 15:41 | XMS_ITS | Encounter Summary ---
Author Organization [facility] Address [address] [place] [address] Care Team Providers Care Plant Operator Helper Name Role Phone Kadeem Xiao MD Primary Care Provider [phone] Reason for Referral * MRI/CAT/PET Scan (Routine) - Closed Specialty Diagnoses / Procedures Referred By Contac t Referred To Contact Radiology Diagnoses Prostate cancer Procedures NM PET/CT Skull Base to Mid Thigh Carlton Adan MD [address] [place] [address] Phone: tel: fax: [address] [address] Phone: tel: Referral ID Status Reason Start Date Expiration Date Visits Re quested Visits Authorized [id number] Closed 04/13/2023 04/12/2024 2 2 Reason for Visit * MRI/CAT/PET Scan (Routine) - Closed Specialty Diagnoses / Procedures [facility] Referred To Contact Radiology Diagnoses Prostate cancer Procedures NM PET/CT Skull Base to Mid Thigh Carlton Adan MD [facility] [place] [address] Phone: tel: fax: [address] [address] Phone: tel: Referral ID Status Reason Start Date Expiration Date Visits Re quested Visits Authorized [id number] Closed 04/13/2023 04/12/2024 2 2 Encounter Details Date Type Department Care Team (Latest Contact Info) Description 05/05/2023 11:36 AM EDT - 05/05/2023 11:59 PM EDT Hospital Encounter [facility] PET [address] [place] [address] Prostate cancer Discharge Disposition: Home or Self [...] TAKE 1 TABLET BY MOUTH ONCE DAILY [place] 3 1000 MG capsule Take by mouth. omeprazole (priLOSEC) 40 MG capsule Take 1 capsule by mouth Daily. tamsulosin (FLOMAX) 0.4 MG capsule 24 hr capsule tamsulosin 0.4 mg capsule TAKE 1 CAPSULE BY MOUTH AT BEDTIME ibuprofen (ADVIL,MOTRIN) 200 MG tablet Take 1 tablet by mouth Every 6 (Six) Hours As Needed for Mild Pain. 23 documented as of this encounter Plan of Treatment Upcoming Encounters Date Type Department Care Team (Late st Contact Info) Description 02/21/2025 10:30 AM EDT Office Visit RAD[facility]ATION ONCOLOGY [address] [facility] [address] [place] [address] Carlton Adan MD [address] [place] [address] 03/18/2025 9:30 AM EDT Office Visit [facility]OP[facility] & [facility] MEDIC[facility] 1760 [facility] [address] [place] [address] Rambo Dietrich MD 1760 [facility] [address] [place] [address] documented as of this encounter Procedures Procedure Name Priority Date/Time Associated Diagnosis Comments NM PET/CT SKULL BASE TO MID THIGH STAT 05/05/2023 1:59 PM EDT Prostate cancer documented in this encounter Results * NM PET/CT Skull Base to Mid [...] MD 05/05/2023 2:24 PM EDT Workstation ID: [id number] Narrative 05/05/2023 2:24 PM EDT NM PET/CT [...] MD 05/05/2023 2:24 PM EDT Workstation ID: [id number] us Carlton Adan MD [facility] [place] Final Resul t documented in this encounter Visit Diagnoses Diagnosis Prostate cancer Malignant neoplasm of prostate documented in this encounter Administered Medications Inactive Administered Medications - up to 3 most recent administrations Medication Order MAR Action Action Date Dose Rate Site piflufolastat F 18 (PYLARIFY) injection 1 dose 1 dose, Intravenous, Once in Imaging, On Carol 05/05/23 at 1235, For 1 dose, Millicuries: 8.77 Given 05/05/2023 12:30 PM EDT 1 dose documented in this encounter Care Teams Plant Operator Helper Relationship Specialty Start Date End Date Kadeem Xiao MD 1210 [facility] [address] [place] [address] PCP - General Family Medicine 04/13/23 documented as of this encounter
--- OUTSIDE RECORDS SUMMARY | 2024-08-05 15:41 | XMS_ITS | Encounter Summary ---
Author Organization [facility] Address [address] [place] [address] Care Team Providers Care Criminal Defense Lawyer Name Role Phone Kadeem Xiao MD Primary Care Provider [phone] Encounter Details Date Type Department Care Team (Latest Contact Info) Description 06/29/2023 6:05 AM EDT - 06/29/2023 11:59 PM EDT Hospital Encounter [facility] [facility] [address] [place] [address] Discharge Disposition: Home or Self Care Social [...] TAKE 1 TABLET BY MOUTH ONCE DAILY [place] 3 1000 MG capsule Take by mouth. [...] AM EDT Office Visit RAD[facility]ATION ONCOLOGY 3000 [facility] 165 [place] [address] Carlton Adan MD [address] [place] [address] 03/18/2025 9:30 AM EDT Office Visit [facility] & [facility] 1760 [facility] 101 [place] [address] Rambo Dietrich MD 1760 [facility] 101 [place] [phone] documented as of this encounter Visit Diagnoses Not on filedocumented in this encounter Care Teams Criminal Defense Lawyer Relationship Specialty Start Date End Date Kadeem Xiao MD 1210 [facility] 36 [facility] 2 [facility] [place] [address] PCP - General Family Medicine 04/13/23 documented as of this encounter
--- OUTSIDE RECORDS SUMMARY | 2024-08-05 15:41 | XMS_ITS | Encounter Summary ---
[facility] Address [address] [place] [address] Care Team Providers Care Education Analyst Name Role Phone Kadeem Xiao MD Primary Care Provider [phone] Encounter Details Date Type Department Care Team (Late st Contact Info) Description 12/08/2023 Documentation [facility] [address] [facility] [address] [place] [address] Social History [...] Progress Notes * Mae Chappell RD - 12/08/2023 10:47 AM EDT ONC Nutrition Referral from Bibiana Curry. Patient having ongoing issues with diarrhea that he is having difficulty managing; wears Depends for incontinence. Phone consult. Patient is s/p CK radiation treatment in June 2023 for prostate cancer. He stated that he had a cholecystomy several years ago and since that time, bowel management has been an issue, but exacerbated following radiation. If the diarrhea gets bad enough , he will take 1 imodium tablet, but finds that it stops him up for days . Suggested if he was going to use imodium, try 1/2 tablet. Discussed current diet, food choices and methods of food preparation. Patient's diet does consist of fried foods, cruciferous vegetables and other foods / beverages that would affect bowel transit time. Discussed modification of the diet for management in regards to food choices & methods of preparation. Discussed the types of fiber, identifying insoluble and soluble with recommendations to focus on soluble fiber foods that could improve the frequency and consistency of bowel movements. Also discussed the advantage of using a soluble fiber supplement such as Metamucil, Benefiber or Citracel to aid with management of the treatment side effect of possible more frequent loose stools as the treatmentplan progresses; provided guidance for use. Patient education material was mailed to the patient for diet modification and use of soluble fibersupplement. Patient encouraged to contact RD for additional questions and success of implementing recommendations. documented in this encounter Plan of Treatment Upcoming Encounters Date Type Department Care Team (Late st Contact Info) Description 02/21/2025 10:30 AM EDT Office Visit RADIATION ONCOLOGY 3000 [facility] [address] [place] [address] Carlton Adan MD [address] [place] [address] 03/18/2025 9:30 AM EDT Office Visit [facility] 1760 [facility] 101 [place] [address] Rambo Dietrich MD [address] [facility] [place], [place] [phone] documented as of this encounter Visit Diagnoses Not on filedocumented in this encounter Care Teams Education Analyst Relationship Specialty Start Date End Date Kadeem Xiao MD 1210 [facility] [address] [place] [address] PCP - General Family Medicine 04/13/23 documented as of this encounter
--- OUTSIDE RECORDS SUMMARY | 2024-08-05 15:41 | XMS_ITS | Encounter Summary ---
Author Organization [facility] Address [address] [place] [address] Care Team Providers Care Substance Addiction Coordinator Name Role Phone Kadeem Xiao MD Primary Care Provider [phone] Encounter Details Date Type Department Care Team (Latest Contact Info) Description 07/01/2023 10:44 AM EDT - 07/01/2023 11:59 PM EDT Hospital Encounter [place] [facility] [address] [place] [address] Discharge Disposition: Home or Self Care Social [...] TAKE 1 TABLET BY MOUTH ONCE DAILY [place] 3 1000 MG capsule Take by mouth. [...] AM EDT Office Visit [facility] ONCOL[facility]Y 3000 [facility] [address] [place] [address] Carlton Adan MD [address] [place] [address] 03/18/2025 9:30 AM EDT Office Visit [facility] 1760 [facility] 101 [place] [address] Rambo Dietrich MD 1760 [facility] 101 [place] [phone] documented as of this encounter Visit Diagnoses Not on filedocumented in this encounter Care Teams Substance Addiction Coordinator Relationship Specialty Start Date End Date Kadeem Xiao MD 1210 [facility] 36 [facility] 2 [facility] [place] [address] PCP - General Family Medicine 04/13/23 documented as of this encounter
--- OUTSIDE RECORDS SUMMARY | 2024-08-05 15:41 | XMS_ITS | Encounter Summary ---
Author Organization [facility] Address [address] [place] [address] Care Team Providers Care Boatbuilder Apprentice Wood Name Role Phone Kadeem Xiao MD Primary Care Provider [phone] Encounter Details Date Type Department Care Team (Latest Contact Info) Description 06/29/2023 2:43 PM EDT - 06/29/2023 11:59 PM EDT Hospital Encounter [place] [facility] [address] [place] [phone] Discharge Disposition: Home or Self Care Social [...] TAKE 1 TABLET BY MOUTH ONCE DAILY [place] 3 1000 MG capsule Take by mouth. [...] AM EDT Office Visit RADIATION ONCOLOGY 3000 [facility] 165 [place] [address] Carlton Adan MD [address] [place] [address] 03/18/2025 9:30 AM EDT Office Visit [facility] & [facility] MED[facility] 1760 [facility] 101 [place] [address] Rambo Dietrich MD 1760 [facility] 101 [place] [phone] documented as of this encounter Visit Diagnoses Not on filedocumented in this encounter Care Teams Boatbuilder Apprentice Wood Relationship Specialty Start Date End Date Kadeem Xiao MD 1210 [facility] 36 [facility] 2 [facility] [place] [address] PCP - General Family Medicine 04/13/23 documented as of this encounter
--- OUTSIDE RECORDS SUMMARY | 2024-08-05 15:41 | XMS_ITS | Encounter Summary ---
Author Organization [facility] Address [address] [place] [address] Care Team Providers Care Metal Casting Trades Worker Name Role Phone Daljit Samuel MD Primary Care Provider Reason for Visit * Reason Comments Pain * Consultation (Routine) - Closed Specialty Diagnoses / Procedures Referred By Contac t Referred To Contact Orthopedic Surgery Diagnoses LEFT KNEE ARTHRITIS Daljit Samuel MD 1210 [facility] [address] [place] [id number] Phone: tel: fax: Rambo Dietrich MD [address] [place] [address] Phone: tel: fax: Referral ID Status Reason Start Date Expiration Date Visits Re quested Visits Authorized [id number] Closed 03/05/2022 03/05/2023 1 1 Encounter Details Date Type Department Care Team (Late st Contact Info) Description 04/12/2022 9:10 AM EDT Office Visit [facility]OP[facility] & SP[facility]TS MEDICINE [address] [place] [address] Rambo Dietrich MD [address] [place] [address] Primary osteoarthritis of left knee (Primary Dx) [...] Sign Reading Time Taken Comments Blood Pressure 126/82 04/12/2022 8:53 AM EDT Pulse - - Temperature - - Respiratory Rate - - Oxygen Saturation - - Inhaled Oxygen Concentration - - Weight 108 kg (239 lb) 04/12/2022 8:53 AM EDT Height 193 cm (6' 4 ) 04/12/2022 8:53 AM EDT Body Mass Index 29.09 04/12/2022 8:53 AM EDT documented in this encounter Progress Notes * Rambo Dietrich MD - 04/12/2022 9:10 AM EDT Images from the original note were not included. [facility] Orthopaedic Surgery Clinic Note Subjective Chief Complaint Patient presents with ??? Left Knee - Pain HPI Kai Chu is a 76 y.o. male who presents with new problem of: left knee pain. Onset: atraumatic and gradual in nature. The issue has been ongoing for 5 year(s). Pain was 8/10 on the pain scale, but improved. Pain is described as stabbing and shooting. Associated symptoms include pain, swelling and giving way/buckling. The pain is worse with standing and working; ice and pain medication and/or NSAID improve the pain. Previous treatments have included: bracing, NSAIDS and physical therapy. He had an injection with his primary care provider about a month ago that provided relief. I have reviewed the following portions of the patient's history and agree with: History of Present Illness and Review of Systems There is no problem list on file for this patient. Past Medical History: Diagnosis Date ??? Arthritis ??? Back pain ??? Claustrophobia ??? Hearing loss ??? Ingrown toenail ??? Plantar fasciitis ??? Pneumonia Past Surgical History: Procedure Laterality Date ??? GALLBLADDER SURGERY ??? HERNIA REPAIR ??? KNEE ARTHROPLASTY Right Family History Problem Relation Age of Onset ??? Stroke Mother ??? Cancer Father ??? Cancer Brother Social History Socioeconomic History ??? Marital status: Tobacco Use ??? Smoking status: Former Smoker Years: 30.00 Types: Cigarettes Quit date: 2000 Years since quittin.6 ??? Smokeless tobacco: Never Used Vaping Use ??? Vaping Use: Never used Substance and Sexual Activity ??? Alcohol use: Yes ??? Drug use: Never ??? Sexual activity: Defer Current Outpatient Medications on File Prior to Visit Medication Sig Dispense Refill ??? atorvastatin (LIPITOR) 40 MG tablet atorvastatin 40 mg tablet TAKE 1 TABLET BY MOUTH ONCE DAILY ??? hydroCHLOROthiazide (HYDRODIURIL) 12.5 MG tablet hydrochlorothiazide 12.5 mg tablet TAKE 1 TABLET BY MOUTH ONCE DAILY ??? losartan (COZAAR) 100 MG tablet losartan 100 mg tablet TAKE 1 TABLET BY MOUTH ONCE DAILY ??? [place] 3 1000 MG capsule Take by mouth. ??? omeprazole (priLOSEC) 40 MG capsule Take 40 mg by mouth Daily. ??? tamsulosin (FLOMAX) 0.4 MG capsule 24 [...] is not hyperactive. Objective Physical Exam BP 126/82 Ht 193 cm (76 ) Wt 108 kg (239 lb) BMI 29.09 kg/m?? Body mass index is 29.09 kg/m??. General: Mental Status: Alert Appearance: Cooperative, in no acute distress Build and Nutrition: Well-nourished well-developed male Orientation: Alert and oriented to person, place and time Posture: Normal Gait: Nonantalgic Integument: Left knee: No skin lesions, no rash, no ecchymosis Neurologic: Sensation: Left foot: Intact to light touch on the dorsal and plantar aspect Motor: Left lower extremity: 5/5 quadriceps, hamstrings, ankle dorsiflexors, and ankle plantar flexors Vascular: Left lower extremity: 2+ dorsalis pedis pulse, prompt capillary refill Lower Extremities: Left Knee: Tenderness: None Effusion: 1-2+ Swelling: None Crepitus: Positive Atrophy: None Range of motion: Extension: 0?? Flexion: 120?? Instability: No varus laxity, no valgus laxity, negative anterior drawer Deformities: None Imaging/Studies Imaging Results (Last 24 Hours) Procedure Component Value Units Date/Time XR Knee 4+ View Left [[id number]] Resulted: 04/12/22913 Updated: 04/12/22914 Narrative: Left Knee Radiographs Indication: left knee pain Views: Standing AP's and skiers of both knees, with lateral and sunrise views of the left knee Comparison: no prior studies available Findings: [id number]-uh-[id number] contact medial compartment, tricompartmental degeneration, with no acute bony abnormalities. No unusual bony features. Assessment and Plan Diagnoses and all orders for this visit: 1. Primary osteoarthritis of left knee (Primary) - XR Knee 4+ View Left 1. Primary osteoarthritis of left knee I reviewed my findings with the patient. His knee has improved over the past week, and no further intervention was necessary at this time. I will see him back in 2 months, as he may be getting some relief from the injection currently. I will see him back sooner for any problems. Return in about 2 months (around 06/12/2022). Rambo Dietrich MD 04/12/22 09:25 EDT documented in this encounter Plan of Treatment Upcoming Encounters Date Type Department Care Team (Late st Contact Info) Description 02/21/2025 10:30 AM EDT Office Visit [facility] 3000 [facility] [address] [place] [address] Carlton Adan MD [address] [place] [phone] 03/18/2025 9:30 AM EDT Office Visit [facility] OR[facility] & SP[facility]TS MEDICINE [address] [facility] [address] [place] [address] Rambo Dietrich MD 1760 [facility] [address] [place] [address] documented as of this encounter Procedures Procedure Name Priority Date/Time Associated Diagnosis Comments XR KNEE 4+ VW LEFT Routine 04/12/2022 9: 13 AM EDT Primary osteoarthritis of left knee documented in this encounter Results * XR Knee 4+ View Left (04/12/2022 9:13 AM EDT) Anatomical Region Laterality Modality Lower Extremities, Knee Left Xray Narrative 04/12/2022 9:15 AM EDT Left Knee Radiographs Indication: left knee pain Views: Standing AP's and skiers of both knees, with lateral and sunrise views of the left knee Comparison: no prior studies available Findings: [id number]-wd-[id number] contact medial compartment, tricompartmental degeneration, with no acute bony abnormalities. ??No unusual bony features. us Rambo Dietrich MD IMG DIAGNOSTIC IMAGING ORDERAB LES Final Result documented in this encounter Visit Diagnoses Diagnosis Primary osteoarthritis of left knee- Primary documented in this encounter Care Teams Metal Casting Trades Worker Relationship Specialty Start Date End Date Daljit Samuel MD [address] [facility] [address] [facility] [address] [facility] [id number] PCP - General Family Medicine 03/11/22 04/12/23 documented as of this encounter
--- OUTSIDE RECORDS SUMMARY | 2024-08-05 15:41 | XMS_ITS | Encounter Summary ---
Author Organization [facility] Address [address] [place] [address] Care Team Providers Care Gambling Supervisor Name Role Phone Kadeem Xiao MD Primary Care Provider [phone] Encounter Details Date Type Department Care Team (Latest Contact Info) Description 06/07/2023 5:10 AM EDT - 06/07/2023 11:59 PM EDT Hospital Encounter [facility] [address] [place] [phone] Discharge Disposition: Home or Self Care Social [...] TAKE 1 TABLET BY MOUTH ONCE DAILY [place] 3 1000 MG capsule Take by mouth. [...] AM EDT Office Visit [facility] 3000 [facility] [address] [place] [address] Carlton Adan MD [address] [place] [address] 03/18/2025 9:30 AM EDT Office Visit [facility] ORTHOPEDICS & SPORTS MEDICINE 1760 [facility] 101 [place] [address] Rambo Dietrich MD 1760 [facility] [address] [place] [phone] documented as of this encounter Visit Diagnoses Not on filedocumented in this encounter Care Teams Gambling Supervisor Relationship Specialty Start Date End Date Kadeem Xiao MD 1210 [facility] 36 [facility] 2 [facility] [place] [id number] PCP - General Family Medicine 04/13/23 documented as of this encounter
--- OUTSIDE RECORDS SUMMARY | 2024-08-05 15:41 | XMS_ITS | Encounter Summary ---
Author Organization [facility] Address [address] [place] [address] Care Team Providers Care Government Gauger Name Role Phone Kadeem Xiao MD Primary Care Provider [phone] Encounter Details Date Type Department Care Team (Latest Contact Info) Description 08/17/2023 5:15 AM EST - 08/17/2023 11:59 PM [facility] Hospital Encounter [facility] 1700 [facility] [address] [place] [phone] Discharge Disposition: Home or Self Care Social [...] TAKE 1 TABLET BY MOUTH ONCE DAILY [place] 3 1000 MG capsule Take by mouth. [...] AM EDT Office Visit [facility] 3000 [facility] [address] [place] [address] Carlton Adan MD [address] [place] [phone] 03/18/2025 9:30 AM EDT Office Visit [facility] ORTHOPEDICS & SP[facility]TS MEDICINE 1760 [facility] 101 [place] [phone] Rambo Dietrich MD 1760 [facility] [address] [place] [phone] documented as of this encounter Visit Diagnoses Not on filedocumented in this encounter Care Teams Government Gauger Relationship Specialty Start Date End Date Kadeem Xiao MD 1210 [facility] 36 E [facility] [address] [place] [address] PCP - General Family Medicine 04/13/23 documented as of this encounter
--- OUTSIDE RECORDS SUMMARY | 2024-08-05 15:41 | XMS_ITS | Encounter Summary ---
Author Organization [facility] Address [address] [place] [address] Care Team Providers Care Electrician'S Helper Name Role Phone Kadeem Xiao MD Primary Care Provider [phone] Encounter Details Date Type Department Care Team (Late st Contact Info) Description 12/06/2023 Telephone [facility] [address] [place] [address] Zahira Curry, JOAN Social History [...] Telephone Encounter - Zahira Curry RN - 12/06/2023 3:06 PM EDT Pt left message stating he is having erratic and angel diarrhea. Called pt back. No answer. Leftmessage explaining that Dr. Adan is out this week. If he feels he has been exposed and may have a GI bug he needs to see his PCP. Instructed to avoid foods that might cause bowel issues like raw vegetables, beans, cabbage, and to try the BRAT diet (bananas, rice, applesauce, and toast) I explained I would also have our otr company driver call him. documented in this encounter Plan of Treatment Upcoming Encounters Date Type Department Care Team (Late st Contact Info) Description 02/21/2025 10:30 AM EDT Office Visit [facility] 3000 [facility] 165 [place] [address] Carlton Adan MD [address] [place] [address] 03/18/2025 9:30 AM EDT Office Visit [facility] MEDICINE 1760 [facility] 101 [place] [address] Rambo Dietrich MD 1760 [facility] [address] [place] [phone] documented as of this encounter Visit Diagnoses Not on filedocumented in this encounter Care Teams Electrician'S Helper Relationship Specialty Start Date End Date Kadeem Xiao MD 1210 [facility] 36 E [facility] 2 [place] [id number] PCP - General Family Medicine 04/13/23 documented as of this encounter
--- OUTSIDE RECORDS SUMMARY | 2024-08-05 15:41 | XMS_ITS | Encounter Summary ---
Author Organization [facility] Address [address] [place] [address] Care Team Providers Care Asphalt Paving Superintendent Name Role Phone Kadeem Xiao MD Primary Care Provider [phone] Reason for Visit * Reason Comments Prostate Cancer Encounter Details Date Type Department Care Team (Late st Contact Info) Description 08/17/2023 8:30 AM EST Office Visit [facility] [address] [place] [address] Kimberly Dsouza, CASEWORKER INTAKE [address] [place] [address] Prostate cancer (Primary Dx) Social History Tobacco [...] as of this encounter Progress Notes * Kimberly Dsouza, CASEWORKER INTAKE - 08/17/2023 8:30 AM EST TELEMEDICINE FOLLOW UP NOTE PATIENT: Kai Chu : 1945 COMPLETION DATE: 07/01/2023 DIAGNOSIS: Prostate cancer - Stage IIIC (cT2a, cN0, cM0, PSA: 4.7, Grade Group: 5) This visit has been converted to a telehealth virtual visit, the patient's preferred method for today's follow-up. Total time of discussion was 19 minutes. The patient has given verbal consent. BRIEF HISTORY: Initial follow up visit for clinically localized, high risk prostate cancer with relatively low PSA. Outside pathology review at [facility] confirmed presence of grade group 5, Diana's 5+4 = 9 tumor involving 2 cores from the left lobe. Perineural invasion was identified. There was lower grade adenocarcinoma identified on the opposite side. GPS score was 71. Pylarify PSMA PET/CT was without evidence of pathologic lymphadenopathy or distant metastatic disease. He decided to pursue definitive treatment with stereotactic body radiotherapy as a sole modality and was not interested in androgen deprivation course. The prostate gland and seminal vesicles with extended margin on the left side were treated to a dose of 35 Shukla in 5 fractions on the CyberKnife, completing 07/01/2023. He tolerated treatment well. He did develop acute exacerbation of urinary irritative/outflow obstructive symptoms beyond baseline which were managed with temporarily increasing Flomax to twice daily dosing. At this point, he notes urinary frequency and urgency are a bit worse than normal but this is gradually improving. He also experienced brief bowel disturbance with increased fecal urgency and loose stool, also continuing to gradually improve. He denies acute exacerbation of fatigue. No new aches or pains. Denies additional complaints today. IPSS Questionnaire (AUA-7): Over the past month??? 1) Incomplete Emptying How often have you had a sensation of not emptying your bladder? 0 - Not at all 2) Frequency How often have you had to urinate less than every two hours? 4 - More than half the time 3) Intermittency How often have you found you stopped and started again several times when you urinated? 2 - Less than half the time 4) Urgency How often have you found it difficult to postpone urination? 4 - More than half the time 5) Weak Stream How often have you had a weak urinary stream? 5 - Almost always 6) Straining How often have you had to push or strain to begin urination? 5 - Almost always 7) Nocturia How many times did you typically get up at night to urinate? 2 - 2 times Total Score: 22 Quality of life due to urinary symptoms: If you were to spend the rest of your life with your urinary condition the way it is now, how wouldyou feel about that? 3-Mixed Urine Leakage (Incontinence) 0-No Leakage Sexual Health [...] less then 5 bowel movements a day MEDICATIONS: Medication reconciliation for the patient was reviewed and confirmed in the electronicmedical record. Review of Systems Gastrointestinal: Positive for diarrhea. Genitourinary: Positive for frequency and nocturia. All other systems reviewed and are negative. KPS 90% Physical Exam Pulmonary: Respirations even, unlabored. No audible wheezing or cough. Neurological: A+Ox4, conversant, answers questions appropriately. Psychiatric: Judgement, affect, and decision-making WNL. Limited physical exam as visit was conducted remotely via telephone. The following portions of the patient's history were reviewed and updated as appropriate: allergies, current medications, past family history, past medical history, past social history, past surgicalhistory and problem list. Diagnoses and all orders for this visit: 1. Prostate cancer (Primary) IMPRESSION: Prostate cancer, Diana's 4+5 = 9, clinical stage IIIC (T1c, N0, M0), PSA 4.7 ng/mL. He declined androgen ablation and after PSMA PET/CT imaging confirmed disease confined within the prostate capsule, decided to pursue SBRT as sole modality. 1 month status post CyberKnife SBRT. He tolerated treatment well. Acute exacerbation of grade 1 urinary and bowel toxicities continue to gradually subside. He continues longstanding use of Flomax, now back to once daily dosing. Mr. Chu and I have reviewed the survivorship care plan in detail. We discussed diagnosis, serial PSA monitoring, follow-up intervals, and expectations for response to treatment. A copy of the care plan has been mailed to the patient. A copy has also been sent to his PCP. RECOMMENDATIONS: Mr. Chu continues routine urologic surveillance and serial PSA monitoring under the care of Dr. Barney, with follow up and repeat scheduled in early 2023. We will schedule the patient to return to our clinic in approximately 6 months. Return in about 6 months (around 02/16/2024) for Office Visit. Kimberly Dsouza APRN I spent a total of 40 minutes on today's visit, with more than 19 minutes in virtual communication with the patient via telephone, and the remainder of the time spent in reviewing the relevant history, records, available imaging, and for documentation. documented in this encounter Plan of Treatment Upcoming Encounters Date Type Department Care Team (Late st Contact Info) Description 02/21/2025 10:30 AM EDT Office Visit [facility]COLOGY 3000 [facility] [address] [place] [address] Carlton Adan MD 1700 [place] [address] 03/18/2025 9:30 AM EDT Office Visit [facility] ORTHOPEDICS & SP[facility]TS MEDICINE 1760 [facility] [address] [place] [address] Rambo Dietrich MD 1760 [facility] 101 [place] [phone] documented as of this encounter Visit Diagnoses Diagnosis Prostate cancer- Primary Malignant neoplasm of prostate documented in this encounter Care Teams Asphalt Paving Superintendent Relationship Specialty Start Date End Date Kadeem Xiao MD 1210 [facility] 36 E [facility] 2 [place] [address] PCP - General Family Medicine 04/13/23 documented as of this encounter
--- OUTSIDE RECORDS SUMMARY | 2024-08-05 15:41 | XMS_ITS | Encounter Summary ---
Author Organization [facility] Address [address] [place] [address] Care Team Providers Care Commercial Lines Assistant Name Role Phone Kadeem Xiao MD Primary Care Provider [phone] Reason for Visit * Reason Comments Prostate Cancer Encounter Details Date Type Department Care Team (Late st Contact Info) Description 06/07/2023 10:30 AM EDT Office Visit [facility] [address] [place] [address] Carlton Adan MD [address]00 [place] [address] Prostate cancer (Primary Dx) Social History Tobacco [...] Sign Reading Time Taken Comments Blood Pressure 144/69 06/07/2023 10:27 AM EDT Pulse 63 06/07/2023 10:27 AM EDT Temperature 36.6 ??C (97.9 ??F) 06/07/2023 10:27 AM E DT Respiratory Rate 16 06/07/2023 10:27 AM EDT Oxygen Saturation 97% 06/07/2023 10:27 AM EDT Inhaled Oxygen Concentration - - Weight 107 kg (235 lb 1.6 oz) 06/07/2023 10:27 A M EDT Height - - Body Mass Index 28.62 04/13/2023 9:42 AM EDT documented in this encounter Progress Notes * Carlton Adan MD - 06/07/2023 10:30 AM EDT RE-EVALUATION PATIENT: Kai Chu : 1945 DATE: 06/07/2023 DIAGNOSIS: Prostate cancer - Stage IIIC (cT2a, cN0, cM0, PSA: 4.7, Grade Group: 5) BRIEF HISTORY: The patient is a very pleasant 77 y.o. male with clinical localized high risk prostate cancer. He declined androgen ablation and after PET/CT imaging confirmed disease confined within the prostate capsule decided to pursue stereotactic body radiotherapy as a sole modality. He underwent placement of gold seed fiducials. He subsequently developed symptomatic prostatitis. Since starting antibiotics he is clinically significantly improved. He returns today for simulation. He has been following the recommended dietary restrictions and prep. He has not fully complied withphysical restrictions. No Known Allergies Review of Systems - Oncology IPSS Questionnaire (AUA-7): Over the past month??? [...] movements a day Objective VITAL SIGNS: Vitals: 06/07/23 1027 BP: 144/69 Pulse: 63 Resp: 16 Temp: 97.9 ??F (36.6 ??C) TempSrc: Temporal SpO2: 97% Weight: 107 kg (235 lb 1.6 oz) PainSc: 0-No pain Karnofsky score: 90 Physical Exam Vitals and nursing note reviewed. Constitutional: Appearance: He is well-developed. HENT: Head: Normocephalic and atraumatic. Cardiovascular: Rate and Rhythm: Normal rate and regular rhythm. Heart sounds: No murmur heard. Pulmonary: Effort: Pulmonary effort is normal. Breath sounds: No wheezing or rales. Abdominal: General: There is no distension. Palpations: Abdomen is soft. Tenderness: There is no abdominal tenderness. Musculoskeletal: General: No tenderness. Normal range of motion. Cervical back: Normal range of motion and neck supple. Skin: General: Skin is warm and dry. [...] this visit: Prostate cancer IMPRESSION: Prostate cancer, [place]'s 4+5 = 9, clinical stage IIIC (T1c, N0, M0), PSA 4.7 ng/mL. He is recovering from prostatitis after implantation of fiducials. CT simulation performed today shows presence of only 3 gold seed fiducials within the prostate gland. This indicates that he has lost 2 of the seeds. As long as he does not lose any other seeds, I believe we will be able to perform planned course of stereotactic body radiotherapy. RECOMMENDATIONS: Patient was counseled on strict limitations of physical activity until we completehis course of treatment. He understands that if he loses or moves another gold seed will not be able to complete without placement of additional seeds. Tentatively, he is scheduled for stereotactic body radiotherapy to be delivered on the CyberKnife treatment unit. He will receive 5 fractions of 7 Shukla each to the prostate gland and proximal seminalvesicles with extended margin on the left side. Carlton Adan MD Approximately 30 minutes was spent during this visit, 20 minutes directly with patient. documented in this encounter Plan of Treatment Upcoming Encounters Date Type Department Care Team (Late st Contact Info) Description 02/21/2025 10:30 AM EDT Office Visit [facility] 3000 [facility] [address] [place] [address] Carlton Adan MD [address]00 [place] [address] 03/18/2025 9:30 AM EDT Office Visit [facility] ORTHOPED[facility] & [facility] MEDICINE 1760 [facility] 101 [place] [address] Rambo Dietrich MD 1760 [facility] [address] [place] [phone] documented as of this encounter Visit Diagnoses Diagnosis Prostate cancer- Primary Malignant neoplasm of prostate documented in this encounter Care Teams Commercial Lines Assistant Relationship Specialty Start Date End Date Kadeem Xiao MD 1210 [facility] [address] [place] [address] PCP - General Family Medicine 04/13/23 documented as of this encounter
--- OUTSIDE RECORDS SUMMARY | 2024-08-05 15:41 | XMS_ITS | Encounter Summary ---
Author Organization [facility] Address [address] [place] [address] Care Team Providers Care Director Talent Management Name Role Phone Kadeem Xiao MD Primary Care Provider [phone] Encounter Details Date Type Department Care Team (Latest Contact Info) Description 06/07/2023 11:00 AM EDT - 06/07/2023 11:59 PM EDT Hospital Encounter [facility] [address] [place] [phone] Discharge Disposition: Home or Self Care Social [...] TAKE 1 TABLET BY MOUTH ONCE DAILY [place] 3 1000 MG capsule Take by mouth. [...] EDT Office Visit [facility]COL[facility] 3000 [facility] [address] [place] [address] Carlton Adan MD [address]00 [place] [address] 03/18/2025 9:30 AM EDT Office Visit [facility] 1760 [facility] 101 [place] [address] Rambo Dietrich MD 1760 [facility] 101 [place] [phone] documented as of this encounter Visit Diagnoses Not on filedocumented in this encounter Care Teams Director Talent Management Relationship Specialty Start Date End Date Kadeem Xiao MD 1210 [facility] 36 [facility] 2 [facility] [place] [address] PCP - General Family Medicine 04/13/23 documented as of this encounter
--- OUTSIDE RECORDS SUMMARY | 2024-08-05 15:41 | XMS_ITS | Encounter Summary ---
Author Organization [facility] Address [address] [place] [address] Care Team Providers Care School Director Name Role Phone Daljit Samuel MD Primary Care Provider Reason for Visit * Reason Comments Follow-up 2 month F/U; Primary osteoarthritis of left knee Encounter Details Date Type Department Care Team (Late st Contact Info) Description 06/23/2022 9:10 AM EDT Office Visit [facility] [address] [place] [address] Rambo Dietrich MD 1760 [place] [address] Primary osteoarthritis of left knee (Primary Dx) [...] Sign Reading Time Taken Comments Blood Pressure 135/86 06/23/2022 8:54 AM EDT Pulse - - Temperature - - Respiratory Rate - - Oxygen Saturation - - Inhaled Oxygen Concentration - - Weight 106 kg (234 lb 6.4 oz) 06/23/2022 8:54 AM EDT Height 193 cm (6' 3.98 ) 06/23/2022 8:54 AM EDT Body Mass Index 28.54 06/23/2022 8:54 AM EDT documented in this encounter Progress Notes * Rambo Dietrich MD - 06/23/2022 9:10 AM EDT Images from the original note were not included. [facility] Subjective Chief Complaint Patient presents with ??? Follow-up 2 month F/U; Primary osteoarthritis of left knee HPI It has been 2 month(s) since Mr. Chu's last visit. He returns to clinic today for follow-up of left knee pain. The issue has been ongoing for 5 year(s). He rates his pain a 3/10 on the pain scale. Previous/current treatments: NSAIDS. Current symptoms: same as prior visit. The pain is worse withclimbing stairs, working, rising from seated position and any movement of the joint; pain medication and/or NSAID improve the pain. Overall, he is doing better. Knee is tolerable at the current time.No new complaints. I have reviewed the following portions of [...] Types: Cigarettes Quit date: 2000 Years since quittin.8 ??? Smokeless tobacco: Never Vaping Use ??? Vaping Use: Never used Substance and Sexual Activity ??? Alcohol use: Yes ??? Drug use: Never ??? Sexual activity: Defer Current Outpatient Medications on File Prior to Visit Medication Sig Dispense Refill ??? atorvastatin (LIPITOR) 40 MG tablet atorvastatin 40 mg tablet TAKE 1 TABLET BY MOUTH ONCE DAILY ??? diazePAM (VALIUM) 5 MG tablet diazepam 5 mg tablet TAKE 1 TAB BY MOUTH PRIOR TO PROCEDURE, MAY REPEAT IF NEEDED ??? diazePAM (VALIUM) 5 MG tablet TAKE 1 TAB BY MOUTH PRIOR TO PROCEDURE, MAY REPEAT IF NEEDED ??? gentamicin (GARAMYCIN) 0.1 % ointment APPLY OINTMENT ONCE DAILY FOR CELLULITIS ??? hydroCHLOROthiazide (HYDRODIURIL) 12.5 MG tablet hydrochlorothiazide 12.5 mg tablet TAKE 1 TABLET BY MOUTH ONCE DAILY ??? losartan (COZAAR) 100 MG tablet losartan 100 mg tablet TAKE 1 TABLET BY MOUTH ONCE DAILY ??? Chana 3 1000 MG capsule Take by mouth. ??? omeprazole (priLOSEC) 40 MG capsule Take 40 mg by mouth Daily. ??? sucralfate (CARAFATE) 1 [...] is not hyperactive. Objective Physical Exam BP 135/86 Ht 193 cm (75.98 ) Wt 106 kg (234 lb 6.4 oz) BMI 28.54 kg/m?? Body mass index is 28.54 kg/m??. General: Mental Status: Alert Appearance: Cooperative, in no acute distress Build and Nutrition: Well-nourished well-developed male Orientation: Alert and oriented to person, place and time Posture: Normal Gait: Nonantalgic Integument: Left knee: No skin lesions, no rash, no ecchymosis Lower Extremities: Left Knee: Tenderness: Mild medial joint line tenderness Effusion: 1+ Swelling: None Crepitus: Positive Atrophy: None Range of motion: Extension: 0?? Flexion: 125?? Instability: No varus laxity, no valgus laxity, negative anterior drawer Deformities: None Imaging/Studies Imaging Results (Last 24 Hours) No results found for the last 24 hours. No new imaging today. Assessment and Plan Diagnoses and all orders for this visit: 1. Primary osteoarthritis of left knee (Primary) 1. Primary osteoarthritis of left knee I reviewed my findings with the patient. Left knee is doing well today, and is certainly tolerable.I will see him back in 6 months for checkup, but sooner for any problems. Return in about 6 months (around 12/22/2022). Rambo Dietrich MD 06/23/22 09:36 EDT documented in this encounter Plan of Treatment Upcoming Encounters Date Type Department Care Team (Late st Contact Info) Description 02/21/2025 10:30 AM EDT Office Visit [facility] 3000 [facility] [address] [place] [address] Carlton Adan MD 1700 [place] [address] 03/18/2025 9:30 AM EDT Office Visit [facility] [address] [facility] 101 [place] [address] Rambo Dietrich MD [address] [facility] 101 [place] [phone] documented as of this encounter Visit Diagnoses Diagnosis Primary osteoarthritis of left knee- Primary documented in this encounter Care Teams School Director Relationship Specialty Start Date End Date Daljit Samuel MD 1210 [facility] 36 [address] [facility] 2 [place] [address] PCP - General Family Medicine 03/11/22 04/12/23 documented as of this encounter
--- OUTSIDE RECORDS SUMMARY | 2024-08-05 15:41 | XMS_ITS | Encounter Summary ---
Author Organization [facility] Address [address] [place] [address] Care Team Providers Care Merchandise Flow Team Leader Name Role Phone Kadeem Xiao MD Primary Care Provider [phone] Encounter Details Date Type Department Care Team (Latest Contact Info) Description 06/30/2023 10:02 AM EDT - 06/30/2023 11:59 PM EDT Hospital Encounter [facility] [address] [place] [phone] Discharge Disposition: Home or Self Care Social [...] TAKE 1 TABLET BY MOUTH ONCE DAILY [place] 3 1000 MG capsule Take by mouth. [...] Office Visit [facility] 3000 [facility] 165 [place] [address] Carlton Adan MD 1700 [place] [address] 03/18/2025 9:30 AM EDT Office Visit [facility] 1760 [facility] 101 [place] [address] Rambo Dietrich MD 1760 [facility] 101 [place] [phone] documented as of this encounter Visit Diagnoses Not on filedocumented in this encounter Care Teams Merchandise Flow Team Leader Relationship Specialty Start Date End Date Kadeem Xiao MD 1210 [facility] 36 [facility] 2 [facility] [place] [address] PCP - General Family Medicine 04/13/23 documented as of this encounter
--- OUTSIDE RECORDS SUMMARY | 2024-08-05 15:41 | XMS_ITS | Encounter Summary ---
Author Organization [facility] Address [address] [place] [address] Care Team Providers Care Project Control Officer Name Role Phone Kadeem Xiao MD Primary Care Provider [phone] Encounter Details Date Type Department Care Team (Late st Contact Info) Description 05/06/2023 Telephone [facility] [place] [phone] Zahira Curry, RN Social History Tobacco Use [...] Telephone Encounter - Zahira Curry RN - 05/06/2023 1:13 PM EDT Called and discussed in detail with pt upcoming dates and appointments for procedures, diet and prep instructions. Pt verbalized understanding. Instructed that I also sent him a my chart message with all the details. Pt verbalized understanding. documented in this encounter Plan of Treatment Upcoming Encounters Date Type Department Care Team (Late st Contact Info) Description 02/21/2025 10:30 AM EDT Office Visit [facility] 3000 [facility] 165 [place] [address] Carlton Adan MD 1700 [place] [address] 03/18/2025 9:30 AM EDT Office Visit [facility] 1760 [facility] 101 [place] [address] Rambo Dietrich MD 1760 [facility] 101 [place] [phone] documented as of this encounter Visit Diagnoses Not on filedocumented in this encounter Care Teams Project Control Officer Relationship Specialty Start Date End Date Kadeem Xiao MD 1210 [facility] 36 E [facility] 2 [place] [address] PCP - General Family Medicine 04/13/23 documented as of this encounter
--- OUTSIDE RECORDS SUMMARY | 2024-08-05 15:41 | XMS_ITS | Encounter Summary ---
Author Organization [facility] Address [address] [place] [address] Care Team Providers Care Power Reactor Supervisor Name Role Phone Kadeem Xiao MD Primary Care Provider [phone] Encounter Details Date Type Department Care Team (Late st Contact Info) Description 06/03/2023 Telephone [facility] 1700 [place] [phone] Carlton Adan MD [address] [place] [address] Social History Tobacco Use Types Packs/Day Years [...] encounter Miscellaneous Notes * Telephone Encounter - Danielle Alonso RN - 06/03/2023 12:29 PM EDT 06/01/23 -LATE ENTRY- pt left VM pt had markers placed and has a fever and trouble urinating-called pt back to notify her to call Dr. Barney (Pt urologist)-verbalized understanding-Dr. Adan aware- called pt back to let her know I will call Tuesday to see how pt is- aware to call our office if not able to reach Dr. Barney or PCP. 06/03/23- called pt to check on him- pt states PCP said pt has UTI started levofloxacin 500 mg P.O. daily for 7 days on 06/01/23. States he has 4 days left. States he was feeling better yesterday, however today feeling yucky - denies fever today, urinary symptoms better but not resolved and overall just does not feel well.States PCP is running a culture and was told by PCP the antibiotic may get changed based on results. Concerned his planning may be re-scheduled. After discussion with Dr. Adan I told pt per Dr. Adan to continue the antibiotics, if the antibiotic gets changed r/t cultureresults contact our office- verbalized understanding Notified pt per Dr. Adan that we will keep everything scheduled and I will call Tuesday to check on pt. Aware to start diet/gas-x Tuesday and aware of prep for Tuesday06/07/23. documented in this encounter Plan of Treatment Upcoming Encounters Date Type Department Care Team (Late st Contact Info) Description 02/21/2025 10:30 AM EDT Office Visit [facility] 3000 [facility] 165 [place] [phone] Carlton Adan MD [address] [place] [address] 03/18/2025 9:30 AM EDT Office Visit [facility]TS MEDICINE 1760 [facility] 101 [place] [address] Rambo Dietrich MD 1760 [facility] 101 [place] [address] documented as of this encounter Visit Diagnoses Not on filedocumented in this encounter Care Teams Power Reactor Supervisor Relationship Specialty Start Date End Date Kadeem Xiao MD 1210 [address] [facility] [address] [place] [address] PCP - General Family Medicine 04/13/23 documented as of this encounter
--- OUTSIDE RECORDS SUMMARY | 2024-08-05 15:41 | XMS_ITS | Encounter Summary ---
Author Organization [facility] Address [address] [place] [address] Care Team Providers Care Customer Technical Services Manager Name Role Phone Kadeem Xiao MD Primary Care Provider [phone] Reason for Visit * MRI/CAT/PET Scan (Routine) - Closed Specialty Diagnoses / Procedures Referred By Poncho villalba Referred To Contact Radiology Diagnoses Prostate cancer Procedures NM PET/CT Skull Base to Mid Thigh Carlton Adan MD 1700 [place] [address] Phone: tel: fax: [facility] [address] [place] [address] Phone: tel: Referral ID Status Reason Start Date Expiration Date Visits Re quested Visits Authorized [id number] Closed 04/13/2023 04/12/2024 2 2 Encounter Details Date Type Department Care Team (Latest Contact Info) Description 05/05/2023 11:37 AM EDT - 05/05/2023 11:59 PM EDT Hospital Encounter [facility] PET 100 [facility] [place] [address] Discharge Disposition: Home or Self Care Social [...] TAKE 1 TABLET BY MOUTH ONCE DAILY [place] 3 1000 MG capsule Take by mouth. [...] AM EDT Office Visit [facility] ONCOLOGY 3000 [facility] 165 [place] [address] Carlton Adan MD [address] [place] [phone] 03/18/2025 9:30 AM EDT Office Visit [facility] & SP[facility] MEDICINE 1760 [facility] 101 [place] [phone] Rambo Dietrich MD 1760 [facility] [address] [place] [address] documented as of this encounter Procedures Procedure [...] MD 05/05/2023 2:24 PM EDT Workstation ID: [id number] Narrative 05/05/2023 2:24 PM EDT NM PET/CT [...] MD 05/05/2023 2:24 PM EDT Workstation ID: [id number] Carlton Adan MD IMG NM ORDERABLES Final Resul t documented in this encounter Visit Diagnoses Not on filedocumented in this encounter Care Teams Customer Technical Services Manager Relationship Specialty Start Date End Date Kadeem Xiao MD [facility] 36 E [facility] [address] [place] [address] PCP - General Family Medicine 04/13/23 documented as of this encounter
[2024-08-05] MEDS: ACETAMINOPHEN 325MG TAB 650 MG PO ×2 (18:44→23:34)
--- NOTE | 2024-08-05 19:11 | PC.NURSE ---
9mg morphine cleared off broth setter pump. pt stated earlier in shift he felt as if the morphine wsant taking the edge off or doing much . notified barron with [facility] for tylenol MANOHAR and oxycodone 10mg prn. informed pt of new orders and he refused po oxycodone because he doesnt want to chance getting a bowel obstruction . pt has hypoactive bowel sounds. still no bm or flatus but has been belching alot. abd dsgs changed with no issues, daughter at bs no needs at this time
[2024-08-06] VITALS: BP 188/93; PULSE 64; RESP 19; TEMP 36.6; O2SAT 97
[2024-08-06 04:00] VITALS: BP 151/83; PULSE 56; RESP 18; TEMP 36.6; O2SAT 96; BMI 29.2
[2024-08-06] MEDS: 0.9 % SODIUM CHLORIDE 1000ML 1,000 ML 125 ML IV (05:35)
--- NOTE | 2024-08-06 05:53 | PC.NURSE ---
Alert and oriented. Cleared 2mg off of WINDOWS [employer] ENGINEER pump. Patient has not complained of pain other than when getting up for restroom. Pt has rested very well tonight, daughter remained at the bedside. Tolerating room air. Midline incision, dressing in place with scant red blood, remains intact with no leakage. Bowel sounds hypoactive, no bowel movement, pt is not passing gas. Call light in reach.
[2024-08-06] MEDS: ACETAMINOPHEN 325MG TAB 650 MG PO ×3 (06:19→18:35)
--- NOTE | 2024-08-06 06:46 | PC.NURSE ---
Pt ambulated in the hallway at this time, tolerated well. Passed small gas siting on the toilet.
[2024-08-06 06:59] LABS: Basophils % 0.3 % (0.1-2.0); Eosinophils % 0.3 % (0.1-12.0); Hemoglobin 11.5 g/dL (14.1-18.0); Lymphocytes # 0.9 K/mm3 (0.7-4.5); Lymphocytes % 13.5 % (10-50); Mean Corpuscular HGB Conc 33.7 g/dL (31.8-35.4); Mean Corpuscular Hemoglobin 33.6 pg (27.0-31.2); Mean Corpuscular Volume 99.5 fl (80-94); Mean Platelet Volume 7.7 fl (7.4-10.4); Monocytes # 0.7 K/mm3 (0.1-1.0); Monocytes % 10.7 % (1.7-9.3); Neutrophils # 4.9 K/mm3 (1.8-7.8); Neutrophils % 75.1 % (37.0-80.0); Platelet Count 147 K/mm3 (142-424); Red Blood Count 3.42 M/mm3 (4.60-6.20); Red Cell Distribution Width 12.8 % (11.5-17.5); White Blood Count 6.5 K/mm3 (4.8-10.8)
[2024-08-06 07:04] LABS: Chloride 105 mmol/L (98-107); Sodium 131 mmol/L (136-145)
[2024-08-06 07:07] LABS: Alanine Aminotransferase 17 U/L (12-78); Albumin/Globulin Ratio 1.4 (1.1-1.8); Alkaline Phosphatase 70 U/L (38-126); Aspartate Amino Transferase 27 U/L (17-59); Bilirubin,Total 1.2 mg/dl (0.2-1.3); Blood Urea Nitrogen 16 mg/dl (9-20); Carbon Dioxide 23 mmol/L (22.0-30.0); Creatinine Clearance Estimated 95 mL/min (50-200); Estimated Glomerular Filt Rate 94 ml/min (>60); GFR (African American) 113 ML/MIN (>60); Globulin 2.2 g/dL (1.3-3.2); Total Protein,Serum 5.2 g/dl (6.3-8.2)
[2024-08-06 07:08] LABS: Calcium 7.8 mg/dl (8.4-10.2); Glucose 81 mg/dl (74-100)
[2024-08-06 08:00] VITALS: BP 144/62; PULSE 55; RESP 19; TEMP 37; O2SAT 96
--- NOTE | 2024-08-06 08:07 | P.PN_ITS ---
Subjective Narrative: Patient is a 78-year-old male with history of cardiac murmur, TIA, coronary artery disease, carotid stenosis, obstructive sleep apnea, hyperlipidemia, hypertension. Many years ago patient had undergone laparoscopic unilateral left inguinal hernia repair in [place] at which time the right side was not repaired. I had previously seen him and performed open repair of right inguinal hernia 07/08/2014 for a large direct right inguinal hernia. I had seen the patient in 2015 at which time he had occasional acute sporadic right lower quadrant/right pelvic pain. He underwent CT scan which revealed only postoperative changes in the right inguinal area. I also had previously performed upper endoscopy on him in 2015. He was seen in the office a couple of years ago with symptoms similar to previous with occasional acute right lower quadrant/right pelvic pain. Patient did have right paramedian from open appendectomy many years ago. At that time in 2021 he underwent upper GI which revealed findings of small hiatal hernia with radiographic evidence of GERD and duodenal diverticulum with nonpassage of barium tablet. He ultimately did undergo gastroenterology evaluation. 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 He was in his usual state of health until 08/04/2024 at which time he developed right lower quadrant pain. This was more severe than before. He presented to the emergency department on 08/04/2024. 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 Consultation was obtained with the general surgeon on- call and given the findings taken to the operating room at which time he underwent diagnostic laparoscopy, exploratory laparotomy with reduction and primary repair of spigelian hernia with small bowel resection with primary anastomosis. Patient has had no nausea. He describes may be passing some flatus. He has been started on a clear liquid diet. Exam Data for Last 24 hours Vital signs and Labs for Last 24 Hours: Temp Pulse Resp BP Pulse Ox O2 Del Method O2 Flow Rate 97.9 F 56 L 18 151/83 H 96 Room Air 2 08/06/24 04:00 08/06/24 04:00 08/06/24 04:00 08/06/24 04:00 08/06/24 04:00 08/06/24 07:00 08/05/24 06:56 Laboratory Results - last 24 hr 08/04/24 10:55: Hepatitis C Antibody Non reactive 08/05/24 06:50: Total Counted 100, Neutrophils % (Manual) 89 H, Lymphocytes % (Manual) 8 L, Monocytes % (Manual) 3, Platelet Estimate Normal, RBC Morphology Normal 08/06/24 06:13: WBC 6.5 D, RBC 3.42 L, Hgb 11.5 L, Hct 34.0 L, MCV 99.5 H, MCH 33.6 H, MCHC 33.7, RDW 12.8, Plt Count 147, MPV 7.7, Neut % (Auto) 75.1, Lymph % (Auto) 13.5, Lyman % (Auto) 10.7 H, Eos % (Auto) 0.3, Baso % (Auto) 0.3, Neut # (Auto) 4.9, Lymph # (Auto) 0.9, Lyman # (Auto) 0.7, Eos # (Auto) 0.0, Baso # (Auto) 0.0, Sodium 131 L, Potassium 4.0, Chloride 105, Carbon Dioxide 23, Anion Gap 7.0, BUN 16, Creatinine 0.80, Estimated Creat Clear 95, Estimated GFR 94, Est GFR ( Amer) 113, Glucose 81 D, Calcium 7.8 L, Total Bilirubin 1.2, AST 27, ALT 17, Alkaline Phosphatase 70, Total Protein 5.2 L, Albumin 3.0 L, Globulin 2.2, Albumin/Globulin Ratio 1.4 I & O for Last 24 hours: Intake & Output 08/03/24 08/04/24 08/05/24 08/06/24 11:59 11:59 11:59 11:59 Intake Total 850 / 850 4057 / 4057 Output Total 300 / 300 250 / 250 Balance 550 / 550 3807 / 3807 Weight 243 lb 242 lb 4.608 oz 239 lb 10.279 oz Microbiology Reports for the Last 24 Hours: Microbiology 08/04/24 15:44 Blood Blood Culture - Preliminary NO GROWTH AFTER 24 HOURS 08/04/24 15:18 Blood Blood Culture - Preliminary NO GROWTH AFTER 24 HOURS *Routine Abdominal Exam Abdominal: Present distended Comments: Incisional tenderness. Dressing with some serosanguineous discharge. Progress Note: A&P Assessment and plan (1) Spigelian hernia with bowel obstruction: Status: Acute Assessment and plan: Limited to clear liquids at this time. (2) HTN (hypertension): Status: Chronic (3) HLD (hyperlipidemia): Status: Chronic (4) ESTHER (obstructive sleep apnea): Problem details: Currently on AutoPap, asymptomatic Status: Chronic
--- NOTE | 2024-08-06 09:13 | P.PN_ITS ---
Subjective *Date: 08/06/24 *Time: 09:13 Interval history: Patient with no new complaints today. He has been out of bed and walked in the hallway this morning, states he also passed some gas. Medical Exam Vital signs and Labs for Last 24 Hours: Vital Signs Temp Pulse Resp BP Pulse Ox O2 Del Method 08/06/24 08:00 98.6 F 55 L 19 144/62 H 96 Room Air 08/06/24 07:00 Room Air 08/06/24 05:00 Room Air 08/06/24 04:00 97.9 F 56 L 18 151/83 H 96 Room Air 08/06/24 03:00 Room Air 08/06/24 01:00 Room Air 08/06/24 00:00 97.9 F 64 19 188/93 H 97 Room Air 08/05/24 23:00 Room Air 08/05/24 21:00 Room Air 08/05/24 20:00 Room Air 08/05/24 20:00 98.2 F 63 18 135/71 95 Room Air, Nasal Cannula 08/05/24 18:38 Room Air 08/05/24 17:00 Room Air 08/05/24 16:00 98.4 F 64 20 120/72 95 Room Air 08/05/24 15:00 Room Air 08/05/24 13:00 Room Air 08/05/24 12:00 98.2 F 64 19 148/71 H 97 Room Air 08/05/24 11:00 Room Air Intake and Output 08/05/24 08/06/24 08/06/24 23:59 07:59 15:59 Intake Total 2789 / 2789 1268 / 1268 Output Total 250 / 250 0 / 250 Balance 2789 / 2489 1018 / 1018 0 / 1018 Intake: Intake, Total IV Amount 2789 / 2789 1268 / 1268 0.9 % Sodium Chloride 1000ML 1, 2789 / 2789 1268 / 1268 000 ml @ 125 mls/hr IV .Q8H [facility] Rx#:[id number] Output: Output, Urine Amount 250 / 250 0 / 250 Other: Number of Voids 0 Number of Unmeasured Voids 1 Weight 239 lb 10.279 oz Patient Weight 08/06/24 23:59 Weight 239 lb 10.279 oz Laboratory Results - last 24 hr 08/04/24 10:55: Hepatitis C Antibody Non reactive 12/08/24 06:50: Total Counted 100, Neutrophils % (Manual) 89 H, Lymphocytes % (Manual) 8 L, Monocytes % (Manual) 3, Platelet Estimate Normal, RBC Morphology Normal 08/06/24 06:13: WBC 6.5 D, RBC 3.42 L, Hgb 11.5 L, Hct 34.0 L, MCV 99.5 H, MCH 33.6 H, MCHC 33.7, RDW 12.8, Plt Count 147, MPV 7.7, Neut % (Auto) 75.1, Lymph % (Auto) 13.5, [place] % (Auto) 10.7 H, Eos % (Auto) 0.3, Baso % (Auto) 0.3, Neut # (Auto) 4.9, Lymph # (Auto) 0.9, [place] # (Auto) 0.7, Eos # (Auto) 0.0, Baso # (Auto) 0.0, Sodium 131 L, Potassium 4.0, Chloride 105, Carbon Dioxide 23, Anion Gap 7.0, BUN 16, Creatinine 0.80, Estimated Creat Clear 95, Estimated GFR 94, Est GFR ( Amer) 113, Glucose 81 D, Calcium 7.8 L, Total Bilirubin 1.2, AST 27, ALT 17, Alkaline Phosphatase 70, Total Protein 5.2 L, Albumin 3.0 L, Globulin 2.2, Albumin/Globulin Ratio 1.4 I & O for Labs for Last 24 Hours: Intake & Output 08/03/24 08/04/24 08/05/24 08/06/24 23:59 23:59 23:59 23:59 Intake Total 850 / 850 2789 / 2789 1268 / 1268 Output Total 300 / 300 250 / 250 Balance 850 / 850 2489 / 2489 1018 / 1018 Weight 243 lb 242 lb 4.608 oz 239 lb 10.279 oz Microbiology Reports for the Last 24 Hours: Microbiology 08/04/24 15:44 Blood Blood Culture - Preliminary NO GROWTH AFTER 24 HOURS 08/04/24 15:18 Blood Blood Culture - Preliminary NO GROWTH AFTER 24 HOURS Constitutional: Present no acute distress Respiratory: Present normal respiratory effort Cardiac: Present Reg Rate and Rhythm Comments:: Few bowel sounds, abdomen is soft, dressing is clean and intact. Extremities: Present normal inspection and full ROM Skin: Present intact; Absent erythema Neuro: Present Grossly Intact and moves all extremities Assessment and Plan *Assessment and plan (1) Spigelian hernia with bowel obstruction: Status: Acute Category: Medical Code(s): K43.6 - Other and unspecified ventral hernia with obstruction, without gangrene (2) HTN (hypertension): Status: Chronic Qualifiers: Hypertension type: essential hypertension Qualified Code(s): I10 - Essential (primary) hypertension Category: Medical Code(s): I10 - Essential (primary) hypertension (3) HLD (hyperlipidemia): Status: Chronic Qualifiers: Hyperlipidemia type: mixed hyperlipidemia Qualified Code(s): E78.2 - Mixed hyperlipidemia Category: Medical Code(s): E78.5 - Hyperlipidemia, unspecified (4) ESTHER (obstructive sleep apnea): Problem Comment: Currently on AutoPap, asymptomatic Status: Chronic Category: Medical Code(s): G47.33 - Obstructive sleep apnea (adult) (pediatric) Plan Advance diet to clear liquids today, decrease IVF rate.
[2024-08-06] MEDS: ENOXAPARIN 40MG/0.4ML SYRINGE 40 MG SUBCUT (10:14)
[2024-08-06] MEDS: FAMOTIDINE 20MG/2ML VIAL 20 MG IV ×2 (10:14→20:44)
[2024-08-06] MEDS: 0.9 % SODIUM CHLORIDE 1000ML 1,000 ML 75 ML IV ×2 (13:45→21:42)
[2024-08-06] MEDS: guaiFENesin 200MG/10ML SYRUP UDC 100 MG PO (15:43)
[2024-08-06 16:00] VITALS: BP 145/81; PULSE 88; RESP 19; TEMP 38.3; O2SAT 94
[2024-08-06 18:15] VITALS: BP 174/75; PULSE 55; RESP 19; TEMP 37.1; O2SAT 97
--- NOTE | 2024-08-06 18:16 | PC.NURSE ---
patient has hit his BODY AND FRAME TECHNICIAN pump 5 times this shift. States pain is well controlled. Patient states having cough and cough medicine requested from [facility].
[2024-08-06 20:00] VITALS: BP 148/71; PULSE 53; RESP 18; TEMP 36.9; O2SAT 96
[2024-08-06] MEDS: SODIUM CHLORIDE 0.9% 10ML VIAL 8 ML IV (20:43)
[2024-08-07 04:00] VITALS: BP 145/81; PULSE 54; RESP 16; TEMP 37.2; O2SAT 95; BMI 30.4
--- NOTE | 2024-08-07 05:12 | PC.NURSE ---
Addendum entered by Jackie Germain RN 08/07/24 05:39: Cleared 2mg off CUSTOMS AND BORDER PROTECTION INSPECTOR pump Original Note: Patient alert and oriented x4 this shift. Tolerating room air well. Patient states there is no pain unless he gets up out of bed to ambulate/use restroom. States he has had to use CUSTOMS AND BORDER PROTECTION INSPECTOR pump once this shift. Small amounts of blood noted on patients abdominal lap sites. Advised patient dressings needed to be changed at 0400 vital check and he stated he would rather wait til morning because he wanted to go back to sleep. Bowel sounds hypoactive. Family has remained at bedside and patient has rested well through the night. Call light within reach.
[2024-08-07] MEDS: ACETAMINOPHEN 325MG TAB 650 MG PO ×2 (05:36→11:21)
[2024-08-07 06:15] LABS: Albumin Level 2.9 g/dl (3.5-5.0); Basophils % 0.4 % (0.1-2.0); Chloride 106 mmol/L (98-107); Eosinophils # 0.1 K/mm3 (0.0-0.4); Eosinophils % 1.8 % (0.1-12.0); Hematocrit 35.6 % (42.0-52.0); Hemoglobin 12.1 g/dL (14.1-18.0); Lymphocytes # 0.6 K/mm3 (0.7-4.5); Lymphocytes % 10.6 % (10-50); Mean Corpuscular Hemoglobin 33.4 pg (27.0-31.2); Mean Corpuscular Volume 98.5 fl (80-94); Mean Platelet Volume 7.6 fl (7.4-10.4); Monocytes # 0.6 K/mm3 (0.1-1.0); Monocytes % 10.6 % (1.7-9.3); Neutrophils # 4.4 K/mm3 (1.8-7.8); Neutrophils % 76.6 % (37.0-80.0); Platelet Count 160 K/mm3 (142-424); Red Blood Count 3.61 M/mm3 (4.60-6.20); Red Cell Distribution Width 12.5 % (11.5-17.5); Sodium 131 mmol/L (136-145); White Blood Count 5.8 K/mm3 (4.8-10.8)
[2024-08-07 06:16] LABS: Potassium 3.9 mmoL/L (3.5-5.1)
[2024-08-07 06:18] LABS: Alanine Aminotransferase 17 U/L (12-78); Albumin/Globulin Ratio 1.3 (1.1-1.8); Alkaline Phosphatase 71 U/L (38-126); Anion Gap 5.9 mEq/L (5-15); Aspartate Amino Transferase 26 U/L (17-59); Bilirubin,Total 1.2 mg/dl (0.2-1.3); Blood Urea Nitrogen 13 mg/dl (9-20); Carbon Dioxide 23 mmol/L (22.0-30.0); Creatinine Clearance Estimated 99 mL/min (50-200); Estimated Glomerular Filt Rate 109 ml/min (>60); GFR (African American) 132 ML/MIN (>60); Globulin 2.2 g/dL (1.3-3.2); Total Protein,Serum 5.1 g/dl (6.3-8.2)
[2024-08-07 06:19] LABS: Calcium 7.9 mg/dl (8.4-10.2); Glucose 88 mg/dl (74-100)
--- NOTE | 2024-08-07 07:31 | EXP.ANES.II ---
[facility] Anesthesia Record Part II Anesthesia Record Part II Discharge Time: 19:03 Destination: Medical Surgical Department PACU nurse assessment reviewed?: Yes Patient Condition:: Good Anesthesia Complications:: None Swallowing reflex intact?: Yes Airway Patency: Patent Cyanosis?: No Blood Pressure: 108/75 SaO2: 98 Respiratory Rate: 17 Pulse Rate: 64 Temperature: 97.5 F Mental Status: Alert & Oriented Pain level:: 0 Nausea and/or vomitting:: None Intake, IV Amount: 850 Hydration: Adequate
[2024-08-07 07:33] VITALS: BP 108/75; PULSE 64; RESP 17; TEMP 36.4; O2SAT 98
[2024-08-07 08:00] VITALS: BP 165/78; PULSE 57; RESP 19; TEMP 36.7; O2SAT 94
--- NOTE | 2024-08-07 08:29 | EXP.SURG.PN ---
Subjective Narrative: Patient complains mainly of phlegm and coughing. No nausea. On a clear liquid diet. No appreciable bowel function. Has had dressing changed. Exam Data for Last 24 hours Vital signs and Labs for Last 24 Hours: Temp Pulse Resp BP Pulse Ox O2 Del Method O2 Flow Rate 98.9 F 54 L 17 145/81 H 95 Room Air 2 08/07/24 04:00 08/07/24 04:00 08/07/24 07:33 08/07/24 04:00 08/07/24 04:00 08/07/24 07:00 08/05/24 06:56 Laboratory Results - last 24 hr 08/07/24 05:34: WBC 5.8, RBC 3.61 L, Hgb 12.1 L, Hct 35.6 L, MCV 98.5 H, MCH 33.4 H, MCHC 34.0, RDW 12.5, Plt Count 160, MPV 7.6, Neut % (Auto) 76.6, Lymph % (Auto) 10.6, [place] % (Auto) 10.6 H, Eos % (Auto) 1.8, Baso % (Auto) 0.4, Neut # (Auto) 4.4, Lymph # (Auto) 0.6 L, [place] # (Auto) 0.6, Eos # (Auto) 0.1, Baso # (Auto) 0.0, Sodium 131 L, Potassium 3.9, Chloride 106, Carbon Dioxide 23, Anion Gap 5.9, BUN 13, Creatinine 0.70, Estimated Creat Clear 99, Estimated GFR 109, Est GFR ( Amer) 132, Glucose 88, Calcium 7.9 L, Total Bilirubin 1.2, AST 26, ALT 17, Alkaline Phosphatase 71, Total Protein 5.1 L, Albumin 2.9 L, Globulin 2.2, Albumin/Globulin Ratio 1.3 I & O for Last 24 hours: Intake & Output 08/04/24 08/05/24 08/06/24 08/07/24 11:59 11:59 11:59 11:59 Intake Total 850 / 850 4057 / 4057 1970 / 1970 Output Total 300 / 300 250 / 400 550 / 550 Balance 550 / 550 3807 / 3657 1420 / 1420 Weight 243 lb 242 lb 4.608 oz 239 lb 10.279 oz 250 lb 8 oz Microbiology Reports for the Last 24 Hours: Microbiology 08/04/24 15:44 Blood Blood Culture - Preliminary NO GROWTH AFTER 48 HOURS 08/04/24 15:18 Blood Blood Culture - Preliminary NO GROWTH AFTER 48 HOURS *Routine Abdominal Exam Comments: Distended. Incision clean with some bruising. Progress Note: A&P Assessment and plan (1) Spigelian hernia with bowel obstruction: Status: Acute Assessment and plan: Continue to limit to minimal clear liquids at this time due to lack of appreciable bowel function and findings consistent with ongoing ileus. (2) HTN (hypertension): Status: Chronic (3) HLD (hyperlipidemia): Status: Chronic (4) ESTHER (obstructive sleep apnea): Problem details: Currently on AutoPap, asymptomatic Status: Chronic
[2024-08-07] MEDS: ENOXAPARIN 40MG/0.4ML SYRINGE 40 MG SUBCUT (08:52)
[2024-08-07] MEDS: guaiFENesin 200MG/10ML SYRUP UDC 100 MG PO (08:52)
[2024-08-07] MEDS: FAMOTIDINE 20MG/2ML VIAL 20 MG IV ×2 (08:53→20:59)
--- NOTE | 2024-08-07 09:02 | EXP.ACUTE.PN ---
Subjective *Date: 08/07/24 *Time: 09:02 Interval history: Patient feels a little better this morning, not passing much gas at all. Medical Exam Vital signs and Labs for Last 24 Hours: Vital Signs Temp Pulse Resp BP Pulse Ox O2 Del Method 08/07/24 07:33 17 08/07/24 07:00 Room Air 08/07/24 05:00 Room Air 08/07/24 04:00 98.9 F 54 L 16 145/81 H 95 Room Air 08/07/24 03:00 Room Air 08/07/24 01:00 Room Air 08/06/24 23:00 Room Air 08/06/24 21:00 Room Air 08/06/24 20:44 Room Air 08/06/24 20:00 98.5 F 53 L 18 148/71 H 96 Room Air 08/06/24 18:15 98.7 F 55 L 19 174/75 H 97 Room Air 08/06/24 16:00 100.9 F H 88 19 145/81 H 94 L Room Air Intake and Output 08/06/24 08/07/24 08/07/24 23:59 07:59 15:59 Intake Total 580 / 2388 850 / 850 Output Total 100 / 800 300 / 300 Balance 480 / 1588 550 / 550 Intake: Intake, Oral Amount 580 / 1120 Intake, Total IV Amount 850 / 850 Output: Output, Urine Amount 100 / 800 300 / 300 Other: Number of Voids 0 Number of Unmeasured Voids 1 2 Weight 250 lb 8 oz Patient Weight 08/07/24 23:59 Weight 250 lb 8 oz Laboratory Results - last 24 hr 08/07/24 05:34: WBC 5.8, RBC 3.61 L, Hgb 12.1 L, Hct 35.6 L, MCV 98.5 H, MCH 33.4 H, MCHC 34.0, RDW 12.5, Plt Count 160, MPV 7.6, Neut % (Auto) 76.6, Lymph % (Auto) 10.6, [place] % (Auto) 10.6 H, Eos % (Auto) 1.8, Baso % (Auto) 0.4, Neut # (Auto) 4.4, Lymph # (Auto) 0.6 L, [place] # (Auto) 0.6, Eos # (Auto) 0.1, Baso # (Auto) 0.0, Sodium 131 L, Potassium 3.9, Chloride 106, Carbon Dioxide 23, Anion Gap 5.9, BUN 13, Creatinine 0.70, Estimated Creat Clear 99, Estimated GFR 109, Est GFR ( Amer) 132, Glucose 88, Calcium 7.9 L, Total Bilirubin 1.2, AST 26, ALT 17, Alkaline Phosphatase 71, Total Protein 5.1 L, Albumin 2.9 L, Globulin 2.2, Albumin/Globulin Ratio 1.3 I & O for Labs for Last 24 Hours: Intake & Output 08/04/24 08/05/24 08/06/24 08/07/24 23:59 23:59 23:59 23:59 Intake Total 850 / 850 2789 / 2789 2388 / 2388 850 / 850 Output Total 300 / 300 500 / 800 300 / 300 Balance 850 / 850 2489 / 2489 1888 / 1588 550 / 550 Weight 243 lb 242 lb 4.608 oz 239 lb 10.279 oz 250 lb 8 oz Microbiology Reports for the Last 24 Hours: Microbiology 08/04/24 15:44 Blood Blood Culture - Preliminary NO GROWTH AFTER 48 HOURS 08/04/24 15:18 Blood Blood Culture - Preliminary NO GROWTH AFTER 48 HOURS Constitutional: Present no acute distress Respiratory: Present normal respiratory effort Cardiac: Present Reg Rate and Rhythm Extremities: Present normal inspection and full ROM Skin: Present intact; Absent erythema Neuro: Present Grossly Intact and moves all extremities Assessment and Plan *Assessment and plan (1) Spigelian hernia with bowel obstruction: Status: Acute Category: Medical Code(s): K43.6 - Other and unspecified ventral hernia with obstruction, without gangrene (2) HTN (hypertension): Status: Chronic Qualifiers: Hypertension type: essential hypertension Qualified Code(s): I10 - Essential (primary) hypertension Category: Medical Code(s): I10 - Essential (primary) hypertension (3) HLD (hyperlipidemia): Status: Chronic Qualifiers: Hyperlipidemia type: mixed hyperlipidemia Qualified Code(s): E78.2 - Mixed hyperlipidemia Category: Medical Code(s): E78.5 - Hyperlipidemia, unspecified (4) ESTHER (obstructive sleep apnea): Problem Comment: Currently on AutoPap, asymptomatic Status: Chronic Category: Medical Code(s): G47.33 - Obstructive sleep apnea (adult) (pediatric) Plan No change in treatment today, OOB and ambulate.
[2024-08-07] MEDS: 0.9 % SODIUM CHLORIDE 1000ML 1,000 ML 75 ML IV (11:21)
[2024-08-07 15:57] VITALS: BMI 30.4
[2024-08-07 16:00] VITALS: BP 154/58; PULSE 56; RESP 21; TEMP 36.8; O2SAT 94
--- NOTE | 2024-08-07 19:08 | PC.NURSE ---
patient ambulated 4 times this shift, and hit SURGICAL SUPPLY ASSISTANT pump once this shift
[2024-08-07 20:00] VITALS: BP 153/74; PULSE 73; RESP 18; TEMP 36.9; O2SAT 95
[2024-08-07] MEDS: SODIUM CHLORIDE 0.9% 10ML VIAL 8 ML IV (20:59)
[2024-08-08] MEDS: 0.9 % SODIUM CHLORIDE 1000ML 1,000 ML 75 ML IV (02:15)
[2024-08-08 04:00] VITALS: BP 161/82; PULSE 55; RESP 16; TEMP 36.7; O2SAT 96; BMI 30.8
--- NOTE | 2024-08-08 04:34 | PC.NURSE ---
Addendum entered by Jackie Germain RN 08/08/24 06:57: Patient has ambulated the halls 1x this shift Addendum entered by Jackie Germain RN 08/08/24 06:46: Patient had 1 bowel movement at 0600. 1mg cleared from DEAN OF MEN pump. Original Note: Patient alert and oriented x4 this shift. Tolerating room air well. Patient states there is no pain unless he gets up out of bed to ambulate/use restroom. Abdominal lap sites re-dressed by Dr Lara on 08/07/24. Small amount of blood on dressing. Bowel sounds hypoactive. Family has remained at bedside and patient has rested well through the night. NS @ 75mls/hr. DEAN OF MEN and call light within reach.
[2024-08-08] MEDS: ACETAMINOPHEN 325MG TAB 650 MG PO (06:40)
--- NOTE | 2024-08-08 07:27 | PC.NURSE ---
Pt. states he doesn't want to be hooked up to iv fluids being that he is drinking fluids and has no nausea or vomiting. Also states he doesn't need the pain pump hooked up anymore because the tylenol is working.
[2024-08-08 08:00] VITALS: BP 175/75; PULSE 60; RESP 17; TEMP 36.7; O2SAT 96
--- NOTE | 2024-08-08 08:19 | PC.NURSE ---
let nurse (Familia) know about elevated blood pressure.
[2024-08-08 08:31] LABS: Basophils % 0.5 % (0.1-2.0); Eosinophils # 0.2 K/mm3 (0.0-0.4); Eosinophils % 3.6 % (0.1-12.0); Hematocrit 35.1 % (42.0-52.0); Hemoglobin 12.1 g/dL (14.1-18.0); Lymphocytes # 0.6 K/mm3 (0.7-4.5); Mean Corpuscular HGB Conc 34.5 g/dL (31.8-35.4); Mean Corpuscular Hemoglobin 33.8 pg (27.0-31.2); Mean Corpuscular Volume 97.9 fl (80-94); Mean Platelet Volume 7.4 fl (7.4-10.4); Monocytes # 0.5 K/mm3 (0.1-1.0); Monocytes % 7.7 % (1.7-9.3); Neutrophils # 4.5 K/mm3 (1.8-7.8); Neutrophils % 77.2 % (37.0-80.0); Platelet Count 160 K/mm3 (142-424); Red Blood Count 3.59 M/mm3 (4.60-6.20); Red Cell Distribution Width 12.6 % (11.5-17.5); White Blood Count 5.8 K/mm3 (4.8-10.8)
[2024-08-08 08:43] LABS: Chloride 105 mmol/L (98-107)
[2024-08-08] MEDS: FAMOTIDINE 20MG/2ML VIAL 20 MG IV (08:43)
--- NOTE | 2024-08-08 08:43 | EXP.SURG.PN ---
Subjective Patient reports: no new complaints and bowel movement Exam Data for Last 24 hours Vital signs and Labs for Last 24 Hours: Temp Pulse Resp BP Pulse Ox O2 Del Method O2 Flow Rate 98.1 F 60 17 175/75 H 96 Room Air 2 08/08/24 08:00 08/08/24 08:00 08/08/24 08:00 08/08/24 08:00 08/08/24 08:00 08/08/24 08:00 08/05/24 06:56 Laboratory Results - last 24 hr 08/08/24 08:06: WBC 5.8, RBC 3.59 L, Hgb 12.1 L, Hct 35.1 L, MCV 97.9 H, MCH 33.8 H, MCHC 34.5, RDW 12.6, Plt Count 160, MPV 7.4, Neut % (Auto) 77.2, Lymph % (Auto) 11.0, [place] % (Auto) 7.7, Eos % (Auto) 3.6, Baso % (Auto) 0.5, Neut # (Auto) 4.5, Lymph # (Auto) 0.6 L, [place] # (Auto) 0.5, Eos # (Auto) 0.2, Baso # (Auto) 0.0 I & O for Last 24 hours: Intake & Output 08/05/24 08/06/24 08/07/24 08/08/24 11:59 11:59 11:59 11:59 Intake Total 850 / 850 4057 / 4057 2390 / 2390 2483 / 2483 Output Total 300 / 300 250 / 400 550 / 550 200 / 200 Balance 550 / 550 3807 / 3657 1840 / 1840 2283 / 2283 Weight 242 lb 4.608 oz 239 lb 10.279 oz 250 lb 8 oz 253 lb 4.8 oz Constitutional Constitutional: no acute distress *Routine Respiratory Exam Respiratory: Absent respiratory distress *Routine Cardiovascular Exam Cardiovascular: Absent tachycardia *Routine Abdominal Exam Abdominal: Present soft Comments: Incisions healing without evidence of infection. Progress Note: A&P Assessment and plan (1) Spigelian hernia with bowel obstruction: Status: Acute Assessment and plan: Overall, doing well status post partial small bowel resection and primary repair of hernia Continue to increase ambulation Full liquid diet ordered (2) HTN (hypertension): Status: Chronic Assessment and plan: Restart home meds (3) HLD (hyperlipidemia): Status: Chronic Assessment and plan: Restart home meds (4) ESTHER (obstructive sleep apnea): Problem details: Currently on AutoPap, asymptomatic Status: Chronic
[2024-08-08 08:44] LABS: Albumin Level 3.1 g/dl (3.5-5.0); Potassium 3.8 mmoL/L (3.5-5.1); Sodium 127 mmol/L (136-145)
[2024-08-08 08:47] LABS: Alanine Aminotransferase 18 U/L (12-78); Albumin/Globulin Ratio 1.3 (1.1-1.8); Alkaline Phosphatase 73 U/L (38-126); Anion Gap 3.8 mEq/L (5-15); Aspartate Amino Transferase 27 U/L (17-59); Bilirubin,Total 1.6 mg/dl (0.2-1.3); Blood Urea Nitrogen 13 mg/dl (9-20); Carbon Dioxide 22 mmol/L (22.0-30.0); Creatinine Clearance Estimated 101 mL/min (50-200); Estimated Glomerular Filt Rate 109 ml/min (>60); GFR (African American) 132 ML/MIN (>60); Globulin 2.4 g/dL (1.3-3.2); Total Protein,Serum 5.5 g/dl (6.3-8.2)
[2024-08-08 08:48] LABS: Calcium 8.1 mg/dl (8.4-10.2); Glucose 110 mg/dl (74-100)
[2024-08-08] MEDS: hydroCHLOROthiazide 12.5MG CAPSULE 12.5 MG PO (08:56)
[2024-08-08] MEDS: IRBESARTAN 150MG TAB 150 MG PO (08:56)
[2024-08-08] MEDS: ASPIRIN EC 81MG TABLET 81 MG PO (09:00)
--- NOTE | 2024-08-08 09:04 | P.PN_ITS ---
Subjective *Date: 08/08/24 *Time: 09:04 Interval history: Patient feels better, had a bowel movement this morning. Medical Exam Vital signs and Labs for Last 24 Hours: Vital Signs Temp Pulse Resp BP Pulse Ox O2 Del Method 08/08/24 08:00 98.1 F 60 17 175/75 H 96 Room Air 08/08/24 06:57 Room Air 08/08/24 05:00 Room Air 08/08/24 04:00 98.0 F 55 L 16 161/82 H 96 Room Air 08/08/24 03:00 Room Air 08/08/24 01:00 Room Air 08/07/24 23:00 Room Air 08/07/24 21:00 Room Air 08/07/24 20:59 Room Air 08/07/24 20:00 98.5 F 73 18 153/74 H 95 Room Air 08/07/24 16:00 98.2 F 56 L 21 154/58 H 94 L Room Air Intake and Output 08/07/24 08/08/24 08/08/24 23:59 07:59 15:59 Intake Total 875 / 2565 408 / 1188 780 / 1188 Output Total 200 / 200 Balance 875 / 2265 208 / 988 780 / 988 Intake: Intake, Oral Amount 540 / 1380 780 / 780 Intake, Total IV Amount 335 / 335 408 / 408 0.9 % Sodium Chloride 1000ML 1, 335 / 335 408 / 408 000 ml @ 75 mls/hr IV .[id number] [facility] Rx#:[id number] Output: Output, Urine Amount 200 / 200 Other: Number of Voids 1 Number of Unmeasured Voids 1 1 Number of Bowel Movements 1 Weight 253 lb 4.8 oz Patient Weight 08/08/24 23:59 Weight 253 lb 4.8 oz Laboratory Results - last 24 hr 08/08/24 08:06: WBC 5.8, RBC 3.59 L, Hgb 12.1 L, Hct 35.1 L, MCV 97.9 H, MCH 33.8 H, MCHC 34.5, RDW 12.6, Plt Count 160, MPV 7.4, Neut % (Auto) 77.2, Lymph % (Auto) 11.0, [place] % (Auto) 7.7, Eos % (Auto) 3.6, Baso % (Auto) 0.5, Neut # (Auto) 4.5, Lymph # (Auto) 0.6 L, [place] # (Auto) 0.5, Eos # (Auto) 0.2, Baso # (Auto) 0.0, Sodium 127 L, Potassium 3.8, Chloride 105, Carbon Dioxide 22, Anion Gap 3.8 L, BUN 13, Creatinine 0.70, Estimated Creat Clear 101, Estimated GFR 109, Est GFR ( Amer) 132, Glucose 110 H, Calcium 8.1 L, Total Bilirubin 1.6 H, AST 27, ALT 18, Alkaline Phosphatase 73, Total Protein 5.5 L, Albumin 3.1 L, Globulin 2.4, Albumin/Globulin Ratio 1.3 I & O for Labs for Last 24 Hours: Intake & Output 08/05/24 08/06/24 08/07/24 08/08/24 23:59 23:59 23:59 23:59 Intake Total 2789 / 2789 2388 / 2388 2565 / 2565 1188 / 1188 Output Total 300 / 300 500 / 800 300 / 300 200 / 200 Balance 2489 / 2489 1888 / 1588 2265 / 2265 988 / 988 Weight 242 lb 4.608 oz 239 lb 10.279 oz 250 lb 7.122 oz 253 lb 4.8 oz Constitutional: Present no acute distress Respiratory: Present normal respiratory effort Cardiac: Present Reg Rate and Rhythm GI: Present soft Comments:: few bowel sounds Extremities: Present normal inspection and full ROM Skin: Present intact; Absent erythema Neuro: Present Grossly Intact and moves all extremities Assessment and Plan *Assessment and plan (1) Spigelian hernia with bowel obstruction: Status: Acute Category: Medical Code(s): K43.6 - Other and unspecified ventral hernia with obstruction, without gangrene (2) HTN (hypertension): Status: Chronic Qualifiers: Hypertension type: essential hypertension Qualified Code(s): I10 - Essential (primary) hypertension Category: Medical Code(s): I10 - Essential (primary) hypertension (3) HLD (hyperlipidemia): Status: Chronic Qualifiers: Hyperlipidemia type: mixed hyperlipidemia Qualified Code(s): E78.2 - Mixed hyperlipidemia Category: Medical Code(s): E78.5 - Hyperlipidemia, unspecified (4) ESTHER (obstructive sleep apnea): Problem Comment: Currently on AutoPap, asymptomatic Status: Chronic Category: Medical Code(s): G47.33 - Obstructive sleep apnea (adult) (pediatric) Plan Patient is doing well, advance diet, possible home later today.
[2024-08-08 15:39] VITALS: BP 177/88; PULSE 59; RESP 17; TEMP 36.6; O2SAT 98
--- NOTE | 2024-08-09 10:33 | SW/DCPLANNER ---
Spoke with patient on the phone. Patient stated that he is doing very well. Patient stated that he is aware of his up coming appointments and to continue his medication. Patient stated that he has no concerns of or questions at this time. Meg Kim
--- NOTE | 2024-09-06 13:32 | P.DS_ITS ---
General Admission date:: 08/04/24 HPI HPI HPI: Mr. Jack Simpson is a 78-year-old male with a history of TIA, coronary artery disease, anxiety, sleep apnea, hyperlipidemia, hypertension, BPH, who presents with acute right lower quadrant pain since 9 AM this morning. The pain has been 10 out of 10. He has had pain like this intermittently over the past several years, and has been to the ER for it, but he reports that no cause was ever found. He denies vomiting, but endorses nausea. Last bowel movement was at 7:30 AM, unsure when he last passed flatus. Denies fevers. Workup in the emergency room revealed no leukocytosis, no acidosis, mild hyponatremia, normal renal function, normal lactate. A CT scan demonstrated incarcerated right lower quadrant spigelian hernia with a loop of small bowel. Hospital Course Hospital Course Hospital Course: The patient was seen by general surgery and the plan was for laparoscopic reduct ion and repair of an incarcerated spigelian hernia. The patient was given IV Zosyn as well as Lovenox. The patient ended up having an open exploratory laparotomy with reduction and primary repair of the spigelian hernia and a small bowel resection. The patient did have some abdominal pain post procedure but was able to get up and walk. By 08/05/2024 he was started on ice chips. He was started on Lovenox 40 mg daily for DVT prophylaxis and was also given Zosyn for 24 hours perioperatively. He was advanced to a liquid diet and was able to walk in the hallway. He began passing gas. Dr. Lara began following the patient and wanted him to have clear liquids due to lack of appreciable bowel function and findings consistent with an ongoing ileus. By 08/08/2024 he had improved and pain was controlled. He did have a bowel movement and it was felt he was stable to be discharged home and will follow-up with general surgery and Dr. Xiao. Exam Data for Last 24 hours Vital signs and Labs for Last 24 Hours: Temp Pulse Resp BP Pulse Ox O2 Del Method O2 Flow Rate 97.9 F 59 L 17 177/88 H 98 Room Air 2 08/08/24 15:39 08/08/24 15:39 08/08/24 15:39 08/08/24 15:39 08/08/24 15:39 08/08/24 15:39 08/05/24 06:56 Narrative: Constitutional: Mild distress due to abdominal pain Head: normocephalic and atraumatic Eyes absent eye discharge ENT: normal oropharynx mucous membranes moist Neck: Full range of motion and trachea midline, absent tenderness Respiratory: CTA bilaterally Cardiac: regular rate and rhythm GI: Present soft, large diastases recti. Hard tender nodule approximately golf ball size in the right lower quadrant that is tender. He does not have generalized peritonitis. Bowel sounds are scant. He has scattered lap scars, right lower quadrant Fortunato?Jefferson score Rectal: Deferred : Deferred Extremities: Present normal inspection, absent edema Skin: Intact, absent cyanosis or pallor Neuro: Grossly intact, alert, awake, oriented x 3 moving all extremities DS: Diagnosis Discharge Diagnosis (1) Spigelian hernia with bowel obstruction: Status: Acute Code(s): K43.6 - Other and unspecified ventral hernia with obstruction, without gangrene (2) HTN (hypertension): Status: Chronic Code(s): I10 - Essential (primary) hypertension Qualifiers: Hypertension type: essential hypertension Qualified Code(s): I10 - Essential (primary) hypertension (3) HLD (hyperlipidemia): Status: Chronic Code(s): E78.5 - Hyperlipidemia, unspecified Qualifiers: Hyperlipidemia type: mixed hyperlipidemia Qualified Code(s): E78.2 - Mixed hyperlipidemia (4) ESTHER (obstructive sleep apnea): Status: Chronic Code(s): G47.33 - Obstructive sleep apnea (adult) (pediatric) Problem details: Currently on AutoPap, asymptomatic Meds Home Medications and Allergies Home Medications ?Medication ?Instructions ?Recorded ?Confirmed ?Type omega-3 fatty acids 1,000 mg 1,000 mg PO DAILY Supplement 10/24/17 08/30/24 History capsule (Fish Oil Concentrate) tamsulosin 0.4 mg capsule 0.4 mg PO HS 12/28/21 08/30/24 History aspirin 81 mg tablet,delayed 81 mg PO Q2D 07/02/24 08/30/24 History release losartan 100 mg tablet 100 mg PO DAILY High Blood 07/02/24 08/30/24 Rx Pressure #90 tabs atorvastatin 40 mg tablet 40 mg PO HS Cholesterol 08/05/24 08/30/24 History hydrochlorothiazide 12.5 mg tablet 12.5 mg PO DAILY 08/05/24 08/30/24 History sildenafil 100 mg tablet 100 mg PO DAILYP PRN Sexual 08/05/24 08/30/24 History Activity New Prescriptions to Start Prescriptions: Allergies Allergy/AdvReac Type Severity Reaction Status Date / Time No Known Allergies Allergy Verified 08/30/24 09:23 Discharge Plan Disposition Patient Disposition: Home, Self-Care Condition: Fair Discharge Order Discharge Orders: Discharge Order (Routine); Ordered 08/08/24 Ordered By: Kadeem Xiao Follow up Plan Follow up with: Kadeem Xiao MD [Primary Care Provider] - 08/13/24 2:00 pm Ho Lara MD [Staff Physician] - 08/14/24 1:45 pm Prescriptions/Medication Reconciliation: Continued aspirin 81 mg tablet,delayed release (DR/EC) 81 mg PO Q2D losartan 100 mg tablet 100 mg PO DAILY Qty: 90 3RF omega-3 fatty acids [Fish Oil Concentrate] 1,000 mg capsule 1,000 mg PO DAILY tamsulosin 0.4 MG capsule 0.4 mg PO HS sildenafil 100 mg tablet 100 mg PO DAILYP PRN (Reason: Sexual Activity) Patient Comments: TAKE 1 TABLET BY MOUTH NEEDED atorvastatin 40 mg tablet 40 mg PO HS hydrochlorothiazide 12.5 mg tablet 12.5 mg PO DAILY Problem Reconciliation Problems Reviewed?: Yes Patient Discharge Instructions ACTIVITY: Limited activity DIET: other Additional Instructions: Change surgical dressings as needed and every other day. Advance to a soft diet as tolerated Patient Instructions: DI for Exploratory Laparotomy, DI for Small Bowel Resection, DI for Surgical Site Infection, Ventral Hernia Print Language: Burmese Providers Primary Care Provider: Kadeem Xiao Admit Provider: Kadeem Xiao Attending Provider: Kadeem Xiao
== END 2024-08-08 16:25 | disposition home or self-care (01) | DRG 330 ==
LOC: ER 15:41 → SDC 15:55 → 2ND 18:40
PROVIDERS: Surgery; Admitting Provider Family Medicine; Emergency Provider Student in an Organized Health Care Education/Training Program; PCP Family Medicine; Visit Provider Family Medicine
PROC: 0WQF4ZZ Repair Abdominal Wall, Percutaneous Endoscopic Approach (ICD-10-PCS; principal; 2024-08-04 16:00)
DX: K43.6 Other and unspecified ventral hernia with obstruction, without gangrene (principal); E87.1 Hypo-osmolality and hyponatremia; K55.8 Other vascular disorders of intestine; R47.01 Aphasia; I25.10 Atherosclerotic heart disease of native coronary artery without angina pectoris; I10 Essential (primary) hypertension; E78.2 Mixed hyperlipidemia; G47.33 Obstructive sleep apnea (adult) (pediatric); Z79.899 Other long term (current) drug therapy; Z53.31 Laparoscopic surgical procedure converted to open procedure
CPT/HCPCS: 36415; 74177; 76870; 80053; 81001; 83605; 83690; 85007; 85025; 86803; 87040; 87389; 88307; 99285; J3490; J0131; J1100; J1171; J1595; J1650; J2270; J2405; J2543; J3010; J7030; J7120; Q9967; S0028

== ENCOUNTER 2024-08-24 15:00 | Outpatient (CLI) | payer MEDICARE, BC, SELFPAY ==
--- NOTE | 2024-08-24 15:04 | XR_ITS ---
FINAL REPORT TECHNIQUE: Chest PA & Lateral CLINICAL HISTORY: INFLUENZA A, former smoker of 30 yrs COMPARISON: 03/03/2023 FINDINGS: 2 views of the chest were performed. The heart size is normal. The mediastinum is within normal limits. There is no acute cardiopulmonary process. There are stable chronic changes in both lungs. There are no pleural effusions. There is no pneumothorax. The bony thorax appears intact. IMPRESSION: Stable chronic changes without acute cardiopulmonary process. Reviewed, Interpreted and Dictated by Morgan Humphreys MD Transcribed by Evie Robles Authenticated and [facility]
== END 2024-08-24 23:59 | disposition home or self-care (01) ==
LOC: RAD 15:02
PROVIDERS: PCP Family Medicine; Visit Provider Family Medicine
DX: J10.1 Influenza due to other identified influenza virus with other respiratory manifestations (principal)
CPT/HCPCS: 71046

== ENCOUNTER 2025-03-05 09:46 | Outpatient (CLI) | payer MEDICARE, BC, SELFPAY ==
[2025-03-05 11:26] LABS: Blood Urea Nitrogen 16 mg/dl (9-20); Creatinine,Serum 0.70 mg/dl (0.66-1.25); Estimated Glomerular Filt Rate 109 ml/min (>60); GFR (African American) 132 ML/MIN (>60)
== END 2025-03-05 23:59 | disposition home or self-care (01) ==
LOC: LAB 09:51
PROVIDERS: PCP Family Medicine; Visit Provider Surgery
DX: K43.9 Ventral hernia without obstruction or gangrene (principal)
CPT/HCPCS: 36415; 82565; 84520

== ENCOUNTER 2025-03-15 09:01 | Outpatient (CLI) | payer MEDICARE, BC, SELFPAY ==
--- OUTSIDE RECORDS SUMMARY | 2024-02-10 05:40 | XMS_ITS | Encounter Summary ---
Author Organization [facility] Address [address] [place] [address] Care Team Providers Care Post Adoption Coordinator Name Role Phone Kadeem Xiao MD Primary Care Provider [phone] Encounter Details Date Type Department Care Team (Late st Contact Info) Description 02/10/2024 5:40 AM EDT Hospital Encounter [facility] [place] [address] [address] Social History Tobacco Use Types [...] on filedocumented in this encounter Care Teams Post Adoption Coordinator Relationship Specialty Start Date End Date Kadeem Xiao MD [address] [place] [facility] [address] [place] [address] PCP - General Family Medicine 04/13/23 documented as of this encounter
--- OUTSIDE RECORDS SUMMARY | 2024-08-13 10:00 | XMS_ITS ---
Author Organization [facility] Address [address] [place] [phone] Care Team Providers Care Consumer Banker Name Role Phone Ninoska Kadeem Primary Care Provider Allergies Allergen (clinical drug ingredient) Drug/Non Drug Allergy documented on EMR Reaction Allergy Type Onset Date Status amoxicillin Amoxicillin rash Drug Allergy Act sabrina dexamethasone Dexamethasone elevated BP Drug Allergy Active REASON FOR VISIT F/U [facility] D/C Medications Medication SIG (Take, Route, [...] [address] [place] [phone] 08/13/2024 Kadeem Xiao Incarcerated ventral hernia K43.6 [...] * Kai HOLCOMBDOB:[birth year] (79 yo M)Acc No.[id number]:08/13/2024 Patient: Kai CHRISTIANSEN Provider: Munir Xiao M.D. :1945 A ge:78 Y S ex:Male Date:08/13/2024 Address:[address] [place] [address] JENN[place] S[place], [phone] Subjective: * Chief Complaints: * 1 . F/U [facility] D/C. * HPI: H PI: 78 year old male presents with c/o Here for follow up on: 10/05-06/2024 [facility] hospitalization, see pt docs. Pt went [...] * Images: Billing Information: * Visit Code: 87027 Office Visit, Est Pt., Level 3. * Procedure Codes: G2211 Complex e/m visit add on. * Electronic signature of Leeann Xiao MD on 03/15/2025 at 09:03 AM EDT Sign off status: Pending * Provider: Munir Xiao M.D. Date: 1 10/14/2023 Generated for Shelli boo/Bernadine/eTransmitting on: 0 03/15/2025 09:03 AM EDT History and Physical Notes * HPI (History of Present Illness) Category Sub-Category Detail Notes Category Not es HPI Here for follow up on: 08/04-2023 [facility] hospitalization, see pt docs. Pt went [...]
--- OUTSIDE RECORDS SUMMARY | 2024-08-24 09:45 | XMS_ITS ---
Author Organization [facility] Address [address] [place] [phone] Care Team Providers Care Special Investigation Unit Investigator Name Role Phone Kadeem Xiao Primary Care [...] [address] [place] [phone] 08/24/2024 Kadeem Xiao Influenza A J 10.1 [...] * Kai HOLCOMBDOB:[birth year] (79 yo M)Acc No.[id number]:08/24/2024 Progress Notes Patient: Kai CHRISTIANSEN Provider: Munir Xiao M.D. :1945 A ge:78 Y S ex:Male Date:08/24/2024 Address:[address] [place] [address] JENN[place] S[place], [id number] Subjective: * Chief Complaints: * 1 . Congestion coughing. * HPI: E NT/respiratory: 78 year old male presents with c/o cough P t complains of greenish yellow sputum production cough for 2 days. Associated with nasal congestion. Pt states his grandson was at his house [facility] and had a fever, was later dx [...] Temp:97.9, BP:134/70, HR:74, O2 Sat:96% on RA, Nurse:kk, Ht: 75.25, BMI:29.72. * Examination: E NT/Respiratory: [...] G 2211 Complex e/[place], [address] [place], [address] Flu Test- Nasal Swab, Modifiers: QW , 20381 COVID TEST IN HOUSE, Modifiers: QW * Follow Up: 2 Weeks * Images: Billing Information: * Visit Code: 61223 Office Visit, Est Pt., Level 3. * Procedure Codes: G2211 Complex e/[place]. [address] [place]. [address] Flu Test- Nasal Swab. Modifiers: QW 56647 COVID TEST IN HOUSE. Modifiers: QW * Electronic signature of Leeann Xiao MD on 03/15/2025 at 09:03 AM EDT Sign off status: Pending * Provider: Munir Xiao M.D. Date: 10/25/2023 Generated for Printi ng/Faraquelg/eTransmitting on: 0 03/15/2025 09:03 AM EDT History and Physical Notes * HPI (History of Present Illness) Category Sub-Category Detail Notes Category Not es ENT/respiratory cough Pt complains of greenish yellow sputum production cough for 2 days. Associated with nasal congestion. Pt states his grandson was at his house [facility] and had a fever, was later dx with Flu A Examination Category Sub-Category Detail Notes Category Not es ENT/Respiratory Oral cavity : erythema without exudate on pharynx Heart : RRR, normal S1 S2 Lungs: clear to auscultatio n bilaterally General Appearance: NAD
--- OUTSIDE RECORDS SUMMARY | 2024-08-31 09:45 | XMS_ITS ---
Author Organization [facility] Address [address] [place] [phone] Care Team Providers Care Field Map Editor Name Role Phone Ninoska Kadeem Primary Care [address] [place] [phone] 08/31/2024 Kadeem Xiao Other specified postprocedural states [...] * Kai HOLCOMBDOB:[birth year] (79 yo M)Acc No.[id number]:08/31/2024 Patient: Kai CHRISTIANSEN Provider: Munir Xioa M.D. :1945 A ge:78 Y S ex:Male Date:08/31/2024 Address:[address] [place] [address] [place], [id number] Subjective: * Chief Complaints: * 1 . [...] * Images: Billing Information: * Visit Code: 51963 Office Visit, Est Pt., Level 3. * Procedure Codes: G2211 Complex e/m visit add on. * Electronic signature of Leeann Xiao MD on 03/15/2025 at 09:04 AM EDT Sign off status: Pending * Provider: Munir Xiao M.D. Date: 08/31/2024 Generated for Shelli boo/Bernadine/eTransmitting on: 0 03/15/2025 09:04 AM EDT History and Physical Notes * HPI (History of Present Illness) Category Sub-Category Detail Notes Category Not es HPI Here for follow up on: hernia re pair surgery. Pt states he is doing well and does not have any concerns today Examination Category Sub-Category Detail Notes Category Not es General Examination General Appearance: NAD
--- OUTSIDE RECORDS SUMMARY | 2025-02-27 05:05 | XMS_ITS | Encounter Summary ---
Author Organization [facility] Address [address] [place] [address] Care Team Providers Care Drafter Detail Name Role Phone Kadeem Xiao MD Primary Care Provider [phone] Encounter Details Date Type Department Care Team (Late st Contact Info) Description 02/27/2025 5:05 AM EDT Hospital Encounter [facility] [place] [address] [address] Social History Tobacco Use Types [...] on filedocumented in this encounter Care Teams Drafter Detail Relationship Specialty Start Date End Date Kadeem Xiao MD [address] [facility] [address] [place] [address] PCP - General Family Medicine 04/13/23 documented as of this encounter
--- OUTSIDE RECORDS SUMMARY | 2025-02-28 10:30 | XMS_ITS | Encounter Summary ---
[facility] Address [address] [place] [address] Care Team Providers Care Information Assistant Name Role Phone Kadeem Xiao MD Primary Care Provider [phone] Reason for Visit * Reason Comments Prostate Cancer Follow Up Encounter Details Date Type Department Care Team (Late st Contact Info) Description 02/28/2025 10:30 AM EDT Office Visit [facility] [address] [place] [address] [address] [place] [address] Carlton Adan MD [address] [place] [address] Prostate cancer (Primary Dx) Social History Tobacco [...] Sign Reading Time Taken Comments Blood Pressure 155/83 02/28/2025 10:39 AM EDT Pulse 60 02/28/2025 10:39 AM EDT Temperature 36.6 C (97.9 F) 02/28/2025 10:39 AM EDT Respiratory Rate 14 02/28/2025 10:39 AM EDT Oxygen Saturation 97% 02/28/2025 10:39 AM EDT Inhaled Oxygen Concentration - - Weight 111 kg (244 lb) 02/28/2025 10:39 AM EDT Height 193 cm (6' 3.98 ) 02/28/2025 10:39 AM EDT Body Mass Index 29.71 02/28/2025 10:39 AM EDT documented in this encounter Functional Status documented as of this encounter Progress Notes * Carlton Adan MD - 02/28/2025 10:30 AM EDT FOLLOW UP NOTE PATIENT: Kai Chu : 1945 COMPLETION DATE: 07/01/2003 DIAGNOSIS: Prostate cancer - Stage IIIC (cT2a, cN0, cM0, PSA: 4.7, Grade Group: 5) BRIEF HISTORY: Routine follow-up visit. He has a history of clinical localized, high-grade prostate cancer treated with CyberKnife stereotactic body radiotherapy as a sole treatment modality. He declined larger field pelvic irradiation or androgen ablation. Acute posttreatment urinary irritative symptoms have resolved. He is still using Flomax nightly with no significant urinary complaints. No dysuria or hematuria. He experienced posttreatment diarrhea and dumping syndrome which was thought to be related to gallbladder and/or incarcerated hernia and resolved after surgery. He has no hematochezia. PSA values have significantly decreased to 0.92 ng/mL in October 2023 and 0.53 ng/ml on 02/03/2024 and 0.2 ng/ml on 11/07/24. MEDICATIONS: Medication reconciliation for the patient was reviewed and confirmed in the electronicmedical record. Review of Systems Constitutional: Positive for fatigue. Negative for appetite change, chills, fever and unexpected weight change. HENT: Negative. Eyes: Negative. Respiratory: Negative for cough and shortness of breath. Cardiovascular: Positive for leg swelling (left knee). Negative for chest pain. Gastrointestinal: Negative for abdominal pain, constipation, diarrhea, nausea and vomiting. Endocrine: Negative. Genitourinary: Positive for frequency and nocturia (1-2 times per night). Negative for bladder incontinence, difficulty urinating and dysuria. Musculoskeletal: Positive for arthralgias. Skin: Negative. Neurological: Negative for dizziness, headaches and light-headedness. Hematological: Bruises/bleeds easily. Psychiatric/Behavioral: Negative for depression and sleep disturbance. The patient is not nervous/anxious. IPSS Questionnaire (AUA-7): Over the past month??? 1) Incomplete Emptying How often have you had a sensation of not emptying your bladder? 0 - Not at all 2) Frequency How often have you had to urinate less than every two hours? 2 - Less than half the time 3) Intermittency How often have you found you stopped and started again several times when you urinated? 1 - Less than 1 time in 5 4) Urgency How often have you found [...] urinate? 2 - 2 times Total Score: 14 Quality of life due to urinary symptoms: If you were to spend the rest of your life with your urinary condition the way it is now, how wouldyou feel about that? 1-Pleased Urine Leakage (Incontinence) 0-No Leakage Sexual Health Inventory Current Status 1) How do you rate your confidence that you could achieve and keep an erection? 3-Moderate 2) When you had erections with sexual stimulation, how often were your erections hard enough for penetration (entering your partner)? 4-Most times (much more than half the time) 3) During sexual intercourse, how often were you able to maintain your erection after you had penetrated (entered) into your partner? 4-Most times (much more than half the time) 4) During sexual intercourse, how difficult was it to maintain your erection to completion of intercourse? 3-Difficult 5) When you attempted sexual intercourse, how often was it satisfactory to you? 4-Most times (much more than half the time) Total Score: 18 Bowel Health Inventory Current Status: 0-No problems, no rectal bleeding, no discharge, less then 5 bowel movements a day Karnofsky score: 90 Physical Exam Musculoskeletal: General: Tenderness (Left knee with brace) present. Right lower leg: Edema present. Left lower leg: Edema present. VITAL SIGNS: Vitals: 02/28/25 1039 BP: 155/83 Pulse: 60 Resp: 14 Temp: 97.9 ??F (36.6 ??C) TempSrc: Oral SpO2: 97% Weight: 111 kg (244 lb) Height: 193 cm (75.98 ) PainSc: 0-No pain Karnofsky score: 90 The following portions of the patient's history were reviewed and updated as appropriate: allergies, current medications, past family history, past medical history, past social history, past surgicalhistory and problem list. Diagnoses and all orders for this visit: 1. Prostate cancer (Primary) IMPRESSION: Prostate cancer, Diana's 4+5 = 9, clinical stage IIIC (T1c, N0, M0), pretreatment PSA4.7 ng/mL. He is now more than 1 1/2 years status post CyberKnife stereotactic body radiotherapy use as a solemodality without androgen ablation. He tolerated treatment very well. He is in biochemical disease remission with PSA value already reaching the target gilberto of less than 0.5 ng/mL. RECOMMENDATIONS: He plans to continue urology for surveillance and PSA testing under the care of Dr. Barney. I will be happy to be available, if needed. I spent a total of 15 minutes on todays visit, with more than 10 minutes in direct face to face communication, and the remainder of the time spent in reviewing the relevant history, records, available imaging, and for documentation. Return if symptoms worsen or fail to improve. Carlton Adan MD documented in this encounter Plan of Treatment Not on file documented as of this encounter Visit Diagnoses Diagnosis Prostate cancer- Primary Malignant neoplasm of prostate documented in this encounter Care Teams Information Assistant Relationship Specialty Start Date End Date Kadeem Xiao MD [address] [place] [address] [facility] [address] [place] [address] PCP - General Family Medicine 04/13/23 documented as of this encounter
--- OUTSIDE RECORDS SUMMARY | 2025-03-15 09:03 | XMS_ITS ---
Author Organization [facility] Address [address] [place] [address] Care Team Providers Care Technology Sales Representative Name Role Phone Kadeem Xiao MD Primary Care Provider [phone] Active Problems Problem Noted Date Diagnosed Date Prostate cancer 04/13/2023 Cancer Staging:Clinical stage from 02/17/2023:Stage IIIC(cT2a, cN0, cM0, PSA: 4.7, Grade Group: 5) - Signed by Carlton Adan MD on 04/13/2023 Current Treatment and Therapy Plans No current plan information found. Past Treatment and Therapy Plans No past plan information found. Treatment Summaries Prostate cancer* Images from the original note were not included. Prostate Cancer Survivorship Plan General Information Patient name Kai Chu Date of 1945 Phone Email [email or web address] Cancer Treatment Team Patient Care Team: Carlton Adan MD as Consulting Physician (Radiation Oncology) Kai Barney MD as Consulting Physician (Urology) Provider Phone numbers Care Team Provider: Carlton Adan MD, ([phone]) Care Team Provider: Kai Barney MD, ([phone]) Care Team Provider: Cynthia Scruggs MD, ([phone]) Care Team Provider: Ho Lara MD, ([phone]) Post Treatment Care Team Primary Care Physician Kadeem Xiao MD [phone] [place] [address] [place] [address] Background Information Medical history Past Medical History: [...] doctors and nurses such as exercise andactivity. FCI effects of radiation therapy vary greatly depending [...] to you. General Cancer Support & Resources [facility] [address] [facility], [address] [place] [address] Med Onc: Floor Tech Onc: Staff Air Defense Officer: Chana Nolasco - Psychiatric Nurse Practitioner: Ana Romero APRN - Kick It! (A free smoking cessation program) Financial Counselor and Contact Information: [facility] Financial Counseling [phone] Organ Tuner Contact Information: Mae Chappell - Local Cancer Support Group and Contact Information: Seun Cancer Buddialexandria: This support group is open to anyone that has been diagnosed with cancer of any type. Meets at 6:30pm on the last Tuesday of each month. Location: [facility]; [address] [place] [address]. For more information call Neelam Aguilar @ . Prostate Cancer Support & Resources Local Resources TOO Prostate Support Group: The mission of Us TOO is to provide hope and improve the lives of of those affected by prostate cancer through support, education, and advocacy/ awareness. The group meets the of each month at 6:30 p.m. [address] [facility], [address] [place], [place] [id number] Surveillance How Frequent? Medical Oncology visits 1 [...] advice of a doctor or other health behavioral health care coordinator. Please use these recommendations to talk with [...] of cancer in the general population. The [place] Cancer Society (ACS) recommends these screening guidelines for men: Recommendation Frequency Comments Colon and Rectal Cancer Screening For more information see the ACS document Colorectal Cancer: Early Detection. www.cancer.org/ssLINK/hrbkqmponm-nabmmq-iyjiq-detection-roberto carlos Options for colon cancer screening can [...] see the ACS Document Testicular Cancer Detection: http://www.cancer.org/cancer/testicularcancer/detailedguide/arunrsnert-mdraaf-rg tection Men of any age can develop [...] more information, visit http://www.nhlbi.nih.gov/health/public/heart/obesity/lose_wt/index.htm www.win.niddk.nih.gov Call the [place] [employer] Association Talk to your health care [...] from plant sources. For more information, visit http://www.choosemyplate.gov/food-groups/ Eat healthy, including plenty of fruits and [...] Experts recommend at least 30 minutes of zuuoszrt-an-nhxsabdo activity per day, five days a week. [...] you can call a national hotline at 0(207)-QUIT-NOW. Have regular check-ups by a healthcare professional. For more information about healthy screening tests for men visit the U.S. Department of Health and Human Services. http://www.womenshealth.gov/ndnrmgofi-ibeqx-fge-vaccines/txjdxbrth-fbifv-tqx-men / For more information about adult vaccinations visit the CDC: http://www.cdc.gov/vaccines/recs/schedules/adult-schedule.htm Keep up-to-date on general health screening tests, including cholesterol, blood pressure and glucose (blood sugar) levels. Get an annual influenza vaccine (flu shot). Get vaccinated with the pneumococcal vaccine, which prevents a type of pneumonia, and re-vaccinatedas determined by your health care team. Don???t forget dental and eye health! The [place] [employer] recommends adults have their eyes examined every two years until age 60, then annually. People who wear glasses or correctivelenses or are at high risk for eye problems (i.e., diabetics, family history of eye disease) shouldbe seen more frequently. The [place] [employer] Association recommends adults see their dentist at least once a year. No information on file. No information on file.
--- OUTSIDE RECORDS SUMMARY | 2025-03-15 09:03 | XMS_ITS | Clinical Summary ---
Author Organization [facility] Address [address] [place] [address] Care Team Providers Care Emergency Medical Service Manager Name Role Phone Kadeem Xiao MD Primary Care Provider [phone] Allergies No known active allergies Medications tamsulosin [...] 1 TABLET BY MOUTH ONCE DAILY Active [place] 3 1000 MG capsule Take by mouth. Acti ve Dupilumab (Dupixent) 300 MG/2ML solution prefilled syringe Inject 300 mg every 2 weeks by subcutaneous route. 10/30/19 25 Active omeprazole (priLOSEC) 40 MG capsule Take 1 capsule by mouth Daily. 2024 Disconti nued(*Th erapy complete d) Active Problems Problem Noted Date Diagnosed Date Prostate cancer 04/13/2023 Cancer Staging:Clinical stage from 02/17/2023:Stage IIIC(cT2a, cN0, cM0, PSA: 4.7, Grade Group: 5) - Signed by Carlton Adan MD on 04/13/2023 Encounters Date Type Department Care Team Description 02/28/2025 10:30 AM EDT Office Visit [facility]ATION [facility]COLOGY [address] [facility] [address] [place] [address] Carlton Adan MD Prostate cancer (Primary Dx) 02/27/2025 5:05 AM EDT Hospital Encounter [facility] [place] [address] [facility] [address] [place] [address] 02/27/2025 Travel from Last 3 Months Family History Medical History Relation Name Comments Prostate cancer Brother Cancer Father Lung cancer Father Stroke Mother Relation Name Status Comments Brother Father Mother Social History Tobacco Use Types Packs/Day Years Used Date Smoking Tobacco: Former Cigarettes 1 1 - 2000 Smokeless Tobacco: Never Tobacco [...] Mass Index 29.71 02/28/2025 10:39 AM EDT Plan of Treatment Health Maintenance Due Date Last Done Comments TDAP/TD VACCINES (1 - Tdap) 1964 ZOSTER VACCINE (1 of 2) 1964 Pneumococcal Vaccine 50+ (2 of 2 - PPSV23) 08/24/2019 06/29/2019 RSV Vaccine - Adults (1 - 1- dose 75+ series) 2021 ANNUAL WELLNESS VISIT 04/12/2022 HEPATITIS C SCREENING 04/12/2022 COVID-19 Vaccine (8 - Pfizer risk 2023- season) 2025 07/17/2024, 09/13/2023, 06/30/2022, Additional history exists INFLUENZA VACCINE 05/29/2025 07/17/2024, , 06/30/2022, Additional history exists Insurance MEDICARE A & B Member Subscriber Plan / Payer (Ef fective 2011-Present) Name:Kai Chu Member ID:[id number] Relation to Subscriber:Self Name:Kai Chu Subscriber ID:[id number] Payer ID:[id number] Group ID:Not on file Type:Not on file Address: [facility] [id number] [address] Care Teams Emergency Medical Service Manager Relationship Specialty Start Date End Date Kadeem Xiao MD [address] [facility] [address] [place] [address] PCP - General Family Medicine 04/13/23
--- OUTSIDE RECORDS SUMMARY | 2025-03-15 09:04 | XMS_ITS | Encounter Summary ---
Author Organization [facility] Address [address] [place] [address] Care Team Providers Care Bender Machine Name Role Phone Kadeem Xiao MD Primary Care Provider [phone] Encounter Details Date Type Department Care Team (Latest Contact Info) Description 02/27/2025 Travel Social History Tobacco Use Types Packs/Day Years [...] on filedocumented in this encounter Care Teams Bender Machine Relationship Specialty Start Date End Date Kadeem Xiao MD [address] [place] [address] [place] [id number] PCP - General Family Medicine 04/13/23 documented as of this encounter
--- OUTSIDE RECORDS SUMMARY | 2025-03-15 09:04 | XMS_ITS | Data Portability ---
Author Organization [facility] and [facility] Address [address] [place] [address] Assessment No assessment recorded. Plan of Treatment Reminders Order Date Submit Date Provider Last Modified By Organization Details Last Modified Time Details Appointments OV EST 15 2024 09:15A M Kai Barney Jr, MD Not available Not available Not available Lab PSA, serum or plasma 2024 025 [facility] (Laboratory), [address] [place] [address] [place], [address], 11/07/2024 17:58:21 PSA, serum or plasma 2023 024 [email or web address] [facility] (Lab), [address] [place] [address] [address], [place], [address], 06/25/2024 20:50:43 PSA, serum or plasma 2023 024 [facility] (Lab), [address] [place] [address] [address], [place], [address], 02/03/2024 19:51:41 PSA, serum or plasma 2023 024 [email or web address] [facility] (Lab), [address] [place] [address] [address] [place], [address], 11/22/2023 08:34:07 Referral None recorded. Procedures None recorded. Surgeries None recorded. Imaging None recorded. Medication Orders tamsulosi n 0.4 mg capsule 2024 025 [facility] 591, [address], [address], 11/07/2024 10:22:08 sildenafi l 100 mg tablet 2023 024 [facility] 591, [address], [address], 06/22/2024 10:11:16 Patient TargetsNo targets recorded. Patient InstructionsNo instructions recorded. Reason for Referral None Reported. Results Created Date Observation Date Name Description Value Unit Range Abnormal Flag Note LastModifiedBy Organization Detail LastModifiedTime 02/16/2002/15/2023 RFS-P ATHOL OGY SPECI MEN REQUE ST pathreq Patho logy [address] [place] [address] Phone or [phone] Fax Ke tran Jr., M.D., Medic al Direc tor [facility] [address] : [place] [address] Phone Numbe r: [id number] [phone] Paxton brito M.D. PATHO LOGY REPOR T Patie nt Name: ABDIAS Humphrey Date of : 9[birth year] Age/S ex: 77/M Accou nt Numbe r: [id number] Medic al Recor d Numbe r: [id number] Order ing MD: JIMMIE BARNEY AM Date Colle cted : 2022 Date Recei betina : 2022 Date Repor alcon : 023 Exam: Biops y Acces nia# : [id number] Labor atory #: [id number] Copie s To: MELISSA GALICIA Techn [...] consu lt origi nal repor t from [facility], dated 04/28 . Previ ous Patie nt Histo ry and Files ABDIAS ON, WILLI AM A ( 7 M) i??SS N: [id number] ?? 1. [id number] , DateC ollec alcon: 03/10 A: ESOPH NICHOL, BIOPS Y, DISTA L Diagn osis: Reflu x esoph agiti s with ulcer ation and acute infla mmati on Negat sabrina for metap lasia , dyspl jena or malig anju RLL 2. [id number] , DateC ollec alcon: 12/30 A: GASTR IC BIOPS IES Diagn osis: Mild chron ic gastr itis with react sabrina epith elial blackman es B: DISTA L ESOPH NICHOL, BIOPS IES Diagn osis: React sabrina squam ous mucos a Mild chron ic gastr itis Negat sabrina for intes tinal metap lasia FLP 3. 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 [id number] , DateC ollec alcon: 07/08 A: HERNI A SAC, [...] lar invas ion is seen. NOTE: Dr. Barney is notif ied of the above malli gnant diagn oses on Legal ly authe ntica alcon by PAXTON ROTH MD 04-29 11:31 :00 2022. Profe ssion al inter preta tion rende red by Paxton brito Jr., M.D. at [facility], [address] [place] [address] . Final Diagn osis BENIG N PROST ATE TISSU E, [place] [address] BodyS ite PROST ATE, NEEDL E CORE [...] [place] [address] BodyS ite PROST ATE, NEEDL E CORE [...] [place] [address] BodyS ite Legal ly authe ntica alcon [...] [place] [address] BodyS ite PROST ATE, NEEDL E CORE [...] [place] [address] BodyS ite PROST ATE, NEEDL E CORE [...] ROTH MD 04-29 11:31 :00 [place] [address] BodyS ite PROST ATE, NEEDL E CORE [...] [place] [address] BodyS ite PROST ATE, NEEDL E CORE [...] I[place] [address] BodyS ite PROST ATE, NEEDL E CORE [...] PR[place] [address] BodyS ite PROST ATE, NEEDL E CORE [...] IFIED EJT/[place] [address] Legal ly authe ntica alcon by PAXTON ROTH MD 04-29 11:31 :00 Not Available [facility] (Pre-Op Clinic) [address] [place] [address] [place], [address], 04/29/2023 11:55:02 05/18/20 23 05/18/2023 BASIC METAB OLIC PANEL sodium 131 mmol/ L 137-14 7 low Not Available [facility] (Pre-Op Clinic) [address] [place] [address] [place], [address], 05/18/2023 13:15:01 05/18/20 23 05/18/2023 BASIC METAB OLIC PANEL potassium 4.0 mmol/ L 3.5-5. 1 Not Available [facility] (Pre-Op Clinic) [address] [place] [address] [place], [address], 05/18/2023 13:15:01 05/18/20 23 05/18/2023 BASIC METAB OLIC PANEL chloride 97 mmol/ L 98-110 low Not Available [facility] (Pre-Op Clinic) [address] [facility] [place], [address], 05/18/2023 13:15:01 05/18/20 23 05/18/2023 BASIC METAB OLIC PANEL carbon dioxide 21 mmol/ L 21-30 Not Available [facility] (Pre-Op Clinic) [address] [facility] [place], [address], 05/18/2023 13:15:01 05/18/20 23 05/18/2023 BASIC METAB OLIC PANEL anion gap 13 mmol/ L 6-14 Not Available [facility] (Pre-Op Clinic) [address] [place] [address] [place], [address], 05/18/2023 13:15:01 05/18/20 23 05/18/2023 BASIC METAB OLIC PANEL glucose 104 mg/dL 70-115 Not Available [facility] (Pre-Op Clinic) [address] [facility] [place], [address], 05/18/2023 13:15:01 05/18/20 23 05/18/2023 BASIC METAB OLIC PANEL BUN 15 mg/dL 9-20 Not Available [facility] (Pre-Op Clinic) [address] [place] [address] [place], [address], 05/18/2023 13:15:01 05/18/20 23 05/18/2023 BASIC METAB OLIC PANEL creatinine 0.8 mg/dL 0.5-1. 5 Not Available [facility] (Pre-Op Clinic) [address] [place] [address] [place], [address], 05/18/2023 13:15:01 05/18/20 23 05/18/2023 BASIC METAB OLIC PANEL BUN/creatini ne ratio 19 ratio 10-20 Not Available [facility] (Pre-Op Clinic) [address] [place] [address] [place], [address], 05/18/2023 13:15:01 05/18/20 23 05/18/2023 BASIC METAB OLIC PANEL glom filtration rate TNP mL/mi n >60- GFR has only been valid ated for patie nts 18-70 years of age. Not Available [facility] (Pre-Op Clinic) [address] [place] [address] [place], [address], 05/18/2023 13:15:01 05/18/20 23 05/18/2023 BASIC METAB OLIC PANEL osmolality (calculated) 274 mosmo l/kg 275-30 1 low OSMOL ALITY IS A CALCU LATIO N UTILI ZING THE SERUM /PLAS MA SODIU M, GLUCO SE AND UREA NITRO GEN (BUN) LEVEL S. FOR THE MOST ACCUR ATE RESUL T A MEASU RED SERUM OSMOL ALITY IS SUGGE STED. Not Available [facility] (Pre-Op Clinic) [address] [place] [address] [place], [address], 05/18/2023 13:15:01 05/18/20 23 05/18/2023 BASIC METAB OLIC PANEL calcium 8.9 mg/dL 8.5-10 .8 Not Available [facility] (Pre-Op Clinic) [address] [place] [address] [place], [address], 05/18/2023 13:15:01 05/18/20 23 05/18/2023 BASIC METAB OLIC PANEL note Unles s other miranda noted testi ng perfo rmed at: [facility] [address] [place] [address] Paxton brito MD Not Available [facility] (Pre-Op Clinic) [address] [place] [address] [place], [address], 05/18/2023 13:15:01 10/31/19 24 10/31/2023 PROST ATE SPECI FIC AG (PSA) prostate specific Ag, serum 0.92 Not Available [facility] (Pre-Op Clinic) [address] [place] [address] [place], [address], 10/31/2023 20:07:20 10/31/19 24 10/31/2023 PROST ATE SPECI FIC AG (PSA) note Devin s other miranda noted testi ng perfo rmed at: [facility] [address] [place] [address] Paxton brito MD Not Available [facility] (Pre-Op Clinic) [address] [place] [address] [place], [address], 10/31/2023 20:07:20 02/03/20 24 02/03/2024 PROST ATE SPECI FIC AG (PSA) prostate specific Ag, serum N/A Not Available [facility] (Pre-Op Clinic) [address] [place] [address] [place], [address], 02/03/2024 19:51:41 02/03/20 24 02/03/2024 PROST ATE SPECI FIC AG (PSA) PSA 0.53 NG/mL 0.00-4 .00 Not Available [facility] (Pre-Op Clinic) [address] [place] [address] [place], [address], 02/03/2024 19:51:41 02/03/20 24 02/03/2024 PROST ATE SPECI FIC AG (PSA) note Devin brito other miranda noted testi ng perfo rmed at: [facility] [address] [place] [address] Paxton brito MD Not Available [facility] (Pre-Op Clinic) [address] [place] [address] [place], [address], 02/03/2024 19:51:41 06/22/20 24 06/22/2024 PROST ATE SPECI FIC AG (PSA) prostate specific Ag (PSA) 0.30 NG/mL 0.0-4. 0 Not Available [facility] (Lab Registration) [address] [place], [address], 06/22/2024 15:37:47 06/22/20 24 06/22/2024 PROST ATE SPECI FIC AG (PSA) note Devin s other miranda noted testi ng perfo rmed at: [facility] [address] [place] [address] [phone] Paxton brito MD CLIA: [id number] Not Available [facility] (Lab Registration) [address] [place], [address], 06/22/2024 15:37:47 11/08/19 25 11/07/2024 PROST ATE SPECI FIC AG (PSA) prostate specific Ag (PSA) 0.20 NG/mL 0.0-4. 0 Not Available [facility] (Lab Registration) [address] [place], [address], 11/07/2024 17:58:21 11/08/19 25 11/07/2024 PROST ATE SPECI FIC AG (PSA) note Unles s other miranda noted testi ng perfo rmed at: [facility] [address] [place] [address] [phone] Paxton brito MD CLIA: [id number] Not Available [facility] (Lab Registration) [address] [place], [address], 11/07/2024 17:58:21 02/23/20 23 02/22/2023 elect megha douglasgr am No observ ation record ed. [email or web address] [address] [place], [address], 02/25/2023 14:13:28 03/03/20 23 03/03/2023 NM, bone scan, whole body No observ ation record ed. [email or web address] (X-Ray) [address], [place], [address], 03/07/2023 07:37:45 03/03/20 23 03/03/2023 XR, abdom en, 1 view No observ ation record ed. [email or web address] [address] [place], [address], 03/07/2023 07:39:29 03/10/20 23 03/10/2023 CT, angio gram, chest , w/ contr ast No observ ation record ed. [email or web address] [address] [place], [address], 03/16/2023 15:16:20 03/10/20 23 03/10/2023 CT, chest + abdom en + pelvi s, w/ contr ast No observ ation record ed. [email or web address] [facility] (X-Ray) [address], [place], [address], 03/14/2023 12:35:04 Result Notes None recorded. Problems Name Problem SNOMED Code Status Onset Date Resolution Date Notes Provider Name and Address Organization Details Recorded Time Hypertensive disorder 01084502 Active 2022 Cyndi Geiger JERSON landis LPNT [facility] [place] 13:52:31 Problem Notes None recorded. Procedures Surgical History Date Name Laterality Status Provider Name and Address Organization Details Recorded Time cholecystectomy completed Cyndi ARTHUR Cathi BILL [facility] [place] 02/09/2023 13:54:13 hernia repair completed Cyndi ARTHUR Cathi BILL [facility] [place] 02/09/2023 13:54:20 Imaging Results None recorded. Procedure [...] Updated DateTime 10/31/2023 193.04 cm 29.5 kg/m2 672514.35 g 98.2 [degF] Caleb Moreno [facility] [place] 10/31/2023 10:40:28 Date Recorded Body height Body mass index (BMI) Body weight Provider Name and Address Organization Details Last Updated DateTime 11/07/2024 193.04 cm 29.5 kg/m2 482637.35 g Avel Lindquist [facility] [place] 11/07/2024 09:14:33 Date Recorded Body height Body mass index (BMI) Body weight Body temperature Provider Name and Address Organization Details Last Updated DateTime 02/03/2024 193.04 cm 29.5 kg/m2 099239.35 g 97.8 [degF] Caleb Moreno [facility] [place] 02/03/2024 09:24:21 Date Recorded Body height Body mass index (BMI) Body weight Body temperature Provider Name and Address Organization Details Last Updated DateTime 06/22/2024 193.04 cm 29.5 kg/m2 550999.35 g 98 [degF] Caleb Moreno [facility] [place] 06/22/2024 09:50:30 Social History Question Answer Notes LastModified by Organizat ion Details LastModified Time Tobacco Smoking Status Former Smoker Cyndi Geiger [facility], [place] - NT [facility] [place] 02/09/2023 13:54:00 Do You Have An Advance Directive? No [email or web address] Information not available 10/31/2023 Are You Blind Or Do You Have Difficulty Seeing? Yes [email or web address] Information not available 10/31/2023 When Did You Quit Smoking? 16+yearssinc elastcigaret te [email or web address] Information not available 02/09/2023 What Was The Date Of Your Most Recent Tobacco Screening? 03/13/2023 Information not available 10/31/2023 Are You Passively Exposed To Smoke? No [email or web address] Information not available 10/31/2023 Sex: Unknown Functional Status Question Answer Note LastModified by Organizat [employer] Details LastModified Time Do you use any illicit or recreational drugs? No [email or web address] Information not available 10/31/2023 What is your level of alcohol consumption? Moderate Information not available 10/31/2023 What is your exercise level? Moderate [email or web address] Information not available 10/31/2023 Mental Status Question Answer Note LastModified by Organization D etails LastModified Time Do you feel stressed (tense, restless, nervous, or anxious, or unable to sleep at night)? [id number] [email or web address] Information not available 10/31/2023 Family History Nothing Reported. Medical History Condition Response Back Problems Y Past Encounters Encounter ID Performer Location Encounter Start Date Encounter Closed Date Diagnosis/Indication Diagnosis SNOMED-CT Code Diagnosis ICD10 Code Diagnosis Note [id number] Kai Barney Jr, MD [facility] [address] [address] 02/09/2023 13:42:05 02/09/2023 14:30:41 Prostate nodule [id number] 31162 N40.2 patient with history of slightly elevated PSA but normal for age. Prostate examinatio n today shows a suspicious prostate nodule. We discussed options including biopsy versus close monitoring . Patient would like to proceed with biopsy. We discussed the procedure and complicati ons. We will set this up at his earliest convenien e. We will recheck his PSA today. Lower urin eliza tract symptoms due to benign prostatic hypertrophy [id number] 9101 N40.1 patient with history of BPH. He continues on tamsulosin and is voiding well. Erectile dysfunction 860 801792 F52.21 Patient with history of erectile dysfunctio n. He continues on sildenafil 100 mg as needed with good results. [id number] Kai Barney Jr, MD [facility] [address] [email or web address] [id number] 03/14/2023 11:00:04 03/14/2023 12:26:08 Carcinoma of prostate [id number] C61 patient's recent PSA was 4.9. He had and left prostate nodule. Prostate biopsies showed De Berry's 4+5=9 adenocarci noma in the left lateral apex and left medial [place]. CT scan and bone scan have been performed showing no definite extraprost atic disease. We discussed treatment options today. Proximally 40 minutes was spent with the patient and his discussing the treatment options and complicati ons at pros and cons of each. He wishes to proceed with external beam radiation. We discussed that due to his high-grade prostate cancer he may be a candidate for combinatio n radiation with IMRT plus CyberKnife . We discussed hormonal therapy for the risk of extraprost atic disease that may be microscopi c at this time. We discussed side effects of the hormonal therapy and as the patient is very active physically and is still sexually active he would like to hold off on that for now. [id number] Kai Barney Jr, MD [facility] [email or web address] [id number] 10/31/2023 10:31:37 10/31/2023 11:24:25 Carcinoma of prostate [id number] C61 patient's recent PSA was 4.9. He had and left prostate nodule. Prostate biopsies showed De Berry's 4+5=9 adenocarci noma in the left lateral apex and left medial [place]. CT scan and bone scan have been performed showing no definite extraprost atic disease. patient underwent CyberKnife radiothera py that he finished in June. He had no significan t side effects and feels well. . Is here today for his 1st post treatment PSA. Adult hydrocele 02797605 11 9105 N43.3 patient states his hydrocele has resolved [id number] Kai Barney Jr, MD [facility] [address] [place] [address] 02/03/2024 09:14:40 02/03/2024 10:01:32 Prostate specific antigen above reference range 650486219 R97.20 Patient with history of prostate cancer. Recheck PSA today. Carcinoma of prostate 25 [id number] C61 patient with history of prostate cancer.. He had a left prostate nodule. Prostate biopsies showed Diana's 4+5=9 adenocarci noma in the left lateral apex and left medial [place]. CT scan and bone scan have been performed showing no definite extraprost atic disease. patient underwent CyberKnife radiothera py that he finished in June. Patient has been bothered fecal urgency and loose stools since treatment. Did have mild mount of diarrhea prior to treatment. His PSA in October was significan tly decreased to 0.92. We will repeat his PSA today. Benign pro static hyperplasia with outflow obstruction 463383743 N40.1 patient voiding well to continue the tamsulosin . Erectile dysfunction 860 119225 F52.21 Patient with history of erectile dysfunctio n. He continues on sildenafil 100 mg as needed with good results. [id number] Kai Barney Jr, MD [facility] [address] [address] 06/22/2024 09:46:26 06/22/2024 10:18:18 Carcinoma of prostate [id number] C61 patient with history of prostate cancer.. He had a left prostate nodule. Prostate biopsies showed De Berry's 4+5=9 adenocarci noma in the left lateral apex and left medial [place]. CT scan and bone scan have been performed showing no definite extraprost atic disease. patient underwent CyberKnife radiothera py that he finished in June. Patient has been bothered fecal urgency and loose stools since treatment. Did have mild mount of diarrhea prior to treatment. His PSA in October was significan tly decreased to 0.92 and down to 0.5 in February. We will repeat the PSA today. Benign pro static hyperplasia with outflow obstruction 315231443 N40.1 patient voiding well to continue the tamsulosin . Erectile dysfunction 860 145212 F52.21 Patient with history of erectile dysfunctio n. He continues on sildenafil 100 mg as needed with good results. 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 We discussed that this is a central nervous system mediated event and that is not a physical issue. We discussed certain techniques to help with the problem. [id number] Kai Barney Jr, MD [facility] [address] [address] 11/07/2024 09:05:28 11/07/2024 09:57:35 Malignant neoplasm of prostate [id number] C61 patient with history of prostate cancer.. He had a left prostate nodule. Prostate biopsies showed De Berry's 4+5=9 adenocarci noma in the left lateral apex and left medial [place]. CT scan and bone scan have been performed showing no definite extraprost atic disease. patient underwent CyberKnife radiothera py that he finished in June. Patient has been bothered fecal urgency and loose stools since treatment but they improved after repair of a strangulat ed hernia in July 2024. His last PSA was 0.3 in May 2024. His PSA in October 2023 0.92 and down to 0.5 in February 2024. We will repeat the PSA today. Benign pro static hyperplasia with outflow obstruction 667173426 N40.1 N13.8 patient voiding well to continue the tamsulosin . Erectile dysfunction 860 544832 N52.9 Patient with history of erectile dysfunctio n. He is currently not sexually active due to his 's ill health. Health Concerns Section Related Observation LastModified by Organization Detai ls LastModified Time None Recorded Concern Status LastModified by Organization Details LastModified Time None Recorded Advance Directives Directive N: Payers Insurance Date Sequence Insurance Name Policy Number Policy Carpenter Covered Member ID Carpenter Member ID Guarantor Name 11/04/2024 2 [place] [id number] Kai Chu [id number] Kai Chu 11/04/2024 1 [employer]IC[email or web address] (MEDICARE) Kai Chu [id number] Kai Chu Notes Date Note Type Note Provider Name and Address Organization Details Recorded Time 03/14/2023 text/html Patient is a 77-year-old white male recently diagnosed with prostate cancer. Returns today to discuss his recent prostate biopsy and his imaging studies. Biopsy showed 2 of 10 biopsies positive for prostate cancer. Both of the positive biopsies were in the left apical region. Both showed De Berry's 4+5=9 adenocarcinoma. 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 Kai Barney Jr, MD [address], [address], [place], [address], [facility] [place] 03/17/2023 14:03:06 10/31/2023 text/html Patient is a 77-year-old white male diagnosed with prostate cancer last fall. Biopsy showed 2 of 10 biopsies positive for prostate cancer. Both biopsies were in the left apical region. Both showed De Berry's 4+5 adenocarcinoma. This was consistent with a left-sided prostate nodule felt on exam. CT and bone scan negative for extraprostatic disease. Patient elected to have external beam radiation and was referred to [facility]. Patient completed CyberKnife x5 treatments with an expanded field in June. States he has some loose stools for a week. States he feels good now. He states his biopsies were sent off to [facility] for confirmation and left a were consistent with a De Berry's 4+5 diagnosis. He also had a PSMA scan prior to treatment that was negative. Kai Barney Jr, MD [address], [address], [place], [address], [facility] [place] 11/14/2023 17:13:07 02/03/2024 text/html Patient is a 78-year-old white male history of prostate cancer diagnosed last fall. Prostate biopsy showed 210 biopsies positive prostate cancer. Both biopsies were in the left apical region both showed Diana's 4+5 adenocarcinoma. Patient also had left-sided prostate nodule. CT and bone scan negative disease. Patient underwent CyberKnife radiotherapy x5 at [facility] June. His pretreatment PSA was 4.9 and his 1st PSA after treatment was 0.92 in October 2023. Patient has been bothered by some frequent loose stools and fecal urgency since treatment. He is currently on [employer]ru[employer]. Kai Barney Jr, MD [address] [place] [address], [address], [place], [address], [facility] [place] 02/03/2024 11:17:07 06/22/2024 text/html patient is a 78-year-old white male with history of prostate cancer status post CyberKnife June 2023. He returns today in routine follow-up. PSAs have trended down appropriately with the last 1 being 0.5 in February. patient's pretreatment PSA was 4.9. Biopsies showed 2 10 biopsies positive for De Berry's 4+5 prostate cancer. He also has a left-sided prostate nodule on exam.Patient has had some loose stools every week since CyberKnife but did have some diarrhea prior to treatment. He is currently on Citrucel. Kai Barney Jr, MD [address] [place] [address], [address], [place], [address], [facility] - [facility] & [place] 06/25/2024 22:47:24 11/07/2024 text/html Patient is a 78-year-old white male with history of prostate cancer, BPH and erectile dysfunction. He returns today in routine follow-up. His prostate cancer was treated with CyberKnife in June 2023. His last PSA was 0.3 in May 2024 which has continued to decline. Patient's pretreatment PSA was 4.9. Biopsy showed 2 of 10 biopsies positive for Diana's 4+5 prostate cancer. He had a left-sided prostate nodule on exam. Patient states that he had a strangulated hernia that was repaired emergently in July. He has a history of some diarrhea that he blamed on radiation but he states that that has improved since strangulated hernia repair.Patient continues on tamsulosin and states that he does not take it he can definitely tell or urinary tract symptoms.He has history of erectile dysfunction but his is ill and not currently sexually active. Kai Barney Jr, MD [address], [address], [place], [address], [place] - [facility] & [place] 11/07/2024 10:22:37
--- OUTSIDE RECORDS SUMMARY | 2025-03-15 09:04 | XMS_ITS | Patient Health Record ---
[facility] Address [address] [place] [id number] Care Team Providers Care Dean Of [employer] Name Role Phone Kadeem Xiao Primary Care Provider Nehal Samuel [phone] Allergies Allergen (clinical drug ingredient) Drug/Non Drug [...] changes Performing Lab: Notes/Report: stable chronic changes CBC Fingerstick (in house) Reviewed date:05/21/2024 10:45:42 [...] Interpretation:Negative Performing Lab: Notes/Report: Negative Result: neg Medications Medication SIG (Take, Route, Frequency, Duration) Notes Start Date End Date Status Losartan Potassium 100 MG 1 tab(s) orall y once a day; Duration: 30 day(s) Active CareTouch CPAP & BIPAP Hose NASAL AUTOPA P 02/11 HEATED AIR DIRECTED 12/22/2016 Active Dupixent 300 MG/2ML as directed subcutaneously every 2 weeks Active Atorvastatin Calcium 40 MG 1 tab(s) oral ly once a day 10/24/2017 Active Fish Oil 1000 MG 1 cap(s) orally once daily Active Triamcinolone Acetonide 0.1 % 1 radha appl ied topically 2 times a day 12/30/2022 Active hydroCHLOROthiazide 12.5 MG 1 tab(s) ora lly once a day Active Pimecrolimus 1 % 1 application Externally Twice a day 03/26/2024 Active Doxycycline Hyclate 100 MG 1 capsule Ora lly Two times a day 05/21/2024 Active Immunizations Vaccine Route Administration Date Status Comme nts COVID 19 Pfizer Unknown 11/01/2020 Administered COVID 19 Pfizer Unknown 11/20/2020 Administered COVID 19 Pfizer Unknown 07/08/2021 Administered Fluzone High Dose (65yr and older) Unknown 07/27/2017 Administered Fluzone High Dose (65yr and older) IM Intramuscular 06/23/2018 Administered Fluzone High Dose (65yr and older) IM Intramuscular 05/20/2021 Administered Fluzone PF Quad (6-35 months) Unknown 06/30/2022 Administered Prevnar (PCV13) Unknown 06/29/2019 Administered xFlu shot- 6months-36 months of gdm-WMPV-SALA-trivalent Unknown 08/01/2016 Administered xFluzone High Dose-private (65yr&older) IM Intramuscular 07/31/2014 Administered xFluzone High Dose-private (65yr&older) Unknown 06/29/2019 Administered Problems Problem Type SNOMED Code ICD Code Onset Dates Problem Status W/U Status Risk Notes Problem Essential hypertension (51771913) Essential (primary) hypertension (I10) Active confirmed Problem Vitamin D deficiency (52046541) Vitamin D deficiency (E55.9) Active confirmed Problem Essential hypertension (43123823) Essential hypertension (I10) Active confirmed Problem Psoriasis (8125490) Psoriasis (L40.9) Active co nfirmed Problem Vitamin B12 deficiency (non anemic) (75036787) Vitamin B 12 deficiency (E53.8) Active confirmed Problem Primary insomnia (4472014) Primary insomnia (F51.01) Active confirmed Problem Nicotine dependence (62776783) Personal history of nicotine dependence (Z87.891) Active confirmed Problem Obstructive sleep apnea syndrome (00541361) Obstructive sleep apnea syndrome (G47.33) Active confirmed Problem Obesity (298425098) Non morbid o besity, unspecified obesity type (E66.9) Active confirmed Problem Obstructive sleep apnea syndrome (73769477) ESTHER (obstructive sleep apnea) (G47.33) Active confirmed Problem Osteoarthritis of knee (601840989) Primary osteoarthritis of left knee (M17.12) Active confirmed Problem Hyperlipidaemia (43393626) Hyperlipidemia, unspecified hyperlipidemia type (E78.5) Active confirmed Problem Hypersomnia (11707800) Hypersomnia (G47.10) Active confirmed Problem Pure hypercholesterolemia (799971104) Pure hypercholesterolemia (E78.00) Active confirmed Problem Hearing loss (43961673) Hearing loss, unspecified hearing loss type, unspecified laterality (H91.90) Active confirmed Problem Arthritis of right knee (6264208918845677) Arthritis of right knee (M17.11) Active confirmed Problem Raised prostate specific antigen (580952983) Elevated PSA, less than 10 ng/ml (R97.20) Active confirmed Problem Diverticular disease of colon (461670416) Colon, diverticulosis (K57.30) Active confirmed Problem Ocular migraine (28567127) Ocular migraine (G43.109) Active confirmed Vital Signs Heart Rate 74 /min 08/31/2024 Blood pressure diastolic 70 mm Hg 08/31/2024 Height 75.25 in 08/31/2024 Blood pressure systolic 132 mm Hg 08/31/2024 Weight 237.4 lbs 08/31/2024 BMI 29.47 kg/m2 08/31/2024 Encounters Encounter Location Date Provider Diagnosis [facility] [address] [place], [place] [id number] 03/26/2024 Kadeem Melba Rash R21 [facility] [address] [place], [place] [id number] 05/21/2024 Nehal Samuel URI (upper respirato ry infection) J06.9 [facility] [address] [place], [place] [id number] 08/13/2024 Kadeem Melba Incarcerated ventral hernia K43.6 and Other specified postprocedural states Z98.890 [facility] [address] [place], [place] [id number] 08/24/2024 Kadeem Melba Influenza A J10.1 [facility] [address] [place], [place] [id number] 08/31/2024 Kadeem Melba Other specified postprocedural states Z98.890 [facility] [address] [place], [place] [id number] 03/27/2024 Kadeem Melba [facility] [address] [place], [place] [id number] 05/22/2024 Kadeem Melba [facility] [address] [place], [place] [id number] 08/27/2024 Kadeem Melba Assessments Encounter Date Diagnosis (ICD Code) Assessment Notes Treatment Notes Treatment Clinical Notes Section Notes 03/26/2024 Rash (ICD-10 - R21) 05/21/2024 URI (upper respiratory infection) (ICD-10 - J06.9) 08/13/2024 Other specified postprocedural states (ICD-10 - Z98.890) Patient to follow up with Dr. Lara tomorrow 08/13/2024 Incarcerated ventral hernia (ICD-10 - K43.6) 08/24/2024 Influenza A (ICD-10 - J10.1) 08/31/2024 Other specified postprocedural states (ICD-10 - Z98.890) Doing well. Patient saw Dr. Lara yesterday Plan Of Treatment Pending Test Test Name Order Date [id number] 04/13/2022 Insurance Providers Payer Name Payer Address Payer Phone Subscriber Number Group Number Insured Name Patient Relationship to Insured Coverage Start Date Coverage End Date MEDICARE PART B [address] [address] [place] [id number] Kai Chu Self - patient is the insured [facility] [address] [place] [address] [id number] Kai Chu Self - patient is the insured Medical (General) History Medical History History ICD Code Allergic Rhinitis [...]
--- OUTSIDE RECORDS SUMMARY | 2025-03-15 09:05 | XMS_ITS | Data Portability ---
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 Plan of Treatment Reminders Order Date Submit Date Provider Last Modified By Organization Details Last Modified Time Details Appointments FOLLOW UP DAK 2025 01:50P M DR. COCHRAN Not available Not available Not available Lab None recorded. Referral orthopedi c referral 2019 020 [email or web address] 110 Shankar Goodson MD, [address] [place], [address], 08/27/2020 09:09:21 Procedures None recorded. Surgeries None recorded. Imaging XR, knee, 3 view 2021 022 [facility] Radiology [facility], [address] [place], [address], 12/25/2021 16:29:41 Medication Orders betametha sone dipropion ate 0.05 % topical cream 2024 025 [facility] [address] [place], [address], 11/21/2024 17:39:16 omeprazol e 40 mg capsule,d elayed release 2022 023 [facility] [address] [place], [address], 02/22/2023 15:03:23 Patient TargetsNo targets recorded. Patient InstructionsNo instructions recorded. Reason for Referral Orthopedic Referral for Oste oarthritis of right knee joint right knee partial vs total Referring Physician: Raymond Zuniga, Rheumatology, Encounter Date: 08/20/2020 Results Created Date Observation Date Name Description Value Unit Range Abnormal Flag Note LastModifiedBy Organization Detail LastModifiedTime 12/26/19 22 12/25/2021 XR, knee, [address] [address] Patishelia villalba Name: MADI villalba : [birth year] Patishelia t Orderi ng Provid er: MACK ZUNIGA EXAM [...] Jaimie lam MD on 022 11:[address] Rad[address], [address], 12/25/2021 13:01:26 Result Notes Documentation Provider Name and Address Organization Details Recorded Time Xr, Knee, 3 View : [address] [address] Patient Name: GRICELDA HOLCOMB Patient : [id number] Patient Ordering Provider: MACK ZUNIGA EXAM DATE: 12/25/2021 EXAM: XR LT KNEE 3 VIEWS COMPARISON: 10/30/2019 HISTORY: Left knee pain. FINDINGS: No fracture is identified. There are mild degenerative changes in the left knee. There is minimal to mild medial joint space loss. There is minimal to mild marginal spurring. Contralateral knee: There is a total knee arthroplasty is place. IMPRESSION: 1. There are mild degenerative changes in the left knee. Interpreted By: Swapnil Munoz MD OND ZUNIGA MD [address] [place] [address], [phone], [facility] 12/25/2021 13:01:26 Problems Name Problem SNOMED Code Status Onset Date Resolution Date Notes Provider Name and Address Organization Details Recorded Time Idiopathi c osteoarth ritis 876179792 Active 2015 From Automated Load;Provi ashok: Mack Zuniga;Sta tus: Active Not Available [facility] 08:00:40 Problem Notes None recorded. Procedures Surgical History Date Name Laterality Status Provider Name and Address Organization Details Recorded Time 022 Injection Joint/Bursa, Major, w/o US completed RAYMOND ZUNIGA MD [address] [place] [address], [phone], [facility] 12/26/2021 16:45:01 020 Injection Joint/Bursa, Major, w/o US completed RAYMOND ZUNIGA MD [address] [place] [address], [phone], [facility] 08/20/2020 10:05:03 020 Hyalgan Injection; Unilateral completed RAYMOND ZUNIGA MD [address] [place] [address], [phone], [facility] 05/28/2020 14:08:30 020 Hyalgan Injection; Unilateral completed RAYMOND ZUNIGA MD [address] [place] [address], [phone], [facility] 05/22/2020 14:13:52 020 Hyalgan Injection; Unilateral completed RAYMOND ZUNIGA MD [address] [place] [address], [address], [facility] 05/14/2020 14:12:35 09/2 020 Injection Joint/Bursa, Major, w/o US completed RAYMOND ZUNIGA MD [address] [place], [address], [facility] 04/29/2020 09:15:28 020 Injection Joint/Bursa, Major, w/o US completed RAYMOND ZUNIGA MD [address] [place], [address], [facility] 10/30/2019 09:23:44 019 Injection Joint/Bursa, Major, w/o US completed RAYMOND ZUNIGA MD [address] [place], [address], [facility] 07/05/2019 09:15:11 019 Hyalgan Injection: Bilateral completed RAYMOND ZUNIGA MD [address] [place], [address], [facility] 01/02/2019 09:58:15 019 Hyalgan Injection: Bilateral completed RAYMOND ZUNIGA MD [address] [place], [address], [facility] 12/26/2018 09:27:38 019 Hyalgan Injection: Bilateral completed RAYMOND ZUNIGA MD [address] [place], [address], [facility] 12/19/2018 10:04:08 019 Injection Joint/Bursa, Major, w/o completed RAYMOND ZUNIGA MD [address] [place], [address], [facility] 10/18/2018 13:00:14 018 Hyalgan Injection: Bilateral completed MD [address] [place], [address], [facility] 06/27/2018 09:23:10 018 Hyalgan Injection: Bilateral completed RAYMOND ZUNIGA MD [address] [place], [address], [facility] 06/20/2018 10:26:20 018 Hyalgan Injection: Bilateral completed RAYMOND ZUNIGA MD [address] [place], [address], [facility] 06/13/2018 10:56:51 018 Injection Joint/Bursa, Major, w/o US completed RAYMOND ZUNIGA MD [address] [place], [address], [facility] 05/15/2018 22:09:41 017 Hyalgan Injection: [place], [address], [facility] 08/11/2017 09:11:54 017 Hyalgan Injection: [place], [address], [facility] 08/03/2017 09:26:36 017 Hyalgan Injection: Bilateral completed RAYMOND ZUNIGA MD [address] [place], [address], [facility] 07/27/2017 09:12:56 017 Hyalgan Injection; Unilateral completed RAYMOND ZUNIGA MD [address] [place], [address], [facility] 01/04/2017 08:14:50 017 Hyalgan Injection; Unilateral completed MD [place], [address], [facility] 12/28/2016 08:24:43 017 Hyalgan Injection; [place], [address], [facility] 12/21/2016 09:29:12 017 Injection Joint/Bursa, Major, w/o [place], [address], [facility] 10/25/2016 09:49:54 Cholecystectomy completed Tammy rebollar [facility] 01/04/2017 08:07:47 Hernia repair w/mesh completed Rosana [facility] 01/04/2017 08:07:57 Imaging Results None recorded. Procedure Notes None [...] Not Available Not Available Not Available betametha sone dipropion ate 0.05 % topical cream APPLY A THIN LAYER TO THE AFFECTED AREA(S) BY TOPICAL ROUTE TWICE PER DAY X 1 WEEK, ONCE PER DAY X 1 WEEK, AND THEN TWICE PER WEEK FOR ger nce. 2024 active Not Available Not Available Not Avai lable gabapenti n 300 mg capsule TAKE ONE [...] propionat e 50 mcg/actua tion nasal spray,dimple penon 05/15 completed Not Available Not Available Not [...] Not Available Not Available No t Available Dupixent 300 mg/2 mL subcutane ous syringe Inject 300 mg every 2 weeks by subcutan eous route. 2024 active Not Available Not Available Not Avai lable Dupixent 300 mg/2 mL subcutane ous pen injector INJECT 300MG (1 INJECTIO N) SUBCUTAN EOUSLY EVERY OTHER WEEK. 2024 active Not Available Not Available Not Avai lable Paxlovid 300 mg (150 mg x 2)-100 [...] in Arterial blood by Pulse oximetry Systolic And Diastolic Provider Name and Address Organization Details Last Updated DateTime 2 193.04 cm 17 kg/m2 36876.9 3 g 16 /min 54 /min 98 % 98 % 120/70 mm[Hg] [facility] 2 10:39:11 Date Recorded Body weight Heart rate Respiratory rate Systolic And Diastolic Provider Name and Address Organization Details Last Updated DateTime 02/22/2023 475501.17 g 56 /min 16 /min 135/61 mm[Hg] Lyn Dumont [facility] 02/22/2023 14:43:34 Date Recorded Body height Body mass index (BMI) Body weight Respiratory rate Heart rate Systolic And Diastolic Provider Name and Address Organization Details Last Updated DateTime 0 193.04 cm 29.2 kg/m2 406520. 17 g 18 /min 72 /min 134/69 mm[Hg] Kirti Zayas [facility] 0 13:55:08 Date Recorded Body height Body mass index (BMI) Body weight Respiratory rate Heart rate Systolic And Diastolic Provider Name and Address Organization Details Last Updated DateTime 0 193.04 cm 29.9 kg/m2 881544. 72 g 18 /min 65 /min 129/67 mm[Hg] Jhoana Min [facility] 0 08:37:32 Social History Question Answer Notes LastModified by [email or web address] Details LastModified Time Tobacco Smoking Status Never Smoker Kirti Zayas [facility] 07/05/2019 08:52:37 How Much Tobacco Do You Chew? None [email or web address] Information not available 12/15/2018 Sunscreen Use? Yes [email or web address] Informatio n not available 11/21/2024 Tanning Bed Use No [email or web address] Information not available 11/21/2024 What Was The Date Of Your Most Recent Tobacco Screening? 11/21/2024 [email or web address] Information not available 11/21/2024 How Much Tobacco Do You Smoke? No [email or web address] Information not available 12/19/2018 Has Tobacco Cessation Counseling Been Provided? No [email or web address] Information not available 12/19/2018 On What Date Was Tobacco Cessation Counseling Provided? 05/14/2020 [email or web address] Answered No To The Tobacco Cessation Counseling Provided Question On 12/19/2018. [email or web address] Information not available 05/14/2020 How Many Years Have You Smoked Tobacco? 0 [email or web address] Information not available 07/05/2019 Sex: Unknown Functional Status Question Answer Note LastModified by [email or web address] Details LastModified Time What is your level of alcohol consumption? Moderate [email or web address] Information not available 01/04/2017 Do you or have you ever used smokeless tobacco? Never used smokeless tobacco [email or web address] Information not available 07/05/2019 Do you or have you ever used e-cigarettes or vape? Never used electronic cigarettes [email or web address] Information not available 07/05/2019 Mental Status None recorded. Family History Relationship Description Onset Age of this Age Resolved Age Notes LastModified by Organization Details LastModified Time Father No current problems or disability [email or web address] Not available 06/07 09:28:39 Mother No current problems or disability [email or web address] Not available 06/07 09:28:39 Mother Arthritis [email or web address] Not availa ble 07/27/2017 08:42:57 Unspecified Relation Harmful pattern of use of alcohol Not available 12/15 09:56:48 Medical History Condition Response Diabetes N Bleeding Disorder N Arthritis Y Hearing Loss Y Emphysema N Hernia Y Acid Reflux (GERD) N Stroke Y COPD N Asthma N Heart Disease N Rheumatoid Arthritis N Hypertension Y Past Encounters Encounter ID Performer Location Encounter Start Date Encounter Closed Date Diagnosis/Indication Diagnosis SNOMED-CT Code Diagnosis ICD10 Code Diagnosis Note [id number] RAYMOND ZUNIGA [place] [address] 1 10/25/2016 08:46:54 10/25/2016 10:04:15 Osteoarthritis of knee 952590061 M17.0 symptomati c.we reviewed the xrays.I think, he would be a good candidate for the Hyalgan injections .Today , the knees are injected with 40 mg depomedrol each w/o complicati ons.mainta in Tylenol for the pains.main tain exercises and walk . [id number] RAYMOND ZUNIGA MD [place] [id number] 1 12/21/2016 08:55:05 12/21/2016 09:59:21 Osteoarthritis of knee 508898641 M17.0 symptomati c.for Hyalgan injections . First of three given in both knees todayHe will maintain Tylenol for the pains.main tain exercises and walk . [id number] RAYMOND ZUNIGA [place] [id number] 1 12/28/2016 07:48:47 12/28/2016 09:31:45 Osteoarthritis of knee 673447114 M17.0 symptomati c.for Hyalgan injections . Second of three given in both knees today , 2ml in each knee w/o complicati ons. He will maintain Tylenol for the pains.main tain exercises and walk . [facility] [id number] -20 [id number] RAYMOND ZUNIGA MD [facility] [address] [place], [place] [address] 01/04/2017 08:02:30 01/04/2017 08:28:43 Osteoarthritis of knee 883161934 M17.0 symptomati c.for Hyalgan injections . last of three given in both knees today , 2 ml in each knee w/o complicati ons. He will maintain Tylenol for the pains.main tain exercises and walk . [facility] [id number] -20 [id number] RAYMOND ZUNIGA MD [place] [place] [address] 1 06/07/2017 09:17:14 06/07/2017 11:12:30 Osteoarthritis of knee 690461546 M17.0 symptomati c.post Hyalgan injections .post steroid and three hyalgan injections in December.Steroi d helped better than the Hyalgan injection. He will maintain Tylenol for the pains. maintain exercises and walk . I obtained the knee xrays, and reviewed with patient, modest OA, and will follow with the Hyalgan n a month or so. [id number] RAYMOND ZUNIGA MD [facility] [address] [address] 07/27/2017 08:26:46 07/27/2017 11:18:16 Osteoarthritis of knee 317176359 M17.0 symptomati c.ist/3 injection. Suggest Hyalgan injections in both knees. He will maintain Tylenol for the pains. maintain exercises and walk . I REVIEWED the knee xrays, and reviewed with patient, modest OA, and will maintain the Hyalgan. LOT [id number] 2019-11-18 [facility] [id number] -20 [id number] RAYMOND ZUNIGA MD [facility] [place] [id number] 08/03/2017 08:27:23 08/03/2017 10:34:13 Osteoarthritis of knee 337815303 M17.0 symptomati c.2/3 Hyalgan injection. He will maintain Tylenol for the pains. maintain exercises and walk . LOT [id number] EXP 2019-11-18 [facility] [id number] -20 [id number] RAYMOND ZUNIGA MD [facility] [address] [place] [address] 1 08/11/2017 08:38:20 08/11/2017 10:10:58 Osteoarthritis of knee 338368728 M17.0 symptomati c.2/3 Hyalgan injection. He will maintain Tylenol for the pains. maintain exercises and walk . LOT [id number] EXP 2019-11-18 [facility] [id number] -20 [id number] RAYMOND ZUNIGA MD [facility] [address] [place] [address] 1 05/15/2018 13:33:20 05/15/2018 15:42:07 Osteoarthritis of knee 275237179 M17.0 chronic, symptomati c.very tendner and crepitus bilateral knees. Did good for the first 6 months post Hyalgan. Needs repeat LIU injections . On Tylenol for the pains.main tain exercises and walk .injected with depo 40 mg in each knee w/o complicati on. see me in 4 weeks LIU injections each knee. [id number] RAYMOND ZUNIGA MD [facility] [address] [place] [address] 1 06/13/2018 09:36:31 06/13/2018 13:33:35 Osteoarthritis of knee 676330786 M17.0 chronic, symptomati c. Today start the Ist of the 3 Hyalgan injections w/o complicati ons. On Tylenol for the pains.main tain exercises and walk . see me next week. [id number] RAYMOND ZUNIGA MD [facility] [address] [place] [address] 1 06/20/2018 09:12:13 06/20/2018 11:00:28 Osteoarthritis of knee 150233810 M17.0 2/3 Hyalgan injection: chronic, symptomati c. Today 10/01 Hyalgan injections w/o complicati ons. On Tylenol for the pains.main tain exercises and walk . see me next week. [id number] RAYMOND ZUNIGA MD [place] [place] [id number] 1 06/27/2018 08:43:12 06/28/2018 07:46:20 Osteoarthritis of knee 115259244 M17.0 10/29 Hyalgan injection: chronic, symptomati c. Today 10/29 Hyalgan injections given w/o complicati ons. On Tylenol for the pains.main tain exercises and walk . see me mid September 2018, and if the right knee is still symptomati c- shall do MRI. [id number] RAYMOND ZUNIGA MD [place] [address] 1 10/18/2018 08:56:14 10/20/2018 10:46:13 Osteoarthritis of knee 889552106 M17.0 72-year-ol d gentleman with bilateral knee osteoarthr itis. Today I aspirated the right knee joint and removed synovial fluid. Seems to develop severe degenerati ve joint disease. I injected the knee with 40 mg of Depo-Medro l. The plan is to obtain x-rays of his knees today and schedule for repeat Hyalgan injection into both knees in the next coming weeks. We'll continue with weight loss along with gentle range of motion and strength exercises. Okay to take Tylenol Extra Strength 2 tablets twice a day. [id number] NATHAN ROBERTSON MD [address], [address] [place] [address] 12/15/2018 09:34:22 12/22/2018 13:29:45 [id number] RAYMOND ZUNIGA MD [place] [address] 1 12/19/2018 09:01:00 12/25/2018 11:29:03 Bilateral arthritis of knees 6029175730 743999 M13.861 M13.862 today, both knee joints were injected with Hyalgan injection without any complicati ons. We also reviewed both knee x-rays with the right knee moderate to advanced osteoarthr itis and left knee moderate osteoarthr itis. He also discussed the options beyond Hyalgan injections especially if these injections failed to help with symptoms. Right knee arthroplas ty would be the next step. [id number] RAYMOND ZUNIGA MD [address] [address] 12/26/2018 08:51:10 12/27/2018 13:34:24 Bilateral arthritis of knees 8233663639 692474 M13.861 M13.862 today, both knee joints were injected with Hyalgan injection #2 without any complicati ons. We also reviewed both knee x-rays with the right knee moderate to advanced osteoarthr itis and left knee moderate osteoarthr itis. He also discussed the options beyond Hyalgan injections especially if these injections failed to help with symptoms. knee arthroplas ty would be the next step. [id number] RAYMOND ZUNIGA MD [facility] [address] [place] [address] 01/02/2019 08:50:09 01/03/2019 10:56:52 Bilateral arthritis of knees 3558893156 280716 M13.861 M13.862 both knee joints were injected with Hyalgan injection #3 without any complicati ons. We also reviewed both knee x-rays with the right knee moderate to advanced osteoarthr itis and left knee moderate osteoarthr itis. He also discussed the options beyond Hyalgan injections especially if these injections failed to help with symptoms. knee arthroplas ty would be the next step. however, before we proceed for the right knee replacemen t, I suggested him to [facility] and start physical therapy at least for the next 4-6 weeks. If the physical therapy as well as Hyalgan injections failed to help him, obviously right knee arthroplas ty would be the right modality. he fully agrees. [id number] RAYMOND ZUNIGA MD [facility] [address] [place] [address] 07/05/2019 08:36:48 07/05/2019 09:15:57 Pain in right knee 4294465127 33157 M25.561 moderate to advanced degenerati ve arthritis involving the right knee joint. Post-Hyalg an injection, December 2018. Today knee is injected with corticoste roid. Suggested to maintain weight loss program and knee strengthen ing exercises. Plan to repeat Hyalgan injection into both knees in spring 2019. [id number] RAYMOND ZUNIGA MD [address] [address] 10/30/2019 08:12:04 10/30/2019 09:04:53 Osteoarthritis of knee 691334258 M17.0 M17.11 73-year-ol d gentleman symptomati c knee joints. However the right knee seems to be getting worse compared to the left. Today I performed therapeuti c right knee joint aspiration and removed 10 ml of synovial fluid. Followed by intra-alvin cular steroid injection. X-rays repeated. I will suggest weight loss and physical therapy. If this fails to help, we might need to consider partial knee replacemen t. [id number] RAYMOND ZUNIGA MD [address] [address] 01/29/2020 08:20:39 01/29/2020 08:43:40 Osteoarthritis of knee 083087873 M17.0 M17.11 74-year-ol d gentleman with chronic osteoarthr itis bilateral knee joints. Clinically he is doing much better. Range of motion is well maintained . No effusion is noted. I suggested him to maintain weight loss program and continue with the knee strengthen ing exercises. At present no indication s for intra-alvin cular steroid injections . He can continue the Tylenol regular strength 2 tablets up to 3 times a day. follow with me in 3 months Folliculitis 76564715 L7 3.9 chest wall, folliculit is. I would suggest to use doxycyclin e twice a day for the next 10 days and follow with the PCP. Other options would include seeing a dermatolog ist. He will keep me posted [id number] RAYMOND ZUNIGA MD [address] [address] 04/29/2020 08:18:17 04/29/2020 09:03:28 Osteoarthritis of right knee joint 1016240961 78375 M17.11 74-year-ol d gentleman with moderate degree of osteoarthr itis right knee. Symptomati c with effusion. Suggested to work on weight loss. Maintain low impact knee strengthen ing exercises including use of stationary bike The right knee is aspirated for a steroid injection. We discussed surgical options as well as Visco supplement ation. He will try the hyaluronic acid injection first before considerin g surgical interventi ons. [id number] RAYMOND ZUNIGA MD [facility] [place] [id number] 05/14/2020 12:59:34 05/14/2020 14:08:18 Osteoarthritis of right knee joint 7034821917 68769 M17.11 74-year-ol d gentleman with moderate degree of osteoarthr itis right knee. . Symptomati c management . Was to hold off on knee replacemen t surgery. Post steroid injection with resolution of effusion. Today is given the first dose of Hyalgan injection without complicati on follow up next week [id number] RAYMOND ZUNIGA MD [facility] [place] [place] [id number] 05/22/2020 13:31:30 05/22/2020 14:01:39 Osteoarthritis of right knee joint 2165655270 79367 M17.11 74-year-ol d gentleman with moderate degree of osteoarthr itis right knee. Symptomati c management . on Hyalgan injection. Today the second injection is given without complicati ons. follow up next week [id number] RAYMOND ZUNIGA MD [place] [id number] 05/28/2020 13:07:08 05/28/2020 14:08:14 Osteoarthritis of right knee joint 9507414787 34894 M17.11 74-year-ol d gentleman with moderate degree of osteoarthr itis right knee. Symptomati c management . on Hyalgan injection. completed the last of the 3 Hyalgan injections without complicati on follow with me in 3 months. [id number] RAYMOND ZUNIGA MD [facility] [address] [place] [address] 08/20/2020 08:28:21 08/20/2020 09:00:20 Osteoarthritis of right knee joint 0303641445 34764 M17.11 74-year-ol d gentleman with advanced osteoarthr itis right knee. I think he needs to consider partial knee replacemen t versus total knee replacemen t. He would like to see Dr. Familia Andrade en with [facility]. he has repeated steroids as well as Hyalgan injection. Steroids seems to have helped the most. I will go ahead and repeat the steroid for symptomati c management and arrange for his orthopedic evaluation . I also encouraged him to work on weight loss. He can take Tylenol Extra Strength 2 tablets twice a day. [id number] RAYMOND ZUNIGA MD [facility] [address] [place] [address] 12/25/2021 10:19:15 12/25/2021 16:29:41 Osteoarthritis of left knee joint 1017058682 45958 M17.12 Symptomati c left knee joint with osteoarthr itic changes. Post right knee replacemen t, without complicati ons. Today we discussed the treatment options. The x-ray of the left knee is repeated. On account of his symptoms, the left knee is given intra-alvin cular steroid injection. He will maintain the use of Tylenol Extra Strength. Any further treatments will be after review of the x-rays obtained today. Of course, if the steroid injections failed to help we might consider repeat orthopedic consultati on for possible left knee replacemen t. He agrees with the plan. [id number] SUMA SALAS MD [facility] [address] [facility], [address] [place] [address] 02/22/2023 13:52:15 02/22/2023 15:13:53 Gastroesophageal reflux disease without esophagitis [id number] K21.9 Continue omeprazole 40 mg once dailyAntir eflux measures discussed [id number] MERE COCHRAN MD [facility] [address] [place] [address] 11/21/2024 15:22:49 11/21/2024 16:34:03 Atopic dermatitis [id number] L20.89 I83.12 The nature of the diagnosis was explained. There is stasis eczema on the lower legpt doing well on dupixent.r x sent for betamethas one cream, apply bid x 1 week, qd x 1 week, then twice per week. SE reviewed. Health Concerns Section Related Observation LastModified by Organization Detai ls LastModified Time None Recorded Concern Status LastModified by Organization Details LastModified Time None Recorded Advance Directives Directive None Recorded Payers Insurance Date Sequence Insurance Name Policy Number Policy Carpenter Covered Member ID Carpenter Member ID Guarantor Name 11/21/2024 2 [place] [id number] Gricelda Holcomb [id number] Gricelda Holcomb 11/21/2024 1 [place] Gricelda Holcomb [id number] Gricelda Holcomb 11/21/2024 2 [employer] [place] (MEDICARE SUPPLEMENT) Gricelda Holcomb [id number] Gricelda Holcomb 11/21/2024 2 [employer] [place] (MEDICARE SUPPLEMENT) Gricelda Holcomb [id number] Gricelda Holcomb Notes Date Note Type Note Provider Name and Address Organization Details Recorded Time 05/28/2020 text/html for Hyalgan injection right knee #3 RAYMOND ZUNIGA MD [address] [place] [address], [phone], [facility] 05/28/2020 14:38:58 08/20/2020 text/html . Follow-up on osteoarthritis and symptomatic right knee joint. Has gained 15-20 pounds since last visit. positive pain on activity positive pain at night .Is thinking about knee replacement. Would like to see an orthopedic surgeon. RAYMOND ZUNIGA MD [address] [place] [address], [phone], [facility] 08/20/2020 10:06:41 12/25/2021 text/html Follow-up on osteoarthritis. He is post right knee replacement. The replacement was uneventful. However complaining of pain and swelling in the left knee. No injuries or falls. No fevers. RAYMOND ZUNIGA MD [address] [place] [address], [phone], [facility] 12/26/2021 16:46:36 02/22/2023 text/html Reason for new patient visit: GERD, abdominal pain The patient is a 77 year old who is being seen today in follow up for abdominal pain symptom. He has a past medical history of osteoarthritis, HTN. I have met Mr Holcomb about 1 year for EGD at [facility]. The patient had a barium esophagram that [...] improvement in symptoms. Has had EGD at [facility] in past with Dr. Lara. Today he voices no complaints. Reports he needs a refill on his omeprazole. SUMA SALAS MD [address] [place] [address], [phone], [facility] 02/22/2023 15:09:19 11/21/2024 text/html spot on legatopi c on dupixentlast seen Apr 2023 I am here to follow up on atopic derm , I am doing good on dupixent. I have a spot on my L Leg. MERE COCHRAN MD [address] [place] [address], [phone], [facility] 11/21/2024 17:39:30
[2025-03-15] MEDS: SODIUM CHLORIDE 0.9% 10ML SYR (RAD ONLY) 10 ML IV (09:24)
[2025-03-15] MEDS: IOPAMIDOL-370 (76%);100ML BOTTLE 75 ML IV (09:24)
--- NOTE | 2025-03-15 09:30 | CT_ITS ---
FINAL REPORT TECHNIQUE: Oral and IV contrast enhanced exam This study was performed with techniques to keep radiation doses as low as reasonably achievable, (ALARA). Individualized dose reduction techniques using automated exposure control or adjustment of mA and/or kV according to the patient''s size were employed. CLINICAL HISTORY: ventral hernia COMPARISON: 08/04/2024 FINDINGS: CT ABDOMEN PELVIS WITH CONTRAST: Abdomen: Lung bases are clear. The gallbladder is surgically absent. Liver has an unremarkable CT appearance. The spleen, pancreas and adrenal glands are unremarkable. Bilateral renal cysts are identified. No bowel obstruction or fluid collection is seen. Pelvis: There is a new left paramidline abdominal wall hernia below the level of the umbilicus which contains nonobstructed small bowel. This defect measures up to 36 mm in diameter. Although no active obstruction is identified, morphology makes this a high risk for potential obstruction. The previously noted right lower quadrant spigelian hernia is no longer seen. The bladder and prostate are unremarkable in appearance. IMPRESSION: 1. New left paramidline abdominal wall hernia which contains nonobstructed small bowel as described above. Although no active obstruction is identified, the morphology makes this a high risk for potential obstruction. 2. The previously noted right lower quadrant spigelian hernia is no longer seen. Reviewed, Interpreted and Dictated by Leigh Vivas MD Transcribed by Tamara Ayala Authenticated and . [facility]
== END 2025-03-15 23:59 | disposition home or self-care (01) ==
LOC: RAD 09:02
PROVIDERS: PCP Family Medicine; Visit Provider Surgery
DX: K43.9 Ventral hernia without obstruction or gangrene (principal); Z98.890 Other specified postprocedural states; Z87.19 Personal history of other diseases of the digestive system
CPT/HCPCS: 74177; Q9967

== ENCOUNTER 2025-06-12 10:24 | Outpatient (CLI) | payer MEDICARE, BC, SELFPAY ==
--- OUTSIDE RECORDS SUMMARY | 2024-02-10 05:40 | XMS_ITS | Encounter Summary ---
Author Organization [facility] Address [address] [place] [address] Care Team Providers Care Filling And Packing Supervisor Name Role Phone Kadeem Xiao MD Primary Care Provider [phone] Encounter Details Date Type Department Care Team (Late st Contact Info) Description 02/10/2024 5:40 AM EDT Hospital Encounter [facility] [place] [address] [address] Social History Tobacco Use Types [...] on filedocumented in this encounter Care Teams Filling And Packing Supervisor Relationship Specialty Start Date End Date Kadeem Xiao MD [address] [place] [facility] [address] [place] [address] PCP - General Family Medicine 04/13/23 documented as of this encounter
--- OUTSIDE RECORDS SUMMARY | 2024-03-26 10:00 | XMS_ITS ---
Author [facility] Address [address] [place] [id number] Care Team Providers Care Mold Mechanic Name Role Phone Ninoska Kadeem Primary Care [...] 03/26/2024 Active Triamcinolone Acetonide 0.1 % 1 radha appl ied topically 2 times a day 12/30/2022 Active Vital Signs Blood pressure systolic 130 mm Hg 03/26/20 24 Blood pressure diastolic 72 mm Hg 024 Heart Rate 76 /min 03/26/2024 Height 75.25 in 03/26/2024 Weight 245.6 lbs 03/26/2024 BMI 30.49 kg/m2 03/26/2024 Encounters Encounter Location Date Provider Diagnosis [facility] [address] [place] [phone] 03/26/2024 Kadeem Xiao Rash R21 Assessments Encounter [...] * Kai HOLCOMBDOB:[birth year] (79 yo M)Acc No.[id number]:03/26/2024 Progress Notes Patient: Kai CHRISTIANSEN Provider: Munir Xiao M.D. :1945 A ge:78 Y S ex:Male Date:03/26/2024 Address:[address] [place] [address] [place], [id number] Subjective: * Chief Complaints: * 1 . [...] * Images: Billing Information: * Visit Code: 91979 Office Visit, Est Pt., Level 3. * Procedure Codes: G2211 Complex e/m visit add on. * Electronic signature of Leeann Xiao MD on 06/12/2025 at 10:38 AM EDT Sign off status: Pending * Provider: Munir Xiao M.D. Date: 0 03/26/2024 Generated for Shelli boo/Bernadine/Eloisaransmitting on: 1 10:38 AM EDT History and Physical Notes * HPI (History [...]
--- OUTSIDE RECORDS SUMMARY | 2024-05-21 06:00 | XMS_ITS ---
Author Organization [facility] Address [address] [place] [phone] Care Team Providers Care Direct Service Professional Name Role Phone Kadeem Xiao Primary Care Provider LizzieNehal Unavailable [phone] Allergies Allergen (clinical drug ingredient) Drug/Non Drug [...] Provider Diagnosis A[facility] [address] [place] [phone] 05/21/2024 Nehal Samuel URI (upper respirato ry [...] * Kai HOLCOMBDOB:[birth year] (79 yo M)Acc No.[id number]:05/21/2024 Progress Notes Patient: Kai CHRISTIANSEN Provider: Nehal Samuel M.D. :1945 A ge:78 Y S ex:Male Date:05/21/2024 Address:[address] [place], [id number] Pcp:Kadeem Xiao Subjective: * Chief Complaints: * [...] * Procedure Codes: 9 [address] [place], [address] CAPILLARY BLOOD DRAW, 02452 CBC WITH AUTO DIFF, 69898 COVID TEST IN HOUSE, Modifiers: QW * Follow Up: p rn * Images: Billing Information: * Visit Code: 54887 Office Visit, Est Pt., Level 3. * Procedure Codes: [address] [place]. [address] CAPILLARY BLOOD DRAW. 47135 CBC WITH AUTO DIFF. 44942 COVID TEST IN HOUSE. Modifiers: QW * Electronic signature of Nehal Samuel MD on 06/12/2025 at 10:39 AM EDT Sign off status: Pending * Provider: Nehal Samuel M.D. Date: 0 05/21/2024 Generated for Printi ng/Faxing/eTransmitting on: 1 10:39 AM EDT History and Physical Notes * [...]
--- OUTSIDE RECORDS SUMMARY | 2024-08-13 10:00 | XMS_ITS ---
Author Organization [facility] Address [address] [place] [phone] Care Team Providers Care Yarn Mercerizer Operator Name Role Phone Ninoska Kadeem Primary Care Provider [phone] Allergies Allergen (clinical drug ingredient) Drug/Non Drug Allergy documented on EMR Reaction Allergy Type Onset Date Status amoxicillin Amoxicillin rash Drug Allergy Act sabrina dexamethasone Dexamethasone elevated BP Drug Allergy Active REASON FOR VISIT F/U [facility] D/C Medications Medication SIG (Take, Route, [...] [address] [place] [phone] 08/13/2024 Kadeem Xiao Incarcerated ventral hernia K43.6 [...] * Kai HOLCOMBDOB:[birth year] (79 yo M)Acc No.[id number]:08/13/2024 Patient: Kai CHRISTIANSEN Provider: Munir Xiao M.D. :1945 A ge:78 Y S ex:Male Date:08/13/2024 Address:[address] [place] [address] JENNIFER SPAIN, [id number] Subjective: * Chief Complaints: * 1 . F/U [facility] D/C. * HPI: H PI: 78 year old male presents with c/o Here for follow up on: 10/05-06/2024 [facility] hospitalization, see pt docs. Pt went [...] * Images: Billing Information: * Visit Code: 56395 Office Visit, Est Pt., Level 3. * Procedure Codes: G2211 Complex e/m visit add on. * Electronic signature of Leeann Xiao MD on 06/12/2025 at 10:38 AM EDT Sign off status: Pending * Provider: Munir Xiao M.D. Date: 1 10/14/2023 Generated for Shelli boo/Bernadine/eTransmitting on: 1 10:38 AM EDT History and Physical Notes * HPI (History of Present Illness) Category Sub-Category Detail Notes Category Not es HPI Here for follow up on: 08/04-2023 [facility] hospitalization, see pt docs. Pt went [...]
--- OUTSIDE RECORDS SUMMARY | 2024-08-24 09:45 | XMS_ITS ---
Author Organization [facility] Address [address] [place] [phone] Care Team Providers Care Tortilla Maker Name Role Phone Kadeem Xiao Primary Care [...] [address] [place] [phone] 08/24/2024 Kadeem Xiao Influenza A J 10.1 [...] * Kai HOLCOMBDOB:[birth year] (79 yo M)Acc No.[id number]:08/24/2024 Progress Notes Patient: Kai CHRISTIANSEN Provider: Munir Xiao M.D. :1945 A ge:78 Y S ex:Male Date:08/24/2024 Address:[address] [place] [address] JENN[place], [id number] Subjective: * Chief Complaints: * 1 . Congestion coughing. * HPI: E NT/respiratory: 78 year old male presents with c/o cough P t complains of greenish yellow sputum production cough for 2 days. Associated with nasal congestion. Pt states his grandson was at his house [facility] and had a fever, was later dx [...] G 2211 Complex e/[place], [address] [place], [address] Flu Test- Nasal Swab, Modifiers: QW , 43954 COVID TEST IN HOUSE, Modifiers: QW * Follow Up: 2 Weeks * Images: Billing Information: * Visit Code: 20678 Office Visit, Est Pt., Level 3. * Procedure Codes: G2211 Complex e/[place]. [address] [place]. [address] Flu Test- Nasal Swab. Modifiers: QW 92996 COVID TEST IN HOUSE. Modifiers: QW * Electronic signature of Leeann Xiao MD on 06/12/2025 at 10:38 AM EDT Sign off status: Pending * Provider: Munir Xiao M.D. Date: 10/25/2023 Generated for Printi ng/Faraquelg/eTransmitting on: 10:38 AM EDT History and Physical Notes * HPI (History of Present Illness) Category Sub-Category Detail Notes Category Not es ENT/respiratory cough Pt complains of greenish yellow sputum production cough for 2 days. Associated with nasal congestion. Pt states his grandson was at his house [facility] and had a fever, was later dx with Flu A Examination Category Sub-Category Detail Notes Category Not es ENT/Respiratory Oral cavity : erythema without exudate on pharynx Heart : RRR, normal S1 S2 Lungs: clear to auscultatio n bilaterally General Appearance: NAD
--- OUTSIDE RECORDS SUMMARY | 2024-08-31 09:45 | XMS_ITS ---
[facility] Address [address] [place] [phone] Care Team Providers Care Sales Performance Manager Name Role Phone Ninoska Kadeem Primary Care [...] [address] [place] [phone] 08/31/2024 Kadeem Xiao Other specified postprocedural states [...] * Kai HOLCOMBDOB:[birth year] (79 yo M)Acc No.[id number]:08/31/2024 Patient: Kai CHRISTIANSEN Provider: Munir Xiao M.D. :1945 A ge:78 Y S ex:Male Date:08/31/2024 Address:[address] [place] [address] [place], [id number] Subjective: * Chief Complaints: * 1 . [...] * Images: Billing Information: * Visit Code: 48298 Office Visit, Est Pt., Level 3. * Procedure Codes: G2211 Complex e/m visit add on. * Electronic signature of Leeann Xiao MD on 06/12/2025 at 10:38 AM EDT Sign off status: Pending * Provider: Munir Xiao M.D. Date: 0 08/31/2024 Generated for Shelli boo/Bernadine/eTransmitting on: 1 10:38 [...]
--- OUTSIDE RECORDS SUMMARY | 2025-02-27 05:05 | XMS_ITS | Encounter Summary ---
Author Organization [facility] Address [address] [place] [address] Care Team Providers Care Potato Chip Processing Supervisor Name Role Phone Kadeem Xiao MD Primary Care Provider [phone] Encounter Details Date Type Department Care Team (Late st Contact Info) Description 02/27/2025 5:05 AM EDT Hospital Encounter [facility] [place] [address] [address] Social History Tobacco Use Types [...] on filedocumented in this encounter Care Teams Potato Chip Processing Supervisor Relationship Specialty Start Date End Date Kadeem Xiao MD [address] [place] [facility] [address] [place] [address] PCP - General Family Medicine 04/13/23 documented as of this encounter
--- OUTSIDE RECORDS SUMMARY | 2025-05-27 02:34 | XMS_ITS | Continuity of Care Document ---
Author Organization [facility] Phone Care Team Providers Care Materials Buyer Name Role Phone DECLINED, PCP Primary Care Unavailable GRICELDA DEL ROSARIO JR Primary Attending GRICELDA DEL ROSARIO JR Admitting [phone] GRICELDA DEL ROSARIO JR Unavailable RESULTS Patient: AICHA MADISON Date of : November [birth year] 6 LABORATORY RESULTS ORDER 100: PROSTATE SPECIFIC AG PSA (LOINC: 2857-1) ORDER DATE: May 22, 2025 7:36:00 PM [facility] Specimen Source: Serum/Plasm a Specimen Type: Acellular blo od (serum or plasma) specimen PERFORMING LAB: [address] [id number] Result Comment: Final Result Date: May 22, 2025 8:16:00 PM [facility] (TECH: LT) LOINC TEST FLAG RESULT REFERENCE RANGE UPDA SARAH BY 2857-1 Prostate specific Ag [Mass/volume] in Serum or Plasma N 0.45 ng/mL 0.0 ng/mL - 4.0 ng/mL May 22, 2025 8:16:00 PM [facility] (TECH: LT) LABORATORY NARRATIVE RESULTS Information is not available RADIOLOGY RESULTS Information is not available PATHOLOGY NARRATIVE RESULTS Information is not available MICROBIOLOGY RESULTS No Micro Labs/Results Exist for Patient BLOOD ADMIN RESULTS Information is not available MEDICATIONS HOME MEDICATIONS Status RXNORM NDC Medication Dose Route Frequency Dates Comments Reported By Updated By Drug Treatment Unknown DISCHARGE MEDICATIONS Status RXNORM NDC Medication Dose Route Frequency Dates Dis pense Data Comments Physician Updated By No Discharge Medication Info rmation Available INPATIENT MEDICATIONS Status RXNORM NDC Medication Dose Route Frequency Rat e Quantity Dates Indication Dispense Data Comments Physician Updated By No Inpatient Medication Info rmation Available SOCIAL HISTORY SOCIAL HISTORY - Smoking Status SNOMED-CT Social History Element Description Effective Dates Offered Cessation Comment Updated By [id number] Smoking Status Unknown If Ever Smoked SOCIAL HISTORY - Gender Sex: Male SOCIAL HISTORY - Status : status i nformation is not available Intention in Next Year: intention information is not available SOCIAL HISTORY - Assessments Code System Description Status Date Value of Assessment Updated By Comment Assessment Information is no t available SOCIAL HISTORY - [place] Affiliation [place] information is not av ailable SOCIAL HISTORY - Legal Sex Legal Sex information is not available SOCIAL HISTORY - Sexual Behavior Sexual Orientation Gender Identity SNOMED-CT Description SNO MED -CT Description Activity Level No of Partners Partner Type UpdatedBy Information is not available SOCIAL HISTORY - Occupation Occupation information is no t available HEALTH CONCERNS Problems Concern Status Health Concern problem infor mation not available. Smoking Status Status Years Used Consumed packs p er day Health Concern smoking histo ry information not available. Family History Concern Status Health Concern family histor y information not available. ENCOUNTERS ENCOUNTER INFORMATION Reason for Visit C61 Admission May 22, 2025 7:36:00 PM [place] [facility] [address] [address] Discharge May 23, 2025 6:01:00 PM [place] DISCHARGED TO HOME OR SELF CARE ENCOUNTER DIAGNOSES Notes information is not danny ilable. Code System Diagnosis Onset Date Diagnosis information is not available. 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 Primary Care GRICELDA DEL ROSARIO Primary Attending GRICELDA DEL ROSARIO Admitting GRICELDA DEL ROSARIO Referring CARE TEAM CARE burning supervisor Role on Team Location Telecom Status Start Date End Kyree e Updated By CARIN Calvert JR, MD Referring normal May 23, 2025 2:25:11 PM [facility] May 23, 2025 6:01:00 PM [facility] [id number] on May 23, 2025 2:25:11 PM [facility] CARIN Calvert JR, MD Attending normal May 23, 2025 2:25:11 PM [facility] May 23, 2025 6:01:00 PM [facility] [id number] on May 23, 2025 2:25:11 PM [facility] CARIN Calvert JR, MD Admitting normal May 23, 2025 2:25:11 PM UTC May 23, 2025 6:01:00 PM UTC [id number] on May 23, 2025 2:25:11 PM UTC DECLINED PCP PCP normal Septemb 2024 7:36:30 PM UTC May 23, 2025 6:01:00 PM [place] [id number] on May 23, 2025 2:25:11 PM [place]
[2025-06-12 08:54] VITALS: BMI 29.2
--- OUTSIDE RECORDS SUMMARY | 2025-06-12 10:38 | XMS_ITS | Clinical Summary ---
Author Organization [facility] Address [address] [place] [address] Care Team Providers Care Proposal Manager Name Role Phone Kadeem Xiao MD Primary Care Provider [phone] Allergies No known active allergies Medications tamsulosin [...] 1 TABLET BY MOUTH ONCE DAILY Active [place] 3 1000 MG capsule Take by mouth. Acti ve Dupilumab (Dupixent) 300 MG/2ML solution prefilled syringe Inject 300 mg every 2 weeks by subcutaneous route. 10/30/19 25 Active Active Problems Problem Noted Date Diagnosed Date [...] 04/12/2022 HEPATITIS C SCREENING 04/12/2022 INFLUENZA VACCINE 03/29/2025 07/17/2024, , 06/30/2022, Additional history exists COVID-19 Vaccine (8 - Pfizer risk season) 2025 07/17/2024, 09/13/2023, 06/30/2022, Additional history exists Insurance MEDICARE A & B [facility] Care Teams Proposal Manager Relationship Specialty Start Date End Date Kadeem Xiao MD [address] [facility] [address] [place] [address] PCP - General Family Medicine 04/13/23
--- OUTSIDE RECORDS SUMMARY | 2025-06-12 10:38 | XMS_ITS ---
Author Organization [facility] Address [address] [place] [address] Care Team Providers Care Carburizer Name Role Phone Kadeem Xiao MD Primary Care Provider [phone] Active Problems Problem Noted Date Diagnosed Date [...] Kai Chu Date of 1945 Phone Email [email or web address] Cancer Treatment Team Patient Care Team: Carlton Adan MD as Consulting Physician (Radiation Oncology) Kai Barney MD as Consulting Physician (Urology) Provider Phone numbers Care Team Provider: Carlton Adan MD, ([phone]) Care Team Provider: Kai Barney MD, ([phone]) Care Team Provider: Cynthia Scruggs MD, ([phone]) Care Team Provider: Ho Lara MD, ([phone]) Post Treatment Care Team Primary Care Physician Kadeem Xiao MD [phone] [place] [address] Background Information Medical history Past Medical History: [...] doctors and nurses such as exercise andactivity. parts counterman effects of radiation therapy vary greatly depending [...] to you. General Cancer Support & Resources [facility] [address] [facility] [address], [address] [place] [address] Med Onc: Telegraphic Typewriter Operator Chief Onc: Bending Shed Worker: Chana Nolasco - Psychiatric Nurse Practitioner: Ana Romero APRN - Kick It! (A free smoking cessation program) Financial Counselor and Contact Information: [facility] Financial Counseling [phone] Heliarc Welder Contact Information: Mae Chappell - Local Cancer Support Group and Contact Information: Seun Cancer Buddialexandria: This support group is open to anyone that has been diagnosed with cancer of any type. Meets at 6:30pm on the last Tuesday of each month. Location: [facility]; [address] [place] [address]. For more information call Neelam Aguilar @ . Prostate Cancer Support & Resources Local Resources TOO Prostate Support Group: The mission of Us TOO is to provide hope and improve the lives of of those affected by prostate cancer through support, education, and advocacy/ awareness. The group meets the of each month at 6:30 p.m. [address] [facility] [employer] [facility], [address] [place], [place] [id number] Surveillance How Frequent? Medical Oncology visits 1 [...] advice of a doctor or other health skin care therapist. Please use these recommendations to talk with [...] of cancer in the general population. The [place] Cancer Society (ACS) recommends these screening guidelines for men: Recommendation Frequency Comments Colon and Rectal Cancer Screening For more information see the ACS document Colorectal Cancer: Early Detection. www.cancer.org/ssLINK/evabujkoaw-xwdvos-hwvlv-detection-roberto carlos Options for colon cancer screening can [...] see the ACS Document Testicular Cancer Detection: http://www.cancer.org/cancer/testicularcancer/detailedguide/xecfqnhjbm-yzokzo-dq tection Men of any age can develop [...] more information, visit http://www.nhlbi.nih.gov/health/public/heart/obesity/lose_wt/index.htm www.win.niddk.nih.gov Call the [place] Heart Association Talk to your health care [...] Experts recommend at least 30 minutes of nippfeza-pu-csgusmxt activity per day, five days a week. [...] you can call a national hotline at 3(719)-QUIT-NOW. Have regular check-ups by a healthcare professional. For more information about healthy screening tests for men visit the U.S. Department of Health and Human Services. http://www.womenshealth.gov/ztxtbjekd-aifsa-pmf-vaccines/qfclpjvoc-mbvlp-erc-men / For more information about adult vaccinations visit the CDC: http://www.cdc.gov/vaccines/recs/schedules/adult-schedule.htm Keep up-to-date on general health screening tests, including cholesterol, blood pressure and glucose (blood sugar) levels. Get an annual influenza vaccine (flu shot). Get vaccinated with the pneumococcal vaccine, which prevents a type of pneumonia, and re-vaccinatedas determined by your health care team. Don???t forget dental and eye health! The [place] [employer] Association recommends adults have their eyes examined every two years until age 60, then annually. People who wear glasses or correctivelenses or are at high risk for eye problems (i.e., diabetics, family history of eye disease) shouldbe seen more frequently. The [place] Dental Association recommends adults see their dentist at least once a year. No information on file. No information on file.
--- OUTSIDE RECORDS SUMMARY | 2025-06-12 10:39 | XMS_ITS | Patient Health Record ---
Author Organization [facility] Address [address] [place] [id number] Care Team Providers Care Ict Sales Assistant Name Role Phone Dee Xiaoian Primary Care Provider [phone] Allergies Allergen (clinical drug ingredient) Drug/Non Drug [...] changes Performing Lab: Notes/Report: stable chronic changes Medications Medication SIG (Take, Route, Frequency, Duration) Notes Start Date End Date Status Losartan Potassium 100 MG 1 tab(s) orall y once a day; Duration: 30 day(s) Active CareTouch CPAP & BIPAP Hose NASAL AUTOPA P 6/16 HEATED AIR DIRECTED 12/22/2016 Active Dupixent 300 [...] 06/29/2019 Administered xFlu shot- 6months-36 months of khl-RGCE-VSUH-trivalent Unknown 08/01/2016 Administered xFluzone High Dose-private (65yr&older) IM Intramuscular 07/31/2014 Administered xFluzone High Dose-private (65yr&older) Unknown 06/29/2019 Administered Problems Problem Type SNOMED Code ICD Code Onset Dates Problem Status W/U Status Risk Notes Problem Essential hypertension (26599952) Essential (primary) hypertension (I10) Active confirmed Problem Vitamin D deficiency (33963470) Vitamin D deficiency (E55.9) Active confirmed Problem Essential hypertension (65014487) Essential hypertension (I10) Active confirmed Problem Psoriasis (2480907) Psoriasis (L40.9) Active co nfirmed Problem Vitamin B12 deficiency (non anemic) (53708860) Vitamin B 12 deficiency (E53.8) Active confirmed Problem Primary insomnia (8149827) Primary insomnia (F51.01) Active confirmed Problem Nicotine dependence (38175974) Personal history of nicotine dependence (Z87.891) Active confirmed Problem Obstructive sleep apnea syndrome (07312879) Obstructive sleep apnea syndrome (G47.33) Active confirmed Problem Obesity (917561363) Non morbid o besity, unspecified obesity type (E66.9) Active confirmed Problem Obstructive sleep apnea syndrome (32131476) ESTHER (obstructive sleep apnea) (G47.33) Active confirmed Problem Osteoarthritis of knee (598423312) Primary osteoarthritis of left knee (M17.12) Active confirmed Problem Hyperlipidaemia (76626863) Hyperlipidemia, unspecified hyperlipidemia type (E78.5) Active confirmed Problem Hypersomnia (48269746) Hypersomnia (G47.10) Active confirmed Problem Pure hypercholesterolemia (890253577) Pure hypercholesterolemia (E78.00) Active confirmed Problem Hearing loss (05285601) Hearing loss, unspecified hearing loss type, unspecified laterality (H91.90) Active confirmed Problem Arthritis of right knee (0149233984412394) Arthritis of right knee (M17.11) Active confirmed Problem Raised prostate specific antigen (660114832) Elevated PSA, less than 10 ng/ml (R97.20) Active confirmed Problem Diverticular disease of colon (723945514) Colon, diverticulosis (K57.30) Active confirmed Problem Ocular migraine (82675646) Ocular migraine (G43.109) Active confirmed Vital Signs Heart Rate 74 /min 08/31/2024 Blood pressure diastolic 70 mm Hg 08/31/2024 Height 75.25 in 08/31/2024 Blood pressure systolic 132 mm Hg 08/31/2024 Weight 237.4 lbs 08/31/2024 BMI 29.47 kg/m2 08/31/2024 Encounters Encounter Location Date Provider Diagnosis [facility] [address] [place], [place] [id number] 08/13/2024 Kadeem [place] Incarcerated ventral hernia K43.6 and Other specified postprocedural states Z98.890 [facility] [address] [place], [place] [id number] 08/24/2024 Kadeem [place] Influenza A J10.1 [facility] [address] [place], [place] [id number] 08/31/2024 Kadeem [place] Other specified postprocedural states Z98.890 [facility] [address] [place], [place] [id number] 08/27/2024 Kadeem [place] Assessments Encounter Date Diagnosis (ICD Code) Assessment Notes Treatment Notes Treatment Clinical Notes Section Notes 08/13/2024 Other specified postprocedural states (ICD-10 - Z98.890) Patient to follow up with Dr. Lara tomorrow 08/13/2024 Incarcerated ventral hernia (ICD-10 - K43.6) 08/24/2024 Influenza A (ICD-10 - J10.1) 08/31/2024 Other specified postprocedural states (ICD-10 - Z98.890) Doing well. Patient saw Dr. Lara yesterday Plan Of Treatment Pending Test Test Name Order Date W-XAT-Qjpwonwwyt 04/13/2022 Insurance Providers Payer Name Payer Address Payer Phone Subscriber Number Group Number Insured Name Patient Relationship to Insured Coverage Start Date Coverage End Date MEDICARE PART B [address] [address] [place] [id number] Kai Chu Self - patient is the insured [facility] [employer] [address] [place] [address] [id number] Kai Chu Self - patient [...]
--- NOTE | 2025-06-12 10:58 | ECG_ITS ---
APPROVED REPORT Exam: Resting ECG HR:56 bpm ECG Measurements Heart Rate 56 AXES ME 213 P 50 QRSd 97 QRS 37 QT 420 T 39 QTc 411 Conclusion SINUS BRADYCARDIA WITH FIRST DEGREE AV BLOCK ABNORMAL ECG UNCONFIRMED REPORT Electronically signed by : Rocael Tejada MD 06/14/2025 21:59:54
[2025-06-12 11:23] LABS: Hematocrit 38.5 % (42.0-52.0); Hemoglobin 13.6 g/dL (14.1-18.0); Immature Granulocytes % 0.3 %; Mean Corpuscular HGB Conc 35.3 g/dL (31.8-35.4); Mean Corpuscular Hemoglobin 33.3 pg (27.0-31.2); Mean Corpuscular Volume 94.4 fl (80-94); Nucleated Red Blood Cells % 0 %; Platelet Count 182 K/mm3 (142-424); Red Blood Count 4.08 M/mm3 (4.60-6.20); Red Cell Distribution Width-SD 40.1 fL; White Blood Count 6.7 K/mm3 (4.8-10.8)
[2025-06-12 12:58] LABS: Anion Gap 14.3 mEq/L (5-15); Blood Urea Nitrogen 12 mg/dl (9-20); Calcium 8.9 mg/dl (8.4-10.2); Carbon Dioxide 23 mmol/L (22.0-30.0); Chloride 94 mmol/L (98-107); Creatinine Clearance Estimated 94 mL/min (50-200); Creatinine,Serum 0.80 mg/dl (0.66-1.25); Estimated Glomerular Filt Rate 93 ml/min (>60); GFR (African American) 113 ML/MIN (>60); Glucose 105 mg/dl (74-100); Potassium 4.3 mmoL/L (3.5-5.1); Sodium 127 mmol/L (136-145)
== END 2025-06-12 23:59 | disposition home or self-care (01) ==
LOC: PREOP 10:27
PROVIDERS: PCP Family Medicine; Visit Provider Surgery
DX: Z01.810 Encounter for preprocedural cardiovascular examination (principal); Z01.812 Encounter for preprocedural laboratory examination; Z01.818 Encounter for other preprocedural examination; I44.0 Atrioventricular block, first degree; R94.31 Abnormal electrocardiogram [ECG] [EKG]
CPT/HCPCS: 80048; 85025; 93005

== ENCOUNTER 2025-06-17 11:00 | Observation (INO) | payer MEDICARE, BC, SELFPAY ==
[2025-06-12 12:37] VITALS: BMI 29.2
[2025-06-17] VITALS (18 sets, daily range): BP systolic 136–179; BP diastolic 61–83; PULSE 50–67; RESP 12–20; TEMP 35.7–36.7; O2SAT 95–98; BMI 29.2
[2025-06-17] MEDS: LACTATED RINGERS 1000ML 1,000 ML 25 ML IV (06:49)
[2025-06-17] MEDS: CEFAZOLIN 2GM VIAL 2 GM (07:12)
[2025-06-17] MEDS: LIDOCAINE 1% 20ML MDV 20 ML (07:40)
--- NOTE | 2025-06-17 10:02 | EXP.OP.NOTE ---
Date of procedure: 06/17/25 Pre-op Diagnosis:: Incisional hernia Post-op Diagnosis:: Same Procedure performed:: Laparoscopic incisional hernia repair with placement of 20.30 cm x 25.4 cm Bard compositx LP mesh Surgeon:: Ho Lara MD SENIOR NET SOFTWARE DEVELOPER:: Sanju Presley Anesthesia: GETA Estimated blood loss (mL): 20 Operative findings:: He had extensive intra-abdominal adhesions with several loops of small bowel densely adherent to the anterior abdominal wall. There was a confluence of several hernias in the periumbilical location. Largest hernia visualized on the CT scan had a defect measuring about 6 cm. Operative note:: Consent was obtained and patient was taken to the operating room. He was given preoperative intravenous antibiotics. In the operating room he was placed in a supine position. General anesthesia was induced via endotracheal tube. Simon catheter was placed. Abdomen was prepped and draped in the standard surgical fashion. Through a left subcostal incision 5 mm optical trocar was inserted carefully into the abdominal cavity. CO2 pneumoperitoneum was achieved to 15 mmHg. Laparoscopic surveillance was carried out. There was immediately noted to be evidence of loops of bowel densely adherent to the anterior abdominal wall. A couple of additional 5 mm trocars were inserted in the left lateral and lower abdomen. Prolonged dissection was carried out with some use of blunt dissection using laparoscopic Kitner and very limited use of DENNIS ultrasonic harmonic jasen. Most of dissection was carried out carefully using laparoscopic Metzenbaum dissection. Once much of the dissection process was carried out the additional 12 mm trocar was inserted in the right subcostal area and an additional 5 mm trocar was inserted in the right lateral lower abdomen. Additional dissection was carried out identifying the symptomatic hernia noted on CT scan. This was actually moderately large with a defect measuring about 6 cm. There were multiple additional hernias within the incision. Dissection was carried out freeing adhesions from the anterior abdominal wall. Boundaries of the confluence of multiple hernias was then marked with a skin marker. Margins were extended by at least 3 cm circumferentially to determine size of the mesh. Ultimately was determined that the best mesh for coverage of the confluence of multiple hernias would be a 8 x 10 cm mesh (20.3 x 25.4 cm) Bard composite XLP mesh. This was brought onto the field. It was rolled and inserted into the peritoneal cavity via the 12 mm trocar site. It was oriented intracorporeally. Through a tiny 1 mm incision centrally over the hernia defects the balloon positioning system tubing was brought through the anterior abdominal wall. Balloon positioning system was inflated. Mesh was oriented intracorporeally to cover the defects. Several OPTi fix socrates were placed superiorly inferiorly and laterally. The balloon positioning system was then removed via the 12 mm trocar site. Mesh was then secured around its periphery with the OPTi fix tacks . Several additional anchoring tacks were placed more medially to help eliminate space over the mesh. Repair appeared adequate and hemostatic. The bowel which had been taken down was observed and inspected for any possible enterotomy and there were none noted at that time. Residual fluid was suctioned free. The 12 mm trocar site was closed with a couple of 0 Ethibond sutures using the laparoscopic closure device. Trocars were then removed as CO2 pneumoperitoneum was evacuated. Skin incisions were closed with 4-0 Monocryl in a subcuticular fashion. Steri-Strips and dressings were applied. Note: Given the extensive adhesions with prolonged dissection including loops of small bowel as well as placement of large mesh plan will be for admission for pain control, perioperative antibiotics, and observation for ileus. Condition: stable Disposition: PACU Complications:: None immediately apparent
--- NOTE | 2025-06-17 10:18 | EXP.ANES.CKL ---
[facility] Disclaimer: The information contained in this section may have been updated after the patient was seen, as this information can be updated by other users. Medical History Spigelian hernia with bowel obstruction Cardiac murmur Prostate CA Anxiety Abnormal ECG Expressive aphasia ESTHER (obstructive sleep apnea) Currently on AutoPap, asymptomatic Family history of heart disease HLD (hyperlipidemia) HTN (hypertension) Surgical History H/O bilateral inguinal hernia repair History of appendectomy Open, circa 1953 History of cholecystectomy Laparoscopic History of knee replacement right Family History Other Family history of stroke Lung cancer Social History (Updated 06/17/25 @ 06:35 by Lisa Tao RN) Smoking Status: Former smoker second hand exposure: No alcohol intake: never counseling provided: none substance use type: denies use current occupational status: employed Travel in the last 8 weeks?: None household members: spouse housing: house lives independently: No marital status: education level: college service: No usp: No 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: No Do you have any weakness?: No Are you experiencing any nausea/vomitting?: No Do you have any diarrhea?: No Are you experiencing any unusual bleeding?: No Do you have any muscle aches/pain?: No Do you have any abdominal pain?: No Are you experiencing loss of taste or smell?: No [facility] Anesthesia Checklist Patient Identification Patient Identification: Arm Band and Family Structural Data Admitted From: Home Planned Operative Procedure/s: Lap ventral hernia repair Consent for Planned Operative Procedure(s) Verified: Yes Verified Documents: Surgical Consent and History and Physical NPO Status Verified Time NPO: 00:00 Additional verifications Patient : No Anesthesia Reactions: No Hx Blood Transfusions: No Blood Transfusion Reaction: No Cephalosporin Allergy: No Previous Colonoscopy: Yes Airway Assessment Mallampati Score:: Class II C-Spine Mobility Assessed: Yes TMJ Mobility Assessed: Yes Dentition: Good Dentition Neurological Assessment Level of Consciousness: Awake, Alert, Appropriate and Follows Commands Hx Seizures: No Numbness or tingling in extremities: No Anesthesia Plan ASA Class: II Anesthesia Type: General
--- NOTE | 2025-06-17 10:21 | EXP.ANES.I ---
[facility] Anesthesia Record Part I Anesthesia Record I Intake, IV Amount: 850 Hydration: Adequate Estimated blood loss (mL): 20 Urine output (mL): 0 Blood Products used (#): none Blood Pressure: 144/69 SaO2: 96 Pulse Rate: 55 Airway Patency: Patent Respiratory Rate: 12 Temperature: 97 F Patient is:: Drowsy and Stable Stable to PACU at:: 07:32
[2025-06-17] MEDS: MORPHINE 2MG/ML SYRINGE 2 MG IV ×2 (10:26→10:40)
--- NOTE | 2025-06-17 11:05 | SUR.PHASEI ---
1051- patient VSS and pain controlled with medication at this time. detailed report called to Anaya Zavala RN. 1054- transferred to [address] [place] [address] via bed. SRNA at bedside to take vital signs and RN in hallway outside of room. Family at bedside. Patient stable. Call light within reach.
--- NOTE | 2025-06-17 11:08 | PC.NURSE ---
arrived to floor surgery at 10:58
[2025-06-17] MEDS: KETOROLAC 30MG/ML VIAL 30 MG IV ×3 (11:10→21:54)
--- NOTE | 2025-06-17 11:20 | HMH.PHAINT1 ---
Pharmacy Intervention Comments: MEDICATION RECONCILIATION COMPLETED ON PATIENT USING EXTERNAL FILL HISTORY FROM PHARMACY. -TRUDY LOMBARDI, BEVERLYD
[2025-06-17] MEDS: LACTATED RINGERS 1000ML 1,000 ML 125 ML IV ×2 (11:33→20:38)
[2025-06-17] MEDS: MORPHINE 4MG/ML SYRINGE 2 MG IV (12:39)
--- NOTE | 2025-06-17 13:47 | EXP.GEN.HP ---
HPI HPI HPI: Patient presented incisional hernia repair. He underwent emergent diagnostic laparoscopy followed by laparotomy with small bowel resection for strangulated right lower quadrant spigelian hernia by Dr. Garcia on 08/04/2024. Midline incision was closed with a #1 looped PDS. I had followed him to ensure that he did not have recurrent right lower quadrant hernia. He has not had any issues with the area in the right lower quadrant. He was more concerned about possible mid abdominal ventral hernia. He states that about 2 months ago he noticed a bulge. It is nontender to him. He has had no pain and no obstructive symptoms. CT scan reveals a new left paramidline abdominal wall hernia which contains nonobstructed small bowel? By report, size of the defect is 36 mm. He has been wearing a hernia belt to keep it from enlarging. He underwent laparoscopic ventral hernia repair and was actually found to have about a 6 cm left periumbilical hernia with several additional smaller hernias within the region. There was densely adherent small bowel. He underwent laparoscopic placement of 8 x 10 inch Bard mesh. Given the potential for ileus and postoperative pain plan was for admission postoperatively. [facility] Disclaimer: The information contained in this section may have been updated after the patient was seen, as this information can be updated by other users. Medical History Spigelian hernia with bowel obstruction Cardiac murmur Prostate CA Anxiety Abnormal ECG Expressive aphasia ESTHER (obstructive sleep apnea) Currently on AutoPap, asymptomatic Family history of heart disease HLD (hyperlipidemia) HTN (hypertension) Surgical History H/O bilateral inguinal hernia repair History of appendectomy Open, circa 1953 History of cholecystectomy Laparoscopic History of knee replacement right Family History Other Family history of stroke Lung cancer Social History (Updated 06/17/25 @ 12:24 by Sarina Hawkins RN) Smoking Status: Former smoker second hand exposure: No alcohol intake: current alcohol intake frequency: 0-2 drinks per day counseling provided: none substance use type: denies use current occupational status: employed Travel in the last 8 weeks?: None household members: spouse housing: house lives independently: No marital status: education level: college service: No detention: No 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: No Do you have any weakness?: No Are you experiencing any nausea/vomitting?: No Do you have any diarrhea?: No Are you experiencing any unusual bleeding?: No Do you have any muscle aches/pain?: No Do you have any abdominal pain?: No Are you experiencing loss of taste or smell?: No Other Medical History Have you received the Flu Vaccine for this season: No Have you received the Pneumonia Vaccine: Yes Meds Home Medications and Allergies Home Medications ?Medication ?Instructions ?Recorded ?Confirmed ?Type tamsulosin 0.4 mg capsule 0.4 mg PO DAILY 12/28/21 06/17/25 History atorvastatin 40 mg tablet 40 mg PO DAILY Cholesterol 08/05/24 06/17/25 History sildenafil 100 mg tablet 100 mg PO DAILYP PRN Sexual 08/05/24 06/17/25 History Activity hydrochlorothiazide 12.5 mg tablet 12.5 mg PO DAILY 30 days #30 tabs 06/04/25 06/17/25 Rx losartan 100 mg tablet 100 mg PO DAILY 06/17/25 06/17/25 History New Prescriptions to Start Prescriptions: Allergies Allergy/AdvReac Type Severity Reaction Status Date / Time No Known Allergies Allergy Verified 06/17/25 06:47 Exam Data for Last 24 hours Vital signs and Labs for Last 24 Hours: Temp Pulse Resp BP Pulse Ox O2 Del Method 97.4 F L 58 L 18 149/67 H 97 Room Air 06/17/25 12:15 06/17/25 12:45 06/17/25 12:45 06/17/25 12:45 06/17/25 12:45 06/17/25 13:10 I & O for Last 24 hours: Intake & Output 06/15/25 06/16/25 06/17/25 06/18/25 11:59 11:59 11:59 11:59 Intake Total 850 / 850 Balance 850 / 850 Weight 240 lb Constitutional Constitutional: no acute distress *Routine HEENT Exam Head: Present normocephalic Eye: Present EOMI and PERRL ENT: Present mucous membranes moist *Routine Neck Exam Neck: Present supple; Absent lymphadenopathy *Routine Respiratory Exam Respiratory: Present CTA bilaterally *Routine Cardiovascular Exam Cardiovascular: Present RRR *Routine Abdominal Exam Abdominal: Present soft, normoactive bowel sounds and surgical scars *Routine Rectal Exam Rectal:: deferred *Routine Genitalia Exam Genitalia:: deferred *Routine Extremities Exam Extremities: Absent cyanosis, clubbing or edema *Routine Skin Exam Skin: Present warm; Absent rash *Routine Neurological Exam Neurological: Present alert and oriented X3 Assessment and Plan *Assessment and plan (1) Incisional hernia: Status: Acute Category: Medical Code(s): K43.2 - Incisional hernia without obstruction or gangrene Plan Admitted postoperatively for observation for ileus, perioperative antibiotics, and pain control.
[2025-06-17 14:58] LABS: Microscopic,Cath URINE MICROSCOPIC (MICROSCOPIC)
--- NOTE | 2025-06-17 15:32 | P.PNANES_ITS ---
[facility] Anesthesia Record Part II Anesthesia Record Part II Discharge Time: 10:50 Destination: Medical Surgical Department PACU nurse assessment reviewed?: Yes Patient Condition:: Good Anesthesia Complications:: None Swallowing reflex intact?: Yes Airway Patency: Patent Cyanosis?: No Blood Pressure: 148/65 SaO2: 95 Respiratory Rate: 16 Pulse Rate: 55 Temperature: 97.0 F Mental Status: Alert & Oriented Pain level:: 1 Nausea and/or vomitting:: None Intake, IV Amount: 0 Hydration: Adequate
[2025-06-17 16:57] LABS: Appearance,Urine/Cath CLEAR (Clear); Bilirubin,Cath Negative (Negative); Blood, Urine/Cath 3+ (Negative); Color,Urine/Cath YELLOW (Yellow); Glucose,Urine/Cath (UA) Negative (Negative); Ketones,Urine/Cath Negative (Negative); Leukocyte Esterase,Cath Negative (Negative); Nitrate,Cath Negative (Negative); PH,Urine/Cath 7.5 (5.0-8.5); Protein,Urine/Cath Negative (Negative); Specific Gravity, Urine/Cath 1.010 (1.005-1.030); Urobilinogen,Cath 0.2 EU/dl (0.2)
--- NOTE | 2025-06-17 19:21 | P.PN_ITS ---
Subjective *Date: 06/17/25 *Time: 19:21 Interval history: Saw patient twice today after his surgery. He has been up to the bathroom to urinate. He does have some abdominal pain. He is tolerating a clear liquid diet. Wants Melatonin to help with sleep tonight. Medical Exam Vital signs and Labs for Last 24 Hours: Vital Signs Temp Pulse Pulse Resp BP BP Pulse Ox 06/17/25 18:50 06/17/25 17:05 06/17/25 16:00 97.9 F 62 18 157/65 H 98 06/17/25 15:33 16 06/17/25 15:10 06/17/25 13:45 97.5 F L 58 L 20 142/71 H 96 06/17/25 13:15 58 L 20 138/72 96 06/17/25 13:10 06/17/25 12:45 58 L 18 149/67 H 97 06/17/25 12:15 97.4 F L 58 L 20 142/61 H 98 06/17/25 11:45 55 L 20 144/64 H 97 06/17/25 11:30 53 L 20 142/69 H 98 06/17/25 11:15 50 L 18 145/67 H 97 06/17/25 11:06 98 06/17/25 11:00 96.2 F L 52 L 18 136/68 98 06/17/25 10:50 97.0 F L 55 L 16 148/65 H 95 06/17/25 10:40 97.0 F L 58 L 16 153/67 H 96 06/17/25 10:30 97.0 F L 57 L 16 154/70 H 96 06/17/25 10:23 97 F L 55 L 12 144/69 H 06/17/25 10:20 97.0 F L 55 L 14 144/69 H 96 06/17/25 06:34 98.0 F 67 18 179/83 H 97 O2 Del Method 06/17/25 18:50 Room Air 06/17/25 17:05 Room Air 06/17/25 16:00 Room Air 06/17/25 15:33 06/17/25 15:10 Room Air 06/17/25 13:45 Room Air 06/17/25 13:15 Room Air 06/17/25 13:10 Room Air 06/17/25 12:45 Room Air 06/17/25 12:15 Room Air 06/17/25 11:45 Room Air 06/17/25 11:30 Room Air 06/17/25 11:15 Room Air 06/17/25 11:06 Room Air 06/17/25 11:00 Room Air 06/17/25 10:50 Room Air 06/17/25 10:40 Room Air 06/17/25 10:30 Room Air 06/17/25 10:23 06/17/25 10:20 Room Air 06/17/25 06:34 Room Air Intake and Output 06/17/25 06/17/25 06/17/25 07:59 15:59 23:59 Intake Total 1330 / 1673.333 343.333 / 1673.333 Balance 1330 / 1673.333 343.333 / 1673.333 Intake: Intake, Oral Amount 480 / 480 0 / 480 Intake, Total IV Amount 850 / 1193.333 343.333 / 1193.333 Cefazolin Sodium 2 gm In 0.9 % 100 / 100 Sodium Chloride 100 ml @ 200 mls/hr IV Q8H [facility] Rx#:[id number] Lactated Ringers 1000ML 1,000 243.333 / 243.333 ml @ 25 mls/hr IV .Q25H ONE Rx# :[id number] Other: Weight 240 lb Patient Weight 06/17/25 23:59 Weight 240 lb Laboratory Results - last 24 hr 06/17/25 07:20: Urine Color Yellow, Urine Appearance Clear, Urine pH 7.5, Ur Specific Agency 1.010, Urine Protein Negative, Urine Glucose (UA) Negative, Urine Ketones Negative, Urine Blood 3+, Urine Nitrate Negative, Urine Bilirubin Negative, Urine Urobilinogen 0.2, Ur Leukocyte Esterase Negative, Urine RBC 10- 20, Urine WBC 3-5, Ur Squamous Epith Cells None, Urine Bacteria None I & O for Labs for Last 24 Hours: Intake & Output 06/14/25 06/15/25 06/16/25 06/17/25 23:59 23:59 23:59 23:59 Intake Total 1673.333 / 1673.333 Balance 1673.333 / 1673.333 Weight 240 lb Constitutional: Present no acute distress Comment:: conversant Assessment and Plan *Assessment and plan (1) Incisional hernia: Status: Acute Category: Medical Code(s): K43.2 - Incisional hernia without obstruction or gangrene (2) HTN (hypertension): Status: Chronic Qualifiers: Hypertension type: essential hypertension Qualified Code(s): I10 - Essential (primary) hypertension Category: Medical Code(s): I10 - Essential (primary) hypertension (3) HLD (hyperlipidemia): Status: Chronic Qualifiers: Hyperlipidemia type: mixed hyperlipidemia Qualified Code(s): E78.2 - Mixed hyperlipidemia Category: Medical Code(s): E78.5 - Hyperlipidemia, unspecified Plan POD #0, s/p abdominal hernia repair, doing well, continue routine post op care. Home meds reordered.
[2025-06-17] MEDS: MELATONIN 5MG TABLET 5 MG PO (21:54)
[2025-06-18] VITALS: BP 141/73; PULSE 68; RESP 12; TEMP 36.9; O2SAT 94
[2025-06-18 04:00] VITALS: BP 144/70; PULSE 64; RESP 14; TEMP 36.6; O2SAT 96; BMI 31.2
[2025-06-18] MEDS: LACTATED RINGERS 1000ML 1,000 ML 125 ML IV (05:43)
[2025-06-18 07:39] VITALS: BP 144/73; PULSE 63; RESP 16; TEMP 36.8; O2SAT 94
--- NOTE | 2025-06-18 07:52 | P.PN_ITS ---
Subjective *Date: 06/18/25 *Time: 09:02 Interval history: Doing well this a.m. States he is going home. He has been taking clear liquids without any nausea or vomiting. He has ambulated to the bathroom and voiding QS. He slept a little due to nursing checks. He denies chest pain and s hortness of breath Exam Data for Last 24 hours Vital signs and Labs for Last 24 Hours: Temp Pulse Resp BP Pulse Ox O2 Del Method 98.3 F 63 16 144/73 H 94 L Room Air 06/18/25 07:39 06/18/25 07:39 06/18/25 07:39 06/18/25 07:39 06/18/25 07:39 06/18/25 07:39 Laboratory Results - last 24 hr 06/17/25 07:20: Urine Color Yellow, Urine Appearance Clear, Urine pH 7.5, Ur Specific [place] 1.010, Urine Protein Negative, Urine Glucose (UA) Negative, Urine Ketones Negative, Urine Blood 3+, Urine Nitrate Negative, Urine Bilirubin Negative, Urine Urobilinogen 0.2, Ur Leukocyte Esterase Negative, Urine RBC 10- 20, Urine WBC 3-5, Ur Squamous Epith Cells None, Urine Bacteria None I & O for Last 24 hours: Intake & Output 06/15/25 06/16/25 06/17/25 06/18/25 11:59 11:59 11:59 11:59 Intake Total 850 / 850 3703.333 / 3703.333 Output Total 200 / 200 Balance 850 / 850 3503.333 / 3503.333 Weight 240 lb 256 lb 6 oz Constitutional Constitutional: no acute distress Comments: Sitting up in the bed and appears most comfortable *Routine Respiratory Exam Respiratory: Present CTA bilaterally (Anteriorly and posteriorly) *Routine Cardiovascular Exam Cardiovascular: Present RRR *Routine Abdominal Exam Abdominal: Present soft, normoactive bowel sounds and tenderness (Mild around surgical sites); Absent distended Comments: Postop wounds are clean and dry *Routine Extremities Exam Extremities: Absent edema or calf tenderness Comments: Bilateral SCUDs on *Routine Neurological Exam Neurological: Present alert and oriented X3 Assessment and Plan *Assessment and plan (1) Incisional hernia: Status: Acute Category: Medical Code(s): K43.2 - Incisional hernia without obstruction or gangrene (2) HTN (hypertension): Status: Chronic Qualifiers: Hypertension type: essential hypertension Qualified Code(s): I10 - Essential (primary) hypertension Category: Medical Code(s): I10 - Essential (primary) hypertension (3) HLD (hyperlipidemia): Status: Chronic Qualifiers: Hyperlipidemia type: mixed hyperlipidemia Qualified Code(s): E78.2 - Mixed hyperlipidemia Category: Medical Code(s): E78.5 - Hyperlipidemia, unspecified Plan Postop# 1 day. Patient has been seen by Dr. Lara who plans to discharge the patient. Dr. Xiao entry - Saw patient, agree with above note.
--- NOTE | 2025-06-18 07:54 | EXP.SURG.PN ---
Subjective Narrative: Patient states that he is doing great. No issues. Denied pain medication. Exam Data for Last 24 hours Vital signs and Labs for Last 24 Hours: Temp Pulse Resp BP Pulse Ox O2 Del Method 98.3 F 63 16 144/73 H 94 L Room Air 06/18/25 07:39 06/18/25 07:39 06/18/25 07:39 06/18/25 07:39 06/18/25 07:39 06/18/25 07:39 Laboratory Results - last 24 hr 06/17/25 07:20: Urine Color Yellow, Urine Appearance Clear, Urine pH 7.5, Ur Specific [place] 1.010, Urine Protein Negative, Urine Glucose (UA) Negative, Urine Ketones Negative, Urine Blood 3+, Urine Nitrate Negative, Urine Bilirubin Negative, Urine Urobilinogen 0.2, Ur Leukocyte Esterase Negative, Urine RBC 10-20, Urine WBC 3-5, Ur Squamous Epith Cells None, Urine Bacteria None I & O for Last 24 hours: Intake & Output 06/15/25 06/16/25 06/17/25 06/18/25 11:59 11:59 11:59 11:59 Intake Total 850 / 850 3703.333 / 3703.333 Output Total 200 / 200 Balance 850 / 850 3503.333 / 3503.333 Weight 240 lb 256 lb 6 oz *Routine Abdominal Exam Comments: Slightly distended. Progress Note: A&P Assessment and plan (1) Incisional hernia: Status: Acute Assessment and plan: Anxious to go home. Plan for discharge on limited diet. (2) HTN (hypertension): Status: Chronic (3) HLD (hyperlipidemia): Status: Chronic
--- NOTE | 2025-06-18 08:00 | EXP.DC.SUM ---
General Admission date:: 06/17/25 Discharge date: 06/18/25 HPI HPI HPI: Patient presented incisional hernia repair. He underwent emergent diagnostic laparoscopy followed by laparotomy with small bowel resection for strangulated right lower quadrant spigelian hernia by Dr. Garcia on 08/04/2024. Midline incision was closed with a #1 looped PDS. I had followed him to ensure that he did not have recurrent right lower quadrant hernia. He has not had any issues with the area in the right lower quadrant. He was more concerned about possible mid abdominal ventral hernia. He states that about 2 months ago he noticed a bulge. It is nontender to him. He has had no pain and no obstructive symptoms. CT scan reveals a new left paramidline abdominal wall hernia which contains nonobstructed small bowel? By report, size of the defect is 36 mm. He has been wearing a hernia belt to keep it from enlarging. He underwent laparoscopic ventral hernia repair and was actually found to have about a 6 cm left periumbilical hernia with several additional smaller hernias within the region. There was densely adherent small bowel. He underwent laparoscopic placement of 8 x 10 inch Bard mesh. Given the potential for ileus and postoperative pain plan was for admission postoperatively. Hospital Course Hospital Course Hospital Course: Patient was admitted overnight for pain control, observation for ileus, perioperative antibiotics. He did well overnight. He declined pain medication. Tolerated clear liquid diet without difficulty. He did have some transient dysuria which resolved after a couple of times voiding. He was anxious to go home the following morning. Exam Data for Last 24 hours Vital signs and Labs for Last 24 Hours: Temp Pulse Resp BP Pulse Ox O2 Del Method 98.3 F 63 16 144/73 H 94 L Room Air 06/18/25 07:39 06/18/25 07:39 06/18/25 07:39 06/18/25 07:39 06/18/25 07:39 06/18/25 07:39 Laboratory Results - last 24 hr 06/17/25 07:20: Urine Color Yellow, Urine Appearance Clear, Urine pH 7.5, Ur Specific [place] 1.010, Urine Protein Negative, Urine Glucose (UA) Negative, Urine Ketones Negative, Urine Blood 3+, Urine Nitrate Negative, Urine Bilirubin Negative, Urine Urobilinogen 0.2, Ur Leukocyte Esterase Negative, Urine RBC 10-20, Urine WBC 3-5, Ur Squamous Epith Cells None, Urine Bacteria None I & O for Last 24 hours: Intake & Output 06/15/25 06/16/25 06/17/25 06/18/25 11:59 11:59 11:59 11:59 Intake Total 850 / 850 3703.333 / 3703.333 Output Total 200 / 200 Balance 850 / 850 3503.333 / 3503.333 Weight 240 lb 256 lb 6 oz Results Data Completed and Pending Labs on day of discharge: Labs from last 24 hours 06/17/25 07:20 Urine Color Yellow Urine Appearance Clear Urine pH 7.5 Ur Specific [place] 1.010 Urine Protein Negative Urine Glucose (UA) Negative Urine Ketones Negative Urine Blood 3+ Urine Nitrate Negative Urine Bilirubin Negative Urine Urobilinogen 0.2 Ur Leukocyte Esterase Negative Urine RBC 10-20 Urine WBC 3-5 Ur Squamous Epith Cells None Urine Bacteria None DS: Diagnosis Discharge Diagnosis (1) Incisional hernia: Status: Acute Code(s): K43.2 - Incisional hernia without obstruction or gangrene (2) HTN (hypertension): Status: Chronic Code(s): I10 - Essential (primary) hypertension Qualifiers: Hypertension type: essential hypertension Qualified Code(s): I10 - Essential (primary) hypertension (3) HLD (hyperlipidemia): Status: Chronic Code(s): E78.5 - Hyperlipidemia, unspecified Qualifiers: Hyperlipidemia type: mixed hyperlipidemia Qualified Code(s): E78.2 - Mixed hyperlipidemia Meds Home Medications and Allergies Home Medications ?Medication ?Instructions ?Recorded ?Confirmed ?Type tamsulosin 0.4 mg capsule 0.4 mg PO DAILY 12/28/21 06/17/25 History atorvastatin 40 mg tablet 40 mg PO DAILY Cholesterol 08/05/24 06/17/25 History sildenafil 100 mg tablet 100 mg PO DAILYP PRN Sexual 08/05/24 06/17/25 History Activity hydrochlorothiazide 12.5 mg tablet 12.5 mg PO DAILY 30 days #30 tabs 06/04/25 06/17/25 Rx losartan 100 mg tablet 100 mg PO DAILY 06/17/25 06/17/25 History hydrocodone 5 mg-acetaminophen 325 1 - 2 tab PO Q6H PRN Pain #17 tabs 06/18/25 Rx mg tablet New Prescriptions to Start Prescriptions: hydrocodone-acetaminophen Ho Lara Allergies Allergy/AdvReac Type Severity Reaction Status Date / Time No Known Allergies Allergy Verified 06/17/25 06:47 Discharge Plan Disposition Patient Disposition: Home, Self-Care Follow up Plan Follow up with: Ho Lara MD [Staff Physician, General Surgery] - 07/04/25 Prescriptions/Medication Reconciliation: New hydrocodone-acetaminophen 5-325 mg Tablet 1 - 2 tab PO Q6H PRN (Reason: Pain) Qty: 17 0RF Continued hydrochlorothiazide 12.5 mg tablet 12.5 mg PO DAILY 30 Days Qty: 30 6RF tamsulosin 0.4 MG capsule 0.4 mg PO DAILY sildenafil 100 mg tablet 100 mg PO DAILYP PRN (Reason: Sexual Activity) Patient Comments: TAKE 1 TABLET BY MOUTH NEEDED atorvastatin 40 mg tablet 40 mg PO DAILY losartan 100 mg tablet 100 mg PO DAILY Problem Reconciliation Problems Reviewed?: Yes Patient Discharge Instructions ACTIVITY: No heavy lifting DIET: other Additional Instructions: Full liquid diet for 24 to 48 hours then advance as tolerated. Patient Instructions: DI for Surgical Site Infection, DI for Ventral Hernia Print Language: Swazi Providers Primary Care Provider: Kadeem Xiao Provider: Ho Lara Attending Provider: Ho Lara
[2025-06-18] MEDS: IRBESARTAN 150MG TAB 150 MG PO (09:27)
[2025-06-18] MEDS: TAMSULOSIN 0.4MG CAPSULE 0.4 MG PO (09:27)
--- NOTE | 2025-06-19 10:25 | SW/DCPLANNER ---
Spoke with patient on the phone. Patient stated that he is doing well just sore. Patient stated that he is aware of his upcoming appointment. Patient stated that he was able to get his new medicine picked up from [facility]. Patient stated that he has no concerns or questions at this time. Meg Kim
== END 2025-06-18 09:32 | disposition home or self-care (01) ==
LOC: 2ND 11:01
PROVIDERS: Admitting Provider Surgery; PCP Family Medicine; Visit Provider Surgery
PROC: 0WQF4ZZ Repair Abdominal Wall, Percutaneous Endoscopic Approach (ICD-10-PCS; principal; 2025-06-17 07:30)
DX: K43.2 Incisional hernia without obstruction or gangrene (principal); I10 Essential (primary) hypertension; E78.2 Mixed hyperlipidemia; K56.7 Ileus, unspecified; F41.9 Anxiety disorder, unspecified; G47.33 Obstructive sleep apnea (adult) (pediatric); Z99.89 Dependence on other enabling machines and devices; Z85.46 Personal history of malignant neoplasm of prostate; Z90.49 Acquired absence of other specified parts of digestive tract; Z98.890 Other specified postprocedural states; Z87.891 Personal history of nicotine dependence; Z79.899 Other long term (current) drug therapy
CPT/HCPCS: 49593; 51702; 81001; 96361; 96374; 96375; C1781; G0378; J0461; J0690; J1100; J1885; J2003; J2250; J2270; J2405; J2704; J2795; J3010; J7120

== ENCOUNTER 2025-07-19 12:48 | Outpatient (CLI) | payer MEDICARE, BC, SELFPAY ==
--- OUTSIDE RECORDS SUMMARY | 2024-02-10 04:40 | XMS_ITS | Encounter Summary ---
Author Organization [facility] Address [address] [place] [address] Care Team Providers Care Scratch Finisher Name Role Phone Kadeem Xiao MD Primary Care Provider [phone] Encounter Details Date Type Department Care Team (Late st Contact Info) Description 02/10/2024 5:40 AM EDT Hospital Encounter [facility] [place] [address] [address] Social History Tobacco Use Types Packs/Day Years Used Date Smoking Tobacco: Former Cigarettes 1 2000 Smokeless Tobacco: Never Alcohol Use Standard Drinks/Week Comments Yes 0 (1 standard drink = 0.6 oz pur e alcohol) 2 drinks per day PHQ-2 Answer Date Recorded Retired PHQ-9: Brief Depression Severity Measure Score 0 04/13/2023 Abuse Screen Answer Date Recorded Feels Unsafe at Home or Work/School no 02/17/2024 Feels Threatened by Someone no 01/28 Does Anyone Try to Keep You From Having Contact with Others or Doing Things Outside Your Home? no 02/17/2024 Physical Signs of Abuse Present no 02/17/2024 PHQ-2 Answer Date Recorded Patient Health Questionnaire-2 Score 0 02/28/2025 Sex and Gender Information Value Date Recorded Sex Assigned at Male 02/24/2025 11:52 AM EDT Legal Sex Male 9:58 AM EDT Gender Identity Not on file Sexual Orientation Not on file documented as of this encounter Functional Status documented as of this encounter Plan of Treatment Not on file documented as of this encounter Visit Diagnoses Not on filedocumented in this encounter Care Teams Scratch Finisher Relationship Specialty Start Date End Date Kadeem Xiao MD [address] [facility] [address] [place] [address] PCP - General Family Medicine 04/13/23 documented as of this encounter
--- OUTSIDE RECORDS SUMMARY | 2024-03-26 09:00 | XMS_ITS ---
[facility] Address [address] [place] [id number] Care Team Providers Care Rotary Shear Cutter Name Role Phone Ninoska Kadeem Primary Care Provider Allergies Allergen (clinical drug ingredient) Drug/Non Drug Allergy documented on EMR Reaction Allergy Type Onset Date Status amoxicillin Amoxicillin rash Drug Allergy Act sabrina dexamethasone Dexamethasone elevated BP Drug Allergy Active REASON FOR VISIT leg swollen spot on leg Medications Medication SIG (Take, Route, Frequency, Duration) Notes Start Date End Date Status hydroCHLOROthiazide 12.5 MG 1 tab(s) ora lly once a day Active Dupixent 300 MG/2ML as directed subcutaneously every 2 weeks Active CareTouch CPAP & BIPAP Hose NASAL AUTOPA P 16 HEATED AIR DIRECTED 12/22/2016 Active Fish Oil 1000 MG 1 cap(s) orally once daily Active Atorvastatin Calcium 40 MG 1 tab(s) oral ly once a day 10/24/2017 Active Losartan Potassium 100 MG 1 tab(s) orall y once a day; Duration: 30 day(s) Active Pimecrolimus 1 % 1 application Externally Twice a day 03/26/2024 Active Triamcinolone Acetonide 0.1 % 1 ardha appl ied topically 2 times a day 12/30/2022 Active Vital Signs Blood pressure systolic 130 mm Hg 03/26/20 24 Blood pressure diastolic 72 mm Hg 024 Heart Rate 76 /min 03/26/2024 Height 75.25 in 03/26/2024 Weight 245.6 lbs 03/26/2024 BMI 30.49 kg/m2 03/26/2024 Encounters Encounter Location Date Provider Diagnosis [facility] [address] [place] [id number] 03/26/2024 Kadeem Xiao Rash R21 Assessments Encounter Date Diagnosis (ICD Code) Assessment Notes Treatment Notes Treatment Clinical Notes Section Notes 03/26/2024 Rash (ICD-10 - R21) Plan Of Treatment Medication Medication Name Sig Start Date Stop Date Notes Pimecrolimus 1 % 1 application Externally Twice a day 02/27 Next Appt Details Follow Up: via phone to repo rt progress, Reason: Progress Notes * Kai HOLCOMBDOB:[birth year] (79 yo M)Acc No.[id number]:03/26/2024 Progress Notes Patient: Kai CHRISTIANSEN Provider: Munir Xiao M.D. :1945 A ge:78 Y S ex:Male Date:03/26/2024 Address:[address] [place] [address] [place], [id number] Subjective: * Chief Complaints: * 1 . Leg swollen spot on leg. * HPI: D ermatology: 78 year old male presents with c/o Dry Skin P t complains of dry, itchy area above lt ankle. Pt states he has had this issues since at least 05/2016. Pt has tried multiple OTC lotions, creams and ointments but nothing has made it improve. Pt states Triamcinolone cream does help relieve the itching for a short time. * ROS: C ARDIOLOGY: no D izziness. n o C hest pain. G ASTROENTEROLOGY: no N ausea. n o V omiting. U ROLOGY: no D ifficulty urinating. n o B lood in urine. * Medical History: A llergic Rhinitis, Seronegative Rheumatoid Arthritis, Macular Degeneration, Glaucoma, Cataract right eye, s/p surgical removal, 40 pack year smoking history, quit in 2006, Sleep apnea, TIA 08/29/17 and 09/07/17 - Dr Scruggs, Hypertension, Hyperhomocysteinemia, Hyperlipidemia, Left heart cath and TERESA 2017, Atopic dermatitis, prostate cancer stage IIIC, diagnosed in 2022. * Surgical History: L T Inguninal Hernia Repair 08/2010, Cholecystectomy 05/11/2011, RT Inguninal Hernia Repair 07/08/2014, Heart Cath - Negative , RT Total Knee Replacement 05/2021. * Hospitalization/Major Diagno stic Procedure: D enies Past Hospitalization. * Family History: F ather: 68 yrs, lung cancer. M other: 79 yrs, stroke. 1 brother(s) . 1 son(s) , 2 daughter(s) . . * Social History: C URRENT TOBACCO USE S moking Status: Patient does NOT smoke. C affeine: yes, frequency:coffee, pop and tea, qd. Home smoke detector use: yes. Marital Status: . Past smoking status: no. Alcohol: Yes, Type: , Frequency: ,Years: , Determination: two beers, qd. * Medications: T aking Losartan Potassium 100 MG Tablet 1 tab(s) orally once a day , Taking Dupixent 300 MG/2ML Solution Pen-injector as directed subcutaneously every 2 weeks , Taking CareTouch CPAP & BIPAP Hose MACHINE AND SUPPLIES NASAL AUTOPAP 6/16 HEATED AIR DIRECTED , Taking Fish Oil 1000 MG Capsule 1 cap(s) orally once daily , Taking Atorvastatin Calcium 40 MG Tablet 1 tab(s) orally once a day , Taking hydroCHLOROthiazide 12.5 MG Tablet 1 tab(s) orally once a day , Taking Triamcinolone Acetonide 0.1 % Cream 1 radha applied topically 2 times a day , Discontinued levoFLOXacin 500 MG Tablet 1 tablet Orally Once a day , Medication List reviewed and reconciled with the patient * Allergies: A moxicillin: rash, Dexamethasone: elevated BP. Objective: * Vitals: W t:245.6, Temp:98.0, BP:130/72, HR:76, Nurse:rachel, Ht: 75.25, BMI:30.49. * Examination: G eneral Examination: General Appearance: N AD. S kin: l eft distal inner leg with a large, circular, reddened area of skin with superficial peeling, area is about 8 cm in diameter, similar smaller area superiorly is about 2 cm in diameter. Assessment: * Assessment: 1. R kei - R21 (Primary) Plan: * Treatment: * Procedure Codes: G 2211 Complex e/m visit add on * Follow Up: v ia phone to report progress * Images: Billing Information: * Visit Code: 22415 Office Visit, Est Pt., Level 3. * Procedure Codes: G2211 Complex e/m visit add on. * Electronic signature of Leeann Xiao MD on 07/19/2025 at 12:53 PM EST Sign off status: Pending * Provider: Munir Xiao M.D. Date: 0 03/26/2024 Generated for Aracelyi rajeev/Bernadine/eTransmitting on: 1 09/18/2024 12:53 PM EST History and Physical Notes * HPI (History of Present Illness) Category Sub-Category Detail Notes Category Not es Dermatology Dry Skin Pt complains of dry, itchy area above lt ankle. Pt states he has had this issues since at least 05/2016. Pt has tried multiple OTC lotions, creams and ointments but nothing has made it improve. Pt states Triamcinolone cream does help relieve the itching for a short time Examination Category Sub-Category Detail Notes Category Not es General Examination General Appearance: NAD Skin: left distal inner le g with a large, circular, reddened area of skin with superficial peeling, area is about 8 cm in diameter, similar smaller area superiorly is about 2 cm in diameter
--- OUTSIDE RECORDS SUMMARY | 2024-05-21 05:00 | XMS_ITS ---
[facility] Address [address] [place] [id number] Care Team Providers Care Health Care Recruiter Name Role Phone Kadeem Xiao Primary Care Provider [phone] LizzieNehal Unavailable [phone] Allergies Allergen (clinical drug ingredient) Drug/Non Drug Allergy documented on EMR Reaction Allergy Type Onset Date Status amoxicillin Amoxicillin rash Drug Allergy Act sabrina dexamethasone Dexamethasone elevated BP Drug Allergy Active Results Component Value Reference Range Notes CBC Fingerstick (in house) Reviewed date:05/21/2024 10:45:42 AM Interpretation: Performing Lab: Notes/Report: wbc 4.6 3.5 - 10 lym 12.8 15 - 50 mid 17.1 2 - 15 gran 70.1 35 - 80 rbc 4.04 3.5 - 5.5 hgb 13.4 11.5 - 16.5 hct 40.1 35 - 55 mcv 99.2 75 - 100 mch 33.1 25 - 35 mchc 33.4 31 - 38 plat 139 100 - 400 Covid test (in house) Reviewed date:05/21/2024 10:45:27 AM Interpretation:Negative Performing Lab: Notes/Report: Negative Result: neg REASON FOR VISIT cough,congestion Medications Medication SIG (Take, Route, Frequency, Duration) Notes Start Date End Date Status Triamcinolone Acetonide 0.1 % 1 radha appl ied topically 2 times a day 12/30/2022 Active hydroCHLOROthiazide 12.5 MG 1 tab(s) ora lly once a day Active Pimecrolimus 1 % 1 application Externally Twice a day 03/26/2024 Active Doxycycline Hyclate 100 MG 1 capsule Ora lly Two times a day 05/21/2024 Active Atorvastatin Calcium 40 MG 1 tab(s) oral ly once a day 10/24/2017 Active Losartan Potassium 100 MG 1 tab(s) orall y once a day; Duration: 30 day(s) Active CareTouch CPAP & BIPAP Hose NASAL AUTOPA P 02/11 HEATED AIR DIRECTED 12/22/2016 Active Dupixent 300 MG/2ML as directed subcutaneously every 2 weeks Active Fish Oil 1000 MG 1 cap(s) orally once daily Active Vital Signs Blood pressure systolic 134 mm Hg 05/21/20 24 Blood pressure diastolic 72 mm Hg 024 Heart Rate 59 /min 05/21/2024 Height 75.25 in 05/21/2024 Weight 243 lbs 05/21/2024 BMI 30.17 kg/m2 05/21/2024 Encounters Encounter Location Date Provider Diagnosis A[facility] [address] [place] [phone] 05/21/2024 Nehal Samuel URI (upper respirato ry infection) J06.9 Assessments Encounter Date Diagnosis (ICD Code) Assessment Notes Treatment Notes Treatment Clinical Notes Section Notes 05/21/2024 URI (upper respiratory infection) (ICD-10 - J06.9) Plan Of Treatment Medication Medication Name Sig Start Date Stop Date Notes Doxycycline Hyclate 100 MG 1 capsule Ora lly Two times a day 05/21/2024 Next Appt Details Follow Up: prn, Reason: Progress Notes * Kai HOLCOMBDOB:[birth year] (79 yo M)Acc No.[id number]:05/21/2024 Progress Notes Patient: Kai CHRISTIANSEN Provider: Nehal Samuel M.D. :1945 A ge:78 Y S ex:Male Date:05/21/2024 Address:[address] [place], [id number] Pcp:Kadeem Xiao Subjective: * Chief Complaints: * 1 . Cough,congestion. * HPI: E NT/respiratory: 78 year old male presents with c/o nasal congestion P t presents today with c/o nasal congestion and nasal drainage. Pt sts that he has been taking Mucinex and Aspirin. Pt sts that it has not got down into his chest yet. Pt sts that he started to feel bad Tuesday morning and has declined since. Denies : Fever. D enies : headache. D enies : body aches. * ROS: C ARDIOLOGY: no D izziness. [...] , RT Total Knee Replacement 05/2021. * Family History: F ather: 68 yrs, [...] BIPAP Hose MACHINE AND SUPPLIES NASAL AUTOPAP 02/11 HEATED AIR DIRECTED , Taking Fish Oil 1000 MG Capsule 1 cap(s) orally once daily , Taking Atorvastatin Calcium 40 MG Tablet 1 tab(s) orally once a day , Taking hydroCHLOROthiazide 12.5 MG Tablet 1 tab(s) orally once a day , Taking Triamcinolone Acetonide 0.1 % Cream 1 radha applied topically 2 times a day , Taking Pimecrolimus 1 % Cream 1 application Externally Twice a day , Medication List reviewed and reconciled with the patient * Allergies: A moxicillin: rash, Dexamethasone: elevated BP. Objective: * Vitals: W t:243, Temp:98.3, BP:134/72, HR:59, O2 Sat:98% on RA, Nurse:SHAMAR, Ht: 75.25, BMI:30.17. * Examination: E NT/Respiratory: General Appearance: N o respiratory distress. E ars:?auditory canals normal bilaterally, TM's WNL. N ose : mild congestion. O ral cavity : postnasal drainage. H eart : R RR, normal S1 S2, no murmurs. L ungs: c lear to auscultation bilaterally. Assessment: * Assessment: 1. U RI (upper respiratory infection) - J06.9 (Primary) Plan: * Treatment: Value Reference Range w bc 4.6 3.5 - 10 * l ym 12.8 15 - 50 * m id 17.1 2 - 15 * g ran 70.1 35 - 80 * r bc 4.04 3.5 - 5.5 * h gb 13.4 11.5 - 16.5 * h ct 40.1 35 - 55 * m cv 99.2 75 - 100 * m ch 33.1 25 - 35 * m chc 33.4 31 - 38 * p lat 139 100 - 400 * WilmaFaustina garcia 05/21/2024 10:1 9:34 AM > results reviewed w/ pt in office ?LAB: Covid test (in house) (Collection Date & Time - 05/21/2024)?Negative* Value Reference Range R esult: neg * WilmaFaustina 05/21/2024 10:4 5:13 AM > reviewed w/ pt in office * Procedure Codes: 9 [address] [place], [address] CAPILLARY BLOOD DRAW, 13449 CBC WITH AUTO DIFF, 80362 COVID TEST IN HOUSE, Modifiers: QW * Follow Up: p rn * Images: Billing Information: * Visit Code: 79641 Office Visit, Est Pt., Level 3. * Procedure Codes: [address] [place]. [address] CAPILLARY BLOOD DRAW. 08386 CBC WITH AUTO DIFF. 52921 COVID TEST IN HOUSE. Modifiers: QW * Electronic signature of Nehal Samuel MD on 07/19/2025 at 12:54 PM EST Sign off status: Pending * Provider: Nehal Samuel M.D. Date: 0 05/21/2024 Generated for Printi ng/Faraquelg/eTransmitting on: 1 09/18/2024 12:54 PM EST History and Physical Notes * HPI (History of Present Illness) Category Sub-Category Detail Notes Category Not es ENT/respiratory Fever headache nasal congestion Pt presents today wi th c/o nasal congestion and nasal drainage. Pt sts that he has been taking Mucinex and Aspirin. Pt sts that it has not got down into his chest yet. Pt sts that he started to feel bad Tuesday morning and has declined since body aches Examination Category Sub-Category Detail Notes Category Not es ENT/Respiratory Oral cavity : postnasal drainage Ears: auditory canals norm al bilaterally, TM's WNL Heart : RRR, normal S1 S2, n o murmurs Lungs: clear to auscultatio n bilaterally General Appearance: No respiratory distr ess Nose : mild congestion
--- OUTSIDE RECORDS SUMMARY | 2024-08-13 09:00 | XMS_ITS ---
[facility] Address [address] [place] [id number] Care Team Providers Care Clinical Manager Home Care Name Role Phone Ninoska Kadeem Primary Care Provider [phone] Allergies Allergen (clinical drug ingredient) Drug/Non Drug Allergy documented on EMR Reaction Allergy Type Onset Date Status amoxicillin Amoxicillin rash Drug Allergy Act sabrina dexamethasone Dexamethasone elevated BP Drug Allergy Active REASON FOR VISIT F/U [facility] D/C Medications Medication SIG (Take, Route, Frequency, Duration) Notes Start Date End Date Status Dupixent 300 MG/2ML as directed subcutaneously every 2 weeks Active Losartan Potassium 100 MG 1 tab(s) orall y once a day; Duration: 30 day(s) Active Doxycycline Hyclate 100 MG 1 capsule Ora lly Two times a day 05/21/2024 Active Pimecrolimus 1 % 1 application Externally Twice a day 03/26/2024 Active Atorvastatin Calcium 40 MG 1 tab(s) oral ly once a day 10/24/2017 Active Fish Oil 1000 MG 1 cap(s) orally once daily Active CareTouch CPAP & BIPAP Hose NASAL AUTOPA P 02/11 HEATED AIR DIRECTED 12/22/2016 Active Triamcinolone Acetonide 0.1 % 1 radha appl ied topically 2 times a day 12/30/2022 Active hydroCHLOROthiazide 12.5 MG 1 tab(s) ora lly once a day Active Vital Signs Blood pressure systolic 132 mm Hg 08/13/20 24 Blood pressure diastolic 70 mm Hg 024 Heart Rate 74 /min 08/13/2024 Height 75.25 in 08/13/2024 Weight 236 lbs 08/13/2024 BMI 29.30 kg/m2 08/13/2024 Encounters Encounter Location Date Provider Diagnosis [facility] [address] [place] [id number] 08/13/2024 Kadeem Xiao Incarcerated ventral hernia K43.6 and Other specified postprocedural states Z98.890 Assessments Encounter Date Diagnosis (ICD Code) Assessment Notes Treatment Notes Treatment Clinical Notes Section Notes 08/13/2024 Incarcerated ventral hernia (ICD-10 - K43.6) 08/13/2024 Other specified postprocedural states (ICD-10 - Z98.890) Patient to follow up with Dr. Lara tomorrow Plan Of Treatment Treatment Notes Assessment Notes Other specified postprocedural states Pa tient to follow up with Dr. Lara tomorrhunter Next Appt Details Follow Up: 08/31/24, Reason: Progress Notes * Kai HOLCOMBDOB:[birth year] (79 yo M)Acc No.[id number]:08/13/2024 Patient: Kai CHRISTIANSEN Provider: Munir Xiao M.D. :1945 A ge:78 Y S ex:Male Date:08/13/2024 Address:[address] [place] [address] [place], [id number] Subjective: * Chief Complaints: * 1 . F/U [facility] D/C. * HPI: H PI: 78 year old male presents with c/o Here for follow up on: 10/05-06/2024 [facility] hospitalization, see pt docs. Pt went to er for lower rt abdominal pain. Pt admitted after having spigelian hernia surgery. Pt states he had a lot of pain for about a week after surgery but he is doing better now. * ROS: D ERMATOLOGY: no R kei. n o H antonio. G ASTROENTEROLOGY: no N ausea. n o [...] 1 application Externally Twice a day , Taking Doxycycline Hyclate 100 MG Capsule 1 capsule Orally Two times a day , Discontinued Promethazine-DM 6.25-15 MG/5ML Syrup 5-10 ml Orally every 6 hrs prn , Medication List reviewed and reconciled with the patient * Allergies: A moxicillin: rash, Dexamethasone: elevated BP. Objective: * Vitals: W t:236, Temp:97.9, BP:132/70, HR:74, Nurse:kk, Ht: 75.25, BMI:29.30. * Examination: G eneral Examination: General Appearance: N AD. A bdomen: b owel sounds present, soft and nontender, bruising noted across the lower abdomen, dressings are C/D/I. Assessment: * Assessment: 1. I ncarcerated ventral hernia - K43.6 (Primary) 2 . O ther specified postprocedural states - Z98.890 Plan: * Treatment: * Procedure Codes: G 2211 Complex e/m visit add on * Follow Up: * Images: Billing Information: * Visit Code: 54712 Office Visit, Est Pt., Level 3. * Procedure Codes: G2211 Complex e/m visit add on. * Electronic signature of Leeann Xiao MD on 07/19/2025 at 12:53 PM EST Sign off status: Pending * Provider: Munir Xiao M.D. Date: 10/14/2023 Generated for Shelli boo/Bernadine/eTransmitting on: 09/18/2024 12:53 PM EST History and Physical Notes * HPI (History of Present Illness) Category Sub-Category Detail Notes Category Not es HPI Here for follow up on: 08/04-2023 [facility] hospitalization, see pt docs. Pt went to er for lower rt abdominal pain. Pt admitted after having spigelian hernia surgery. Pt states he had a lot of pain for about a week after surgery but he is doing better now Examination Category Sub-Category Detail Notes Category Not es General Examination Abdomen: bowel sounds present, soft and nontender, bruising noted across the lower abdomen, dressings are C/D/I General Appearance: NAD
--- OUTSIDE RECORDS SUMMARY | 2024-08-24 08:45 | XMS_ITS ---
Author Organization [facility] Address [address] [place] [phone] Care Team Providers Care Wall Washer Name Role Phone Kadeem Xiao Primary Care Provider Allergies Allergen (clinical drug ingredient) Drug/Non Drug Allergy documented on EMR Reaction Allergy Type Onset Date Status amoxicillin Amoxicillin rash Drug Allergy Act sabrina dexamethasone Dexamethasone elevated BP Drug Allergy Active Results Component Value Reference Range Notes Influenza Screen (in house) Reviewed date:08/24/2024 03:46:21 PM Interpretation: Performing Lab: Notes/Report: results Pos A Covid test (in house) Reviewed date:08/24/2024 03:47:39 PM Interpretation: Performing Lab: Notes/Report: Result: Neg CXR Reviewed date:08/27/2024 09:29:58 AM Interpretation:stable chronic changes Performing Lab: Notes/Report: stable chronic changes REASON FOR VISIT congestion coughing Medications Medication SIG (Take, Route, Frequency, Duration) Notes Start Date End Date Status Tamiflu 75 MG 1 capsule Orally Twi ce a day; Duration: 5 day(s) 08/24/2024 Active Fish Oil 1000 MG 1 cap(s) [...] tab(s) ora lly once a day Active Atorvastatin Calcium 40 MG 1 tab(s) oral ly once a day 10/24/2017 Active Vital Signs Blood pressure systolic 134 mm Hg 08/24/20 24 Blood pressure diastolic 70 mm Hg 024 Heart Rate 74 /min 08/24/2024 Height 75.25 in 08/24/2024 Weight 239.4 lbs 08/24/2024 BMI 29.72 kg/m2 08/24/2024 Encounters Encounter Location Date Provider Diagnosis [facility] [address] [place] [phone] 08/24/2024 Kadeem Xiao Influenza A J 10.1 Assessments Encounter Date Diagnosis (ICD Code) Assessment Notes Treatment Notes Treatment Clinical Notes Section Notes 08/24/2024 Influenza A (ICD-10 - J10.1) Plan Of Treatment Medication Medication Name Sig Start Date Stop Date Notes Tamiflu 75 MG 1 capsule Orally Twi ce a day; Duration: 5 day(s) 08/24/2024 Next Appt Details Follow Up: 2 Weeks, Reason: Progress Notes * Kai HOLCOMBDOB:[birth year] (79 yo M)Acc No.[id number]:08/24/2024 Progress Notes Patient: Kai CHRISTIANSEN Provider: Munir Xiao M.D. :1945 A ge:78 Y S ex:Male Date:08/24/2024 Address:[address] [place] [address] [place]ENN[place] S[place], [id number] Subjective: * Chief Complaints: * 1 . Congestion coughing. * HPI: E NT/respiratory: 78 year old male presents with c/o cough P t complains of greenish yellow sputum production cough for 2 days. Associated with nasal congestion. Pt states his grandson was at his house [facility] and had a fever, was later dx with Flu A. * ROS: D ERMATOLOGY: no R kei. [...] capsule Orally Two times a day , Medication List reviewed and reconciled with the patient * Allergies: A moxicillin: rash, Dexamethasone: elevated BP. Objective: * Vitals: W t:239.4, Temp:97.9, BP:134/70, HR:74, O2 Sat:96% on RA, Nurse:rachel, Ht: 75.25, BMI:29.72. * Examination: E NT/Respiratory: General Appearance: N AD. O ral cavity : erythema without exudate on pharynx. H eart : R RR, normal S1 S2. L ungs: c lear to auscultation bilaterally. Assessment: * Assessment: 1. I emma A - J10.1 (Primary) Plan: * Treatment: Value Reference Range r esults Pos A * Angeline Ricks 08/24/2024 1:42:1 1 PM > , Provider reviewed results while patient in office. ?LAB: Covid test (in house) (Collection Date & Time - 08/24/2024)* Value Reference Range R esult: Neg Angeline Greer 08/24/2024 1:51:0 2 PM > , Provider reviewed results while patient in office. ?Imaging: CXR (Performed Date - 08/24/2024)?stable chronic changes* Holly De Leon 08/27/2024 9:29 :56 AM > , See phone encounter * Procedure Codes: G 2211 Complex e/[place], [address] [place], [address] Flu Test- Nasal Swab, Modifiers: QW , 08215 COVID TEST IN HOUSE, Modifiers: QW * Follow Up: 2 Weeks * Images: Billing Information: * Visit Code: 84724 Office Visit, Est Pt., Level 3. * Procedure Codes: G2211 Complex e/[place] [address] [place]. [address] Flu Test- Nasal Swab. Modifiers: QW 51046 COVID TEST IN HOUSE. Modifiers: QW * Electronic signature of Leeann Xiao MD on 07/19/2025 at 12:53 PM EST Sign off status: Pending * Provider: Munir Xiao M.D. Date: 10/25/2023 Generated for Aracelyi ng/Bernadine/eTransmitting on: 09/18/2024 12:53 PM EST History and Physical Notes * HPI (History of Present Illness) Category Sub-Category Detail Notes Category Not es ENT/respiratory cough Pt complains of greenish yellow sputum production cough for 2 days. Associated with nasal congestion. Pt states his grandson was at his [facility] and had a fever, was later dx with Flu A Examination Category Sub-Category Detail Notes Category Not es ENT/Respiratory Oral cavity : erythema without exudate on pharynx Heart : RRR, normal S1 S2 Lungs: clear to auscultatio n bilaterally General Appearance: NAD
--- OUTSIDE RECORDS SUMMARY | 2024-08-31 08:45 | XMS_ITS ---
[facility] Organization [facility] Address [address] [place] [phone] Care Team Providers Care Service Team Leader Name Role Phone Ninoska Kadeem Primary Care [...] [address] [place] [phone] 08/31/2024 Kadeem Xiao Other specified postprocedural states [...] * Kai HOLCOMBDOB:[birth year] (79 yo M)Acc No.[id number]:08/31/2024 Patient: Kai CHRISTIANSEN Provider: Munir Xiao M.D. :1945 A ge:78 Y S ex:Male Date:08/31/2024 Address:[address] [place] [address] [place], [id number] Subjective: * Chief Complaints: * 1 . [...] * Images: Billing Information: * Visit Code: 74641 Office Visit, Est Pt., Level 3. * Procedure Codes: G2211 Complex e/m visit add on. * Electronic signature of Leeann Xiao MD on 07/19/2025 at 12:54 PM EST Sign off status: Pending * Provider: Munir Xiao M.D. Date: 0 08/31/2024 Generated for Shelli boo/Bernadine/Stephaniesmitting on: 09/18/2024 12:54 PM EST History and Physical [...]
--- OUTSIDE RECORDS SUMMARY | 2025-02-27 04:05 | XMS_ITS | Encounter Summary ---
Author Organization [facility] Address [address] [place] [address] Care Team Providers Care Brand Strategist Name Role Phone Kadeem iXao MD Primary Care Provider [phone] Encounter Details Date Type Department Care Team (Late st Contact Info) Description 02/27/2025 5:05 AM EDT Hospital Encounter [facility] [place] [address] [address] Social History Tobacco Use Types [...] on filedocumented in this encounter Care Teams Brand Strategist Relationship Specialty Start Date End Date Kadeem Xiao MD [address] [place] [facility] [address] [place] [address] PCP - General Family Medicine 04/13/23 documented as of this encounter
--- OUTSIDE RECORDS SUMMARY | 2025-06-25 06:00 | XMS_ITS ---
Author Organization [facility] Address [address] [place] [phone] Care Team Providers Care J2Ee Developer Name Role Phone Ninoska Kadeem Primary Care Provider [phone] Allergies Allergen (clinical drug ingredient) Drug/Non Drug Allergy documented on EMR Reaction Allergy Type Onset Date Status amoxicillin Amoxicillin rash Drug Allergy Act sabrina dexamethasone Dexamethasone elevated BP Drug Allergy Active REASON FOR VISIT [facility] f/u Medications Medication SIG (Take, Route, Frequency, [...] W/U Status Risk Notes Problem Postprocedural states (608634006) Other specified postprocedural states (Z98.890) Active confirmed Problem Malignant neoplasm of prostate (475169396) Malignant neoplasm of prostate (C61) Active confirmed Problem Body mass index 30+ - obesity (552883416) BMI 30.0-30.9,adult (Z68.30) Active confirmed Vital Signs Blood pressure systolic 132 mm Hg 06/25/20 25 Blood pressure diastolic 76 mm Hg 025 Heart Rate 70 /min 06/25/2025 Height 75.25 in 06/25/2025 Weight 241.8 lbs 06/25/2025 BMI 30.02 kg/m2 06/25/2025 Encounters Encounter Location Date Provider Diagnosis [facility] [address] [place] [phone] 06/25/2025 Kadeem Xiao Encounter for immunization Z23 [...] * Kai HOLCOMBDOB:[birth year] (79 yo M)Acc No.[id number]:06/25/2025 Progress Notes Patient: Kai CHRISTIANSEN Provider: Munir Xiao M.D. :1945 A ge:79 Y S ex:Male Date:06/25/2025 Address:[address] [place] [address] [place], [id number] Subjective: * Chief Complaints: * 1 . [facility] f/u. * HPI: H PI: Patient is here today for a Transition of Care Visit. Discharge from the following Facility: Patient admitted to [facility] on 06/17/2025 for Incisional hernia repair by [...] of prostate - C61 6 . B MS 30.0-30.9,adult - Z68.30 Plan: * Treatment: 2. O thers Notes: Discharge summary with available lab/diagnostic imaging results obtained and reviewed. Discharge medication list reconciled. Appropriate counseling provided. Moderate Complexity * Immunizations: Fluzone High Dose (65yr and older) : 0.5 mL (Route: Intramuscular) given by Monserrat Haas on Left Deltoid (Encounter for immunization) * Procedure Codes: G 2211 Complex e/[place], [address] TRANS CARE MGMT 14 DAY DISCH, 1111F DSCHR MED/CURENT MED MERGE, 1036F TOBACCO NON-USER, G8950 PREHTN/HTN BP DOC INDCD F/U DOC, G8752 MOST RECENT SYSTOLIC BP < 140MM HG, G8754 MOST RECENT DIASTOLIC BP < 90MM HG, 3075F SYST BP GE 130 - 139MM HG, 3078F DIAST BP < 80 MM HG * Follow Up: a s scheduled,and prn * Images: Drawin06/25/25 [facility] Billing Information: * Visit Code: 62396 Office Visit, Est Pt., Level 3. * Procedure Codes: G2211 Complex e/[place]. [address] TRANS CARE MGMT 14 DAY DISCH. 1111F [...] M.D. Date: Generated for Shelli boo/Bernadine/Stephaniesmitting on: 09/18/2024 12:53 PM EST History and Physical Notes * HPI (History of Present Illness) Category Sub-Category Detail Notes Category Not es HPI Patient is here today for a Talavera sition of Care Visit. Discharge from the following Facility: Patient admitted to [facility] on 06/17/2025 for Incisional hernia repair by Dr. Lara. Discharge date: 06/19/2025. Date of phone contact following discharge: 06/20/2025. Pt states he would like to get his flu shot Examination Category Sub-Category Detail Notes Category Not es General Examination General Appearance: NAD, conversan t Skin: dressings over surgi jeremy wounds are clean and dry
--- OUTSIDE RECORDS SUMMARY | 2025-07-19 12:53 | XMS_ITS | Clinical Summary ---
Author Organization [facility] Address [address] [place] [address] Care Team Providers Care Wireless Retail Manager Name Role Phone Kadeem Xiao MD Primary Care Provider [phone] Allergies No known active allergies Medications tamsulosin [...] 1 TABLET BY MOUTH ONCE DAILY Active Rupert 3 1000 MG capsule Take by mouth. [...] Pneumococcal Vaccine 50+ (2 of 2 - PPSV23, PCV20, or PCV21) 08/24/2019 06/29/2019 RSV Vaccine - Adults (1 - 1- dose 75+ series) 2021 ANNUAL WELLNESS VISIT 04/12/2022 HEPATITIS C SCREENING 04/12/2022 INFLUENZA VACCINE 03/29/2025 07/17/2024, , 06/30/2022, Additional history exists COVID-19 Vaccine (8 - Pfizer risk season) 2025 07/17/2024, 09/13/2023, 06/30/2022, Additional history exists Insurance MEDICARE A & B [facility] Care Teams Wireless Retail Manager Relationship Specialty Start Date End Date Kadeem Xiao MD [address] [facility] [address] [place] [address] PCP - General Family Medicine 04/13/23
--- OUTSIDE RECORDS SUMMARY | 2025-07-19 12:53 | XMS_ITS ---
Author Organization [facility] Address [address] [place] [address] Care Team Providers Care Electrical Instrument Repairer Name Role Phone Kadeem Xiao MD Primary Care Provider [phone] Active Problems Problem Noted Date Diagnosed Date [...] Kai Chu Date of 1945 Phone Email [email or web address] Cancer Treatment Team Patient Care Team: Carlton Adan MD as Consulting Physician (Radiation Oncology) Kai Barney MD as Consulting Physician (Urology) Provider Phone numbers Care Team Provider: Carlton Adan MD, ([phone]) Care Team Provider: Kai Barney MD, ([phone]) Care Team Provider: Cynthia Scruggs MD, ([phone]) Care Team Provider: Ho Lara MD, ([phone]) Post Treatment Care Team Primary Care Physician Kadeem Xiao MD [phone] [place] [address] Background Information Medical history Past Medical History: [...] doctors and nurses such as exercise andactivity. senior care effects of radiation therapy vary greatly depending [...] to you. General Cancer Support & Resources [facility] [address] [facility], [address] [place] [address] Med Onc: Farm Management Agent Onc: Cost Analyst: Chana Nolasco - Psychiatric Nurse Practitioner: Ana Romero APRN - Kick It! (A free smoking cessation program) Financial Counselor and Contact Information: [facility] Financial Counseling [phone] Nursery Helper Contact Information: Mae Chappell - Local Cancer Support Group and Contact Information: Seun Cancer Buddialexandria: This support group is open to anyone that has been diagnosed with cancer of any type. Meets at 6:30pm on the last Tuesday of each month. Location: [facility]; [address] [place] [address]. For more information call Neelam Aguilar @ . Prostate Cancer Support & Resources Local Resources TOO Prostate Support Group: The mission of Us TOO is to provide hope and improve the lives of of those affected by prostate cancer through support, education, and advocacy/ awareness. The group meets the of each month at 6:30 p.m. [address] [facility] [place], [address] [place], [place] [id number] Surveillance How Frequent? Medical Oncology visits 1 [...] advice of a doctor or other health children's zoo caretaker. Please use these recommendations to talk with [...] of cancer in the general population. The [employer] Society (ACS) recommends these screening guidelines for men: Recommendation Frequency Comments Colon and Rectal Cancer Screening For more information see the ACS document Colorectal Cancer: Early Detection. www.cancer.org/ssLINK/gpnbmpqkhf-qafeyy-oqxgn-detection-roberto carlos Options for colon cancer screening can [...] see the ACS Document Testicular Cancer Detection: http://www.cancer.org/cancer/testicularcancer/detailedguide/cjkgaoqpyg-qoayql-td tection Men of any age can develop [...] more information, visit http://www.nhlbi.nih.gov/health/public/heart/obesity/lose_wt/index.htm www.win.niddk.nih.gov Call the [employer] Heart Association Talk to your health care [...] Experts recommend at least 30 minutes of boqwgtap-nr-gwxkmisf activity per day, five days a week. [...] you can call a national hotline at 9(083)-QUIT-NOW. Have regular check-ups by a healthcare professional. For more information about healthy screening tests for men visit the U.S. Department of Health and Human Services. http://www.womenshealth.gov/lryiwgykb-ezdfw-vfr-vaccines/ztkxlftye-cqmut-xnu-men / For more information about adult vaccinations visit the CDC: http://www.cdc.gov/vaccines/recs/schedules/adult-schedule.htm Keep up-to-date on general health screening tests, including cholesterol, blood pressure and glucose (blood sugar) levels. Get an annual influenza vaccine (flu shot). Get vaccinated with the pneumococcal vaccine, which prevents a type of pneumonia, and re-vaccinatedas determined by your health care team. Don???t forget dental and eye health! The [employer] recommends adults have their eyes examined every two years until age 60, then annually. People who wear glasses or correctivelenses or are at high risk for eye problems (i.e., diabetics, family history of eye disease) shouldbe seen more frequently. The [employer] Association recommends adults see their dentist at least once a year. No information on file. No information on file.
--- OUTSIDE RECORDS SUMMARY | 2025-07-19 12:54 | XMS_ITS | Patient Health Record ---
[facility] [address] [place] [id number] Care Team Providers Care Disabilities Services Officer Name Role Phone Dee Xiaoian Primary Care Provider [phone] Allergies Allergen (clinical drug ingredient) Drug/Non Drug [...] oral ly once a day 10/24/2017 Active Dupixent 300 MG/2ML as directed subcutaneously every 2 weeks Active CareTouch CPAP & BIPAP Hose NASAL AUTOPA P 16 HEATED AIR DIRECTED 12/22/2016 Active Pimecrolimus 1 % 1 application Externally Twice a day 03/26/2024 Active Doxycycline Hyclate 100 MG 1 capsule Ora lly Two times a day 05/21/2024 Active hydroCHLOROthiazide 12.5 MG 1 tab(s) ora lly once a day Active Triamcinolone Acetonide 0.1 % 1 radha appl ied topically 2 times a day 12/30/2022 Active Immunizations Vaccine Route Administration Date Status Comme nts xFluzone High Dose-private (65yr&older) IM Intramuscular 07/31/2014 Administered xFluzone High Dose-private (65yr&older) Unknown 06/29/2019 Administered xFlu shot- 6months-36 months of hsp-RZZN-XGHC-trivalent Unknown 08/01/2016 Administered Prevnar (PCV13) Unknown 06/29/2019 Administered Fluzone PF Quad (6-35 months) Unknown 06/30/2022 Administered Fluzone High Dose (65yr and older) Unknown 07/27/2017 Administered Fluzone High Dose (65yr and older) IM Intramuscular 06/23/2018 Administered Fluzone High Dose (65yr and older) IM Intramuscular 05/20/2021 Administered Fluzone High Dose (65yr and older) IM Intramuscular 06/25/2025 Administered COVID 19 Pfizer Unknown 11/01/2020 Administered COVID 19 Pfizer Unknown 11/20/2020 Administered COVID 19 Pfizer Unknown 07/08/2021 Administered Problems Problem Type SNOMED Code ICD Code Onset Dates Problem Status W/U Status Risk Notes Problem Essential hypertension (37158703) Essential (primary) hypertension (I10) Active confirmed Problem Vitamin D deficiency (58391987) Vitamin D deficiency (E55.9) Active confirmed Problem Essential hypertension (23958829) Essential hypertension (I10) Active confirmed Problem Body mass index 30+ - obesity (039920592) BMI 30.0-30.9,adult (Z68.30) Active confirmed Problem Psoriasis (1899362) Psoriasis (L40.9) Active co nfirmed Problem Vitamin B12 deficiency (non anemic) (88506577) Vitamin B 12 deficiency (E53.8) Active confirmed Problem Malignant neoplasm o f prostate (819405165) Malignant neoplasm of prostate (C61) Active confirmed Problem Primary insomnia (3230288) Primary insomnia (F51.01) Active confirmed Problem Nicotine dependence (35288551) Personal history of nicotine dependence (Z87.891) Active confirmed Problem Obstructive sleep apnea syndrome (92518007) Obstructive sleep apnea syndrome (G47.33) Active confirmed Problem Obesity (356342029) Non morbid o besity, unspecified obesity type (E66.9) Active confirmed Problem Obstructive sleep apnea syndrome (62048816) ESTHER (obstructive sleep apnea) (G47.33) Active confirmed Problem Osteoarthritis of knee (783796011) Primary osteoarthritis of left knee (M17.12) Active confirmed Problem Hyperlipidaemia (69825779) Hyperlipidemia, unspecified hyperlipidemia type (E78.5) Active confirmed Problem Hypersomnia (31034037) Hypersomnia (G47.10) Active confirmed Problem Pure hypercholesterolemia (641665707) Pure hypercholesterolemia (E78.00) Active confirmed Problem Postprocedural state s (360781438) Other specified postprocedural states (Z98.890) Active confirmed Problem Hearing loss (09503332) Hearing loss, unspecified hearing loss type, unspecified laterality (H91.90) Active confirmed Problem Arthritis of right knee (1235298100013683) Arthritis of right knee (M17.11) Active confirmed Problem Raised prostate specific antigen (738550263) Elevated PSA, less than 10 ng/ml (R97.20) Active confirmed Problem Diverticular disease of colon (877428626) Colon, diverticulosis (K57.30) Active confirmed Problem Ocular migraine (16455769) Ocular migraine (G43.109) Active confirmed Vital Signs Heart Rate 70 /min 06/25/2025 Blood pressure diastolic 76 mm Hg 06/25/2025 Height 75.25 in 06/25/2025 Blood pressure systolic 132 mm Hg 06/25/2025 Weight 241.8 lbs 06/25/2025 BMI 30.02 kg/m2 06/25/2025 Encounters Encounter Location Date Provider Diagnosis [facility] [address] [place], [place] [id number] 08/13/2024 Kadeem [place] Incarcerated ventral hernia K43.6 and Other specified postprocedural states Z98.890 [facility] [address] [place], [place] [id number] 08/24/2024 Kadeem [place] Influenza A J10.1 [facility] [address] [place], [place] [id number] 08/31/2024 Kadeem [place] Other specified postprocedural states Z98.890 [facility] [address] [facility] [address] [place] [id number] 06/25/2025 Kadeem Xiao Encounter for immunization Z23 ; Other specified postprocedural states Z98.890 ; Hyperlipidemia, unspecified hyperlipidemia type E78.5 ; Essential hypertension I10 ; Malignant neoplasm of prostate C61 and BMI 30.0-30.9,adult Z68.30 [facility] [address] [facility] [address] [facility] [address] [place] [id number] 08/27/2024 Kadeem [place] [facility] [address] [facility] [address] [place] [id number] 06/20/2025 Kadeem Xiao Assessments Encounter Date Diagnosis (ICD Code) Assessment Notes Treatment Notes Treatment Clinical Notes Section Notes 06/25/2025 Encounter for immunization (ICD-10 - Z23) 06/25/2025 Other specified postprocedural states (ICD-10 - Z98.890) Patient to follow up with Dr. Lara next week 08/13/2024 Other specified postprocedural states (ICD-10 - Z98.890) Patient to follow up with Dr. Lara tomorrow 08/13/2024 Incarcerated ventral hernia (ICD-10 - K43.6) 08/24/2024 Influenza A (ICD-10 - J10.1) 08/31/2024 Other specified postprocedural states (ICD-10 - Z98.890) Doing well. Patient saw Dr. Lara yesterday 06/25/2025 Hyperlipidemia, unspecified hyperlipidemia type (ICD-10 - E78.5) 06/25/2025 Essential hypertension (ICD-10 - I10) 06/25/2025 Malignant neoplasm of prostate (ICD-10 - C61) 06/25/2025 BMI 30.0-30.9,adult (ICD-10 - Z68.30) 06/25/2025 Other Discharge summary with available lab/diagnostic imaging results obtained and reviewed. Discharge medication list reconciled. Appropriate counseling provided. Moderate Complexity Plan Of Treatment Pending Test Test Name Order Date [id number] 04/13/2022 Insurance Providers Payer Name Payer Address Payer Phone Subscriber Number Group Number Insured Name Patient Relationship to Insured Coverage Start Date Coverage End Date MEDICARE PART B [address] [address] [place] [id number] Kai Chu Self - patient is the insured [employer] [facility] [address] [place] [address] [phone] [id number] [id number] Self - patient is the insured Medical [...] - Negative RT Total Knee Replacement 05/2021 ventral hernia repair 2024 Hospitalization History Reason Date(Month/Year)
--- OUTSIDE RECORDS SUMMARY | 2025-07-19 12:54 | XMS_ITS | Data Portability ---
Author Organization [facility] ClinGARETH buchananS [place] NIGUEL CLOSED Address [address] [facility] [place] [address] Care Team Providers Care Recapper Name Role Phone CHRIS CAMPOSIAN Primary Care Provider Assessment No assessment recorded. Plan of Treatment Reminders Order Date Submit Date Provider Last Modified By Organization Details Last Modified Time Details Appointments FOLLOW UP DAK 2025 01:50P M DR. COCHRAN Not available Not available Not available Lab None recorded. Referral orthopedi c referral 2019 020 [email or web address] 110 Shankar Goodson MD, [address] [place], [address], 08/27/2020 09:09:21 Procedures None recorded. Surgeries None recorded. Imaging XR, knee, 3 view 2021 022 [email or web address] [facility], [address] [place], [address], 12/25/2021 16:29:41 Medication Orders betametha sone dipropion ate 0.05 % topical cream 2024 025 [facility], [address] [place], [address], 11/21/2024 17:39:16 omeprazol e 40 mg capsule,d elayed release 2022 023 [facility], [address] [place], [address], 02/22/2023 15:03:23 Patient TargetsNo targets recorded. Patient InstructionsNo instructions recorded. Reason for Referral Orthopedic Referral for Oste oarthritis of right knee joint right knee partial vs total Referring Physician: Raymond Zuniga, Rheumatology, Encounter Date: 08/20/2020 Results Created Date Observation Date Name Description Value Unit Range Abnormal Flag Note LastModifiedBy Organization Detail LastModifiedTime 12/26/19 22 12/25/2021 XR, knee, [address] [address] Patishelia t Name: MADI villalba : [birth year] 48 Patishelia [...] Jaimie lam MD on 022 11:[email or web address] [facility] [address], [address], 12/25/2021 13:01:26 Result Notes Documentation Provider Name and Address Organization Details Recorded Time Xr, Knee, 3 View : [address] [address] Patient Name: GRICELDA HOLCOMB Patient : 1945 [...] By: Swapnil Munoz MD OND ZUNIGA MD [address] [place] [address], [phone], [facility] 12/25/2021 13:01:26 Problems Name Problem SNOMED Code Status Onset Date Resolution Date Notes Provider Name and Address Organization Details Recorded Time Idiopathi c osteoarth ritis 646742099 Active 2015 From Automated Load;Provi ashok: Mack Zuniga;Sta tus: Active Not Available [facility] 7 08:00:40 Problem Notes None recorded. Procedures Surgical History Date Name Laterality Status Provider Name and Address Organization Details Recorded Time 022 Injection - Joint/Bursa, Major, w/o US completed RAYMOND ZUNIGA MD [address] [place] [address], [address], [facility] 12/26/2021 16:45:01 020 Injection - Joint/Bursa, Major, w/o US completed RAYMOND ZUNIGA MD [address] [place] [address], [address], [facility] 08/20/2020 10:05:03 020 Hyalgan Injection; Unilateral completed RAYMOND ZUNIGA MD [address] [place] [address], [address], [facility] 05/28/2020 14:08:30 020 Hyalgan Injection; Unilateral completed RAYMOND ZUNIGA MD [address] [place] [address], [address], [facility] 05/22/2020 14:13:52 020 Hyalgan Injection; Unilateral completed RAYMOND ZUNIGA MD [address] [place] [address], [address], [facility] 05/14/2020 14:12:35 020 Injection - Joint/Bursa, Major, w/o US completed RAYMOND ZUNIGA MD [address] [place], [address], [facility] 04/29/2020 09:15:28 020 Injection - Joint/Bursa, Major, w/o US completed RAYMOND ZUNIGA MD [address] [place], [address], [facility] 10/30/2019 09:23:44 019 Injection - Joint/Bursa, Major, w/o US completed RAYMOND ZUNIGA MD [address] [place], [address], [facility] 07/05/2019 09:15:11 019 Hyalgan Injection: Bilateral completed RAYMOND ZUNIGA MD [address] [place], [address], [facility] 01/02/2019 09:58:15 019 Hyalgan Injection: Bilateral completed RAYMOND ZUNIGA MD [address] [place], [address], [facility] 12/26/2018 09:27:38 019 Hyalgan Injection: Bilateral completed RAYMOND ZUNIGA MD [address] [place], [address], [facility] 12/19/2018 10:04:08 019 Injection - Joint/Bursa, Major, w/o US completed RAYMOND ZUNIGA MD [address] [place], [address], [facility] 10/18/2018 13:00:14 018 Hyalgan Injection: Bilateral completed RAYMOND ZUNIGA MD [address] [place], [address], [facility] 06/27/2018 09:23:10 018 Hyalgan Injection: Bilateral completed RAYMOND ZUNIGA MD [address] [place], [address], [facility] 06/20/2018 10:26:20 018 Hyalgan Injection: Bilateral completed RAYMOND ZUNIGA MD [address] [place], [address], [facility] 06/13/2018 10:56:51 018 Injection - Joint/Bursa, Major, w/o US completed RAYMOND ZUNIGA MD [address] [place], [address], [facility] 05/15/2018 22:09:41 017 Hyalgan Injection: Bilateral completed MD [place], [address], [facility] 08/11/2017 09:11:54 017 Hyalgan Injection: Bilateral completed MD [place], [address], [facility] 08/03/2017 09:26:36 017 Hyalgan Injection: Bilateral completed MD [address] [place], [address], [facility] 07/27/2017 09:12:56 017 Hyalgan Injection; Unilateral completed RAYMOND ZUNIGA MD [address] [place], [address], [facility] 01/04/2017 08:14:50 017 Hyalgan Injection; Unilateral completed MD [address] [place], [address], [facility] 12/28/2016 08:24:43 017 Hyalgan Injection; Unilateral [place], [address], [facility] 12/21/2016 09:29:12 017 Injection - Joint/Bursa, Major, w/o US [place], [address], [facility] 10/25/2016 09:49:54 Cholecystectomy completed Tammy rebollar [facility] 01/04/2017 08:07:47 Hernia repair w/mesh [facility]/04[facility] 08:07:57 Imaging Results None recorded. Procedure [...] Dupixent 300 mg/2 mL subcutane ous syringe inject 300mg every other week 2024 active Not Available Not Available Not [...] weight Respiratory rate Heart rate Oxygen saturation Systolic And Diastolic Provider Name and Address Organization Details Last Updated DateTime 2 193.04 cm 17 kg/m2 87580.9 3 g 16 /min 54 /min 98 % 120/70 mm[Hg] Carmenza Garcia [facility] 2 10:39:11 Date Recorded Body weight Heart rate Respiratory rate Systolic And Diastolic Provider Name and Address Organization Details Last Updated DateTime 02/22/2023 907689.17 g 56 /min 16 /min 135/61 mm[Hg] Lyn Dumont [facility] 02/22/2023 14:43:34 Date Recorded Body height Body mass index (BMI) Body weight Respiratory rate Heart rate Systolic And Diastolic Provider Name and Address Organization Details Last Updated DateTime 0 193.04 cm 29.2 kg/m2 578576. 17 g 18 /min 72 /min 134/69 mm[Hg] Kirti Zayas [facility] 0 13:55:08 Date Recorded Body height Body mass index (BMI) Body weight Respiratory rate Heart rate Systolic And Diastolic Provider Name and Address Organization Details Last Updated DateTime 0 193.04 cm 29.9 kg/m2 977468. 72 g 18 /min 65 /min 129/67 mm[Hg] Jhoana Min [facility] 0 08:37:32 Social History Question Answer Notes LastModified by Trendr Details LastModified Time Tobacco Smoking Status Never Smoker Kirti Zayas [facility] 07/05/2019 08:52:37 How Much Tobacco Do You Chew? None [email or web address] Information not available 12/15/2018 Sunscreen Use? Yes [email or web address] Informatio n not available 11/21/2024 Tanning Bed Use No [email or web address] Information not available 11/21/2024 What Was The Date Of Your Most Recent Tobacco Screening? 11/21/2024 [email or web address] Information not available 11/21/2024 How Much Tobacco Do You Smoke? No [email or web address] Information not available 12/19/2018 Has Tobacco Cessation Counseling Been Provided? No [email or web address] Information not available 12/19/2018 On What Date Was Tobacco Cessation Counseling Provided? 05/14/2020 [email or web address] Answered No To The Tobacco Cessation Counseling Provided Question On 12/19/2018. [email or web address] Information not available 05/14/2020 How Many Years Have You Smoked Tobacco? 0 [email or web address] Information not available 07/05/2019 Sex: Unknown Functional Status Question Answer Note LastModified by Trendr Details LastModified Time What is your level of alcohol consumption? Moderate Information not available 01/04/2017 Do you or have you ever used smokeless tobacco? Never used smokeless tobacco [email or web address] Information not available 07/05/2019 Do you or have you ever used e-cigarettes or vape? Never used electronic cigarettes [email or web address] Information not available 07/05/2019 Mental Status None recorded. Family History Relationship Description Onset Age of this Age Resolved Age Notes LastModified by Organization Details LastModified Time Father No current problems or disability [email or web address] Not available 06/07 09:28:39 Mother No current problems or disability [email or web address] Not available 06/07 09:28:39 Mother Arthritis [email or web address] Not availa ble 07/27/2017 08:42:57 Unspecified Relation Harmful pattern of use of alcohol [email or web address] Not available 12/15 09:56:48 Medical History Condition Response Emphysema N COPD N Arthritis Y Acid Reflux (GERD) N Stroke Y Rheumatoid Arthritis N Bleeding Disorder N Asthma N Hernia Y Hearing Loss Y Diabetes N Heart Disease N Hypertension Y Past Encounters Encounter ID Performer Location Encounter Start Date Encounter Closed Date Diagnosis/Indication Diagnosis SNOMED-CT Code Diagnosis ICD10 Code Diagnosis IMO Codes Diagnosis Note [id number] RAYMOND ZUNIGA MD [place] [address] 1 10/25/2016 08:46:54 10/25/2016 10:04:15 Osteoarthritis of knee 355887331 M17.0 symptomati c.we reviewed the xrays.I think, he would be a good candidate for the Hyalgan injections .Today , the knees are injected with 40 mg depomedrol each w/o complicati ons.mainta in Tylenol for the pains.main tain exercises and walk . [id number] RAYMOND ZUNIGA MD [facility] [place] [address] [place], [place] [address] 12/21/2016 08:55:05 12/21/2016 09:59:21 Osteoarthritis of knee 795257120 M17.0 symptomati c.for Hyalgan injections . First of three given in both knees todayHe will maintain Tylenol for the pains.main tain exercises and walk . [id number] RAYMOND [place] [address] 12/28/2016 07:48:47 12/28/2016 09:31:45 Osteoarthritis of knee 656197616 M17.0 symptomati c.for Hyalgan injections . Second of three given in both knees today , 2ml in each knee w/o complicati ons. He will maintain Tylenol for the pains.main tain exercises and walk . [facility] [id number] -20 [id number] RAYMOND ZUNIGA MD [facility] [place] [address] [place] [address] 1 01/04/2017 08:02:30 01/04/2017 08:28:43 Osteoarthritis of knee 061980074 M17.0 symptomati c.for Hyalgan injections . last of three given in both knees today , 2 ml in each knee w/o complicati ons. He will maintain Tylenol for the pains.main tain exercises and walk . [facility] [id number] -20 [id number] RAYMOND ZUNIGA MD [facility] [place] [address] [place] [address] 1 06/07/2017 09:17:14 06/07/2017 11:12:30 Osteoarthritis of knee 220281699 M17.0 symptomati c.post Hyalgan injections .post steroid and three hyalgan injections in December.Steroi d helped better than the Hyalgan injection. He will maintain Tylenol for the pains. maintain exercises and walk . I obtained the knee xrays, and reviewed with patient, modest OA, and will follow with the Hyalgan n a month or so. [id number] RAYMOND ZUNIGA MD [facility] [place] [address] 1 07/27/2017 08:26:46 07/27/2017 11:18:16 Osteoarthritis of knee 011846255 M17.0 symptomati c.ist/3 injection. Suggest Hyalgan injections in both knees. He will maintain Tylenol for the pains. maintain exercises and walk . I REVIEWED the knee xrays, and reviewed with patient, modest OA, and will maintain the Hyalgan. LOT [id number] 2019-11-18 [facility] [id number] -20 [id number] RAYMOND ZUNIGA MD [facility] [place] [address] 1 08/03/2017 08:27:23 08/03/2017 10:34:13 Osteoarthritis of knee 966187014 M17.0 symptomati c.2/3 Hyalgan injection. He will maintain Tylenol for the pains. maintain exercises and walk . LOT [id number] EXP 2019-11-18 [facility] [id number] -20 [id number] RAYMOND ZUNIGA MD RHEUMATOL OGY [address] [place], [place] [address] 08/11/2017 08:38:20 08/11/2017 10:10:58 Osteoarthritis of knee 249624759 M17.0 symptomati c.2/3 Hyalgan injection. He will maintain Tylenol for the pains. maintain exercises and walk . LOT [id number] EXP 2019-11-18 [facility] [id number] -20 [id number] RAYMOND ZUNIGA MD RHEUMATOL OGY [address] [place] [address] 1 05/15/2018 13:33:20 05/15/2018 15:42:07 Osteoarthritis of knee 464668064 M17.0 chronic, symptomati c.very tendner and crepitus bilateral knees. Did good for the first 6 months post Hyalgan. Needs repeat LIU injections . On Tylenol for the pains.main tain exercises and walk .injected with depo 40 mg in each knee w/o complicati on. see me in 4 weeks LIU injections each knee. [id number] RAYMOND ZUNIGA MD RHEUMATOL OGY [address] [address] 06/13/2018 09:36:31 06/13/2018 13:33:35 Osteoarthritis of knee 003726316 M17.0 chronic, symptomati c. Today start the Ist of the 3 Hyalgan injections w/o complicati ons. On Tylenol for the pains.main tain exercises and walk . see me next week. [id number] RAYMOND ZUNIGA MD RHEUMATOL OGY [facility] [address] [place] [address] 06/20/2018 09:12:13 06/20/2018 11:00:28 Osteoarthritis of knee 372644485 M17.0 2/3 Hyalgan injection: chronic, symptomati c. Today 2/3rd Hyalgan injections w/o complicati ons. On Tylenol for the pains.main tain exercises and walk . see me next week. [id number] RAYMOND ZUNIGA MD [place] [address] 06/27/2018 08:43:12 06/28/2018 07:46:20 Osteoarthritis of knee 367732890 M17.0 10/29 Hyalgan injection: chronic, symptomati c. Today 10/29 Hyalgan injections given w/o complicati ons. On Tylenol for the pains.main tain exercises and walk . see me mid September 2018, and if the right knee is still symptomati c- shall do MRI. [id number] RAYMOND ZUNIGA MD [place] [place] [address] 10/18/2018 08:56:14 10/20/2018 10:46:13 Osteoarthritis of knee 323390844 M17.0 72-year-ol d gentleman with bilateral knee [...] Extra Strength 2 tablets twice a day. [id number] NATHAN ROBERTSON MD [address], [address] [place] [address] 12/15/2018 09:34:22 12/22/2018 13:29:45 [id number] RAYMOND ZUNIGA MD [place] [address] 1 12/19/2018 09:01:00 12/25/2018 11:29:03 Bilateral arthritis of knees 6774374013 542940 M13.861 M13.862 today, both knee joints were injected with Hyalgan injection without any complicati ons. We also reviewed both knee x-rays with the right knee moderate to advanced osteoarthr itis and left knee moderate osteoarthr itis. He also discussed the options beyond Hyalgan injections especially if these injections failed to help with symptoms. Right knee arthroplas ty would be the next step. [id number] RAYMOND ZUNIGA MD [address] [address] 12/26/2018 08:51:10 12/27/2018 13:34:24 Bilateral arthritis of knees 0339881060 710216 M13.861 M13.862 today, both knee joints were injected with Hyalgan injection #2 without any complicati ons. We also reviewed both knee x-rays with the right knee moderate to advanced osteoarthr itis and left knee moderate osteoarthr itis. He also discussed the options beyond Hyalgan injections especially if these injections failed to help with symptoms. knee arthroplas ty would be the next step. [id number] RAYMOND ZUNIGA MD [facility]HE[facility]ATOL OGY [address] [address] 01/02/2019 08:50:09 01/03/2019 10:56:52 Bilateral arthritis of knees 6696234011 333276 M13.861 M13.862 both knee joints were injected [...] be the right modality. he fully agrees. [id number] RAYMOND ZUNIGA MD RHEUMATOL OGY [address] [address] 07/05/2019 08:36:48 07/05/2019 09:15:57 Pain in right knee 0391476263 96932 M25.561 moderate to advanced degenerati ve arthritis involving the right knee joint. Post-Hyalg an injection, December 2018. Today knee is injected with corticoste roid. Suggested to maintain weight loss program and knee strengthen ing exercises. Plan to repeat Hyalgan injection into both knees in spring 2019. [id number] RAYMOND ZUNIGA MD [address] [address] 10/30/2019 08:12:04 10/30/2019 09:04:53 Osteoarthritis of knee 077605225 M17.0 M17.11 73-year-ol d gentleman symptomati c [...] need to consider partial knee replacemen t. [id number] RAYMOND ZUNIGA MD RHEUMATOL [address] [address] 01/29/2020 08:20:39 01/29/2020 08:43:40 Osteoarthritis of knee 725742834 M17.0 M17.11 74-year-ol d gentleman with chronic [...] follow with me in 3 months Folliculitis 85862869 L7 3.9 chest wall, folliculit is. I would suggest to use doxycyclin e twice a day for the next 10 days and follow with the PCP. Other options would include seeing a dermatolog ist. He will keep me posted [id number] RAYMOND ZUNIGA MD [facility]HE[facility]OL OGY [address] [address] 04/29/2020 08:18:17 04/29/2020 09:03:28 Osteoarthritis of right knee joint 7402604871 75958 M17.11 74-year-ol d gentleman with moderate degree [...] first before considerin g surgical interventi ons. [id number] RAYMOND ZUNIGA MD [facility]HEUMATOL OGY [facility] [address] [place] [address] 05/14/2020 12:59:34 05/14/2020 14:08:18 Osteoarthritis of right knee joint 5824893811 03624 M17.11 74-year-ol d gentleman with moderate degree of osteoarthr itis right knee. . Symptomati c management . Was to hold off on knee replacemen t surgery. Post steroid injection with resolution of effusion. Today is given the first dose of Hyalgan injection without complicati on follow up next week [id number] RAYMOND ZUNIGA MD [place]OL [place] [address] 05/22/2020 13:31:30 05/22/2020 14:01:39 Osteoarthritis of right knee joint 7950265027 34185 M17.11 74-year-ol d gentleman with moderate degree of osteoarthr itis right knee. Symptomati c management . on Hyalgan injection. Today the second injection is given without complicati ons. follow up next week [id number] RAYMOND ZUNIGA MD [place] [place] [id number] 05/28/2020 13:07:08 05/28/2020 14:08:14 Osteoarthritis of right knee joint 2758255451 95358 M17.11 74-year-ol d gentleman with moderate degree of osteoarthr itis right knee. Symptomati c management . on Hyalgan injection. completed the last of the 3 Hyalgan injections without complicati on follow with me in 3 months. [id number] RAYMOND ZUNIGA MD [facility] [address] [place] [address] 08/20/2020 08:28:21 08/20/2020 09:00:20 Osteoarthritis of right knee joint 8567655738 65676 M17.11 74-year-ol d gentleman with advanced osteoarthr itis right knee. I think he needs to consider partial knee replacemen t versus total knee replacemen t. He would like to see Dr. Familia bass with [facility]. he has repeated steroids as well as Hyalgan injection. Steroids seems to have helped the most. I will go ahead and repeat the steroid for symptomati c management and arrange for his orthopedic evaluation . I also encouraged him to work on weight loss. He can take Tylenol Extra Strength 2 tablets twice a day. [id number] RAYMOND ZUNIGA MD RHEUMATOL OGY [address] [place] [address] 12/25/2021 10:19:15 12/25/2021 16:29:41 Osteoarthritis of left knee joint 0993666296 28518 M17.12 Symptomati c left knee joint with [...] replacemen t. He agrees with the plan. [id number] SUMA SALAS MD GASTRO [address] [facility], [address] [place] [address] 02/22/2023 13:52:15 02/22/2023 15:13:53 Gastroesophageal reflux disease without esophagitis 483383919 K21.9 Continue omeprazole 40 mg once dailyAntir eflux measures discussed [id number] MERE COCHRAN MD [facility] [address] [place] [address] 11/21/2024 15:22:49 11/21/2024 16:34:03 Atopic dermatitis 18371938 L20.89 I83.12 The nature of the diagnosis [...] OF [place] (MEDICARE SUPP[place] [id number] Gricelda Holcomb [id number] Gricelda Holcomb 11/21/2024 1 [place] Gricelda Holcomb [id number] Gricelda Holcomb 11/21/2024 2 [employer] [place] (MEDICARE SUPPLEMENT) Gricelda Holcomb [id number] Gricelda Holcomb 11/21/2024 2 [employer] [place] (MEDICARE SUPPLEMENT) Gricelda Holcomb [id number] Gricelda Holcomb Notes Date Note Type Note Provider Name and Address Organization Details Recorded Time 05/28/2020 text/html ROS as noted in the HPI for Hyalgan injection right knee #3 RAYMOND ZUNIGA MD [address] [place] [address], [phone], [facility] 05/28/2020 14:38:58 08/20/2020 text/html ROS as noted in the HPI . Follow-up on osteoarthritis and symptomatic right knee joint. Has gained 15-20 pounds since last visit. positive pain on activity positive pain at night .Is thinking about knee replacement. Would like to see an orthopedic surgeon. RAYMOND ZUNIGA MD [address] [place] [address], [phone], [facility] 08/20/2020 10:06:41 12/25/2021 text/html ROS as noted in the HPI Follow-up on osteoarthritis. He is post right knee replacement. The replacement was uneventful. However complaining of pain and swelling in the left knee. No injuries or falls. No fevers. RAYMOND ZUNIGA MD [address] [place] [address], [phone], [facility] 12/26/2021 16:46:36 02/22/2023 text/html ROS as noted in the HPI Reason for new patient visit: GERD, abdominal pain The patient is a 77 year old who is being seen today in follow up for abdominal pain symptom. He has a past medical history of osteoarthritis, HTN. I have met Mr Holcomb about 1 year for EGD at [facility]. The patient had a barium esophagram that [...] improvement in symptoms. Has had EGD at [facility] in past with Dr. Lara. Today he voices no complaints. Reports he needs a refill on his omeprazole. SUMA SALAS MD [address] [place] [address], [phone], [facility] 02/22/2023 15:09:19 11/21/2024 text/html ROS as noted in the HPI spot on legatopic on dupixentlast seen Apr 2023 I am here to follow up on atopic derm , I am doing good on dupixent. I have a spot on my L Leg. MERE COCHRAN MD [address] [place] [address], [phone], [facility] 11/21/2024 17:39:30
--- NOTE | 2025-07-19 13:00 | CA_ITS ---
APPROVED REPORT EXAM: Comprehensive 2D, Doppler, and color-flow Echocardiogram [facility] Nurse Practitioner: Radha Bean RT(R) Ht: 6 ft 3 in Wt: 240lbs BSA: 2.37 BP: 121/73 mmHg Indications: Mild AI, SOB, fatigue, HTN, hyperlipidemia 2D Dimensions LVEF ([facility]) 67.30 % M: 52 - 72 LV Volume 117.80 mL M: 62 - 150 LV Volume Index 49.7 mL/m2 M: 34 - 74 LA Volume 41.80 mL LA Volume Index 17.64 mL/m2 (M/F) 16-34 EF AP4 60.30 % EF AP2 70.9 % EF BP 67.3 % GL Strain -19.7 % M-Mode Dimensions RVDd 2.86 cm (0.9-2.6) LA Diam 4.19 cm (1.9-4.0) LVDd 5.71 cm (3.5-5.7) LVDs 4.21 cm (3.5-5.7) IVSd 0.80 cm (0.6-1.1) PWd 0.84 cm (0.6-1.1) EF (Teich) 50.80% FS 26.30% EDV (Teich) 160.70 mL ESV (Teich) 79.00 mL LV Diastology E Decel Time 220 (160-240 msec) E/A Ratio 0.7 Aortic Valve DEJAH Index 1.42 cm2/m2 AoV Peak Fransico. 175.0 (50-130 cm/s) AO Peak GR. 12.30 mmHg AO Mean GR. 6.10 (<5 mmHg) AO VTI 35.2 (18-25 cm) DEJAH (VTI) 3.44 (2.5-4.5 cm2) Mitral Valve MV E Max Fransico. 70.0 (40-130 cm/s) MV A Velocity 95.0 (40-130 cm/s) E/A Ratio 0.73 MV PHT 64.0 ms Left Ventricle The left ventricle is normal size. Left ventricular systolic function is normal. The left ventricular ejection fraction is within the normal range. There is increased left ventricular wall thickness. There is normal LV segmental wall motion. Transmitral Doppler flow pattern suggests impaired LV relaxation. LVEF is 55% Right Ventricle The right ventricle is normal size. The right ventricular systolic function is normal. Atria Left atrium is mildly dilated. Right atrium is mildly dilated. There is no color Doppler evidence of interatrial shunt. Aortic Valve The aortic valve is mildly thickened. There is no hemodynamically significant aortic valvular stenosis. Mild aortic regurgitation is present. Mitral Valve The mitral valve is normal in structure. No evidence of mitral valve stenosis. Mild mitral regurgitation is present. Tricuspid Valve The tricuspid valve leaflets are thin and pliable. Trace tricuspid regurgitation. There is insufficient TR jet to estimate RVSP. Pulmonic Valve The pulmonary valve is grossly normal in structure. Trace pulmonic valve regurgitation is present. Great Vessels The aortic root is normal in size. IVC is normal in size and collapses >50% with inspiration. Pericardium There is no pericardial effusion. Other Information Study Quality: Fair Conclusion Normal biventricular systolic function. Biatrial dilation. Mild AI, mild MR. Electronically signed by : Abby Sandhu MD 07/28/2025 21:49:02
== END 2025-07-19 23:59 | disposition home or self-care (01) ==
LOC: RT 12:50
PROVIDERS: PCP Family Medicine; Visit Provider Physician Assistant
DX: I08.0 Rheumatic disorders of both mitral and aortic valves (principal); I11.9 Hypertensive heart disease without heart failure; I25.10 Atherosclerotic heart disease of native coronary artery without angina pectoris; E78.5 Hyperlipidemia, unspecified
CPT/HCPCS: 93306

== ENCOUNTER 2025-07-29 07:58 | Outpatient (CLI) | payer MEDICARE, BC, SELFPAY ==
--- OUTSIDE RECORDS SUMMARY | 2024-03-26 09:00 | XMS_ITS ---
[facility] Address [address] [place] [id number] Care Team Providers Care Wick Tender Name Role Phone Ninoska Kadeem Primary Care [...] 03/26/2024 Active Triamcinolone Acetonide 0.1 % 1 rdaha appl ied topically 2 times a day 12/30/2022 Active Vital Signs Blood pressure systolic 130 mm Hg 03/26/20 24 Blood pressure diastolic 72 mm Hg 024 Heart Rate 76 /min 03/26/2024 Height 75.25 in 03/26/2024 Weight 245.6 lbs 03/26/2024 BMI 30.49 kg/m2 03/26/2024 Encounters Encounter Location Date Provider Diagnosis [facility] [address] [place] [phone] 03/26/2024 Kadeem Xiao Rash R21 Assessments Encounter [...] * Kai HOLCOMBDOB:[birth year] (79 yo M)Acc No.[id number]:03/26/2024 Progress Notes Patient: Kai CHRISTIANSEN Provider: Munir Xiao M.D. :1945 A ge:78 Y S ex:Male Date:03/26/2024 Address:[address] [place] [address] [place], [id number] Subjective: * Chief Complaints: * 1 . [...] * Images: Billing Information: * Visit Code: 17914 Office Visit, Est Pt., Level 3. * Procedure Codes: G2211 Complex e/m visit add on. * Electronic signature of Leeann Xiao MD on 07/29/2025 at 08:02 AM EST Sign off status: Pending * Provider: Munir Xiao M.D. Date: 0 03/26/2024 Generated for Aracelyi rajeev/Bernadine/Eloisaransmitting on: 1 09/29/2024 08:02 AM EST History and Physical Notes * HPI [...]
--- OUTSIDE RECORDS SUMMARY | 2024-05-21 05:00 | XMS_ITS ---
Author Organization [facility] Address [address] [place] [phone] Care Team Providers Care Side Door Worker Name Role Phone Kadeem Xiao Primary Care Provider LizzieNehal villalba Unavailable [phone] Allergies Allergen (clinical drug ingredient) Drug/Non Drug [...] Provider Diagnosis A[facility]enn[facility] [address] [place] [phone] 05/21/2024 Nehal Samuel URI (upper respirato ry [...] * Kai HOLCOMBDOB:[birth year] (79 yo M)Acc No.[id number]:05/21/2024 Progress Notes Patient: Kai CHRISTIANSEN Provider: Nehal Samuel M.D. :1945 A ge:78 Y S ex:Male Date:05/21/2024 Address:[address] [place], [id number] Pcp:Kadeem Xiao Subjective: * Chief Complaints: * [...] * Procedure Codes: 9 [address] [place], [address] CAPILLARY BLOOD DRAW, 00317 CBC WITH AUTO DIFF, 29148 COVID TEST IN HOUSE, Modifiers: QW * Follow Up: p rn * Images: Billing Information: * Visit Code: 21208 Office Visit, Est Pt., Level 3. * Procedure Codes: [address] [place]. [address] CAPILLARY BLOOD DRAW. 99248 CBC WITH AUTO DIFF. 81914 COVID TEST IN HOUSE. Modifiers: QW * Electronic signature of Nehal Sameul MD on 07/29/2025 at 08:02 AM EST Sign off status: Pending * Provider: Nehal Samuel M.D. Date: 0 05/21/2024 Generated for Printi ng/Faraquelg/eTransmitting on: 1 09/29/2024 08:02 AM EST History [...]
--- OUTSIDE RECORDS SUMMARY | 2024-08-13 09:00 | XMS_ITS ---
Author Organization [facility] Address [address] [place] [phone] Care Team Providers Care Food And Beverage Lead Name Role Phone Ninoska Kadeem Primary Care Provider Allergies Allergen (clinical drug ingredient) Drug/Non Drug Allergy documented on EMR Reaction Allergy Type Onset Date Status amoxicillin Amoxicillin rash Drug Allergy Act sabrina dexamethasone Dexamethasone elevated BP Drug Allergy Active REASON FOR VISIT F/U [facility] D/C Medications Medication SIG (Take, Route, [...] [address] [place] [id number] 08/13/2024 Kadeem Xiao Incarcerated ventral hernia K43.6 [...] * Kai HOLCOMBDOB:[birth year] (79 yo M)Acc No.[id number]:08/13/2024 Patient: Kai CHRISTIANSEN Provider: Munir Xiao M.D. :1945 A ge:78 Y S ex:Male Date:08/13/2024 Address:[address] [place] [address] JENNIFER SPAIN, [id number] Subjective: * Chief Complaints: * 1 . F/U [facility] D/C. * HPI: H PI: 78 year old male presents with c/o Here for follow up on: 10/05-06/2024 [facility] hospitalization, see pt docs. Pt went [...] * Images: Billing Information: * Visit Code: 26423 Office Visit, Est Pt., Level 3. * Procedure Codes: G2211 Complex e/m visit add on. * Electronic signature of Leeann Xiao MD on 07/29/2025 at 08:02 AM EST Sign off status: Pending * Provider: Munir Xiao M.D. Date: 1 10/14/2023 Generated for Shelli boo/Bernadine/eTransmitting on: 09/29/2024 08:02 AM EST History and Physical Notes * HPI (History of Present Illness) Category Sub-Category Detail Notes Category Not es HPI Here for follow up on: 08/04-2023 [facility] hospitalization, see pt docs. Pt went [...]
--- OUTSIDE RECORDS SUMMARY | 2024-08-24 08:45 | XMS_ITS ---
Author Organization [facility] Address [address] [place] [phone] Care Team Providers Care Elevated Guard Name Role Phone Kadeem Xiao Primary Care Provider [phone] Allergies Allergen (clinical drug ingredient) Drug/Non Drug [...] [address] [place] [phone] 08/24/2024 Kadeem Xiao Influenza A J 10.1 [...] * Kai HOLCOMBDOB:[birth year] (79 yo M)Acc No.[id number]:08/24/2024 Progress Notes Patient: Kai CHRISTIANSEN Provider: Munir Xiao M.D. :1945 A ge:78 Y S ex:Male Date:08/24/2024 Address:[address] [place] [address] JENN[place] S[place], [id number] Subjective: * Chief Complaints: * 1 . Congestion coughing. * HPI: E NT/respiratory: 78 year old male presents with c/o cough P t complains of greenish yellow sputum production cough for 2 days. Associated with nasal congestion. Pt states his grandson was at his house [facility] and had a fever, was later dx [...] G 2211 Complex e/[place], [address] [place], [address] Flu Test- Nasal Swab, Modifiers: QW , 78775 COVID TEST IN HOUSE, Modifiers: QW * Follow Up: 2 Weeks * Images: Billing Information: * Visit Code: 31512 Office Visit, Est Pt., Level 3. * Procedure Codes: G2211 Complex e/[place]. [address] [place]. [address] Flu Test- Nasal Swab. Modifiers: QW 67654 COVID TEST IN HOUSE. Modifiers: QW * Electronic signature of Leeann Xiao MD on 07/29/2025 at 08:02 AM EST Sign off status: Pending * Provider: Munir Xiao M.D. Date: 10/25/2023 Generated for Aracelyi rajeev/Bernadine/eTransmitting on: 09/29/2024 08:02 AM EST History and Physical Notes * HPI (History of Present Illness) Category Sub-Category Detail Notes Category Not es ENT/respiratory cough Pt complains of greenish yellow sputum production cough for 2 days. Associated with nasal congestion. Pt states his grandson was at his house [facility] and had a fever, was later dx with Flu A Examination Category Sub-Category Detail Notes Category Not es ENT/Respiratory Oral cavity : erythema without exudate on pharynx Heart : RRR, normal S1 S2 Lungs: clear to auscultatio n bilaterally General Appearance: NAD
--- OUTSIDE RECORDS SUMMARY | 2024-08-31 08:45 | XMS_ITS ---
Author [facility] Address [address] [place] [phone] Care Team Providers Care Progressive Care Unit Registered Nurse Name Role Phone Ninoska Kadeem Primary Care Provider Allergies Allergen (clinical drug ingredient) Drug/Non Drug Allergy documented on EMR Reaction Allergy Type Onset Date Status amoxicillin Amoxicillin rash Drug Allergy Act sabrina dexamethasone Dexamethasone elevated BP Drug Allergy Active REASON FOR VISIT 3 week f/u Medications Medication SIG (Take, Route, Frequency, Duration) [...] lly Two times a day 05/21/2024 Active Losartan Potassium 100 MG 1 tab(s) [...] daily Active Vital Signs Blood pressure systolic 132 mm Hg 08/31/19 25 Blood pressure diastolic 70 mm Hg 025 Heart Rate 74 /min 08/31/2024 Height 75.25 in 08/31/2024 Weight 237.4 lbs 08/31/2024 BMI 29.47 kg/m2 08/31/2024 Encounters Encounter Location Date Provider Diagnosis [facility] [address] [place] [phone] 08/31/2024 Kadeem Xiao Other specified postprocedural states Z98.890 Assessments Encounter Date Diagnosis (ICD Code) Assessment Notes Treatment Notes Treatment Clinical Notes Section Notes 08/31/2024 Other specified postprocedural states (ICD-10 - Z98.890) Doing well. Patient saw Dr. Lara yesterday Plan Of Treatment Treatment Notes Assessment Notes Other specified postprocedural states Do ing well. Patient saw Dr. Lara yesterday Next Appt Details Follow Up: prn, Reason: Progress Notes * Kai HOLCOMBDOB:[birth year] (79 yo M)Acc No.[id number]:08/31/2024 Patient: Kai CHRISTIANSEN Provider: Munir Xiao M.D. :1945 A ge:78 Y S ex:Male Date:08/31/2024 Address:[address] [place] [address] [place], [id number] Subjective: * Chief Complaints: * 1 . 3 week f/u. * HPI: H PI: 78 year old male presents with c/o Here for follow up on: h ernia repair surgery. Pt states he is doing well and does not have any concerns today. * ROS: D ERMATOLOGY: no R kei. [...] BIPAP Hose MACHINE AND SUPPLIES NASAL AUTOPAP 616 HEATED AIR DIRECTED , Taking Fish Oil [...] Orally Two times a day , Discontinued Tamiflu 75 MG Capsule 1 capsule Orally Twice a day , Medication List reviewed and reconciled with the patient * Allergies: A moxicillin: rash, Dexamethasone: elevated BP. Objective: * Vitals: W t:237.4, Temp:98.0, BP:132/70, HR:74, Nurse:kk, Ht: 75.25, BMI:29.47. * Examination: G eneral Examination: General Appearance: N AD. Assessment: * Assessment: 1. O ther specified postprocedural states - Z98.890 (Primary) Plan: * Treatment: * Procedure Codes: G 2211 Complex e/m visit add on * Follow Up: p rn * Images: Billing Information: * Visit Code: 43688 Office Visit, Est Pt., Level 3. * Procedure Codes: G2211 Complex e/m visit add on. * Electronic signature of Leeann Xiao MD on 07/29/2025 at 08:02 AM EST Sign off status: Pending * Provider: Munir Xiao M.D. Date: 0 08/31/2024 Generated for Shelli boo/Bernadine/Odalisitting on: 09/29/2024 08:02 AM EST History and Physical Notes * HPI (History of Present Illness) Category Sub-Category Detail Notes Category Not es HPI Here for follow up on: hernia re pair surgery. Pt states he is doing well and does not have any concerns today Examination Category Sub-Category Detail Notes Category Not es General Examination General Appearance: NAD
--- OUTSIDE RECORDS SUMMARY | 2025-06-25 06:00 | XMS_ITS ---
[facility] Address [address] [place] [id number] Care Team Providers Care Vacation Sales Advisor Name Role Phone Ninoska Kadeem Primary Care Provider Allergies Allergen (clinical drug ingredient) Drug/Non Drug Allergy documented on EMR Reaction Allergy Type Onset Date Status amoxicillin Amoxicillin rash Drug Allergy Act sabrina dexamethasone Dexamethasone elevated BP Drug Allergy Active REASON FOR VISIT [facility] f/u Medications Medication SIG (Take, Route, Frequency, Duration) Notes Start Date End Date Status Atorvastatin Calcium 40 MG 1 tab(s) oral ly once a day 10/24/2017 Active Pimecrolimus 1 % 1 application Externally Twice a day 03/26/2024 Active Doxycycline Hyclate 100 MG 1 capsule Ora lly Two times a day 05/21/2024 Active hydroCHLOROthiazide 12.5 MG 1 tab(s) ora lly once a day Active Triamcinolone Acetonide 0.1 % 1 radha appl ied topically 2 times a day 12/30/2022 Active Losartan Potassium 100 MG 1 tab(s) orall y once a day; Duration: 30 day(s) Active Fish Oil 1000 MG 1 cap(s) orally once daily Active Dupixent 300 MG/2ML as directed subcutaneously every 2 weeks Active CareTouch CPAP & BIPAP Hose NASAL AUTOPA P 02/11 HEATED AIR DIRECTED 12/22/2016 Active Immunizations Vaccine Route Administration Date Status Comme nts Fluzone High Dose (65yr and older) IM Intramuscular 06/25/2025 Administered Problems Problem Type SNOMED Code ICD Code Onset Dates Problem Status W/U Status Risk Notes Problem Postprocedural states (133314223) Other specified postprocedural states (Z98.890) Active confirmed Problem Malignant neoplasm of prostate (963854771) Malignant neoplasm of prostate (C61) Active confirmed Problem Body mass index 30+ - obesity (500516622) BMI 30.0-30.9,adult (Z68.30) Active confirmed Vital Signs Blood pressure systolic 132 mm Hg 06/25/20 25 Blood pressure diastolic 76 mm Hg 025 Heart Rate 70 /min 06/25/2025 Height 75.25 in 06/25/2025 Weight 241.8 lbs 06/25/2025 BMI 30.02 kg/m2 06/25/2025 Encounters Encounter Location Date Provider Diagnosis [facility] [address] [place] [phone] 06/25/2025 Kadeem Xiao Encounter for immunization Z23 ; Other specified postprocedural states Z98.890 ; Hyperlipidemia, unspecified hyperlipidemia type E78.5 ; Essential hypertension I10 ; Malignant neoplasm of prostate C61 and BMI 30.0-30.9,adult Z68.30 Assessments Encounter Date Diagnosis (ICD Code) Assessment Notes Treatment Notes Treatment Clinical Notes Section Notes 06/25/2025 Encounter for immunization (ICD-10 - Z23) 06/25/2025 Other specified postprocedural states (ICD-10 - Z98.890) Patient to follow up with Dr. Lara next week 06/25/2025 Hyperlipidemia, unspecified hyperlipidemia type (ICD-10 - E78.5) 06/25/2025 Essential hypertension (ICD-10 - I10) 06/25/2025 Malignant neoplasm of prostate (ICD-10 - C61) 06/25/2025 BMI 30.0-30.9,adult (ICD-10 - Z68.30) 06/25/2025 Other Discharge summary with available lab/diagnostic imaging results obtained and reviewed. Discharge medication list reconciled. Appropriate counseling provided. Moderate Complexity Plan Of Treatment Treatment Notes Assessment Notes Other specified postprocedural states Pa tient to follow up with Dr. Lara next week Other Discharge summary wi th available lab/diagnostic imaging results obtained and reviewed. Discharge medication list reconciled. Appropriate counseling provided. Moderate Complexity Next Appt Details Follow Up: as scheduled,and prn, Reason: Progress Notes * Kai HOLCOMBDOB:[birth year] (79 yo M)Acc No.[id number]:06/25/2025 Progress Notes Patient: Kai CHRISTIANSEN Provider: Munir Xiao M.D. :1945 A ge:79 Y S ex:Male Date:06/25/2025 Address:[address] [place] [address] [place], [id number] Subjective: * Chief Complaints: * [address] [facility] f/u. * HPI: H PI: Patient is here today for a Transition of Care Visit. Discharge from the following Facility: Patient admitted to [facility] on 06/17/2025 for Incisional hernia repair by Dr. Lara. Discharge date: 06/19/2025. Date of phone contact following discharge: 06/20/2025. Pt states he would like to get his flu shot. * Medical History: A llergic Rhinitis, Seronegative [...] - Negative , RT Total Knee Replacement 05/2021, ventral hernia repair 2024. * Hospitalization/Major Diagno stic Procedure: D enies Past Hospitalization. * Family History: F ather: 68 yrs, lung cancer. M other: 79 yrs, stroke. 1 brother(s) . 1 son(s) , 2 daughter(s) . . * Social History: C URRENT TOBACCO USE: No S moking Status: Patient does NOT smoke. [...] Dexamethasone: elevated BP. Objective: * Vitals: W t: 241.8, Temp: 97.9, BP: 132/76, HR: 70, Nurse: ANA, Ht: 75.25, BMI:30.02. * Examination: G eneral Examination: General Appearance: N AD, conversant. S kin: d ressings over surgical wounds are clean and dry. Assessment: * Assessment: 1. O ther specified postprocedural states - Z98.890 (Primary) 2 . E ncounter for immunization - Z23 3 . H yperlipidemia, unspecified hyperlipidemia type - E78.5 4 . E ssential hypertension - I10 5 . M alignant neoplasm of prostate - C61 6 . B AR 30.0-30.9,adult - Z68.30 Plan: * Treatment: 2. O thers Notes: Discharge summary with available lab/diagnostic imaging results obtained and reviewed. Discharge medication list reconciled. Appropriate counseling provided. Moderate Complexity * Immunizations: Fluzone High Dose (65yr and older) : 0.5 mL (Route: Intramuscular) given by Monserrat Haas on Left Deltoid (Encounter for immunization) * Procedure Codes: G 2211 Complex e/[place], [address] TRANS CARE MGMT 14 DAY DISCH, 1111F DSCHR MED/CURENT MED MERGE, 1036F TOBACCO NON-USER, G8950 PREHTN/HTN BP DOC INDCD F/U DOC, G8752 MOST RECENT SYSTOLIC BP < 140MM HG, G8754 MOST RECENT DIASTOLIC BP < 90MM HG, 3075F SYST BP GE 130 - 139MM HG, 3078F DIAST BP < 80 MM HG * Follow Up: a s scheduled,and prn * Images: Drawin06/25/25 [facility] Billing Information: * Visit Code: 40616 Office Visit, Est Pt., Level 3. * Procedure Codes: G2211 Complex e/[place]. [address] TRANS CARE MGMT 14 DAY DISCH. 1111F DSCHR MED/CURENT MED MERGE. 1036F TOBACCO NON-USER. G8950 PREHTN/HTN BP DOC INDCD F/U DOC. G8752 MOST RECENT SYSTOLIC BP < 140MM HG. G8754 MOST RECENT DIASTOLIC BP < 90MM HG. 3075F SYST BP GE 130 - 139MM HG. 3078F DIAST BP < 80 MM HG. * Electronic signature of Leeann Xiao MD on 07/29/2025 at 08:03 AM EST Sign off status: Pending * Provider: Munir Xiao M.D. Date: Generated for Shelli boo/Bernadine/Stephaniesmitting on: 09/29/2024 08:03 AM EST History and Physical Notes * HPI (History of Present Illness) Category Sub-Category Detail Notes Category Not es HPI Patient is here today for a Talavera sition of Care Visit. Discharge from the following Facility: Patient admitted to [facility] on 06/17/2025 for Incisional hernia repair by Dr. Lara. Discharge date: 06/19/2025. Date of phone contact following discharge: 06/20/2025. Pt states he would like to get his flu shot Examination Category Sub-Category Detail Notes Category Not es General Examination General Appearance: NAD, conversan t Skin: dressings over surgi jeremy wounds are clean and dry
--- NOTE | 2025-07-29 08:00 | CT_ITS ---
FINAL REPORT TECHNIQUE: Thin section axial images are obtained through the abdomen and pelvis after intravenous contrast. Reconstruction images were obtained from the axial data. Exam was performed using dose reduction techniques. CLINICAL HISTORY: abdominal pain COMPARISON: 03/15/2025 FINDINGS: LUNG BASES: Lung bases are clear. Heart size is normal. LIVER: Homogeneous. No focal lesion. GALLBLADDER/BILIARY SYSTEM: Gallbladder is absent. No biliary dilatation. SPLEEN: Unremarkable. PANCREAS: Unremarkable. ADRENALS: Unremarkable. KIDNEYS/URETERS/BLADDER: Bilateral renal cysts. No hydronephrosis or solid mass. Unremarkable urinary bladder. GI TRACT: There appears to have been interval repair of the periumbilical and supraumbilical hernias. There is an anterior abdominal wall fluid collection measuring 14.2 x 7.6 cm. Fluid extends through the previous abdominal wall defect. This collection has a thick wall but contains no air. However, abscess not excluded. No evidence of bowel obstruction. Appendix not visualized. No secondary signs of appendicitis. There is diverticulosis without evidence of diverticulitis. There is no acute GI abnormality. PELVIC ORGANS: Radiation markers are seen in the prostate. LYMPH NODES/RETROPERITONEUM/MESENTERY: There are multiple small mesenteric lymph nodes, favor reactive. No abdominal aortic aneurysm. FREE FLUID: No ascites. BONES: No acute osseous abnormality. IMPRESSION: Fluid collection in the anterior abdominal wall following presumed hernia repair which could be hematoma or abscess. Reviewed, Interpreted and Dictated by Jesica Benson MD Transcribed by Bailee Augustine Authenticated and . [facility]
--- OUTSIDE RECORDS SUMMARY | 2025-07-29 08:03 | XMS_ITS | Patient Health Record ---
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9,adult (Z68.30) Active confirmed Problem Psoriasis (0067314) Psoriasis (L40.9) Active co nfirmed Problem Vitamin B12 deficiency (non anemic) (25611631) Vitamin B 12 deficiency (E53.8) Active confirmed Problem Malignant neoplasm o f prostate (832139037) Malignant neoplasm of prostate (C61) Active confirmed Problem Primary insomnia (5555849) Primary insomnia (F51.01) Active confirmed Problem Nicotine dependence (70383223) Personal history of nicotine dependence (Z87.891) Active confirmed Problem Obstructive sleep apnea syndrome (27316252) Obstructive sleep apnea syndrome (G47.33) Active confirmed Problem Obesity (589718686) Non morbid o besity, unspecified obesity type (E66.9) Active confirmed Problem Obstructive sleep apnea syndrome (00144661) ESTHER (obstructive sleep apnea) (G47.33) Active confirmed Problem Osteoarthritis of knee (644898650) Primary osteoarthritis of left knee (M17.12) Active confirmed Problem Hyperlipidaemia (44223986) Hyperlipidemia, unspecified hyperlipidemia type (E78.5) Active confirmed Problem Hypersomnia (92854233) Hypersomnia (G47.10) Active confirmed Problem Pure hypercholesterolemia (408741447) Pure hypercholesterolemia (E78.00) Active confirmed Problem Postprocedural state s (649621671) Other specified postprocedural states (Z98.890) Active confirmed Problem Hearing loss (50742418) Hearing loss, unspecified hearing loss type, unspecified laterality (H91.90) Active confirmed Problem Arthritis of right knee (7717642352021030) Arthritis of right knee (M17.11) Active confirmed Problem Raised prostate specific antigen (011778196) Elevated PSA, less than 10 ng/ml (R97.20) Active confirmed Problem Diverticular disease of colon (539580179) Colon, diverticulosis (K57.30) Active confirmed Problem Ocular migraine (77608391) Ocular migraine (G43.109) Active confirmed Vital Signs Heart Rate 70 /min 06/25/2025 Blood pressure diastolic 76 mm Hg 06/25/2025 Height 75.25 in 06/25/2025 Blood pressure systolic 132 mm Hg 06/25/2025 Weight 241.8 lbs 06/25/2025 BMI 30.02 kg/m2 06/25/2025 Encounters Encounter Location Date Provider Diagnosis [facility] [address] [place], [place] [id number] 08/13/2024 Kadeem [place] Incarcerated ventral hernia K43.6 and Other specified postprocedural states Z98.890 [facility] [address] [place], [place] [id number] 08/24/2024 Kadeem [place] Influenza A J10.1 [facility] [address] [place], [place] [id number] 08/31/2024 Kadeem [place] Other specified postprocedural states Z98.890 [facility] [address] [facility] [address] [place] [id number] 06/25/2025 Kadeem Xiao Encounter for immunization Z23 ; Other specified postprocedural states Z98.890 ; Hyperlipidemia, unspecified hyperlipidemia type E78.5 ; Essential hypertension I10 ; Malignant neoplasm of prostate C61 and BMI 30.0-30.9,adult Z68.30 [facility] [address] [facility] [address] [place] [id number] 08/27/2024 Kadeem Ninoska [facility] [address] [facility] [address] [place] [id number] 06/20/2025 Kadeem Xiao Assessments Encounter Date Diagnosis (ICD Code) Assessment Notes Treatment Notes Treatment Clinical Notes Section Notes 08/13/2024 Other specified postprocedural states (ICD-10 - Z98.890) Patient to follow up with Dr. Lara tomorrow 08/13/2024 Incarcerated ventral hernia (ICD-10 - K43.6) 08/24/2024 Influenza A (ICD-10 - J10.1) 08/31/2024 Other specified postprocedural states (ICD-10 - Z98.890) Doing well. Patient saw Dr. Lara yesterday 06/25/2025 Encounter for immunization (ICD-10 - Z23) [...] Treatment Pending Test Test Name Order Date [id number] 04/13/2022 Insurance Providers Payer Name Payer Address Payer Phone Subscriber Number Group Number Insured Name Patient Relationship to Insured Coverage Start Date Coverage End Date MEDICARE PART B [address] [address] [place] [id number] Kai Chu Self - patient is the insured [facility] [address] [place] [address] [id number] [id number] Self - patient is [...]
[2025-07-29 08:24] LABS: Blood Urea Nitrogen 12 mg/dl (9-20); Creatinine,Serum 0.80 mg/dl (0.66-1.25); Estimated Glomerular Filt Rate 93 ml/min (>60); GFR (African American) 113 ML/MIN (>60)
[2025-07-29] MEDS: BARIUM SULFATE(READI-CAT2);450ML BOTTLE 450 ML PO (09:10)
[2025-07-29] MEDS: IOPAMIDOL-370 (76%);100ML BOTTLE 75 ML IV (09:10)
[2025-07-29] MEDS: SODIUM CHLORIDE 0.9% 10ML SYR (RAD ONLY) 10 ML IV (09:10)
== END 2025-07-29 23:59 | disposition home or self-care (01) ==
LOC: RAD 08:00
PROVIDERS: PCP Family Medicine; Visit Provider Surgery
DX: R93.5 Abnormal findings on diagnostic imaging of other abdominal regions, including retroperitoneum (principal); R10.9 Unspecified abdominal pain; Z98.890 Other specified postprocedural states
CPT/HCPCS: 36415; 74177; 82565; 84520; Q9967